=== PATIENT | female | born 1960 | race Caucasian/White ===

== ENCOUNTER 2017-09-29 00:46 | Inpatient (IN) | payer BC ==
[2017-09-29] VITALS (8 sets, daily range): BP systolic 111–145; BP diastolic 49–66
[~2017-09-29] VITALS: Ht 157.5 cm; Wt 95.3 kg
[2017-09-29] MEDS ORDERED: Morphine Sulfate 10mg/ml Inj IVP ONE (01:00)
[2017-09-29] MEDS ORDERED: MINIPRESS1 MG PO (01:01)
[2017-09-29] MEDS ORDERED: ROXICODONE5 MG ORAL (01:01)
[2017-09-29] MEDS ORDERED: CARVEDILOL25 MG ORAL (01:01)
[2017-09-29] MEDS ORDERED: AMLODIPINE BESY10 MG ORAL (01:01)
[2017-09-29] MEDS ORDERED: STARLIX60 MG ORAL (01:01)
[2017-09-29] MEDS ORDERED: ASPIRIN81 MG ORAL (01:01)
[2017-09-29] MEDS ORDERED: FERROUS SULFAT325 MG ORAL (01:01)
[2017-09-29] MEDS ORDERED: ATORVASTATIN CA80 MG ORAL (01:01)
[2017-09-29] MEDS ORDERED: LANTUS SOL100 UNIT/1 SUBQ (01:01)
[2017-09-29] MEDS ORDERED: FUROSEMIDE80 M1 ORAL (01:01)
[2017-09-29] MEDS ORDERED: ISOSORBIDE MONO60 M1 PO (01:01)
[2017-09-29] MEDS ORDERED: POLYETHYLENE GL17 GM ORAL (01:01)
[2017-09-29] MEDS ORDERED: DUONEB 0.5-3(2.53 ML HHN (01:01)
[2017-09-29] MEDS ORDERED: FAMOTIDINE20 MG ORAL (01:01)
[2017-09-29] MEDS ORDERED: TIZANIDINE HCL4 MG ORAL (01:01)
[2017-09-29] MEDS ORDERED: JANUVIA25 MG ORAL (01:01)
[2017-09-29] MEDS ORDERED: LOSARTAN POTASS50 MG ORAL (01:01)
[2017-09-29 01:27] LABS: BASOPHILS % (AUTO) 0.6 % (0.0-2.0); EOSINOPHILS % (AUTO) 10.5 % (0.0-3.0); HEMATOCRIT 31.1 % (37.0-47.0); HEMOGLOBIN 10.4 G/DL (12.0-16.0); LYMPHOCYTES % (AUTO) 10.6 % (20.0-45.0); MEAN CORPUSCULAR VOLUME 84 FL (80-99); MONOCYTES % (AUTO) 8.4 % (1.0-10.0); NEUTROPHILS % (AUTO) 69.9 % (45.0-75.0); PLATELET COUNT 376 K/UL (150-450); RED BLOOD COUNT 3.71 M/UL (4.20-5.40); RED CELL DISTRIBUTION WIDTH 15.9 % (11.6-14.8); WHITE BLOOD COUNT 16.8 K/UL (4.8-10.8)
[2017-09-29 01:36] LABS: ANION GAP 13 mmol/L (5-15); BLOOD UREA NITROGEN 32 mg/dL (7-18); CALCIUM 9.2 MG/DL (8.5-10.1); CARBON DIOXIDE 25 MMOL/L (21-32); CHLORIDE 89 MMOL/L (98-107); CREATININE 4.5 MG/DL (0.55-1.30); POTASSIUM 4.1 MMOL/L (3.5-5.1); SODIUM 126 MMOL/L (136-145)
[2017-09-29 01:49] LABS: ALANINE AMINOTRANSFERASE 67 U/L (12-78); ALBUMIN 1.8 G/DL (3.4-5.0); ALBUMIN/GLOBULIN RATIO 0.3 (1.0-2.7); ALKALINE PHOSPHATASE 401 U/L (46-116); ASPARTATE AMINO TRANSFERASE 73 U/L (15-37); BILIRUBIN,TOTAL 0.5 MG/DL (0.2-1.0); CKMB 1.2 NG/ML (0.0-3.6); CREATINE KINASE 14 U/L (26-308)
[2017-09-29] MEDS ORDERED: Morphine Sulfate 4mg/ml Inj (IV USE ONLY) IVP ONE (02:00)
[2017-09-29] MEDS ORDERED: Enoxaparin 100mg Inj SUBQ ONE (02:00)
--- NOTE | 2017-09-29 02:55 | Emergency Room Report ---
History of Present Illness General Chief Complaint: Chest Pain Source: Patient, Medical Record, EMS Present Illness HPI Is a 57-year-old Bangl[place] female with a history of [address] [facility] in May. She had complicated course with infection of sternal wire. This has to be removed and antibiotics given. Since then she been having chest pain. She said pain got worse in the last 24 hours. No radiation. No fever chills but no nausea no vomiting. Pain is 10 out of 10. Came by EMS from [facility]. She received aspirin. Nothing made it better. Nothing made it worse. Allergies: Coded Allergies: ADHESIVE (Verified Allergy, Unknown, 09/29/17) AMLODIPINE (Verified Allergy, Unknown, 09/29/17) INSULIN ASPART (Verified Allergy, Unknown, 09/29/17) INSULIN LISPRO (Verified Allergy, Unknown, 09/29/17) IODINE (Verified Allergy, Unknown, 09/29/17) PENICILLINS (Verified Allergy, Unknown, 09/29/17) Patient History Past Medical History: see triage record, old chart reviewed, DM, HTN, UT, CAD Past Surgical History: other Pertinent Family History: none Social History: Denies: smoking Last Menstrual Period: none Now: No Immunizations: other Reviewed Nursing Documentation: PMH: Agreed; PSxH: Agreed Nursing Documentation-PMH Hx Hypertension: Yes Hx Diabetes: Yes Review of Systems Eye: Denies: eye pain, blurred vision ENT: Denies: ear pain, nose congestion, throat swelling Respiratory: Denies: cough, shortness of breath Cardiovascular: Reports: chest pain; Denies: palpitations Gastrointestinal: Denies: abdominal pain, diarrhea, nausea, vomiting Musculoskeletal: Denies: back pain, joint pain Skin: Denies: rash Neurological: Denies: headache, numbness Endocrine: Denies: increased thirst, increased urine Hematologic/Lymphatic: Denies: easy bruising All Other Systems: negative except mentioned in HPI Physical Exam Vital Signs Date Time Temp Pulse Resp B/P (MAP) Pulse Ox O2 Delivery O2 Flow Rate FiO2 09/29/17 00:27 98.1 71 18 160/74 98 Nasal Cannula 4.0 98.1 vitals with high blood pressure Sp02 EP Interpretation: reviewed, normal General Appearance: well appearing, no apparent distress, alert, obese Head: normocephalic, atraumatic Eyes: bilateral eye PERRL, bilateral eye EOMI ENT: hearing grossly normal, normal pharynx Neck: full range of motion, supple, no meningismus Respiratory: chest non-tender, lungs clear, normal breath sounds Cardiovascular #1: regular rate, rhythm, no murmur Gastrointestinal: normal bowel sounds, non tender, no mass, no organomegaly, no bruit, non-distended Musculoskeletal: back normal, normal range of motion Neurologic: alert, oriented x3 Psychiatric: mood/affect normal Skin: warm/dry Medical Decision Making Diagnostic Impression: Primary Impression: ACS (acute coronary syndrome) Additional Impressions: Morbid obesity with BMI of 40.0-44.9, adult Anemia Qualified Codes: D64.9 - Anemia, unspecified ESRD on hemodialysis ER Course Patient presents with chest pain. Troponin intermediate. Pain is better controlled now. We will admit for further workup. I discussed case with Dr. Biswas who will admit for Dr. Torres. Lab Results Impression labs unremarkable except for intermediate troponin and elevated WBC EKG Diagnostic Results Rate: normal Rhythm: NSR ST Segments: other - intermediate ventricular conduction delay Rhythm Strip Diag. Results Rhythm Strip Time: 02:55 EP Interpretation: yes Rate: 62 Rhythm: NSR, no PVC's, no ectopy Chest X-Ray Diagnostic Results Chest X-Ray Diagnostic Results : Chest X-Ray Ordered: Yes # of Views/Limited/Complete: 1 View Indication: Chest Pain EP Interpretation: Yes Interpretation: no consolidation, no effusion, no pneumothorax, no acute cardiopulmonary disease Impression: No acute disease Electronically Signed by: Jorge Luis Crane MD Last Vital Signs Date Time Temp Pulse Resp B/P (MAP) Pulse Ox O2 Delivery O2 Flow Rate FiO2 09/29/17 02:09 98.1 09/29/17 01:40 67 14 136/53 99 Room Air 09/29/17 00:46 4.0 Status: improved Disposition: ADMITTED INPATIENT Condition: Serious JORGE LUIS CRANE M.D. Sep 29, 2017 02:55
[2017-09-29] MEDS ORDERED: Miralax 17gm pkt ORAL PRN (07:45)
[2017-09-29] MEDS ORDERED: D5 1/2NS 1,000 ML IV SCH (08:45)
[2017-09-29] MEDS: Heparin 5000 units/ml inj SUBQ SCH (09:00)
[2017-09-29] MEDS: Aspirin Baby 81mg ORAL SCH (10:07)
[2017-09-29] MEDS: Docusate 100mg cap ORAL SCH (10:07)
[2017-09-29 10:11] LABS: BASOPHILS % (AUTO) 0.7 % (0.0-2.0); EOSINOPHILS % (AUTO) 11.3 % (0.0-3.0); HEMATOCRIT 30.5 % (37.0-47.0); HEMOGLOBIN 10.1 G/DL (12.0-16.0); LYMPHOCYTES % (AUTO) 13.5 % (20.0-45.0); MEAN CORPUSCULAR VOLUME 85 FL (80-99); MONOCYTES % (AUTO) 8.8 % (1.0-10.0); NEUTROPHILS % (AUTO) 65.7 % (45.0-75.0); PLATELET COUNT 360 K/UL (150-450); RED BLOOD COUNT 3.59 M/UL (4.20-5.40); RED CELL DISTRIBUTION WIDTH 16.2 % (11.6-14.8); WHITE BLOOD COUNT 17.3 K/UL (4.8-10.8)
[2017-09-29 10:42] LABS: ANION GAP 11 mmol/L (5-15); BLOOD UREA NITROGEN 33 mg/dL (7-18); CALCIUM 9.2 MG/DL (8.5-10.1); CARBON DIOXIDE 24 MMOL/L (21-32); CHLORIDE 90 MMOL/L (98-107); CHOLESTEROL 117 MG/DL (< 200); CREATININE 4.6 MG/DL (0.55-1.30); HDL CHOLESTEROL 48 MG/DL (40-60); POTASSIUM 3.9 MMOL/L (3.5-5.1); SODIUM 125 MMOL/L (136-145); TRIGLYCERIDES 77 MG/DL (30-150)
[2017-09-29 11:32] LABS: % IRON SATURATION 23 % (15-50); IRON 43 ug/dL (50-175); TOTAL IRON BINDING CAPACITY 191 ug/dL (250-450)
[2017-09-29 11:37] LABS: FERRITIN 1688 NG/ML (8-388); LACTATE DEHYDROGENASE 8 U/L (135-225)
--- NOTE | 2017-09-29 14:26 | Consultation ---
History of Present Illness General Date patient seen: Sep 29, 2017 Chief Complaint: Chest Pain Reason for Consultation: abdominal pain, wound infection Present Illness HPI 57 year old female with very complex surgical history presented to ED from alf for worsening SOB. had prior cardiac cabg x2 at [facility] complicated by wound infection and further abdominal infection which required exploration. since she has been in rehab/alf care. states that they are caring for her wounds and unsure of status. upon admission she was noted to have a large abdominal wound that was complex. surgery called to evaluate. patient seen, chart reviewed, patient examined. Allergies: Coded Allergies: ADHESIVE (Verified Allergy, Unknown, 09/29/17) AMLODIPINE (Verified Allergy, Unknown, 09/29/17) INSULIN ASPART (Verified Allergy, Unknown, 09/29/17) INSULIN LISPRO (Verified Allergy, Unknown, 09/29/17) IODINE (Verified Allergy, Unknown, 09/29/17) PENICILLINS (Verified Allergy, Unknown, 09/29/17) Medication History Scheduled Amlodipine Besylate* (Amlodipine Besylate*), 10 MG ORAL DAILY, (Reported) Aspirin* (Aspirin*), 81 MG ORAL DAILY, (Reported) Atorvastatin Calcium* (Lipitor*), 80 MG ORAL BEDTIME, (Reported) Carvedilol* (Carvedilol*), 25 MG ORAL EVERY 12 HOURS, (Reported) Famotidine (Famotidine), 20 MG ORAL DAILY, (Reported) Ferrous Sulfate* (Ferrous Sulfate*), 325 MG ORAL DAILY, (Reported) Furosemide* (Lasix*), 80 MG ORAL BIDAC, (Reported) Insulin Glargine (Lantus), 0 SUBQ BEDTIME, (Reported) Losartan Potassium* (Losartan Potassium*), 50 MG ORAL BID, (Reported) Nateglinide* (Starlix*), 120 MG ORAL THREE TIMES A DAY, (Reported) Sitagliptin* (Januvia*), 25 MG ORAL DAILY, (Reported) Tizanidine Hcl* (Zanaflex*), 2 MG ORAL EVERY 8 HOURS, (Reported) Scheduled PRN Oxycodone HCl (Oxycodone HCl), 5 MG ORAL Q6HR PRN for For Pain, (Reported) Polyethylene Glycol 3350* (Polyethylene Glycol 3350*), 17 GM ORAL BEDTIME PRN for Constipation, (Reported) Miscellaneous Medications Ipratropium/Albuterol Sulfate (DuoNeb 0.5-3(2.5)mg/3ml), 3 ML HHN, (Reported) Isosorbide Mononitrate (Isosorbide Mononitrate Er), 60 MG PO, (Reported) Prazosin Hcl* (Minipress*), 2 MG PO, (Reported) Patient History History Provided By: Patient, Medical Record, PMD Healthcare decision maker Resuscitation status Full Code Advanced Directive on File Past Medical/Surgical History Past Medical/Surgical History: (1) Abdominal wall abscess at site of surgical wound (2) Open abdominal wall wound (3) Wound, open, abdominal wall, anterior with complication (4) Anemia (5) ESRD on hemodialysis (6) Morbid obesity with BMI of 40.0-44.9, adult (7) ACS (acute coronary syndrome) (8) Chest pain Review of Systems All Other Systems: negative except mentioned in HPI Physical Exam General Appearance: no apparent distress Lines, tubes and drains: peripheral HEENT: mucous membranes moist Neck: supple, normal inspection Respiratory/Chest: chest wall non-tender, lungs clear, other - prior sternal wound healing, left HD cath Cardiovascular/Chest: normal rate Abdomen: soft, guarding, tender, other - large epigastric wound with significant tissue and epidermal loss, tracking down past my finger length , and up as well as lateral. murky drainage Extremities: normal inspection Skin Exam: warm/dry Neurologic: alert, oriented x 3 Last 24 Hour Vital Signs Date Time Temp Pulse Resp B/P (MAP) Pulse Ox O2 Delivery O2 Flow Rate FiO2 09/29/17 12:00 64 09/29/17 08:00 65 09/29/17 08:00 97.8 20 126/60 (82) 96 97.8 09/29/17 05:56 Room Air 09/29/17 05:00 98.5 65 13 111/49 100 Room Air 98.5 09/29/17 04:38 98.5 65 13 111/49 100 Room Air 98.5 09/29/17 03:21 62 12 138/58 100 Nasal Cannula 2.0 09/29/17 03:08 98.1 09/29/17 02:09 98.1 09/29/17 01:40 98.1 09/29/17 01:40 97.9 67 14 136/53 99 Room Air 97.9 09/29/17 01:03 98.1 09/29/17 00:46 71 18 Nasal Cannula 4.0 09/29/17 00:27 98.1 71 18 160/74 98 Nasal Cannula 4.0 98.1 Laboratory Tests Test 09/29/17 01:00 09/29/17 09:40 White Blood Count 16.8 K/UL (4.8-10.8) H 17.3 K/UL (4.8-10.8) H Red Blood Count 3.71 M/UL (4.20-5.40) L 3.59 M/UL (4.20-5.40) L Hemoglobin 10.4 G/DL (12.0-16.0) L 10.1 G/DL (12.0-16.0) L Hematocrit 31.1 % (37.0-47.0) L 30.5 % (37.0-47.0) L Mean Corpuscular Volume 84 FL (80-99) 85 FL (80-99) Mean Corpuscular Hemoglobin 28.1 PG (27.0-31.0) 28.0 PG (27.0-31.0) Mean Corpuscular Hemoglobin Concent 33.5 G/DL (32.0-36.0) 33.0 G/DL (32.0-36.0) Red Cell Distribution Width 15.9 % (11.6-14.8) H 16.2 % (11.6-14.8) H Platelet Count 376 K/UL (150-450) 360 K/UL (150-450) Mean Platelet Volume 4.1 FL (6.5-10.1) L 4.1 FL (6.5-10.1) L Neutrophils (%) (Auto) 69.9 % (45.0-75.0) 65.7 % (45.0-75.0) Lymphocytes (%) (Auto) 10.6 % (20.0-45.0) L 13.5 % (20.0-45.0) L Monocytes (%) (Auto) 8.4 % (1.0-10.0) 8.8 % (1.0-10.0) Eosinophils (%) (Auto) 10.5 % (0.0-3.0) H 11.3 % (0.0-3.0) H Basophils (%) (Auto) 0.6 % (0.0-2.0) 0.7 % (0.0-2.0) Sodium Level 126 MMOL/L (136-145) L 125 MMOL/L (136-145) L Potassium Level 4.1 MMOL/L (3.5-5.1) 3.9 MMOL/L (3.5-5.1) Chloride Level 89 MMOL/L (98-107) L 90 MMOL/L (98-107) L Carbon Dioxide Level 25 MMOL/L (21-32) 24 MMOL/L (21-32) Anion Gap 13 mmol/L (5-15) 11 mmol/L (5-15) Blood Urea Nitrogen 32 mg/dL (7-18) H 33 mg/dL (7-18) H Creatinine 4.5 MG/DL (0.55-1.30) H 4.6 MG/DL (0.55-1.30) H Estimat Glomerular Filtration Rate 10.0 mL/min (>60) 9.8 mL/min (>60) Glucose Level 102 MG/DL (74-106) 81 MG/DL (74-106) Calcium Level 9.2 MG/DL (8.5-10.1) 9.2 MG/DL (8.5-10.1) Total Bilirubin 0.5 MG/DL (0.2-1.0) Aspartate Amino Transf (AST/SGOT) 73 U/L (15-37) H Alanine Aminotransferase (ALT/SGPT) 67 U/L (12-78) Alkaline Phosphatase 401 U/L (46-116) H Total Creatine Kinase 14 U/L (26-308) L Creatine Kinase MB 1.2 NG/ML (0.0-3.6) Creatine Kinase MB Relative Index 8.5 Troponin I 0.105 ng/mL (0.000-0.056) 0.082 ng/mL (0.000-0.056) Total Protein 7.7 G/DL (6.4-8.2) Albumin 1.8 G/DL (3.4-5.0) L Globulin 5.9 g/dL Albumin/Globulin Ratio 0.3 (1.0-2.7) L Differential Total Cells Counted 100 Neutrophils % (Manual) 73 % (45-75) Lymphocytes % (Manual) 9 % (20-45) L Monocytes % (Manual) 6 % (1-10) Eosinophils % (Manual) 12 % (0-3) H Basophils % (Manual) 0 % (0-2) Band Neutrophils 0 % (0-8) Other Cell Type Pathologist comment Platelet Estimate Adequate Platelet Morphology Normal Anisocytosis 1+ Blister Cells 1+ Christelle Cells 1+ Fibrinogen 706 mg/dL (200-400) H Hemoglobin A1c 5.9 % (4.3-6.0) Magnesium Level 1.8 MG/DL (1.8-2.4) Iron Level 43 ug/dL (50-175) L Total Iron Binding Capacity 191 ug/dL (250-450) L Percent Iron Saturation 23 % (15-50) Unsaturated Iron Binding 148 ug/dL (112-346) Soluble Transferrin Receptor Pending Ferritin 1688 NG/ML (8-388) H Lactate Dehydrogenase 8 U/L (135-225) L Pro-B-Type Natriuretic Peptide 23298 pg/mL (0-125) H Triglycerides Level 77 MG/DL (30-150) Cholesterol Level 117 MG/DL (< 200) LDL Cholesterol 54 mg/dL (<100) HDL Cholesterol 48 MG/DL (40-60) Cholesterol/HDL Ratio 2.4 (3.3-4.4) L Vitamin B12 Level 1966 PG/ML (193-986) H Folate 36.6 NG/ML (8.6-58.9) Thyroid Stimulating Hormone (TSH) 1.837 uiU/mL (0.358-3.740) Height (Feet): 5 Height (Inches): 2.00 Weight (Pounds): 219 Medications Current Medications Medications (Trade) Dose Ordered Sig/Fidelia Route PRN Reason Start Time Stop Time Status Last Admin Dose Admin Acetaminophen (Tylenol) 650 mg Q4H PRN ORAL Mild Pain (Pain Scale 1-3) 09/29/17 07:45 10/29/17 07:44 Acetaminophen (Tylenol) 650 mg Q4H PRN ORAL fever 09/29/17 07:45 10/29/17 07:44 Aspirin (ASA) 81 mg DAILY ORAL 09/29/17 09:00 10/29/17 08:59 09/29/17 10:07 Atorvastatin Calcium (Lipitor) 80 mg BEDTIME ORAL 09/29/17 21:00 10/29/17 20:59 Bisacodyl (Dulcolax) 10 mg HSPRN PRN RECTAL Constipation 09/29/17 07:45 10/29/17 07:44 Dextrose (Dextrose 50%) 25 ml STAT PRN IV Hypoglycemia 09/29/17 07:45 10/29/17 07:44 Dextrose (Dextrose 50%) 50 ml STAT PRN IV Hypoglycemia 09/29/17 07:45 10/29/17 07:44 Docusate Sodium (Colace) 100 mg EVERY 12 HOURS ORAL 09/29/17 09:00 10/29/17 08:59 09/29/17 10:07 Heparin Sodium (Porcine) (Heparin 5000 units/ml) 5,000 units EVERY 12 HOURS SUBQ 09/29/17 09:00 10/29/17 08:59 Ondansetron HCl (Zofran) 4 mg Q6H PRN IVP Nausea & Vomiting 09/29/17 07:45 10/29/17 07:44 Polyethylene Glycol (Miralax) 17 gm HSPRN PRN ORAL Constipation 09/29/17 07:45 10/29/17 07:44 Assessment/Plan Problem List: (1) Open abdominal wall wound ICD Codes: S31.109A - Unspecified open wound of abdominal wall, unspecified quadrant without penetration into peritoneal cavity, initial encounter SNOMED: 866985791 Qualifiers: Qualified Codes: S31.109A - Unspecified open wound of abdominal wall, unspecified quadrant without penetration into peritoneal cavity, initial encounter (2) Abdominal wall abscess at site of surgical wound ICD Codes: T81.4XXA - Infection following a procedure, initial encounter SNOMED: 382220540 (3) Wound, open, abdominal wall, anterior with complication Assessment & Plan: large prior abdominal surgical wound that in portions skin has come together but underlying large area of open fluid collection with possible pockets of abscess. larger epigastric wound seems to connect with lower aspect small wound. lots of murky fluid evacuated, wound deep and tracking in all directions. per patient they have only been placing a small cover on wounds and no packing has been performed. had wound VAC prior but only for 3 days as per patient. I fear that there is something much larger and more serious going underneath the skin and with drainage and looks of wound they are only worsening. CT scan A/P NON contrast pack wounds with gauze and cover with dressings TID will follow with recs as labs and tests completed thank you for this consultation ICD Codes: S31.109A - Unspecified open wound of abdominal wall, unspecified quadrant without penetration into peritoneal cavity, initial encounter SNOMED: 022904522 Qualifiers: Qualified Codes: S31.109A - Unspecified open wound of abdominal wall, unspecified quadrant without penetration into peritoneal cavity, initial encounter Status: unchanged Darrius Figueredo Sep 29, 2017 14:26
[2017-09-29] MEDS ORDERED: Gastrograffin 30ml ORAL PRN (14:31)
--- NOTE | 2017-09-29 14:48 | Infectious Diseases Prog Note ---
Assessment/Plan Assessment/Plan Full consult dictated: A) 1) abdominal wall wound infection/abscess, ? deeper infection, sepsis, leukocytosis 2) s/p cabg, was in rehab 3) esrd, hd, dm, cad, htn 4) allergies - pnc P) 1) vancomycin, aztreonam, flagyl 2) check CT abdomen and pelvis, check wound cultures, labs and blood cultures 3) surgery f/u 4) thank you Subjective Allergies: Coded Allergies: ADHESIVE (Verified Allergy, Unknown, 09/29/17) AMLODIPINE (Verified Allergy, Unknown, 09/29/17) INSULIN ASPART (Verified Allergy, Unknown, 09/29/17) INSULIN LISPRO (Verified Allergy, Unknown, 09/29/17) IODINE (Verified Allergy, Unknown, 09/29/17) PENICILLINS (Verified Allergy, Unknown, 09/29/17) Objective Vital Signs Last 24 Hour Vital Signs Date Time Temp Pulse Resp B/P (MAP) Pulse Ox O2 Delivery O2 Flow Rate FiO2 09/29/17 12:00 64 09/29/17 08:00 65 09/29/17 08:00 97.8 20 126/60 (82) 96 97.8 09/29/17 05:56 Room Air 09/29/17 05:00 98.5 65 13 111/49 100 Room Air 98.5 09/29/17 04:38 98.5 65 13 111/49 100 Room Air 98.5 09/29/17 03:21 62 12 138/58 100 Nasal Cannula 2.0 09/29/17 03:08 98.1 09/29/17 02:09 98.1 09/29/17 01:40 98.1 09/29/17 01:40 97.9 67 14 136/53 99 Room Air 97.9 09/29/17 01:03 98.1 09/29/17 00:46 71 18 Nasal Cannula 4.0 09/29/17 00:27 98.1 71 18 160/74 98 Nasal Cannula 4.0 98.1 Height (Feet): 5 Height (Inches): 2.00 Weight (Pounds): 219 Laboratory Tests Test 09/29/17 01:00 09/29/17 09:40 White Blood Count 16.8 K/UL (4.8-10.8) H 17.3 K/UL (4.8-10.8) H Red Blood Count 3.71 M/UL (4.20-5.40) L 3.59 M/UL (4.20-5.40) L Hemoglobin 10.4 G/DL (12.0-16.0) L 10.1 G/DL (12.0-16.0) L Hematocrit 31.1 % (37.0-47.0) L 30.5 % (37.0-47.0) L Mean Corpuscular Volume 84 FL (80-99) 85 FL (80-99) Mean Corpuscular Hemoglobin 28.1 PG (27.0-31.0) 28.0 PG (27.0-31.0) Mean Corpuscular Hemoglobin Concent 33.5 G/DL (32.0-36.0) 33.0 G/DL (32.0-36.0) Red Cell Distribution Width 15.9 % (11.6-14.8) H 16.2 % (11.6-14.8) H Platelet Count 376 K/UL (150-450) 360 K/UL (150-450) Mean Platelet Volume 4.1 FL (6.5-10.1) L 4.1 FL (6.5-10.1) L Neutrophils (%) (Auto) 69.9 % (45.0-75.0) 65.7 % (45.0-75.0) Lymphocytes (%) (Auto) 10.6 % (20.0-45.0) L 13.5 % (20.0-45.0) L Monocytes (%) (Auto) 8.4 % (1.0-10.0) 8.8 % (1.0-10.0) Eosinophils (%) (Auto) 10.5 % (0.0-3.0) H 11.3 % (0.0-3.0) H Basophils (%) (Auto) 0.6 % (0.0-2.0) 0.7 % (0.0-2.0) Sodium Level 126 MMOL/L (136-145) L 125 MMOL/L (136-145) L Potassium Level 4.1 MMOL/L (3.5-5.1) 3.9 MMOL/L (3.5-5.1) Chloride Level 89 MMOL/L (98-107) L 90 MMOL/L (98-107) L Carbon Dioxide Level 25 MMOL/L (21-32) 24 MMOL/L (21-32) Anion Gap 13 mmol/L (5-15) 11 mmol/L (5-15) Blood Urea Nitrogen 32 mg/dL (7-18) H 33 mg/dL (7-18) H Creatinine 4.5 MG/DL (0.55-1.30) H 4.6 MG/DL (0.55-1.30) H Estimat Glomerular Filtration Rate 10.0 mL/min (>60) 9.8 mL/min (>60) Glucose Level 102 MG/DL (74-106) 81 MG/DL (74-106) Calcium Level 9.2 MG/DL (8.5-10.1) 9.2 MG/DL (8.5-10.1) Total Bilirubin 0.5 MG/DL (0.2-1.0) Aspartate Amino Transf (AST/SGOT) 73 U/L (15-37) H Alanine Aminotransferase (ALT/SGPT) 67 U/L (12-78) Alkaline Phosphatase 401 U/L (46-116) H Total Creatine Kinase 14 U/L (26-308) L Creatine Kinase MB 1.2 NG/ML (0.0-3.6) Creatine Kinase MB Relative Index 8.5 Troponin I 0.105 ng/mL (0.000-0.056) 0.082 ng/mL (0.000-0.056) Total Protein 7.7 G/DL (6.4-8.2) Albumin 1.8 G/DL (3.4-5.0) L Globulin 5.9 g/dL Albumin/Globulin Ratio 0.3 (1.0-2.7) L Differential Total Cells Counted 100 Neutrophils % (Manual) 73 % (45-75) Lymphocytes % (Manual) 9 % (20-45) L Monocytes % (Manual) 6 % (1-10) Eosinophils % (Manual) 12 % (0-3) H Basophils % (Manual) 0 % (0-2) Band Neutrophils 0 % (0-8) Other Cell Type Pathologist comment Platelet Estimate Adequate Platelet Morphology Normal Anisocytosis 1+ Blister Cells 1+ Belle Cells 1+ Fibrinogen 706 mg/dL (200-400) H Hemoglobin A1c 5.9 % (4.3-6.0) Magnesium Level 1.8 MG/DL (1.8-2.4) Iron Level 43 ug/dL (50-175) L Total Iron Binding Capacity 191 ug/dL (250-450) L Percent Iron Saturation 23 % (15-50) Unsaturated Iron Binding 148 ug/dL (112-346) Soluble Transferrin Receptor Pending Ferritin 1688 NG/ML (8-388) H Lactate Dehydrogenase 8 U/L (135-225) L Pro-B-Type Natriuretic Peptide 35238 pg/mL (0-125) H Triglycerides Level 77 MG/DL (30-150) Cholesterol Level 117 MG/DL (< 200) LDL Cholesterol 54 mg/dL (<100) HDL Cholesterol 48 MG/DL (40-60) Cholesterol/HDL Ratio 2.4 (3.3-4.4) L Vitamin B12 Level 1966 PG/ML (193-986) H Folate 36.6 NG/ML (8.6-58.9) Thyroid Stimulating Hormone (TSH) 1.837 uiU/mL (0.358-3.740) Current Medications Medications (Trade) Dose Ordered Sig/Fidelia Route PRN Reason Start Time Stop Time Status Last Admin Dose Admin Acetaminophen (Tylenol) 650 mg Q4H PRN ORAL Mild Pain (Pain Scale 1-3) 09/29/17 07:45 10/29/17 07:44 Acetaminophen (Tylenol) 650 mg Q4H PRN ORAL fever 09/29/17 07:45 10/29/17 07:44 Aspirin (ASA) 81 mg DAILY ORAL 09/29/17 09:00 10/29/17 08:59 09/29/17 10:07 Atorvastatin Calcium (Lipitor) 80 mg BEDTIME ORAL 09/29/17 21:00 10/29/17 20:59 Bisacodyl (Dulcolax) 10 mg HSPRN PRN RECTAL Constipation 09/29/17 07:45 10/29/17 07:44 Dextrose (Dextrose 50%) 25 ml STAT PRN IV Hypoglycemia 09/29/17 07:45 10/29/17 07:44 Dextrose (Dextrose 50%) 50 ml STAT PRN IV Hypoglycemia 09/29/17 07:45 10/29/17 07:44 Diatrizoate Meglum/ Diatrizoate Sod (Gastrografin) 30 ml NOW PRN ORAL Radiology Procedure 09/29/17 14:31 09/29/17 23:59 Docusate Sodium (Colace) 100 mg EVERY 12 HOURS ORAL 09/29/17 09:00 10/29/17 08:59 09/29/17 10:07 Heparin Sodium (Porcine) (Heparin 5000 units/ml) 5,000 units EVERY 12 HOURS SUBQ 09/29/17 09:00 10/29/17 08:59 Ondansetron HCl (Zofran) 4 mg Q6H PRN IVP Nausea & Vomiting 09/29/17 07:45 10/29/17 07:44 Polyethylene Glycol (Miralax) 17 gm HSPRN PRN ORAL Constipation 09/29/17 07:45 10/29/17 07:44 Jenniffer Strickland MD Sep 29, 2017 14:48
--- NOTE | 2017-09-29 15:04 | History and Physical ---
History of Present Illness General Date patient seen: Sep 29, 2017 Time patient seen: 15:01 Reason for Hospitalization: Chest Pain Present Illness HPI This is a 57 y/o female with a PMH of ESRD on HD, morbid obesity, DM, and recent 2V CABG in May 2017 at [facility] c/b stent infection and removal s/p IV abx who presented from [facility] for chest pain. Per , patient has been having sustained feeling of chest pressure for the last several days that has been progressively worsening. also states that patient has been in the hospital or rehab for the last several months and recently started dialysis 3 months ago. Patient has been receiving abdominal wound care at [facility] but the wound has been progressively worsening per family. In the ED, patient's EKG did not show any acute ST changes and initial troponin was negative. Patient's vitals were stable and patient was further admitted to [facility]. At this time, patient continues to report feeling of chest pressure. Also reports abdominal pain from wound infection. Denies n/v, f/c, headaches, sob. Allergies: Coded Allergies: ADHESIVE (Verified Allergy, Unknown, 09/29/17) AMLODIPINE (Verified Allergy, Unknown, 09/29/17) INSULIN ASPART (Verified Allergy, Unknown, 09/29/17) INSULIN LISPRO (Verified Allergy, Unknown, 09/29/17) IODINE (Verified Allergy, Unknown, 09/29/17) PENICILLINS (Verified Allergy, Unknown, 09/29/17) Medication History Scheduled Amlodipine Besylate* (Amlodipine Besylate*), 10 MG ORAL DAILY, (Reported) Aspirin* (Aspirin*), 81 MG ORAL DAILY, (Reported) Atorvastatin Calcium* (Lipitor*), 80 MG ORAL BEDTIME, (Reported) Carvedilol* (Carvedilol*), 25 MG ORAL EVERY 12 HOURS, (Reported) Famotidine (Famotidine), 20 MG ORAL DAILY, (Reported) Ferrous Sulfate* (Ferrous Sulfate*), 325 MG ORAL DAILY, (Reported) Furosemide* (Lasix*), 80 MG ORAL BIDAC, (Reported) Insulin Glargine (Lantus), 0 SUBQ BEDTIME, (Reported) Losartan Potassium* (Losartan Potassium*), 50 MG ORAL BID, (Reported) Nateglinide* (Starlix*), 120 MG ORAL THREE TIMES A DAY, (Reported) Sitagliptin* (Januvia*), 25 MG ORAL DAILY, (Reported) Tizanidine Hcl* (Zanaflex*), 2 MG ORAL EVERY 8 HOURS, (Reported) Scheduled PRN Oxycodone HCl (Oxycodone HCl), 5 MG ORAL Q6HR PRN for For Pain, (Reported) Polyethylene Glycol 3350* (Polyethylene Glycol 3350*), 17 GM ORAL BEDTIME PRN for Constipation, (Reported) Miscellaneous Medications Ipratropium/Albuterol Sulfate (DuoNeb 0.5-3(2.5)mg/3ml), 3 ML HHN, (Reported) Isosorbide Mononitrate (Isosorbide Mononitrate Er), 60 MG PO, (Reported) Prazosin Hcl* (Minipress*), 2 MG PO, (Reported) Patient History Healthcare decision maker Resuscitation status Full Code Advanced Directive on File Review of Systems All Other Systems: negative except mentioned in HPI Physical Exam General Appearance: alert, morbidly obese HEENT: normocephalic, atraumatic Neck: non-tender, normal alignment, supple Respiratory/Chest: chest wall non-tender, lungs clear, normal breath sounds Cardiovascular/Chest: normal peripheral pulses, normal rate, regular rhythm Abdomen: other - large open wound to abdomen 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 grossly normal, alert, other - generalized weakness Last 24 Hour Vital Signs Date Time Temp Pulse Resp B/P (MAP) Pulse Ox O2 Delivery O2 Flow Rate FiO2 09/29/17 12:00 64 09/29/17 08:00 65 09/29/17 08:00 97.8 20 126/60 (82) 96 97.8 09/29/17 05:56 Room Air 09/29/17 05:00 98.5 65 13 111/49 100 Room Air 98.5 09/29/17 04:38 98.5 65 13 111/49 100 Room Air 98.5 09/29/17 03:21 62 12 138/58 100 Nasal Cannula 2.0 09/29/17 03:08 98.1 09/29/17 02:09 98.1 09/29/17 01:40 98.1 09/29/17 01:40 97.9 67 14 136/53 99 Room Air 97.9 09/29/17 01:03 98.1 09/29/17 00:46 71 18 Nasal Cannula 4.0 09/29/17 00:27 98.1 71 18 160/74 98 Nasal Cannula 4.0 98.1 Laboratory Tests Test 09/29/17 01:00 09/29/17 09:40 White Blood Count 16.8 K/UL (4.8-10.8) H 17.3 K/UL (4.8-10.8) H Red Blood Count 3.71 M/UL (4.20-5.40) L 3.59 M/UL (4.20-5.40) L Hemoglobin 10.4 G/DL (12.0-16.0) L 10.1 G/DL (12.0-16.0) L Hematocrit 31.1 % (37.0-47.0) L 30.5 % (37.0-47.0) L Mean Corpuscular Volume 84 FL (80-99) 85 FL (80-99) Mean Corpuscular Hemoglobin 28.1 PG (27.0-31.0) 28.0 PG (27.0-31.0) Mean Corpuscular Hemoglobin Concent 33.5 G/DL (32.0-36.0) 33.0 G/DL (32.0-36.0) Red Cell Distribution Width 15.9 % (11.6-14.8) H 16.2 % (11.6-14.8) H Platelet Count 376 K/UL (150-450) 360 K/UL (150-450) Mean Platelet Volume 4.1 FL (6.5-10.1) L 4.1 FL (6.5-10.1) L Neutrophils (%) (Auto) 69.9 % (45.0-75.0) 65.7 % (45.0-75.0) Lymphocytes (%) (Auto) 10.6 % (20.0-45.0) L 13.5 % (20.0-45.0) L Monocytes (%) (Auto) 8.4 % (1.0-10.0) 8.8 % (1.0-10.0) Eosinophils (%) (Auto) 10.5 % (0.0-3.0) H 11.3 % (0.0-3.0) H Basophils (%) (Auto) 0.6 % (0.0-2.0) 0.7 % (0.0-2.0) Sodium Level 126 MMOL/L (136-145) L 125 MMOL/L (136-145) L Potassium Level 4.1 MMOL/L (3.5-5.1) 3.9 MMOL/L (3.5-5.1) Chloride Level 89 MMOL/L (98-107) L 90 MMOL/L (98-107) L Carbon Dioxide Level 25 MMOL/L (21-32) 24 MMOL/L (21-32) Anion Gap 13 mmol/L (5-15) 11 mmol/L (5-15) Blood Urea Nitrogen 32 mg/dL (7-18) H 33 mg/dL (7-18) H Creatinine 4.5 MG/DL (0.55-1.30) H 4.6 MG/DL (0.55-1.30) H Estimat Glomerular Filtration Rate 10.0 mL/min (>60) 9.8 mL/min (>60) Glucose Level 102 MG/DL (74-106) 81 MG/DL (74-106) Calcium Level 9.2 MG/DL (8.5-10.1) 9.2 MG/DL (8.5-10.1) Total Bilirubin 0.5 MG/DL (0.2-1.0) Aspartate Amino Transf (AST/SGOT) 73 U/L (15-37) H Alanine Aminotransferase (ALT/SGPT) 67 U/L (12-78) Alkaline Phosphatase 401 U/L (46-116) H Total Creatine Kinase 14 U/L (26-308) L Creatine Kinase MB 1.2 NG/ML (0.0-3.6) Creatine Kinase MB Relative Index 8.5 Troponin I 0.105 ng/mL (0.000-0.056) 0.082 ng/mL (0.000-0.056) Total Protein 7.7 G/DL (6.4-8.2) Albumin 1.8 G/DL (3.4-5.0) L Globulin 5.9 g/dL Albumin/Globulin Ratio 0.3 (1.0-2.7) L Differential Total Cells Counted 100 Neutrophils % (Manual) 73 % (45-75) Lymphocytes % (Manual) 9 % (20-45) L Monocytes % (Manual) 6 % (1-10) Eosinophils % (Manual) 12 % (0-3) H Basophils % (Manual) 0 % (0-2) Band Neutrophils 0 % (0-8) Other Cell Type Pathologist comment Platelet Estimate Adequate Platelet Morphology Normal Anisocytosis 1+ Blister Cells 1+ Frederick Cells 1+ Fibrinogen 706 mg/dL (200-400) H Hemoglobin A1c 5.9 % (4.3-6.0) Magnesium Level 1.8 MG/DL (1.8-2.4) Iron Level 43 ug/dL (50-175) L Total Iron Binding Capacity 191 ug/dL (250-450) L Percent Iron Saturation 23 % (15-50) Unsaturated Iron Binding 148 ug/dL (112-346) Soluble Transferrin Receptor Pending Ferritin 1688 NG/ML (8-388) H Lactate Dehydrogenase 8 U/L (135-225) L Pro-B-Type Natriuretic Peptide 13845 pg/mL (0-125) H Triglycerides Level 77 MG/DL (30-150) Cholesterol Level 117 MG/DL (< 200) LDL Cholesterol 54 mg/dL (<100) HDL Cholesterol 48 MG/DL (40-60) Cholesterol/HDL Ratio 2.4 (3.3-4.4) L Vitamin B12 Level 1966 PG/ML (193-986) H Folate 36.6 NG/ML (8.6-58.9) Thyroid Stimulating Hormone (TSH) 1.837 uiU/mL (0.358-3.740) Height (Feet): 5 Height (Inches): 2.00 Weight (Pounds): 219 Medications Current Medications Medications (Trade) Dose Ordered Sig/Fidelia Route PRN Reason Start Time Stop Time Status Last Admin Dose Admin Acetaminophen (Tylenol) 650 mg Q4H PRN ORAL Mild Pain (Pain Scale 1-3) 09/29/17 07:45 10/29/17 07:44 Acetaminophen (Tylenol) 650 mg Q4H PRN ORAL fever 09/29/17 07:45 10/29/17 07:44 Aspirin (ASA) 81 mg DAILY ORAL 09/29/17 09:00 10/29/17 08:59 09/29/17 10:07 Atorvastatin Calcium (Lipitor) 80 mg BEDTIME ORAL 09/29/17 21:00 10/29/17 20:59 Aztreonam 1 gm/ Dextrose 55 ml @ 110 mls/hr Q12HR IVPB 09/29/17 21:00 10/06/17 20:59 UNV Bisacodyl (Dulcolax) 10 mg HSPRN PRN RECTAL Constipation 09/29/17 07:45 10/29/17 07:44 Dextrose (Dextrose 50%) 25 ml STAT PRN IV Hypoglycemia 09/29/17 07:45 10/29/17 07:44 Dextrose (Dextrose 50%) 50 ml STAT PRN IV Hypoglycemia 09/29/17 07:45 10/29/17 07:44 Diatrizoate Meglum/ Diatrizoate Sod (Gastrografin) 30 ml NOW PRN ORAL Radiology Procedure 09/29/17 14:31 09/29/17 23:59 Docusate Sodium (Colace) 100 mg EVERY 12 HOURS ORAL 09/29/17 09:00 10/29/17 08:59 09/29/17 10:07 Heparin Sodium (Porcine) (Heparin 5000 units/ml) 5,000 units EVERY 12 HOURS SUBQ 09/29/17 09:00 10/29/17 08:59 Metronidazole 100 ml @ 100 mls/hr Q8HR IVPB 09/29/17 22:00 10/06/17 21:59 UNV Ondansetron HCl (Zofran) 4 mg Q6H PRN IVP Nausea & Vomiting 09/29/17 07:45 10/29/17 07:44 Polyethylene Glycol (Miralax) 17 gm HSPRN PRN ORAL Constipation 09/29/17 07:45 10/29/17 07:44 Vancomycin HCl (Vanco rx to dose) 1 ea DAILY PRN MISC Per rx protocol 09/29/17 14:45 10/29/17 14:44 Vancomycin HCl/ Dextrose 250 ml @ 166.667 mls/hr ONCE IVPB 09/29/17 16:00 09/29/17 18:00 Assessment/Plan Problem List: (1) Sepsis ICD Codes: A41.9 - Sepsis, unspecified organism SNOMED: 13532183 (2) Anemia ICD Codes: D64.9 - Anemia, unspecified SNOMED: 198798103, 850821859 Qualifiers: Qualified Codes: D64.9 - Anemia, unspecified (3) ESRD on hemodialysis ICD Codes: N18.6 - End stage renal disease; Z99.2 - Dependence on renal dialysis SNOMED: 039910274, 97871601 (4) Morbid obesity with BMI of 40.0-44.9, adult ICD Codes: E66.01 - Morbid (severe) obesity due to excess calories; Z68.41 - Body mass index (BMI) 40.0-44.9, adult SNOMED: 157742395, 993358402 (5) Chest pain ICD Codes: R07.9 - Chest pain, unspecified SNOMED: 87745165 (6) Wound, open, abdominal wall, anterior with complication ICD Codes: S31.109A - Unspecified open wound of abdominal wall, unspecified quadrant without penetration into peritoneal cavity, initial encounter SNOMED: 681155784 Qualifiers: Qualified Codes: S31.109A - Unspecified open wound of abdominal wall, unspecified quadrant without penetration into peritoneal cavity, initial encounter (7) Abdominal wall abscess at site of surgical wound ICD Codes: T81.4XXA - Infection following a procedure, initial encounter SNOMED: 807464259 (8) Open abdominal wall wound ICD Codes: S31.109A - Unspecified open wound of abdominal wall, unspecified quadrant without penetration into peritoneal cavity, initial encounter SNOMED: 983977257 Qualifiers: Qualified Codes: S31.109A - Unspecified open wound of abdominal wall, unspecified quadrant without penetration into peritoneal cavity, initial encounter (9) Hypokalemia ICD Codes: E87.6 - Hypokalemia SNOMED: 16808017 (10) Hyponatremia ICD Codes: E87.1 - Hypo-osmolality and hyponatremia SNOMED: 01506461 Status: stable, progressing Assessment/Plan Assessment: 1. Chest pain 2. h/o recent 2V CABG c/b stent infection s/p stent removal and abx 3. Open wound to chest/abdomen s/p stent removal 4. Sepsis 5. ESRD on HD (M/F) 6. DM 7. HTN Plan: - Cardiology, general surgery, nephrology, and ID consulted - F/u CT a/p to visualize extent of abscess - Trend EKG/trops -- r/o ACS. - Check ECHO and venous duplex - IV vancomycin and flagyl per ID (D1) - HD per nephro (M/F). HD today. - Continue home meds. - Continue humulin R for SSi - Check A1c - Monitor electrolytes and replete - Monitor CBC - Wound care - PT/OT DVT Prophylaxis: SCD, HSQ Code Status: Full Hospital Classification Declaration: Based on this initial evaluation, and depending on the patient's clinical course, I anticipate that this patient will require hospitalization for 3-5 days for sepsis, chest pain and close respiratory/hemodynamic monitoring. Disposition: Once the patient is stable to leave the hospital, I anticipate the patient will likely be discharged to the following environment: [facility] I spent 72 minutes on this patient's case, and 42 minutes were dedicated to counseling and/or care coordination. Discussed with patient/family, nursing staff, SW/CM, and all consultants as above regarding clinical status, treatment course, and disposition planning. Time of note may not reflect time of encounter. Jennifer Robles NP Sep 29, 2017 15:04
--- NOTE | 2017-09-29 15:23 | Consultation ---
History of Present Illness General Date patient seen: Sep 29, 2017 Chief Complaint: Chest Pain Reason for Consultation: abdominal pain, wound infection Present Illness HPI Patient presents with abdominal and flank pain. She had prior cardiac cabg x2 at [facility] complicated by wound infection and further abdominal infection. Troponin elevated in setting of ESRD. Currently no CP/SOB. Allergies: Coded Allergies: ADHESIVE (Verified Allergy, Unknown, 09/29/17) AMLODIPINE (Verified Allergy, Unknown, 09/29/17) INSULIN ASPART (Verified Allergy, Unknown, 09/29/17) INSULIN LISPRO (Verified Allergy, Unknown, 09/29/17) IODINE (Verified Allergy, Unknown, 09/29/17) PENICILLINS (Verified Allergy, Unknown, 09/29/17) Medication History Scheduled Amlodipine Besylate* (Amlodipine Besylate*), 10 MG ORAL DAILY, (Reported) Aspirin* (Aspirin*), 81 MG ORAL DAILY, (Reported) Atorvastatin Calcium* (Lipitor*), 80 MG ORAL BEDTIME, (Reported) Carvedilol* (Carvedilol*), 25 MG ORAL EVERY 12 HOURS, (Reported) Famotidine (Famotidine), 20 MG ORAL DAILY, (Reported) Ferrous Sulfate* (Ferrous Sulfate*), 325 MG ORAL DAILY, (Reported) Furosemide* (Lasix*), 80 MG ORAL BIDAC, (Reported) Insulin Glargine (Lantus), 0 SUBQ BEDTIME, (Reported) Losartan Potassium* (Losartan Potassium*), 50 MG ORAL BID, (Reported) Nateglinide* (Starlix*), 120 MG ORAL THREE TIMES A DAY, (Reported) Sitagliptin* (Januvia*), 25 MG ORAL DAILY, (Reported) Tizanidine Hcl* (Zanaflex*), 2 MG ORAL EVERY 8 HOURS, (Reported) Scheduled PRN Oxycodone HCl (Oxycodone HCl), 5 MG ORAL Q6HR PRN for For Pain, (Reported) Polyethylene Glycol 3350* (Polyethylene Glycol 3350*), 17 GM ORAL BEDTIME PRN for Constipation, (Reported) Miscellaneous Medications Ipratropium/Albuterol Sulfate (DuoNeb 0.5-3(2.5)mg/3ml), 3 ML HHN, (Reported) Isosorbide Mononitrate (Isosorbide Mononitrate Er), 60 MG PO, (Reported) Prazosin Hcl* (Minipress*), 2 MG PO, (Reported) Patient History Healthcare decision maker Resuscitation status Full Code Advanced Directive on File Review of Systems Constitutional: Reports: no symptoms Eye: Reports: no symptoms ENT: Reports: no symptoms Respiratory: Reports: no symptoms Cardiovascular: Reports: no symptoms Gastrointestinal: Reports: nausea Genitourinary: Reports: no symptoms Musculoskeletal: Reports: no symptoms Skin: Reports: no symptoms Psychiatric: Reports: no symptoms Neurological: Reports: no symptoms Endocrine: Reports: no symptoms Hematologic/Lymphatic: Reports: no symptoms Physical Exam General Appearance: no apparent distress Lines, tubes and drains: central line HEENT: normocephalic Neck: non-tender Respiratory/Chest: chest wall non-tender Cardiovascular/Chest: normal rate Abdomen: hypoactive bowel sounds, guarding, tender Extremities: normal range of motion 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 normal Last 24 Hour Vital Signs Date Time Temp Pulse Resp B/P (MAP) Pulse Ox O2 Delivery O2 Flow Rate FiO2 09/29/17 12:00 64 09/29/17 08:00 65 09/29/17 08:00 97.8 20 126/60 (82) 96 97.8 09/29/17 05:56 Room Air 09/29/17 05:00 98.5 65 13 111/49 100 Room Air 98.5 09/29/17 04:38 98.5 65 13 111/49 100 Room Air 98.5 09/29/17 03:21 62 12 138/58 100 Nasal Cannula 2.0 09/29/17 03:08 98.1 09/29/17 02:09 98.1 09/29/17 01:40 98.1 09/29/17 01:40 97.9 67 14 136/53 99 Room Air 97.9 09/29/17 01:03 98.1 09/29/17 00:46 71 18 Nasal Cannula 4.0 09/29/17 00:27 98.1 71 18 160/74 98 Nasal Cannula 4.0 98.1 Laboratory Tests Test 09/29/17 01:00 09/29/17 09:40 White Blood Count 16.8 K/UL (4.8-10.8) H 17.3 K/UL (4.8-10.8) H Red Blood Count 3.71 M/UL (4.20-5.40) L 3.59 M/UL (4.20-5.40) L Hemoglobin 10.4 G/DL (12.0-16.0) L 10.1 G/DL (12.0-16.0) L Hematocrit 31.1 % (37.0-47.0) L 30.5 % (37.0-47.0) L Mean Corpuscular Volume 84 FL (80-99) 85 FL (80-99) Mean Corpuscular Hemoglobin 28.1 PG (27.0-31.0) 28.0 PG (27.0-31.0) Mean Corpuscular Hemoglobin Concent 33.5 G/DL (32.0-36.0) 33.0 G/DL (32.0-36.0) Red Cell Distribution Width 15.9 % (11.6-14.8) H 16.2 % (11.6-14.8) H Platelet Count 376 K/UL (150-450) 360 K/UL (150-450) Mean Platelet Volume 4.1 FL (6.5-10.1) L 4.1 FL (6.5-10.1) L Neutrophils (%) (Auto) 69.9 % (45.0-75.0) 65.7 % (45.0-75.0) Lymphocytes (%) (Auto) 10.6 % (20.0-45.0) L 13.5 % (20.0-45.0) L Monocytes (%) (Auto) 8.4 % (1.0-10.0) 8.8 % (1.0-10.0) Eosinophils (%) (Auto) 10.5 % (0.0-3.0) H 11.3 % (0.0-3.0) H Basophils (%) (Auto) 0.6 % (0.0-2.0) 0.7 % (0.0-2.0) Sodium Level 126 MMOL/L (136-145) L 125 MMOL/L (136-145) L Potassium Level 4.1 MMOL/L (3.5-5.1) 3.9 MMOL/L (3.5-5.1) Chloride Level 89 MMOL/L (98-107) L 90 MMOL/L (98-107) L Carbon Dioxide Level 25 MMOL/L (21-32) 24 MMOL/L (21-32) Anion Gap 13 mmol/L (5-15) 11 mmol/L (5-15) Blood Urea Nitrogen 32 mg/dL (7-18) H 33 mg/dL (7-18) H Creatinine 4.5 MG/DL (0.55-1.30) H 4.6 MG/DL (0.55-1.30) H Estimat Glomerular Filtration Rate 10.0 mL/min (>60) 9.8 mL/min (>60) Glucose Level 102 MG/DL (74-106) 81 MG/DL (74-106) Calcium Level 9.2 MG/DL (8.5-10.1) 9.2 MG/DL (8.5-10.1) Total Bilirubin 0.5 MG/DL (0.2-1.0) Aspartate Amino Transf (AST/SGOT) 73 U/L (15-37) H Alanine Aminotransferase (ALT/SGPT) 67 U/L (12-78) Alkaline Phosphatase 401 U/L (46-116) H Total Creatine Kinase 14 U/L (26-308) L Creatine Kinase MB 1.2 NG/ML (0.0-3.6) Creatine Kinase MB Relative Index 8.5 Troponin I 0.105 ng/mL (0.000-0.056) 0.082 ng/mL (0.000-0.056) Total Protein 7.7 G/DL (6.4-8.2) Albumin 1.8 G/DL (3.4-5.0) L Globulin 5.9 g/dL Albumin/Globulin Ratio 0.3 (1.0-2.7) L Differential Total Cells Counted 100 Neutrophils % (Manual) 73 % (45-75) Lymphocytes % (Manual) 9 % (20-45) L Monocytes % (Manual) 6 % (1-10) Eosinophils % (Manual) 12 % (0-3) H Basophils % (Manual) 0 % (0-2) Band Neutrophils 0 % (0-8) Other Cell Type Pathologist comment Platelet Estimate Adequate Platelet Morphology Normal Anisocytosis 1+ Blister Cells 1+ Christelle Cells 1+ Fibrinogen 706 mg/dL (200-400) H Hemoglobin A1c 5.9 % (4.3-6.0) Magnesium Level 1.8 MG/DL (1.8-2.4) Iron Level 43 ug/dL (50-175) L Total Iron Binding Capacity 191 ug/dL (250-450) L Percent Iron Saturation 23 % (15-50) Unsaturated Iron Binding 148 ug/dL (112-346) Soluble Transferrin Receptor Pending Ferritin 1688 NG/ML (8-388) H Lactate Dehydrogenase 8 U/L (135-225) L Pro-B-Type Natriuretic Peptide 73568 pg/mL (0-125) H Triglycerides Level 77 MG/DL (30-150) Cholesterol Level 117 MG/DL (< 200) LDL Cholesterol 54 mg/dL (<100) HDL Cholesterol 48 MG/DL (40-60) Cholesterol/HDL Ratio 2.4 (3.3-4.4) L Vitamin B12 Level 1966 PG/ML (193-986) H Folate 36.6 NG/ML (8.6-58.9) Thyroid Stimulating Hormone (TSH) 1.837 uiU/mL (0.358-3.740) Height (Feet): 5 Height (Inches): 2.00 Weight (Pounds): 219 Medications Current Medications Medications (Trade) Dose Ordered Sig/Fidelia Route PRN Reason Start Time Stop Time Status Last Admin Dose Admin Acetaminophen (Tylenol) 650 mg Q4H PRN ORAL Mild Pain (Pain Scale 1-3) 09/29/17 07:45 10/29/17 07:44 Acetaminophen (Tylenol) 650 mg Q4H PRN ORAL fever 09/29/17 07:45 10/29/17 07:44 Aspirin (ASA) 81 mg DAILY ORAL 09/29/17 09:00 10/29/17 08:59 09/29/17 10:07 Atorvastatin Calcium (Lipitor) 80 mg BEDTIME ORAL 09/29/17 21:00 10/29/17 20:59 Aztreonam 0.25 gm/ Dextrose 55 ml @ 110 mls/hr Q12H IVPB 09/30/17 09:00 10/07/17 08:59 Aztreonam 1 gm/ Dextrose 55 ml @ 110 mls/hr ONCE IVPB 09/29/17 21:00 09/29/17 22:00 Bisacodyl (Dulcolax) 10 mg HSPRN PRN RECTAL Constipation 09/29/17 07:45 10/29/17 07:44 Dextrose (Dextrose 50%) 25 ml STAT PRN IV Hypoglycemia 09/29/17 07:45 10/29/17 07:44 Dextrose (Dextrose 50%) 50 ml STAT PRN IV Hypoglycemia 09/29/17 07:45 10/29/17 07:44 Diatrizoate Meglum/ Diatrizoate Sod (Gastrografin) 30 ml NOW PRN ORAL Radiology Procedure 09/29/17 14:31 09/29/17 23:59 Docusate Sodium (Colace) 100 mg EVERY 12 HOURS ORAL 09/29/17 09:00 10/29/17 08:59 09/29/17 10:07 Heparin Sodium (Porcine) (Heparin 5000 units/ml) 5,000 units EVERY 12 HOURS SUBQ 09/29/17 09:00 10/29/17 08:59 Insulin Human Regular (NovoLIN R) BS 70-110, then 0 units... AC+HS SUBQ 09/29/17 16:30 10/29/17 16:29 UNV Metronidazole 100 ml @ 100 mls/hr Q8HR IVPB 09/29/17 22:00 10/06/17 21:59 Ondansetron HCl (Zofran) 4 mg Q6H PRN IVP Nausea & Vomiting 09/29/17 07:45 10/29/17 07:44 Polyethylene Glycol (Miralax) 17 gm HSPRN PRN ORAL Constipation 09/29/17 07:45 10/29/17 07:44 Vancomycin HCl (Vanco rx to dose) 1 ea DAILY PRN MISC Per rx protocol 09/29/17 14:45 10/29/17 14:44 Vancomycin HCl/ Dextrose 250 ml @ 166.667 mls/hr ONCE IVPB 09/29/17 16:00 09/29/17 18:00 Assessment/Plan Status: stable Assessment/Plan Assessment: 1. Chest pain 2. h/o recent 2V CABG c/b stent infection s/p stent removal and abx 3. Open wound to chest with stent removal 4. Sepsis 5. ESRD on HD (M/F) 6. DM 7. HTN Serial troponin, no indication for cath at this time, elevation likely from infection and ESRD CT A/P, surgical consult appreciated Maintain HD IV abx Cultures Continue aspirin Continue atorvastatin Filsoof,Quirino M.D. Sep 29, 2017 15:23
--- NOTE | 2017-09-29 15:43 | Diagnostic Imaging Report ---
Indication: Chest pain Technique: XRAY Chest 1v Comparison: None Findings: Heart is enlarged. There is evidence of coronary arterial stenting There is evidence of prior sternotomy with a single sternal wire. A left-sided tunneled dialysis catheter has its tip in the region of the cavoatrial junction. There is pulmonary vascular congestion. No focal airspace consolidation, pleural effusion or pneumothorax. Osseous structures demonstrate no acute abnormality. Impression: Cardiomegaly with pulmonary vascular congestion/mild fluid overload. Dialysis catheter in place.
[2017-09-29] MEDS ORDERED: Vancomycin 1250mg/D5W 250ml IVPB SCH (16:00)
[2017-09-29] MEDS: Insulin Human Regular 100units/ml 3ml SUBQ SCH ×2 (16:30→21:00)
--- NOTE | 2017-09-29 18:42 | Diagnostic Imaging Report ---
EXAM: CT Abdomen and Pelvis With Intravenous Contrast CLINICAL HISTORY: ABD PAIN TECHNIQUE: Axial computed tomography images of the abdomen and pelvis with intravenous contrast. CTDI is 0.15 + 19.07 mGy and DLP is 968 mGy-cm. One or more of the following dose reduction techniques were used: automated exposure control, adjustment of the mA and/or kV according to patient size, use of iterative reconstruction technique. COMPARISON: No relevant prior studies available. FINDINGS: Lung bases: Accentuation of the interstitial markings and mild nodular infiltrates in the lung bases. Heart: Cardiomegaly. ABDOMEN: Liver: Unremarkable. Gallbladder and bile ducts: See below. Pancreas: Unremarkable. Spleen: Unremarkable. Adrenals: Unremarkable. Kidneys and ureters: Unremarkable. No hydronephrosis. Stomach and bowel: No zechariah mural thickening. Nonobstructive bowel gas pattern. PELVIS: Appendix: Appendicitis. Appendix measures 1 cm with mild surrounding stranding. Bladder: Unremarkable. Reproductive: Enlarged and heterogeneous right ovary. Ultrasound cannot further characterize as warranted. ABDOMEN and PELVIS: Intraperitoneal space: Unremarkable. Bones/joints: No acute fracture. Soft tissues: Patchy subcutaneous edema and abdominal wound. Small foci of fluid and air in the abdominal wall. Vasculature: Vascular calcification or a stone in the biliary system. No abdominal aortic aneurysm. Lymph nodes: No enlarged lymph nodes. IMPRESSION: Appendicitis. Appendix measures 1 cm with mild surrounding stranding. [employer] 09/29/17 18:54 Verify Receipt Verified receipt with LELAND Hoyos on 09/29 18:54 (-07:00)
--- NOTE | 2017-09-29 20:46 | Consultation ---
DATE OF CONSULTATION: 09/29/2017 HEMATOLOGY/ONCOLOGY CONSULTATION CONSULTING PHYSICIAN: Lalito Cole M.D. REQUESTING PHYSICIANS: 1. Maico Hubbard M.D. 2. Whitney Torres M.D. IDENTIFYING DATA: Dear Dr. Hubbard and Dr. Torres, The patient is a pleasant 57-year-old female with past medical history, which is significant for CAD, status post 12 stents placement; history of 2 vessel CABG in May, has had infection of the sternal wires, sternal wires have been removed, given antibiotics. chest pain, is getting worse over the past 24 hours, pain is 10/10, came in to EMS from care home, , nothing has made it better, nothing has made it worse. The patient was noted to be anemic. Hematology Service was consulted for further evaluation and underlying treatment. PAST MEDICAL HISTORY: As noted above. PAST SURGICAL HISTORY: CABG. FAMILY HISTORY: Noncontributory. SOCIAL HISTORY: Denies any alcohol, tobacco, or illicit drug use. REVIEW OF SYSTEMS: CONSTITUTIONAL: No fevers, chills, or night sweats. SKIN: No rashes, bumps, or itching. HEENT: No headache, hearing or visual changes. BREASTS: No lumps, pain, or discharge. PULMONARY: No cough, sputum, or shortness of breath. GASTROINTESTINAL: No nausea, vomiting, or diarrhea. GENITOURINARY: No dysuria, frequency, or urgency. MUSCULOSKELETAL: No joint swelling, muscle pain, or trauma. PHYSICAL EXAMINATION: VITAL SIGNS: Reviewed. GENERAL: No acute distress. LUNGS: Decreased breath sounds. CARDIOVASCULAR: Sternotomy scar is noted. ABDOMEN: Soft, nontender, and nondistended. EXTREMITIES: No cyanosis, swelling, or edema. LABORATORY AND DIAGNOSTIC DATA: WBC 16.8, hemoglobin 10.4, hematocrit 31, and platelet count 376,000. ASSESSMENT AND RECOMMENDATIONS: 1. Anemia due to underlying kidney disease. Continue to closely monitor for improvement. Anemia panel has been ordered. 2. Anemia due to underlying chronic disease. Closely monitor for improvement. 3. Leukocytosis, potentially secondary to sternotomy wire infection. Consider evaluation with ID Service. 4. Diabetes mellitus. A1c goal less than 6. 5. Hypertension. Systolic blood pressure goal less than 140. 6. End-stage renal disease, on hemodialysis. Closely monitor. 7. Myocardial infarction, status post 12 stent placements, status post coronary artery bypass grafting. I appreciate the consultation. Lalito Cole M.D. DR: DILCIA JOB#: [id number] CC:
[2017-09-29] MEDS ORDERED: Aztreonam Inj 1 GM in D5W 55 ML IVPB SCH (21:00)
--- NOTE | 2017-09-29 22:01 | Consultation ---
DATE OF CONSULTATION: 09/29/2017 CONSULTING PHYSICIAN: Aman Link M.D. REFERRING PHYSICIAN: Whitney Torres M.D. and nurse practitioner, Jennifer Robles. REASON FOR CONSULTATION: 1. End-stage renal disease, on dialysis. 2. Hyponatremia. HISTORY OF PRESENT ILLNESS: The patient is a pleasant 57-year-old female with a history of two-vessel coronary artery bypass graft done recently at [facility] in May of this year. She had a complicated course with infection of the sternal wire. She is currently residing at a correction. She has been undergoing hemodialysis twice a week under Dr. Benites with no more than 1.5 liters ultrafiltration. Family at bedside was concerned that she was not feeling well and that the patient had too much fluid removal recently. ALLERGIES: 1. Adhesive. 2. Amlodipine. 3. Insulin. 4. Iodine. 5. Penicillin. PAST MEDICAL HISTORY: 1. Diabetes. 2. Hypertension. 3. Coronary artery disease. 4. Myocardial infarction. 5. End-stage renal disease, on dialysis. PAST SURGICAL HISTORY: 1. Two-vessel coronary artery bypass graft. 2. Dialysis access placement. SOCIAL HISTORY: No tobacco, alcohol, or illicit drug use. FAMILY HISTORY: Positive for diabetes and hypertension. REVIEW OF SYSTEMS: NEUROLOGIC: The patient denies headache, change in vision, syncope, or presyncopal episodes. CARDIOVASCULAR: She is having some chest pressure pain. No palpitations. PULMONARY: No difficulty breathing, productive cough, or sputum. GASTROINTESTINAL/GENITOURINARY: No change in urinary or bowel habits. No nausea, vomiting, or diarrhea. ENDOCRINOLOGY: No night sweats, fevers, or chills. PHYSICAL EXAMINATION: VITAL SIGNS: Blood pressure 111/49, respiratory rate 13, pulse 65, temperature 98.5, and 100% saturation on room air. GENERAL: The patient is awake and alert. She is currently now on BiPAP. HEENT: Extraocular muscles intact. No lymphadenopathy noted. CARDIOVASCULAR: S1, S2. No rubs or gallops. PULMONARY: Upper airway rhonchi. Fair air movement in all lung shane ABDOMEN: Nondistended and nontender. EXTREMITIES: Trace edema bilaterally. LABORATORY DATA: Laboratories dated 09/29/2017, sodium 125, potassium 3.9, chloride 90, bicarbonate 24, BUN 33, creatinine 4.6, and glucose 81. However, white cell count 17.3, hemoglobin 10.1, and platelet count 360,000. ASSESSMENT AND PLAN: 1. End-stage renal disease, on hemodialysis. At this time, family requesting that she undergo hemodialysis on a strict Monday, Monday and Monday schedule with no more than 1.5 liters ultrafiltration. We will respect her wishes. 2. Hyponatremia. We will discontinue hypotonic solution. 1.5 liters ultrafiltration. 3. Acute coronary syndrome/chest pain, status post two-vessel coronary artery bypass graft recently at [facility]. Defer management to Cardiology. 4. Anemia of chronic kidney disease. We will initiate Epogen once hemoglobin less than 10. 5. Respiratory insufficiency. The patient currently stable on BiPAP. Hemodialysis today. Let me take this opportunity to thank Dr. Torres and nurse practitioner, Alaina Robles Aman Link MD DR: THEODORE JOB#: [id number] CC: LETTY
[2017-09-30] VITALS (7 sets, daily range): BP systolic 116–148; BP diastolic 50–69
[2017-09-30] MEDS: Docusate 100mg cap ORAL SCH ×3 (03:13→21:49)
[2017-09-30] MEDS: Atorvastatin 80mg tab ORAL SCH ×2 (03:13→21:49)
[2017-09-30] MEDS: Heparin 5000 units/ml inj SUBQ SCH ×3 (03:31→22:02)
[2017-09-30] MEDS: Insulin Human Regular 100units/ml 3ml SUBQ SCH ×5 (06:30→22:03)
[2017-09-30 08:12] LABS: HEMATOCRIT 29.9 % (37.0-47.0); MEAN CORPUSCULAR VOLUME 85 FL (80-99); PLATELET COUNT 295 K/UL (150-450); RED CELL DISTRIBUTION WIDTH 16.7 % (11.6-14.8); WHITE BLOOD COUNT 18.6 K/UL (4.8-10.8)
[2017-09-30 08:22] LABS: ANION GAP 9 mmol/L (5-15); BLOOD UREA NITROGEN 16 mg/dL (7-18); CALCIUM 8.2 MG/DL (8.5-10.1); CARBON DIOXIDE 29 MMOL/L (21-32); CHLORIDE 89 MMOL/L (98-107); CREATININE 3.1 MG/DL (0.55-1.30); POTASSIUM 3.2 MMOL/L (3.5-5.1); SODIUM 127 MMOL/L (136-145)
--- NOTE | 2017-09-30 08:37 | Nephrology Progress Note ---
Assessment/Plan Assessment/Plan 1. ESRD- for now MF HD for 3 hrs and 1.5 L UF 2. Hypokalemia- replace IV today 3. Anemia of CKD- EPO if Hgb <10 4. Abd Pain/Leukocytosis- per Gen Surg, ? appendicitis 5. Sepsis- per ID 6. Hyponatremia- Hypotonic fluid stopped Subjective Date patient seen: Sep 30, 2017 Time patient seen: 08:34 ROS Limited/Unobtainable: No Gastrointestinal/Abdominal: Reports: abdominal pain Allergies: Coded Allergies: ADHESIVE (Verified Allergy, Unknown, 09/29/17) AMLODIPINE (Verified Allergy, Unknown, 09/29/17) INSULIN ASPART (Verified Allergy, Unknown, 09/29/17) INSULIN LISPRO (Verified Allergy, Unknown, 09/29/17) IODINE (Verified Allergy, Unknown, 09/29/17) PENICILLINS (Verified Allergy, Unknown, 09/29/17) All Systems: reviewed and negative except above Subjective Patient resting well in no overt distress Objective Last 24 Hour Vital Signs Date Time Temp Pulse Resp B/P (MAP) Pulse Ox O2 Delivery O2 Flow Rate FiO2 09/30/17 04:00 64 09/30/17 04:00 98.1 64 19 116/50 (72) 96 98.1 09/30/17 01:00 Room Air 09/30/17 01:00 98.1 69 20 148/66 (93) 98.1 09/30/17 00:00 98.1 67 19 136/66 (89) 95 98.1 09/29/17 21:15 Room Air 09/29/17 21:15 97.2 66 18 145/66 (92) 97.2 09/29/17 21:00 Room Air 09/29/17 20:00 97.2 65 19 137/49 (78) 97 97.2 09/29/17 16:00 64 09/29/17 16:00 97.9 65 18 137/63 (87) 95 97.9 09/29/17 12:00 64 09/29/17 12:00 98.1 63 20 137/61 (86) 95 98.1 09/29/17 09:00 Room Air Intake and Output 09/29/17 09/30/17 19:00 07:00 Intake Total 275 ml Output Total 0 ml 1800 ml Balance 0 ml -1525 ml Intake Oral 120 ml Other 155 ml Output Urine Total 0 ml 300 ml Hemodialysis UF 1500 ml # Voids 1 Laboratory Tests 09/29/17 09:40: White Blood Count 17.3H, Red Blood Count 3.59L, Hemoglobin 10.1L, Hematocrit 30.5L, Mean Corpuscular Volume 85, Mean Corpuscular Hemoglobin 28.0, Mean Corpuscular Hemoglobin Concent 33.0, Red Cell Distribution Width 16.2H, Platelet Count 360, Mean Platelet Volume 4.1L, Neutrophils (%) (Auto) 65.7, Lymphocytes (%) (Auto) 13.5L, Monocytes (%) (Auto) 8.8, Eosinophils (%) (Auto) 11.3H, Basophils (%) (Auto) 0.7, Differential Total Cells Counted 100, Neutrophils % (Manual) 73, Lymphocytes % (Manual) 9L, Monocytes % (Manual) 6, Eosinophils % (Manual) 12H, Basophils % (Manual) 0, Band Neutrophils 0, Other Cell Type Pathologist comment, Platelet Estimate Adequate, Platelet Morphology Normal, Anisocytosis 1+, Blister Cells 1+, [place] Cells 1+, Erythrocyte Sedimentation Rate 8, Fibrinogen 706H, Sodium Level 125L, Potassium Level 3.9, Chloride Level 90L, Carbon Dioxide Level 24, Anion Gap 11, Blood Urea Nitrogen 33H, Creatinine 4.6H, Estimat Glomerular Filtration Rate 9.8, Glucose Level 81, Hemoglobin A1c 5.9, Calcium Level 9.2, Magnesium Level 1.8, Iron Level 43L, Total Iron Binding Capacity 191L, Percent Iron Saturation 23, Unsaturated Iron Binding 148, Soluble Transferrin Receptor [Pending], Ferritin 1688H, Lactate Dehydrogenase 8L, Troponin I 0.082H, C-Reactive Protein, Quantitative 9.9H, Pro- B-Type Natriuretic Peptide 34355P, Triglycerides Level 77, Cholesterol Level 117 , LDL Cholesterol 54, HDL Cholesterol 48, Cholesterol/HDL Ratio 2.4L, Vitamin B12 Level 1966H, Folate 36.6, Thyroid Stimulating Hormone (TSH) 1.837 09/30/17 07:40: White Blood Count 18.6H, Red Blood Count 3.50L, Hemoglobin 10.0L, Hematocrit 29.9L, Mean Corpuscular Volume 85, Mean Corpuscular Hemoglobin 28.5, Mean Corpuscular Hemoglobin Concent 33.4, Red Cell Distribution Width 16.7H, Platelet Count 295, Mean Platelet Volume 4.3L, Neutrophils (%) (Auto) , Lymphocytes (%) (Auto) , Monocytes (%) (Auto) , Eosinophils (%) (Auto) , Basophils (%) (Auto) , Neutrophils % (Manual) [Pending], Lymphocytes % (Manual) [Pending], Platelet Estimate [Pending], Platelet Morphology [Pending], Sodium Level 127L, Potassium Level 3.2L, Chloride Level 89L, Carbon Dioxide Level 29, Anion Gap 9, Blood Urea Nitrogen 16, Creatinine 3.1H, Estimat Glomerular Filtration Rate 15.4, Glucose Level 95, Calcium Level 8.2L, Troponin I [Pending] Height (Feet): 5 Height (Inches): 2.00 Weight (Pounds): 219 General Appearance: no apparent distress, alert EENT: normal ENT inspection Neck: non-tender, normal alignment, supple Cardiovascular: normal rate, regular rhythm Respiratory/Chest: lungs clear, normal breath sounds Abdomen: guarding Edema: no edema noted Arm (L), no edema noted Arm (R), no edema noted Leg (L), no edema noted Leg (R), no edema noted Pedal (L), no edema noted Pedal (R), no edema noted Generalized Aman Link M.D. Sep 30, 2017 08:37
[2017-09-30] MEDS ORDERED: Aztreonam Inj 0.25 GM in D5W 55 ML IVPB SCH (09:00)
[2017-09-30] MEDS: Aspirin Baby 81mg ORAL SCH (09:26)
--- NOTE | 2017-09-30 10:02 | General Progress Note ---
Assessment/Plan Status: stable Assessment/Plan 1. Anemia due to underlying kidney disease. --> Continue to closely monitor for improvement. --> Anemia panel has been reviewed, will tend daily. --> Hgb goal >7 2. Anemia due to underlying chronic disease. --> Closely monitor for improvement. 3. Leukocytosis, potentially secondary to sternotomy wire infection. --> Consider evaluation with ID Service. --> 09/30 no improvement in WBC 4. Diabetes mellitus. A1c goal less than 6. 5. Hypertension. Systolic blood pressure goal less than 140. 6. End-stage renal disease, on hemodialysis. Closely monitor. 7. Myocardial infarction, status post 12 stent placements, status post coronary artery bypass grafting. The time the note was entered does not necessarily correspond to the time the patient was seen. Subjective Date patient seen: Sep 30, 2017 ROS Limited/Unobtainable: Yes Hematologic/Lymphatic: Reports: anemia Allergies: Coded Allergies: ADHESIVE (Verified Allergy, Unknown, 09/29/17) AMLODIPINE (Verified Allergy, Unknown, 09/29/17) INSULIN ASPART (Verified Allergy, Unknown, 09/29/17) INSULIN LISPRO (Verified Allergy, Unknown, 09/29/17) IODINE (Verified Allergy, Unknown, 09/29/17) PENICILLINS (Verified Allergy, Unknown, 09/29/17) All Systems: reviewed and negative except above Subjective No acute events. Vitals are stable. at bedside. Objective Last 24 Hour Vital Signs Date Time Temp Pulse Resp B/P (MAP) Pulse Ox O2 Delivery O2 Flow Rate FiO2 09/30/17 04:00 64 09/30/17 04:00 98.1 64 19 116/50 (72) 96 98.1 09/30/17 01:00 Room Air 09/30/17 01:00 98.1 69 20 148/66 (93) 98.1 09/30/17 00:00 98.1 67 19 136/66 (89) 95 98.1 09/29/17 21:15 Room Air 09/29/17 21:15 97.2 66 18 145/66 (92) 97.2 09/29/17 21:00 Room Air 09/29/17 20:00 97.2 65 19 137/49 (78) 97 97.2 09/29/17 16:00 64 09/29/17 16:00 97.9 65 18 137/63 (87) 95 97.9 09/29/17 12:00 64 09/29/17 12:00 98.1 63 20 137/61 (86) 95 98.1 Intake and Output 09/29/17 09/30/17 19:00 07:00 Intake Total 275 ml Output Total 0 ml 1800 ml Balance 0 ml -1525 ml Intake Oral 120 ml Other 155 ml Output Urine Total 0 ml 300 ml Hemodialysis UF 1500 ml # Voids 1 Laboratory Tests 09/30/17 07:40: White Blood Count 18.6H, Red Blood Count 3.50L, Hemoglobin 10.0L, Hematocrit 29.9L, Mean Corpuscular Volume 85, Mean Corpuscular Hemoglobin 28.5, Mean Corpuscular Hemoglobin Concent 33.4, Red Cell Distribution Width 16.7H, Platelet Count 295, Mean Platelet Volume 4.3L, Neutrophils (%) (Auto) , Lymphocytes (%) (Auto) , Monocytes (%) (Auto) , Eosinophils (%) (Auto) , Basophils (%) (Auto) , Neutrophils % (Manual) [Pending], Lymphocytes % (Manual) [Pending], Platelet Estimate [Pending], Platelet Morphology [Pending], Sodium Level 127L, Potassium Level 3.2L, Chloride Level 89L, Carbon Dioxide Level 29, Anion Gap 9, Blood Urea Nitrogen 16, Creatinine 3.1H, Estimat Glomerular Filtration Rate 15.4, Glucose Level 95, Calcium Level 8.2L, Troponin I 0.089H Height (Feet): 5 Height (Inches): 2.00 Weight (Pounds): 219 General Appearance: no apparent distress, alert EENT: PERRL/EOMI Neck: normal alignment Cardiovascular: normal peripheral pulses Respiratory/Chest: no respiratory distress Abdomen: normal bowel sounds Lalito Cole MD Sep 30, 2017 10:02
--- NOTE | 2017-09-30 13:21 | General Surgery Progress Note ---
General Surgery-Progress Note Subjective Additional Comments no acute events. CT performed and noted. 1cm appendix with some stranding. clinically no symptoms of acute appy. leukocytosis 18k today Objective Last 24 Hour Vital Signs Date Time Temp Pulse Resp B/P (MAP) Pulse Ox O2 Delivery O2 Flow Rate FiO2 09/30/17 10:30 99.3 67 16 116/50 (72) 96 99.3 09/30/17 09:00 Room Air 09/30/17 08:00 65 09/30/17 04:00 64 09/30/17 04:00 98.1 64 19 116/50 (72) 96 98.1 09/30/17 01:00 Room Air 09/30/17 01:00 98.1 69 20 148/66 (93) 98.1 09/30/17 00:00 98.1 67 19 136/66 (89) 95 98.1 09/29/17 21:15 Room Air 09/29/17 21:15 97.2 66 18 145/66 (92) 97.2 09/29/17 21:00 Room Air 09/29/17 20:00 97.2 65 19 137/49 (78) 97 97.2 09/29/17 16:00 64 09/29/17 16:00 97.9 65 18 137/63 (87) 95 97.9 I&O Intake and Output 09/29/17 09/30/17 19:00 07:00 Intake Total 275 ml Output Total 0 ml 1800 ml Balance 0 ml -1525 ml Intake Oral 120 ml Other 155 ml Output Urine Total 0 ml 300 ml Hemodialysis UF 1500 ml # Voids 1 Dressing: saturated Wound: other Drains: none Cardiovascular: RSR Respiratory: clear Abdomen: soft, tenderness, present bowel sounds Extremities: no cyanosis Laboratory Tests Test 09/30/17 07:40 White Blood Count 18.6 K/UL (4.8-10.8) H Red Blood Count 3.50 M/UL (4.20-5.40) L Hemoglobin 10.0 G/DL (12.0-16.0) L Hematocrit 29.9 % (37.0-47.0) L Mean Corpuscular Volume 85 FL (80-99) Mean Corpuscular Hemoglobin 28.5 PG (27.0-31.0) Mean Corpuscular Hemoglobin Concent 33.4 G/DL (32.0-36.0) Red Cell Distribution Width 16.7 % (11.6-14.8) H Platelet Count 295 K/UL (150-450) Mean Platelet Volume 4.3 FL (6.5-10.1) L Neutrophils (%) (Auto) % (45.0-75.0) Lymphocytes (%) (Auto) % (20.0-45.0) Monocytes (%) (Auto) % (1.0-10.0) Eosinophils (%) (Auto) % (0.0-3.0) Basophils (%) (Auto) % (0.0-2.0) Differential Total Cells Counted 100 Neutrophils % (Manual) 74 % (45-75) Lymphocytes % (Manual) 9 % (20-45) L Monocytes % (Manual) 6 % (1-10) Eosinophils % (Manual) 11 % (0-3) H Basophils % (Manual) 0 % (0-2) Band Neutrophils 0 % (0-8) Platelet Estimate Adequate Platelet Morphology Normal Anisocytosis 1+ Sodium Level 127 MMOL/L (136-145) L Potassium Level 3.2 MMOL/L (3.5-5.1) L Chloride Level 89 MMOL/L (98-107) L Carbon Dioxide Level 29 MMOL/L (21-32) Anion Gap 9 mmol/L (5-15) Blood Urea Nitrogen 16 mg/dL (7-18) Creatinine 3.1 MG/DL (0.55-1.30) H Estimat Glomerular Filtration Rate 15.4 mL/min (>60) Glucose Level 95 MG/DL (74-106) Calcium Level 8.2 MG/DL (8.5-10.1) L Troponin I 0.089 ng/mL (0.000-0.056) Plan Problems: (1) Open abdominal wall wound (2) Abdominal wall abscess at site of surgical wound (3) Wound, open, abdominal wall, anterior with complication Assessment & Plan: large prior abdominal surgical wound that in portions skin has come together but underlying large area of open fluid collection with possible pockets of abscess. larger epigastric wound seems to connect with lower aspect small wound. lots of murky fluid evacuated, wound deep and tracking in all directions. per patient they have only been placing a small cover on wounds and no packing has been performed. had wound VAC prior but only for 3 days as per patient. I fear that there is something much larger and more serious going underneath the skin and with drainage and looks of wound they are only worsening. CT reviewed and noted. fortunately no large abscess but can note tracking of wound pack wounds with gauze and cover with dressings TID IV Abx discussed indication and recommendation for wound debridement. consideration to proceed possibly monday. As for possible appendicitis, noted 1cm appendix with stranding on CT. clinically patient has generalized abdominal pain and not focal to RLQ. she has had generalized abdominal pain for some time now and likely related to large wound. no n/v/f/c. leukocytosis 18k but can be related to multiple etiologies. Will continue with current treatment. If does develop localized RLQ pain or clinically looks like appendicitis will need surgery. discussed with patient, family, and patients outside physician. thank you for this consultation Darrius Figueredo Sep 30, 2017 13:21
--- NOTE | 2017-09-30 15:18 | Internal Med Progress Note ---
Subjective Physician Name Sania Kraus Attending Physician Whitney Torres MD Current Medications Medications (Trade) Dose Ordered Sig/Fidelia Route PRN Reason Start Time Stop Time Status Last Admin Dose Admin Acetaminophen (Tylenol) 650 mg Q4H PRN ORAL Mild Pain (Pain Scale 1-3) 09/29/17 07:45 10/29/17 07:44 Acetaminophen (Tylenol) 650 mg Q4H PRN ORAL fever 09/29/17 07:45 10/29/17 07:44 Aspirin (ASA) 81 mg DAILY ORAL 09/29/17 09:00 10/29/17 08:59 09/30/17 09:26 Atorvastatin Calcium (Lipitor) 80 mg BEDTIME ORAL 09/29/17 21:00 10/29/17 20:59 09/30/17 03:13 Aztreonam 0.25 gm/ Dextrose 55 ml @ 110 mls/hr Q12H IVPB 09/30/17 09:00 10/07/17 08:59 09/30/17 09:26 Bisacodyl (Dulcolax) 10 mg HSPRN PRN RECTAL Constipation 09/29/17 07:45 10/29/17 07:44 Dextrose (Dextrose 50%) 25 ml STAT PRN IV Hypoglycemia 09/29/17 07:45 10/29/17 07:44 Dextrose (Dextrose 50%) 50 ml STAT PRN IV Hypoglycemia 09/29/17 07:45 10/29/17 07:44 Docusate Sodium (Colace) 100 mg EVERY 12 HOURS ORAL 09/29/17 09:00 10/29/17 08:59 09/30/17 09:26 Heparin Sodium (Porcine) (Heparin 5000 units/ml) 5,000 units EVERY 12 HOURS SUBQ 09/29/17 09:00 10/29/17 08:59 09/30/17 03:31 Insulin Human Regular (NovoLIN R) BS 70-110, then 0 units... AC+HS SUBQ 09/29/17 16:30 10/29/17 16:29 Metronidazole 100 ml @ 100 mls/hr Q8HR@0500,1300,2100 IVPB 09/30/17 13:00 10/07/17 12:59 09/30/17 14:43 Ondansetron HCl (Zofran) 4 mg Q6H PRN IVP Nausea & Vomiting 09/29/17 07:45 10/29/17 07:44 Polyethylene Glycol (Miralax) 17 gm HSPRN PRN ORAL Constipation 09/29/17 07:45 10/29/17 07:44 Vancomycin HCl (Vanco rx to dose) 1 ea DAILY PRN MISC Per rx protocol 09/29/17 14:45 10/29/17 14:44 Allergies: Coded Allergies: ADHESIVE (Verified Allergy, Unknown, 09/29/17) AMLODIPINE (Verified Allergy, Unknown, 09/29/17) INSULIN ASPART (Verified Allergy, Unknown, 09/29/17) INSULIN LISPRO (Verified Allergy, Unknown, 09/29/17) IODINE (Verified Allergy, Unknown, 09/29/17) PENICILLINS (Verified Allergy, Unknown, 09/29/17) Objective Last Vital Signs Date Time Temp Pulse Resp B/P (MAP) Pulse Ox O2 Delivery O2 Flow Rate FiO2 09/30/17 10:30 99.3 67 16 116/50 (72) 96 99.3 09/30/17 09:00 Room Air 09/29/17 03:21 2.0 Laboratory Tests Test 09/30/17 07:40 White Blood Count 18.6 K/UL (4.8-10.8) H Red Blood Count 3.50 M/UL (4.20-5.40) L Hemoglobin 10.0 G/DL (12.0-16.0) L Hematocrit 29.9 % (37.0-47.0) L Mean Corpuscular Volume 85 FL (80-99) Mean Corpuscular Hemoglobin 28.5 PG (27.0-31.0) Mean Corpuscular Hemoglobin Concent 33.4 G/DL (32.0-36.0) Red Cell Distribution Width 16.7 % (11.6-14.8) H Platelet Count 295 K/UL (150-450) Mean Platelet Volume 4.3 FL (6.5-10.1) L Neutrophils (%) (Auto) % (45.0-75.0) Lymphocytes (%) (Auto) % (20.0-45.0) Monocytes (%) (Auto) % (1.0-10.0) Eosinophils (%) (Auto) % (0.0-3.0) Basophils (%) (Auto) % (0.0-2.0) Differential Total Cells Counted 100 Neutrophils % (Manual) 74 % (45-75) Lymphocytes % (Manual) 9 % (20-45) L Monocytes % (Manual) 6 % (1-10) Eosinophils % (Manual) 11 % (0-3) H Basophils % (Manual) 0 % (0-2) Band Neutrophils 0 % (0-8) Platelet Estimate Adequate Platelet Morphology Normal Anisocytosis 1+ Sodium Level 127 MMOL/L (136-145) L Potassium Level 3.2 MMOL/L (3.5-5.1) L Chloride Level 89 MMOL/L (98-107) L Carbon Dioxide Level 29 MMOL/L (21-32) Anion Gap 9 mmol/L (5-15) Blood Urea Nitrogen 16 mg/dL (7-18) Creatinine 3.1 MG/DL (0.55-1.30) H Estimat Glomerular Filtration Rate 15.4 mL/min (>60) Glucose Level 95 MG/DL (74-106) Calcium Level 8.2 MG/DL (8.5-10.1) L Troponin I 0.089 ng/mL (0.000-0.056) Intake and Output 09/29/17 09/30/17 19:00 07:00 Intake Total 275 ml Output Total 0 ml 1800 ml Balance 0 ml -1525 ml Intake Oral 120 ml Other 155 ml Output Urine Total 0 ml 300 ml Hemodialysis UF 1500 ml # Voids 1 Assessment/Plan Assessment/Plan (1) Sepsis ICD Codes: A41.9 - Sepsis, unspecified organism SNOMED: 99915567 (2) Anemia ICD Codes: D64.9 - Anemia, unspecified SNOMED: 331848299, 093721944 Qualifiers: Qualified Codes: D64.9 - Anemia, unspecified (3) ESRD on hemodialysis ICD Codes: N18.6 - End stage renal disease; Z99.2 - Dependence on renal dialysis SNOMED: 710882136, 82740844 (4) Morbid obesity with BMI of 40.0-44.9, adult ICD Codes: E66.01 - Morbid (severe) obesity due to excess calories; Z68.41 - Body mass index (BMI) 40.0-44.9, adult SNOMED: 551646561, 259408053 (5) Chest pain ICD Codes: R07.9 - Chest pain, unspecified SNOMED: 58577715 (6) Wound, open, abdominal wall, anterior with complication ICD Codes: S31.109A - Unspecified open wound of abdominal wall, unspecified quadrant without penetration into peritoneal cavity, initial encounter SNOMED: 858904660 Qualifiers: Qualified Codes: S31.109A - Unspecified open wound of abdominal wall, unspecified quadrant without penetration into peritoneal cavity, initial encounter (7) Abdominal wall abscess at site of surgical wound ICD Codes: T81.4XXA - Infection following a procedure, initial encounter SNOMED: 656542577 (8) Open abdominal wall wound ICD Codes: S31.109A - Unspecified open wound of abdominal wall, unspecified quadrant without penetration into peritoneal cavity, initial encounter SNOMED: 996908416 Qualifiers: Qualified Codes: S31.109A - Unspecified open wound of abdominal wall, unspecified quadrant without penetration into peritoneal cavity, initial encounter (9) Hypokalemia ICD Codes: E87.6 - Hypokalemia SNOMED: 72098401 (10) Hyponatremia ICD Codes: E87.1 - Hypo-osmolality and hyponatremia SNOMED: 58359312 Status: stable, progressing Assessment/Plan Assessment: 1. Chest pain 2. h/o recent 2V CABG c/b stent infection s/p stent removal and abx 3. Open wound to chest/abdomen s/p stent removal 4. Sepsis 5. ESRD on HD (M/F) 6. DM 7. HTN Plan: - Cardiology, general surgery, nephrology, and ID consulted - F/u CT a/p to visualize extent of abscess - concerns for early appendicitis - Trend EKG/trops -- r/o ACS. - IV vancomycin and flagyl per ID (D2) - HD per nephro (M/F). HD yesterday - Continue home meds. - Continue humulin R for SSi - Monitor electrolytes and replete - Monitor CBC - Wound care - PT/OT DVT Prophylaxis: SCD, HSQ Code Status: Full Hospital Classification Declaration: Based on this initial evaluation, and depending on the patient's clinical course, I anticipate that this patient will require hospitalization for 3-5 days for sepsis, chest pain and close respiratory/hemodynamic monitoring. Disposition: Once the patient is stable to leave the hospital, I anticipate the patient will likely be discharged to the following environment: [facility] I spent 72 minutes on this patient's case, and 42 minutes were dedicated to counseling and/or care coordination. Discussed with patient/family, nursing staff, SW/CM, and all consultants as above regarding clinical status, treatment course, and disposition planning. Sania Kraus M.D. Sep 30, 2017 15:18
--- NOTE | 2017-09-30 15:53 | Cardiology Progress Note ---
Assessment/Plan Status: stable Assessment/Plan Assessment: 1. Chest pain 2. h/o recent 2V CABG c/b stent infection s/p stent removal and abx 3. Open wound to chest with stent removal 4. Sepsis 5. ESRD on HD (M/F) 6. DM 7. HTN Serial troponin, no indication for cath at this time, elevation likely from infection and ESRD CT A/P, surgical consult appreciated serial abdominal exams, no acute abdomen Maintain HD IV abx Cultures Continue aspirin Continue atorvastatin Subjective Cardiovascular: Reports: no symptoms Respiratory: Reports: no symptoms Gastrointestinal/Abdominal: Reports: no symptoms Genitourinary: Reports: no symptoms Subjective No acute events, CT with no appendicitis, vitals stable. Patient resting well in no overt distress Objective Last 24 Hour Vital Signs Date Time Temp Pulse Resp B/P (MAP) Pulse Ox O2 Delivery O2 Flow Rate FiO2 09/30/17 10:30 99.3 67 16 116/50 (72) 96 99.3 09/30/17 09:00 Room Air 09/30/17 08:00 65 09/30/17 04:00 64 09/30/17 04:00 98.1 64 19 116/50 (72) 96 98.1 09/30/17 01:00 Room Air 09/30/17 01:00 98.1 69 20 148/66 (93) 98.1 09/30/17 00:00 98.1 67 19 136/66 (89) 95 98.1 09/29/17 21:15 Room Air 09/29/17 21:15 97.2 66 18 145/66 (92) 97.2 09/29/17 21:00 Room Air 09/29/17 20:00 97.2 65 19 137/49 (78) 97 97.2 09/29/17 16:00 64 09/29/17 16:00 97.9 65 18 137/63 (87) 95 97.9 General Appearance: no apparent distress EENT: PERRL/EOMI Neck: non-tender Rhythm: NSR Cardiovascular: normal peripheral pulses Respiratory/Chest: chest wall non-tender Abdomen: normal bowel sounds, non tender Extremities: normal range of motion 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 II-XII grossly normal Intake and Output 09/29/17 09/30/17 19:00 07:00 Intake Total 275 ml Output Total 0 ml 1800 ml Balance 0 ml -1525 ml Intake Oral 120 ml Other 155 ml Output Urine Total 0 ml 300 ml Hemodialysis UF 1500 ml # Voids 1 Laboratory Tests Test 09/30/17 07:40 White Blood Count 18.6 K/UL (4.8-10.8) H Red Blood Count 3.50 M/UL (4.20-5.40) L Hemoglobin 10.0 G/DL (12.0-16.0) L Hematocrit 29.9 % (37.0-47.0) L Mean Corpuscular Volume 85 FL (80-99) Mean Corpuscular Hemoglobin 28.5 PG (27.0-31.0) Mean Corpuscular Hemoglobin Concent 33.4 G/DL (32.0-36.0) Red Cell Distribution Width 16.7 % (11.6-14.8) H Platelet Count 295 K/UL (150-450) Mean Platelet Volume 4.3 FL (6.5-10.1) L Neutrophils (%) (Auto) % (45.0-75.0) Lymphocytes (%) (Auto) % (20.0-45.0) Monocytes (%) (Auto) % (1.0-10.0) Eosinophils (%) (Auto) % (0.0-3.0) Basophils (%) (Auto) % (0.0-2.0) Differential Total Cells Counted 100 Neutrophils % (Manual) 74 % (45-75) Lymphocytes % (Manual) 9 % (20-45) L Monocytes % (Manual) 6 % (1-10) Eosinophils % (Manual) 11 % (0-3) H Basophils % (Manual) 0 % (0-2) Band Neutrophils 0 % (0-8) Platelet Estimate Adequate Platelet Morphology Normal Anisocytosis 1+ Sodium Level 127 MMOL/L (136-145) L Potassium Level 3.2 MMOL/L (3.5-5.1) L Chloride Level 89 MMOL/L (98-107) L Carbon Dioxide Level 29 MMOL/L (21-32) Anion Gap 9 mmol/L (5-15) Blood Urea Nitrogen 16 mg/dL (7-18) Creatinine 3.1 MG/DL (0.55-1.30) H Estimat Glomerular Filtration Rate 15.4 mL/min (>60) Glucose Level 95 MG/DL (74-106) Calcium Level 8.2 MG/DL (8.5-10.1) L Troponin I 0.089 ng/mL (0.000-0.056) Quirino Capps M.D. Sep 30, 2017 15:53
--- NOTE | 2017-09-30 16:49 | Infectious Diseases Prog Note ---
Assessment/Plan Assessment/Plan Full consult dictated: A) 1) abdominal wall wound infection/abscess, ct with ? appendicitis but no symptoms, sepsis, leukocytosis 2) s/p cabg, was in rehab 3) esrd, hd, dm, cad, htn 4) allergies - pnc P) 1) vancomycin, aztreonam, flagyl, cipro 2) possible debridement 3) surgery f/u 4) d/w patient and family Subjective Constitutional: Denies: fever HEENT: Denies: congestion Respiratory: Denies: shortness of breath Cardiovascular: Denies: chest pain Gastrointestinal/Abdominal: Denies: nausea, vomiting, diarrhea Allergies: Coded Allergies: ADHESIVE (Verified Allergy, Unknown, 09/29/17) AMLODIPINE (Verified Allergy, Unknown, 09/29/17) INSULIN ASPART (Verified Allergy, Unknown, 09/29/17) INSULIN LISPRO (Verified Allergy, Unknown, 09/29/17) IODINE (Verified Allergy, Unknown, 09/29/17) PENICILLINS (Verified Allergy, Unknown, 09/29/17) Objective Vital Signs Last 24 Hour Vital Signs Date Time Temp Pulse Resp B/P (MAP) Pulse Ox O2 Delivery O2 Flow Rate FiO2 09/30/17 12:00 99.0 69 18 118/53 (74) 97 99.0 09/30/17 12:00 68 09/30/17 10:30 99.3 67 16 116/50 (72) 96 99.3 09/30/17 09:00 Room Air 09/30/17 08:00 65 09/30/17 04:00 64 09/30/17 04:00 98.1 64 19 116/50 (72) 96 98.1 09/30/17 01:00 Room Air 09/30/17 01:00 98.1 69 20 148/66 (93) 98.1 09/30/17 00:00 98.1 67 19 136/66 (89) 95 98.1 09/29/17 21:15 Room Air 09/29/17 21:15 97.2 66 18 145/66 (92) 97.2 09/29/17 21:00 Room Air 09/29/17 20:00 97.2 65 19 137/49 (78) 97 97.2 Height (Feet): 5 Height (Inches): 2.00 Weight (Pounds): 219 General Appearance: no acute distress HEENT: normocephalic, atraumatic, anicteric Respiratory/Chest: lungs clear, normal breath sounds, no respiratory distress Cardiovascular: normal rate, regular rhythm, regularly irregular Abdomen: no organomegaly, other - wounds note - upper wound looks infected Laboratory Tests Test 09/30/17 07:40 White Blood Count 18.6 K/UL (4.8-10.8) H Red Blood Count 3.50 M/UL (4.20-5.40) L Hemoglobin 10.0 G/DL (12.0-16.0) L Hematocrit 29.9 % (37.0-47.0) L Mean Corpuscular Volume 85 FL (80-99) Mean Corpuscular Hemoglobin 28.5 PG (27.0-31.0) Mean Corpuscular Hemoglobin Concent 33.4 G/DL (32.0-36.0) Red Cell Distribution Width 16.7 % (11.6-14.8) H Platelet Count 295 K/UL (150-450) Mean Platelet Volume 4.3 FL (6.5-10.1) L Neutrophils (%) (Auto) % (45.0-75.0) Lymphocytes (%) (Auto) % (20.0-45.0) Monocytes (%) (Auto) % (1.0-10.0) Eosinophils (%) (Auto) % (0.0-3.0) Basophils (%) (Auto) % (0.0-2.0) Differential Total Cells Counted 100 Neutrophils % (Manual) 74 % (45-75) Lymphocytes % (Manual) 9 % (20-45) L Monocytes % (Manual) 6 % (1-10) Eosinophils % (Manual) 11 % (0-3) H Basophils % (Manual) 0 % (0-2) Band Neutrophils 0 % (0-8) Platelet Estimate Adequate Platelet Morphology Normal Anisocytosis 1+ Sodium Level 127 MMOL/L (136-145) L Potassium Level 3.2 MMOL/L (3.5-5.1) L Chloride Level 89 MMOL/L (98-107) L Carbon Dioxide Level 29 MMOL/L (21-32) Anion Gap 9 mmol/L (5-15) Blood Urea Nitrogen 16 mg/dL (7-18) Creatinine 3.1 MG/DL (0.55-1.30) H Estimat Glomerular Filtration Rate 15.4 mL/min (>60) Glucose Level 95 MG/DL (74-106) Calcium Level 8.2 MG/DL (8.5-10.1) L Troponin I 0.089 ng/mL (0.000-0.056) Current Medications Medications (Trade) Dose Ordered Sig/Fidelia Route PRN Reason Start Time Stop Time Status Last Admin Dose Admin Acetaminophen (Tylenol) 650 mg Q4H PRN ORAL Mild Pain (Pain Scale 1-3) 09/29/17 07:45 10/29/17 07:44 Acetaminophen (Tylenol) 650 mg Q4H PRN ORAL fever 09/29/17 07:45 10/29/17 07:44 Aspirin (ASA) 81 mg DAILY ORAL 09/29/17 09:00 10/29/17 08:59 09/30/17 09:26 Atorvastatin Calcium (Lipitor) 80 mg BEDTIME ORAL 09/29/17 21:00 10/29/17 20:59 09/30/17 03:13 Aztreonam 0.25 gm/ Dextrose 55 ml @ 110 mls/hr Q12H IVPB 09/30/17 09:00 10/07/17 08:59 09/30/17 09:26 Bisacodyl (Dulcolax) 10 mg HSPRN PRN RECTAL Constipation 09/29/17 07:45 10/29/17 07:44 Dextrose (Dextrose 50%) 25 ml STAT PRN IV Hypoglycemia 09/29/17 07:45 10/29/17 07:44 Dextrose (Dextrose 50%) 50 ml STAT PRN IV Hypoglycemia 09/29/17 07:45 10/29/17 07:44 Docusate Sodium (Colace) 100 mg EVERY 12 HOURS ORAL 09/29/17 09:00 10/29/17 08:59 09/30/17 09:26 Heparin Sodium (Porcine) (Heparin 5000 units/ml) 5,000 units EVERY 12 HOURS SUBQ 09/29/17 09:00 10/29/17 08:59 09/30/17 03:31 Insulin Human Regular (NovoLIN R) BS 70-110, then 0 units... AC+HS SUBQ 09/29/17 16:30 10/29/17 16:29 Metronidazole 100 ml @ 100 mls/hr Q8HR@0500,1300,2100 IVPB 09/30/17 13:00 10/07/17 12:59 09/30/17 14:43 Ondansetron HCl (Zofran) 4 mg Q6H PRN IVP Nausea & Vomiting 09/29/17 07:45 10/29/17 07:44 Polyethylene Glycol (Miralax) 17 gm HSPRN PRN ORAL Constipation 09/29/17 07:45 10/29/17 07:44 Vancomycin HCl (Vanco rx to dose) 1 ea DAILY PRN MISC Per rx protocol 09/29/17 14:45 10/29/17 14:44 Jenniffer Strickland MD Sep 30, 2017 16:49
[2017-09-30] MEDS: Aztreonam 0.5gm/D5W 55ml IVPB SCH ×2 (21:50)
[2017-09-30] MEDS: metroNIDAZOLE 500mg tab ORAL SCH (22:07)
[2017-10-01] VITALS: BP 158/62
--- NOTE | 2017-10-01 01:30 | Consultation ---
DATE OF CONSULTATION: 09/30/2017 INFECTIOUS DISEASE CONSULTATION CONSULTING PHYSICIAN: Jenniffer Strickland M.D. ATTENDING PHYSICIAN: Whitney Torres M.D. REFERRING PHYSICIAN: Whitney Torres M.D. REASON FOR CONSULTATION: Abdominal wound infection and abscesses with possible sepsis and elevated white count. CHIEF COMPLAINT: The patient's chief complaint coming in to the hospital is acute coronary syndrome. HISTORY OF PRESENT ILLNESS: This is a very pleasant 57-year-old female with history of recent coronary artery bypass graft. The patient comes in to [facility] with chest pain. The patient has what looks like abdominal wound that is possibly infected with underlying abscesses. CT scan of the abdomen and pelvis showed the patient to have appendicitis, however, clinically she does not seem to have appendicitis. The patient is being followed by surgery and there is plan for debridement of the abdominal wound with possible abscess and infected wound. Again, the patient is status post coronary artery bypass graft and stent infection removal. I believe she had a stent infection and was given intravenous antibiotics at outside facility, I believe [facility]. Infectious Disease consultation is requested for antibiotic management in this patient. The patient was started on vancomycin, aztreonam, Flagyl, and I have added Cipro also today for her worsening leukocytosis. MAR was noted. Orders were noted. Notes and records were reviewed. Case was discussed with the patient and the patient's family at the bedside. Blood cultures obtained. PAST MEDICAL HISTORY: The patient's past medical history includes the history of the following. The patient has a past medical history of end-stage renal disease, on hemodialysis, has hemodialysis line. She has history of morbid obesity. She has history of coronary artery bypass graft and coronary artery disease. She has history of stent infection, antibiotics, and history of stent removal. I believe, she has possible history of hypertension also. She is on hypertensive medications and also possible hyperlipidemia, diabetes, morbid obesity, CAD, and CABG. She presented with chest pain. She again has history of diabetes and hypertension. MEDICATIONS: Upon reviewing the MAR, she is on following medications. On metronidazole, aztreonam, Cipro, vancomycin, atorvastatin, Lipitor, and insulin. She is on docusate heparin, aspirin, acetaminophen, bisacodyl, and Zofran. Outside medications were noted and reconciliated. ALLERGIES: Adhesive tape, amlodipine, insulin, iodine, and penicillins. SOCIAL HISTORY: Negative for smoking, alcohol, or drug abuse. FAMILY HISTORY: Noncontributory. No mention of exposure to tuberculosis or cancer. REVIEW OF SYSTEMS: CONSTITUTIONAL: The patient has generalized fatigue, but no focal weakness. She does have hemodialysis line. She has no Vazquez. She has abdominal wounds that will be described. She has currently no fevers or pressors. HEAD AND NECK: No head pain, neck pain, or neck stiffness. CARDIAC: No chest pain at this time. She did come in with chest pain. GASTROINTESTINAL: No nausea or vomiting. She has some abdominal discomfort and wounds. No diarrhea. PULMONARY: No congestion, shortness of breath, hemoptysis, or secretions. SKIN: No rash or itching. EXTREMITIES: No extremity pain. NEUROLOGIC: No seizures. No night sweats or weight loss mentioned. PHYSICAL EXAMINATION: VITAL SIGNS: Temperature is 97.7, pulse rate is 60, respiratory rate 18, blood pressure 141/69, and saturation 96%. GENERAL: Alert and responsive, in no distress. HEAD AND NECK: Oral exam, no thrush. Eye exam, no icterus. Normocephalic. Neck is supple. No JVD. LUNGS: Clear bilaterally. No rhonchi or rales. HEART: Regular. No obvious gallop or murmur. ABDOMEN: Soft. Positive bowel sounds. No significant tenderness. No rebound. Abdominal wounds were noted in the upper part of the abdomen. Her wound has significant amount of slough. No drainage of pus. MUSCULOSKELETAL: No effusion. Legs are without cellulitis. PERIPHERAL VASCULAR: No cyanosis or gangrene. No other rash. GENITOURINARY: No Vazquez. She has hemodialysis line. No obvious cellulitis at the site of entrance. No gangrene. No CVA tenderness. NEUROLOGIC: Intact and nonfocal. Alert and oriented x3. LABORATORY DATA: Laboratory data is as follows. White count 18.6, hemoglobin 10.0, and platelet count 295,000. Creatinine is 3.1. The patient's LFTs were noted. The patient's blood cultures are pending. IMAGING STUDIES: CT scan of the abdomen and pelvis was consistent with appendicitis 1 cm with mild surrounding stranding. No mention of abscess. Chest x-ray showed and pulmonary vascular congestion. No focal consolidation noted or mentioned. Blood cultures are pending. ASSESSMENT AND PLAN: 1. The patient likely septic with systemic inflammatory response syndrome criteria and elevated white count noted. Social sepsis most likely abdominal wall, looks like abdominal infected wound and possible underlying abscesses and abdominal wall. CT scan showed no abscesses. Continue aztreonam, Flagyl, vancomycin, and Cipro. Really cannot culture the wounds since mostly slough and there is no drainage. The patient to be seen and followed by surgery for possible debridement. Watch white cell count. Watch laboratories, creatinine, CBC, and chemistry. Also check followup blood cultures to make sure the patient does not have line sepsis. The patient may get debridement of the wound because of the sepsis and elevated white count. 2. End-stage renal disease, on hemodialysis, has hemodialysis line. 3. Anemia. 4. Diabetes. 5. Hypertension. 6. Possible hyperlipidemia. 7. Blood sugar and blood pressure treatment per primary. 8. Chest pain treatment per Cardiology. 9. History of coronary artery disease, coronary artery bypass graft, and stent placement, status post stent removal and intravenous antibiotics for infected stent looks like. 10. Obesity. 11. Allergies to adhesive tape, amlodipine, insulin, iodine, and penicillins. 12. Social history is negative. 13. Family history is noncontributory. 14. MAR was noted. 15. Case was discussed with RN. 16. Case was discussed with the patient and the patient's family. 17. Continue treatment per primary consultants. 18. Notes and records were noted. 19. Orders were entered. 20. Also discussed with . Case discussed with pharmacy also. Jenniffer Strickland M.D. DR: GELA JOB#: [id number] CC:
[2017-10-01 04:00] VITALS: BP 138/61
[2017-10-01] MEDS: metroNIDAZOLE 500mg tab ORAL SCH ×3 (05:59→21:27)
[2017-10-01] MEDS: Insulin Human Regular 100units/ml 3ml SUBQ SCH ×4 (06:03→21:00)
[2017-10-01 08:00] VITALS: BP 141/62
[2017-10-01 08:17] LABS: HEMATOCRIT 30.5 % (37.0-47.0); HEMOGLOBIN 10.1 G/DL (12.0-16.0); MEAN CORPUSCULAR VOLUME 86 FL (80-99); PLATELET COUNT 349 K/UL (150-450); RED BLOOD COUNT 3.56 M/UL (4.20-5.40); RED CELL DISTRIBUTION WIDTH 17.7 % (11.6-14.8); WHITE BLOOD COUNT 18.9 K/UL (4.8-10.8)
--- NOTE | 2017-10-01 09:05 | Nephrology Progress Note ---
Assessment/Plan Assessment/Plan 1. ESRD- MF HD for 3 hrs and 1.5 L UF. Will schedule for tomorrow pending surgery 2. Hypokalemia- am labs pending 3. Anemia of CKD- EPO if Hgb <10 4. Abd Pain/Leukocytosis- per Gen Surg, Abd wound exploration in am 5. Sepsis- per ID 6. Hyponatremia- Hypotonic fluid stopped. AM labs pending Subjective Date patient seen: Oct 01, 2017 Time patient seen: 09:04 ROS Limited/Unobtainable: No Allergies: Coded Allergies: ADHESIVE (Verified Allergy, Unknown, 09/29/17) AMLODIPINE (Verified Allergy, Unknown, 09/29/17) INSULIN ASPART (Verified Allergy, Unknown, 09/29/17) INSULIN LISPRO (Verified Allergy, Unknown, 09/29/17) IODINE (Verified Allergy, Unknown, 09/29/17) PENICILLINS (Verified Allergy, Unknown, 09/29/17) All Systems: reviewed and negative except above Subjective Patient resting well in no overt distress. Eating bkfst Objective Last 24 Hour Vital Signs Date Time Temp Pulse Resp B/P (MAP) Pulse Ox O2 Delivery O2 Flow Rate FiO2 10/01/17 04:00 59 10/01/17 04:00 98.2 62 18 138/61 (86) 96 98.2 10/01/17 00:00 74 10/01/17 00:00 99.0 69 18 158/62 (94) 100 99.0 09/30/17 21:00 Room Air 09/30/17 20:00 67 09/30/17 20:00 97.7 68 18 141/69 (93) 96 97.7 09/30/17 16:00 68 09/30/17 16:00 97.7 68 18 141/69 (93) 96 97.7 09/30/17 12:00 99.0 69 18 118/53 (74) 97 99.0 09/30/17 12:00 68 09/30/17 10:30 99.3 67 16 116/50 (72) 96 99.3 Intake and Output 09/30/17 10/01/17 19:00 07:00 Intake Total 750 ml 795 ml Output Total 20 ml Balance 730 ml 795 ml Intake Oral 500 ml 740 ml Other 250 ml 55 ml Output Urine Total 20 ml # Voids 1 1 Laboratory Tests 10/01/17 07:45: White Blood Count 18.9H, Red Blood Count 3.56L, Hemoglobin 10.1L, Hematocrit 30.5L, Mean Corpuscular Volume 86, Mean Corpuscular Hemoglobin 28.4, Mean Corpuscular Hemoglobin Concent 33.1, Red Cell Distribution Width 17.7H, Platelet Count 349, Mean Platelet Volume 4.0L, Neutrophils (%) (Auto) , Lymphocytes (%) (Auto) , Monocytes (%) (Auto) , Eosinophils (%) (Auto) , Basophils (%) (Auto) , Neutrophils % (Manual) [Pending], Lymphocytes % (Manual) [Pending], Platelet Estimate [Pending], Platelet Morphology [Pending], Sodium Level [Pending], Potassium Level [Pending], Chloride Level [Pending], Carbon Dioxide Level [Pending], Blood Urea Nitrogen [Pending], Creatinine [Pending], Estimat Glomerular Filtration Rate [Pending], Glucose Level [Pending], Calcium Level [Pending], Troponin I [Pending] Height (Feet): 5 Height (Inches): 2.00 Weight (Pounds): 219 General Appearance: WD/WN, no apparent distress EENT: PERRL/EOMI Neck: non-tender, normal alignment, supple Cardiovascular: normal peripheral pulses, normal rate Respiratory/Chest: chest wall non-tender, lungs clear Abdomen: normal bowel sounds, non tender, soft Edema: no edema noted Arm (L), no edema noted Arm (R), no edema noted Leg (L), no edema noted Leg (R), no edema noted Pedal (L), no edema noted Pedal (R), no edema noted Generalized Aman Link M.D. Oct 01, 2017 09:05
[2017-10-01 09:20] LABS: BLOOD UREA NITROGEN 23 mg/dL (7-18); CALCIUM 8.8 MG/DL (8.5-10.1); CHLORIDE 90 MMOL/L (98-107); CREATININE 3.7 MG/DL (0.55-1.30); POTASSIUM 4.3 MMOL/L (3.5-5.1); SODIUM 124 MMOL/L (136-145)
[2017-10-01 09:47] LABS: ANION GAP 6 mmol/L (5-15); CARBON DIOXIDE 29 MMOL/L (21-32)
[2017-10-01] MEDS: Aspirin Baby 81mg ORAL SCH (10:14)
[2017-10-01] MEDS: Aztreonam 0.5gm/D5W 55ml IVPB SCH ×4 (10:15→21:28)
[2017-10-01] MEDS: Docusate 100mg cap ORAL SCH ×2 (10:15→21:27)
[2017-10-01] MEDS: Heparin 5000 units/ml inj SUBQ SCH ×2 (11:16→21:00)
[2017-10-01 12:00] VITALS: BP 148/66
--- NOTE | 2017-10-01 12:35 | General Surgery Progress Note ---
General Surgery-Progress Note Subjective Additional Comments leukocytosis still 18k. states pain improved. no n/v/f/c. tolerating diet. drainage from wound Objective Last 24 Hour Vital Signs Date Time Temp Pulse Resp B/P (MAP) Pulse Ox O2 Delivery O2 Flow Rate FiO2 10/01/17 12:00 97.7 64 18 148/66 (93) 97 97.7 10/01/17 09:00 Room Air 10/01/17 08:00 71 10/01/17 08:00 97.6 67 18 141/62 (88) 97 97.6 10/01/17 04:00 59 10/01/17 04:00 98.2 62 18 138/61 (86) 96 98.2 10/01/17 00:00 74 10/01/17 00:00 99.0 69 18 158/62 (94) 100 99.0 09/30/17 21:00 Room Air 09/30/17 20:00 67 09/30/17 20:00 97.7 68 18 141/69 (93) 96 97.7 09/30/17 16:00 68 09/30/17 16:00 97.7 68 18 141/69 (93) 96 97.7 I&O Intake and Output 09/30/17 10/01/17 19:00 07:00 Intake Total 750 ml 795 ml Output Total 20 ml Balance 730 ml 795 ml Intake Oral 500 ml 740 ml Other 250 ml 55 ml Output Urine Total 20 ml # Voids 1 1 Dressing: saturated Wound: other Drains: none Cardiovascular: RSR Respiratory: clear Abdomen: soft, distended, tenderness, present bowel sounds, other Extremities: no edema, no cyanosis Laboratory Tests Test 10/01/17 07:45 White Blood Count 18.9 K/UL (4.8-10.8) H Red Blood Count 3.56 M/UL (4.20-5.40) L Hemoglobin 10.1 G/DL (12.0-16.0) L Hematocrit 30.5 % (37.0-47.0) L Mean Corpuscular Volume 86 FL (80-99) Mean Corpuscular Hemoglobin 28.4 PG (27.0-31.0) Mean Corpuscular Hemoglobin Concent 33.1 G/DL (32.0-36.0) Red Cell Distribution Width 17.7 % (11.6-14.8) H Platelet Count 349 K/UL (150-450) Mean Platelet Volume 4.0 FL (6.5-10.1) L Neutrophils (%) (Auto) % (45.0-75.0) Lymphocytes (%) (Auto) % (20.0-45.0) Monocytes (%) (Auto) % (1.0-10.0) Eosinophils (%) (Auto) % (0.0-3.0) Basophils (%) (Auto) % (0.0-2.0) Differential Total Cells Counted 100 Neutrophils % (Manual) 80 % (45-75) H Lymphocytes % (Manual) 7 % (20-45) L Monocytes % (Manual) 3 % (1-10) Eosinophils % (Manual) 10 % (0-3) H Basophils % (Manual) 0 % (0-2) Band Neutrophils 0 % (0-8) Platelet Estimate Adequate Platelet Morphology Normal Hypochromasia 1+ Anisocytosis 1+ Sodium Level 124 MMOL/L (136-145) L Potassium Level 4.3 MMOL/L (3.5-5.1) Chloride Level 90 MMOL/L (98-107) L Carbon Dioxide Level 29 MMOL/L (21-32) Anion Gap 6 mmol/L (5-15) Blood Urea Nitrogen 23 mg/dL (7-18) H Creatinine 3.7 MG/DL (0.55-1.30) H Estimat Glomerular Filtration Rate 12.6 mL/min (>60) Glucose Level 99 MG/DL (74-106) Calcium Level 8.8 MG/DL (8.5-10.1) Troponin I 0.092 ng/mL (0.000-0.056) Plan Problems: (1) Open abdominal wall wound (2) Abdominal wall abscess at site of surgical wound (3) Wound, open, abdominal wall, anterior with complication Assessment & Plan: large prior abdominal surgical wound that in portions skin has come together but underlying large area of open fluid collection with possible pockets of abscess. larger epigastric wound seems to connect with lower aspect small wound. lots of murky fluid evacuated, wound deep and tracking in all directions. per patient they have only been placing a small cover on wounds and no packing has been performed. had wound VAC prior but only for 3 days as per patient. I fear that there is something much larger and more serious going underneath the skin and with drainage and looks of wound they are only worsening. CT reviewed and noted. fortunately no large abscess but can note tracking of wound pack wounds with gauze and cover with dressings TID IV Abx discussed indication and recommendation for wound debridement. consideration to proceed possibly monday. As for possible appendicitis, noted 1cm appendix with stranding on CT. clinically patient has generalized abdominal pain and not focal to RLQ. she has had generalized abdominal pain for some time now and likely related to large wound. no n/v/f/c. leukocytosis 18k but can be related to multiple etiologies. Will continue with current treatment. If does develop localized RLQ pain or clinically looks like appendicitis will need surgery. discussed with patient, family, and patients outside physician. will plan for wound debridement and possible diagnostic laparoscopy tomorrow or monday. npo p mn IV fluids Abx thank you for this consultation Darrius Figueredo Oct 01, 2017 12:35
--- NOTE | 2017-10-01 12:38 | Pre-Procedure Note/Attestation ---
Pre-Procedure Note/Attestation Complete Prior to Procedure Planned Procedure: not applicable Procedure Narrative: Abdominal wound exploration with reopening of prior abdominal wound, washout, excisional debridement, possible diagnostic laparoscopy, possible appendectomy, possible wound VAC placement Indications for Procedure Pre-Operative Diagnosis: abdominal wall wound infection, possible appendicitis Attestation I attest that I discussed the nature of the procedure; its benefits; risks and complications; and alternatives (and the risks and benefits of such alternatives ), prior to the procedure, with the patient (or the patient's legal car sales representative). I attest that, if there was a reasonable possibility of needing a blood transfusion, the patient (or the patient's legal car sales representative) was given the [place] Department [employer] Services standardized written summary, pursuant to the [employer] [place] Blood Safety Act ([place] Health and Safety Code # 1645, as amended). I attest that I re-evaluated the patient just prior to the surgery and that there has been no change in the patient's H&P, except as documented below: Darrius Figueredo Oct 01, 2017 12:38
--- NOTE | 2017-10-01 13:33 | Cardiology Report ---
APPROVED REPORT EKG Measurement Heart [id number] Normal sinus rhythm Septal infarct, age undetermined T wave abnormality, consider inferior ischemia Abnormal ECG
--- NOTE | 2017-10-01 15:41 | Cardiology Progress Note ---
Assessment/Plan Status: stable Assessment/Plan Assessment: 1. Chest pain 2. h/o recent 2V CABG c/b stent infection s/p stent removal and abx 3. Open wound to chest with stent removal 4. Sepsis 5. ESRD on HD (M/F) 6. DM 7. HTN Serial troponin, no indication for cath at this time, elevation likely from infection and ESRD CT A/P, surgical consult appreciated - plan for ex lap monday NPO monday, hold heparin gtt Maintain HD serial abdominal exams, no acute abdomen IV abx Follow Cultures Continue aspirin Continue atorvastatin Patient is cleared to proceed with surgery monday/monday, low risk of cardiac event Subjective Cardiovascular: Reports: no symptoms Respiratory: Reports: no symptoms Genitourinary: Reports: no symptoms Subjective No acute events, CT with no appendicitis, vitals stable. Patient resting well in no overt distress. WBC continues to be elevated. Vitals stable Objective Last 24 Hour Vital Signs Date Time Temp Pulse Resp B/P (MAP) Pulse Ox O2 Delivery O2 Flow Rate FiO2 10/01/17 12:00 62 10/01/17 12:00 97.7 64 18 148/66 (93) 97 97.7 10/01/17 09:00 Room Air 10/01/17 08:00 71 10/01/17 08:00 97.6 67 18 141/62 (88) 97 97.6 10/01/17 04:00 59 10/01/17 04:00 98.2 62 18 138/61 (86) 96 98.2 10/01/17 00:00 74 10/01/17 00:00 99.0 69 18 158/62 (94) 100 99.0 09/30/17 21:00 Room Air 09/30/17 20:00 67 09/30/17 20:00 97.7 68 18 141/69 (93) 96 97.7 09/30/17 16:00 68 09/30/17 16:00 97.7 68 18 141/69 (93) 96 97.7 General Appearance: no apparent distress EENT: PERRL/EOMI Neck: non-tender Rhythm: NSR Cardiovascular: normal peripheral pulses Respiratory/Chest: chest wall non-tender Abdomen: normal bowel sounds Extremities: normal range of motion 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 II-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 grossly normal Intake and Output 09/30/17 10/01/17 19:00 07:00 Intake Total 750 ml 795 ml Output Total 20 ml Balance 730 ml 795 ml Intake Oral 500 ml 740 ml Other 250 ml 55 ml Output Urine Total 20 ml # Voids 1 1 Laboratory Tests Test 10/01/17 07:45 10/01/17 15:09 White Blood Count 18.9 K/UL (4.8-10.8) H Red Blood Count 3.56 M/UL (4.20-5.40) L Hemoglobin 10.1 G/DL (12.0-16.0) L Hematocrit 30.5 % (37.0-47.0) L Mean Corpuscular Volume 86 FL (80-99) Mean Corpuscular Hemoglobin 28.4 PG (27.0-31.0) Mean Corpuscular Hemoglobin Concent 33.1 G/DL (32.0-36.0) Red Cell Distribution Width 17.7 % (11.6-14.8) H Platelet Count 349 K/UL (150-450) Mean Platelet Volume 4.0 FL (6.5-10.1) L Neutrophils (%) (Auto) % (45.0-75.0) Lymphocytes (%) (Auto) % (20.0-45.0) Monocytes (%) (Auto) % (1.0-10.0) Eosinophils (%) (Auto) % (0.0-3.0) Basophils (%) (Auto) % (0.0-2.0) Differential Total Cells Counted 100 Neutrophils % (Manual) 80 % (45-75) H Lymphocytes % (Manual) 7 % (20-45) L Monocytes % (Manual) 3 % (1-10) Eosinophils % (Manual) 10 % (0-3) H Basophils % (Manual) 0 % (0-2) Band Neutrophils 0 % (0-8) Platelet Estimate Adequate Platelet Morphology Normal Hypochromasia 1+ Anisocytosis 1+ Sodium Level 124 MMOL/L (136-145) L Potassium Level 4.3 MMOL/L (3.5-5.1) Chloride Level 90 MMOL/L (98-107) L Carbon Dioxide Level 29 MMOL/L (21-32) Anion Gap 6 mmol/L (5-15) Blood Urea Nitrogen 23 mg/dL (7-18) H Creatinine 3.7 MG/DL (0.55-1.30) H Estimat Glomerular Filtration Rate 12.6 mL/min (>60) Glucose Level 99 MG/DL (74-106) Calcium Level 8.8 MG/DL (8.5-10.1) Troponin I 0.092 ng/mL (0.000-0.056) Random Vancomycin Level Pending Microbiology Date/Time Source Procedure Growth Status 09/29/17 20:30 Blood Blood Culture - Preliminary NO GROWTH AFTER 24 HOURS Resulted 09/29/17 20:15 Blood Blood Culture - Preliminary NO GROWTH AFTER 24 HOURS Resulted 09/29/17 04:30 Nasal Nares MRSA Culture - Final NO METHICILLIN RESISTANT STAPH AUREUS... Complete 09/29/17 04:30 Rectum - Final NO CARBAPENEM-RESISTANT ENTEROBACTERI... Complete 09/29/17 04:30 Rectum VRE Culture - Final NO VANCOMYCIN RESISTANT ENTEROCOCCUS ... Complete Quirino Capps M.D. Oct 01, 2017 15:41
[2017-10-01 16:00] VITALS: BP 155/70
--- NOTE | 2017-10-01 17:14 | Internal Med Progress Note ---
Subjective Physician Name Sania Kraus Attending Physician Whitney Torres MD Current Medications Medications (Trade) Dose Ordered Sig/Fidelia Route PRN Reason Start Time Stop Time Status Last Admin Dose Admin Acetaminophen (Tylenol) 650 mg Q4H PRN ORAL Mild Pain (Pain Scale 1-3) 09/29/17 07:45 10/29/17 07:44 Acetaminophen (Tylenol) 650 mg Q4H PRN ORAL fever 09/29/17 07:45 10/29/17 07:44 Atorvastatin Calcium (Lipitor) 80 mg BEDTIME ORAL 09/29/17 21:00 10/29/17 20:59 09/30/17 21:49 Aztreonam 0.5 gm/ Dextrose 55 ml @ 110 mls/hr Q12HR IVPB 09/30/17 21:00 10/07/17 20:59 10/01/17 10:15 Bisacodyl (Dulcolax) 10 mg HSPRN PRN RECTAL Constipation 09/29/17 07:45 10/29/17 07:44 Ciprofloxacin 200 ml @ 200 mls/hr Q24HRS IV 09/30/17 18:00 10/07/17 17:59 09/30/17 18:00 Dextrose (Dextrose 50%) 25 ml STAT PRN IV Hypoglycemia 09/29/17 07:45 10/29/17 07:44 Dextrose (Dextrose 50%) 50 ml STAT PRN IV Hypoglycemia 09/29/17 07:45 10/29/17 07:44 Docusate Sodium (Colace) 100 mg EVERY 12 HOURS ORAL 09/29/17 09:00 10/29/17 08:59 10/01/17 10:15 Heparin Sodium (Porcine) (Heparin 5000 units/ml) 5,000 units EVERY 12 HOURS SUBQ 09/29/17 09:00 10/29/17 08:59 10/01/17 11:16 Insulin Human Regular (NovoLIN R) BS 70-110, then 0 units... AC+HS SUBQ 09/29/17 16:30 10/29/17 16:29 Metronidazole (Flagyl) 500 mg EVERY 8 HOURS ORAL 09/30/17 22:00 10/07/17 21:59 10/01/17 15:15 Ondansetron HCl (Zofran) 4 mg Q6H PRN IVP Nausea & Vomiting 09/29/17 07:45 10/29/17 07:44 Polyethylene Glycol (Miralax) 17 gm HSPRN PRN ORAL Constipation 09/29/17 07:45 10/29/17 07:44 Sodium Chloride 1,000 ml @ 100 mls/hr Q10H IV 10/01/17 12:45 10/31/17 12:44 10/01/17 12:57 Vancomycin HCl (Vanco rx to dose) 1 ea DAILY PRN MISC Per rx protocol 09/29/17 14:45 10/29/17 14:44 Vancomycin HCl 1 gm/Dextrose 275 ml @ 183.708 mls/hr ONCE ONCE IVPB 10/01/17 18:00 10/01/17 19:29 Allergies: Coded Allergies: ADHESIVE (Verified Allergy, Unknown, 09/29/17) AMLODIPINE (Verified Allergy, Unknown, 09/29/17) INSULIN ASPART (Verified Allergy, Unknown, 09/29/17) INSULIN LISPRO (Verified Allergy, Unknown, 09/29/17) IODINE (Verified Allergy, Unknown, 09/29/17) PENICILLINS (Verified Allergy, Unknown, 09/29/17) Objective Last Vital Signs Date Time Temp Pulse Resp B/P (MAP) Pulse Ox O2 Delivery O2 Flow Rate FiO2 10/01/17 16:00 98.2 63 20 155/70 (98) 94 98.2 10/01/17 09:00 Room Air 09/29/17 03:21 2.0 Laboratory Tests Test 10/01/17 07:45 10/01/17 15:09 White Blood Count 18.9 K/UL (4.8-10.8) H Red Blood Count 3.56 M/UL (4.20-5.40) L Hemoglobin 10.1 G/DL (12.0-16.0) L Hematocrit 30.5 % (37.0-47.0) L Mean Corpuscular Volume 86 FL (80-99) Mean Corpuscular Hemoglobin 28.4 PG (27.0-31.0) Mean Corpuscular Hemoglobin Concent 33.1 G/DL (32.0-36.0) Red Cell Distribution Width 17.7 % (11.6-14.8) H Platelet Count 349 K/UL (150-450) Mean Platelet Volume 4.0 FL (6.5-10.1) L Neutrophils (%) (Auto) % (45.0-75.0) Lymphocytes (%) (Auto) % (20.0-45.0) Monocytes (%) (Auto) % (1.0-10.0) Eosinophils (%) (Auto) % (0.0-3.0) Basophils (%) (Auto) % (0.0-2.0) Differential Total Cells Counted 100 Neutrophils % (Manual) 80 % (45-75) H Lymphocytes % (Manual) 7 % (20-45) L Monocytes % (Manual) 3 % (1-10) Eosinophils % (Manual) 10 % (0-3) H Basophils % (Manual) 0 % (0-2) Band Neutrophils 0 % (0-8) Platelet Estimate Adequate Platelet Morphology Normal Hypochromasia 1+ Anisocytosis 1+ Sodium Level 124 MMOL/L (136-145) L Potassium Level 4.3 MMOL/L (3.5-5.1) Chloride Level 90 MMOL/L (98-107) L Carbon Dioxide Level 29 MMOL/L (21-32) Anion Gap 6 mmol/L (5-15) Blood Urea Nitrogen 23 mg/dL (7-18) H Creatinine 3.7 MG/DL (0.55-1.30) H Estimat Glomerular Filtration Rate 12.6 mL/min (>60) Glucose Level 99 MG/DL (74-106) Calcium Level 8.8 MG/DL (8.5-10.1) Troponin I 0.092 ng/mL (0.000-0.056) Random Vancomycin Level 12.2 ug/mL Microbiology Date/Time Source Procedure Growth Status 09/29/17 20:30 Blood Blood Culture - Preliminary NO GROWTH AFTER 24 HOURS Resulted 09/29/17 20:15 Blood Blood Culture - Preliminary NO GROWTH AFTER 24 HOURS Resulted 09/29/17 04:30 Nasal Nares MRSA Culture - Final NO METHICILLIN RESISTANT STAPH AUREUS... Complete 09/29/17 04:30 Rectum - Final NO CARBAPENEM-RESISTANT ENTEROBACTERI... Complete 09/29/17 04:30 Rectum VRE Culture - Final NO VANCOMYCIN RESISTANT ENTEROCOCCUS ... Complete Intake and Output 09/30/17 10/01/17 19:00 07:00 Intake Total 750 ml 795 ml Output Total 20 ml Balance 730 ml 795 ml Intake Oral 500 ml 740 ml Other 250 ml 55 ml Output Urine Total 20 ml # Voids 1 1 Assessment/Plan Assessment/Plan (1) Sepsis ICD Codes: A41.9 - Sepsis, unspecified organism SNOMED: 13903047 (2) Anemia ICD Codes: D64.9 - Anemia, unspecified SNOMED: 932978448, 873387161 Qualifiers: Qualified Codes: D64.9 - Anemia, unspecified (3) ESRD on hemodialysis ICD Codes: N18.6 - End stage renal disease; Z99.2 - Dependence on renal dialysis SNOMED: 344185063, 01948076 (4) Morbid obesity with BMI of 40.0-44.9, adult ICD Codes: E66.01 - Morbid (severe) obesity due to excess calories; Z68.41 - Body mass index (BMI) 40.0-44.9, adult SNOMED: 688965103, 316382922 (5) Chest pain ICD Codes: R07.9 - Chest pain, unspecified SNOMED: 10493142 (6) Wound, open, abdominal wall, anterior with complication ICD Codes: S31.109A - Unspecified open wound of abdominal wall, unspecified quadrant without penetration into peritoneal cavity, initial encounter SNOMED: 201421662 Qualifiers: Qualified Codes: S31.109A - Unspecified open wound of abdominal wall, unspecified quadrant without penetration into peritoneal cavity, initial encounter (7) Abdominal wall abscess at site of surgical wound ICD Codes: T81.4XXA - Infection following a procedure, initial encounter SNOMED: 251461938 (8) Open abdominal wall wound ICD Codes: S31.109A - Unspecified open wound of abdominal wall, unspecified quadrant without penetration into peritoneal cavity, initial encounter SNOMED: 789446968 Qualifiers: Qualified Codes: S31.109A - Unspecified open wound of abdominal wall, unspecified quadrant without penetration into peritoneal cavity, initial encounter (9) Hypokalemia ICD Codes: E87.6 - Hypokalemia SNOMED: 83177172 (10) Hyponatremia ICD Codes: E87.1 - Hypo-osmolality and hyponatremia SNOMED: 32220968 Status: stable, progressing Assessment/Plan Assessment: 1. Chest pain 2. h/o recent 2V CABG c/b stent infection s/p stent removal and abx 3. Open wound to chest/abdomen s/p stent removal 4. Sepsis 5. ESRD on HD (M/F) 6. DM 7. HTN Plan: - Cardiology, general surgery, nephrology, and ID consulted - F/u CT a/p to visualize extent of abscess - concerns for early appendicitis will plan for wound debridement and possible diagnostic laparoscopy tomorrow or monday. npo p mn - Trend EKG/trops -- r/o ACS. - IV vancomycin and flagyl per ID (D2) - HD per nephro (M/F). HD tomorrow - Continue home meds. - Continue humulin R for SSi - Monitor electrolytes and replete - Monitor CBC - Wound care - PT/OT DVT Prophylaxis: SCD, HSQ Code Status: Full Hospital Classification Declaration: Based on this initial evaluation, and depending on the patient's clinical course, I anticipate that this patient will require hospitalization for 3-5 days for sepsis, chest pain and close respiratory/hemodynamic monitoring. Disposition: Once the patient is stable to leave the hospital, I anticipate the patient will likely be discharged to the following environment: [facility] I spent 72 minutes on this patient's case, and 42 minutes were dedicated to counseling and/or care coordination. Discussed with patient/family, nursing staff, SW/CRYSTAL, and all consultants as above regarding clinical status, treatment course, and disposition planning. Sania Kraus M.D. Oct 01, 2017 17:14
[2017-10-01] MEDS ORDERED: Vancomycin 1250mg/D5W 250ml IVPB ONE (18:00)
[2017-10-01] MEDS ORDERED: Vancomycin 1gm/D5W 275ml IVPB ONE ×2 (18:00)
[2017-10-01 20:00] VITALS: BP 159/75
[2017-10-01] MEDS: Atorvastatin 80mg tab ORAL SCH (21:27)
[2017-10-02] VITALS (14 sets, daily range): BP systolic 139–160; BP diastolic 62–75
[2017-10-02 05:45] LABS: BASOPHILS % (AUTO) 0.8 % (0.0-2.0); EOSINOPHILS % (AUTO) 7.4 % (0.0-3.0); HEMATOCRIT 29.9 % (37.0-47.0); HEMOGLOBIN 10.1 G/DL (12.0-16.0); LYMPHOCYTES % (AUTO) 9.5 % (20.0-45.0); MEAN CORPUSCULAR VOLUME 86 FL (80-99); NEUTROPHILS % (AUTO) 73.2 % (45.0-75.0); PLATELET COUNT 370 K/UL (150-450); RED BLOOD COUNT 3.49 M/UL (4.20-5.40); RED CELL DISTRIBUTION WIDTH 18.1 % (11.6-14.8); WHITE BLOOD COUNT 16.8 K/UL (4.8-10.8)
[2017-10-02 05:58] LABS: INR 1.3 (0.9-1.1)
[2017-10-02] MEDS: metroNIDAZOLE 500mg tab ORAL SCH ×2 (06:00→14:00)
[2017-10-02] MEDS: Insulin Human Regular 100units/ml 3ml SUBQ SCH ×4 (06:30→21:00)
[2017-10-02 06:45] LABS: ALANINE AMINOTRANSFERASE 39 U/L (12-78); ALBUMIN 1.6 G/DL (3.4-5.0); ALBUMIN/GLOBULIN RATIO 0.3 (1.0-2.7); ALKALINE PHOSPHATASE 360 U/L (46-116); ANION GAP 7 mmol/L (5-15); ASPARTATE AMINO TRANSFERASE 46 U/L (15-37); BILIRUBIN,TOTAL 0.6 MG/DL (0.2-1.0); BLOOD UREA NITROGEN 25 mg/dL (7-18); CALCIUM 8.8 MG/DL (8.5-10.1); CARBON DIOXIDE 28 MMOL/L (21-32); CHLORIDE 91 MMOL/L (98-107); CREATININE 3.8 MG/DL (0.55-1.30); POTASSIUM 3.9 MMOL/L (3.5-5.1); SODIUM 126 MMOL/L (136-145)
[2017-10-02] MEDS: Heparin 5000 units/ml inj SUBQ SCH ×2 (08:07→21:00)
--- NOTE | 2017-10-02 08:15 | Nephrology Progress Note ---
Assessment/Plan Assessment/Plan 1. ESRD- MF HD for 3 hrs and 1.5 L UF. HD 2. Hypokalemia- corrected 3. Anemia of CKD- EPO if Hgb <10 4. Abd Pain/Leukocytosis- per Gen Surg, Abd wound exploration today 5. Sepsis- per ID 6. Hyponatremia- po fluid restrict. DC NS Subjective Date patient seen: Oct 02, 2017 Time patient seen: 08:12 ROS Limited/Unobtainable: No Allergies: Coded Allergies: ADHESIVE (Verified Allergy, Unknown, 09/29/17) AMLODIPINE (Verified Allergy, Unknown, 09/29/17) INSULIN ASPART (Verified Allergy, Unknown, 09/29/17) INSULIN LISPRO (Verified Allergy, Unknown, 09/29/17) IODINE (Verified Allergy, Unknown, 09/29/17) PENICILLINS (Verified Allergy, Unknown, 09/29/17) All Systems: reviewed and negative except above Subjective Patient resting well in no overt distress. Pending surgery Objective Last 24 Hour Vital Signs Date Time Temp Pulse Resp B/P (MAP) Pulse Ox O2 Delivery O2 Flow Rate FiO2 10/02/17 04:00 98.3 65 20 150/63 (92) 98 98.3 10/02/17 04:00 58 10/02/17 00:00 63 10/02/17 00:00 98.1 65 20 145/63 (90) 98 98.1 10/01/17 21:00 Room Air 10/01/17 20:00 98.4 77 20 159/75 (103) 97 98.4 10/01/17 20:00 68 10/01/17 16:00 98.2 63 20 155/70 (98) 94 98.2 10/01/17 16:00 66 10/01/17 12:00 62 10/01/17 12:00 97.7 64 18 148/66 (93) 97 97.7 10/01/17 09:00 Room Air Intake and Output 10/01/17 10/02/17 19:00 07:00 Intake Total 350 ml 781.6 ml Output Total 1250 ml Balance -900 ml 781.6 ml Intake Oral 250 ml 200 ml IV Total 100 ml 581.6 ml Output Urine Total 1250 ml Laboratory Tests 10/01/17 15:09: Random Vancomycin Level 12.2 10/02/17 05:25: White Blood Count 16.8H, Red Blood Count 3.49L, Hemoglobin 10.1L, Hematocrit 29.9L, Mean Corpuscular Volume 86, Mean Corpuscular Hemoglobin 28.9, Mean Corpuscular Hemoglobin Concent 33.7, Red Cell Distribution Width 18.1H, Platelet Count 370, Mean Platelet Volume 4.2L, Neutrophils (%) (Auto) 73.2, Lymphocytes (%) (Auto) 9.5L, Monocytes (%) (Auto) 9.0, Eosinophils (%) (Auto) 7.4H, Basophils (%) (Auto) 0.8, Prothrombin Time 13.7H, Prothromb Time International Ratio 1.3H, Activated Partial Thromboplast Time 43H, Sodium Level 126L, Potassium Level 3.9, Chloride Level 91L, Carbon Dioxide Level 28, Anion Gap 7, Blood Urea Nitrogen 25H, Creatinine 3.8H, Estimat Glomerular Filtration Rate 12.2, Glucose Level 96, Calcium Level 8.8, Total Bilirubin 0.6, Aspartate Amino Transf (AST/SGOT) 46H, Alanine Aminotransferase (ALT/SGPT) 39, Alkaline Phosphatase 360H, Total Protein 7.1, Albumin 1.6L, Globulin 5.5, Albumin/ Globulin Ratio 0.3L Height (Feet): 5 Height (Inches): 2.00 Weight (Pounds): 218 General Appearance: WD/WN, no apparent distress EENT: normal ENT inspection Neck: non-tender, normal alignment Cardiovascular: normal peripheral pulses, normal rate Respiratory/Chest: chest wall non-tender, lungs clear Edema: 1+ Arm (L), 1+ Arm (R), 1+ Leg (L), 1+ Leg (R), 1+ Pedal (L), 1+ Pedal ( R), 1+ Generalized Aman Link M.D. Oct 02, 2017 08:15
[2017-10-02] MEDS: Aztreonam 0.5gm/D5W 55ml IVPB SCH ×4 (09:40→22:10)
[2017-10-02] MEDS: Docusate 100mg cap ORAL SCH ×2 (09:41→21:55)
--- NOTE | 2017-10-02 10:56 | General Progress Note ---
Assessment/Plan Status: stable Assessment/Plan 1. Anemia due to underlying kidney disease. --> Continue to closely monitor for improvement. --> Anemia panel has been reviewed, will tend daily. --> Hgb goal >7 2. Anemia due to underlying chronic disease. --> Closely monitor for improvement. 3. Leukocytosis, potentially secondary to sternotomy wire infection. --> Consider evaluation with ID Service. --> 09/30 no improvement in WBC 4. Diabetes mellitus. A1c goal less than 6. 5. Hypertension. Systolic blood pressure goal less than 140. 6. End-stage renal disease, on hemodialysis. Closely monitor. 7. Myocardial infarction, status post 12 stent placements, status post coronary artery bypass grafting. The time the note was entered does not necessarily correspond to the time the patient was seen. Subjective Date patient seen: Oct 01, 2017 ROS Limited/Unobtainable: Yes Hematologic/Lymphatic: Reports: anemia Allergies: Coded Allergies: ADHESIVE (Verified Allergy, Unknown, 09/29/17) AMLODIPINE (Verified Allergy, Unknown, 09/29/17) INSULIN ASPART (Verified Allergy, Unknown, 09/29/17) INSULIN LISPRO (Verified Allergy, Unknown, 09/29/17) IODINE (Verified Allergy, Unknown, 09/29/17) PENICILLINS (Verified Allergy, Unknown, 09/29/17) All Systems: reviewed and negative except above Subjective No acute events. Family at bedside. Surgery scheduled for tomorrow. Objective Last 24 Hour Vital Signs Date Time Temp Pulse Resp B/P (MAP) Pulse Ox O2 Delivery O2 Flow Rate FiO2 10/02/17 09:00 Room Air 10/02/17 08:00 65 10/02/17 08:00 97.9 65 20 139/69 (92) 96 97.9 10/02/17 04:00 98.3 65 20 150/63 (92) 98 98.3 10/02/17 04:00 58 10/02/17 00:00 63 10/02/17 00:00 98.1 65 20 145/63 (90) 98 98.1 10/01/17 21:00 Room Air 10/01/17 20:00 98.4 77 20 159/75 (103) 97 98.4 10/01/17 20:00 68 10/01/17 16:00 98.2 63 20 155/70 (98) 94 98.2 10/01/17 16:00 66 10/01/17 12:00 62 10/01/17 12:00 97.7 64 18 148/66 (93) 97 97.7 Intake and Output 10/01/17 10/02/17 19:00 07:00 Intake Total 350 ml 1381.6 ml Output Total 1250 ml Balance -900 ml 1381.6 ml Intake Oral 250 ml 200 ml IV Total 100 ml 1181.6 ml Output Urine Total 1250 ml # Voids 1 Laboratory Tests 10/01/17 15:09: Random Vancomycin Level 12.2 10/02/17 05:25: White Blood Count 16.8H, Red Blood Count 3.49L, Hemoglobin 10.1L, Hematocrit 29.9L, Mean Corpuscular Volume 86, Mean Corpuscular Hemoglobin 28.9, Mean Corpuscular Hemoglobin Concent 33.7, Red Cell Distribution Width 18.1H, Platelet Count 370, Mean Platelet Volume 4.2L, Neutrophils (%) (Auto) 73.2, Lymphocytes (%) (Auto) 9.5L, Monocytes (%) (Auto) 9.0, Eosinophils (%) (Auto) 7.4H, Basophils (%) (Auto) 0.8, Prothrombin Time 13.7H, Prothromb Time International Ratio 1.3H, Activated Partial Thromboplast Time 43H, Sodium Level 126L, Potassium Level 3.9, Chloride Level 91L, Carbon Dioxide Level 28, Anion Gap 7, Blood Urea Nitrogen 25H, Creatinine 3.8H, Estimat Glomerular Filtration Rate 12.2, Glucose Level 96, Calcium Level 8.8, Total Bilirubin 0.6, Aspartate Amino Transf (AST/SGOT) 46H, Alanine Aminotransferase (ALT/SGPT) 39, Alkaline Phosphatase 360H, Total Protein 7.1, Albumin 1.6L, Globulin 5.5, Albumin/ Globulin Ratio 0.3L Height (Feet): 5 Height (Inches): 2.00 Weight (Pounds): 218 General Appearance: no apparent distress, alert EENT: PERRL/EOMI Neck: normal alignment Cardiovascular: normal peripheral pulses Respiratory/Chest: no respiratory distress Abdomen: soft Lalito Cole MD Oct 02, 2017 10:55
--- NOTE | 2017-10-02 10:58 | General Progress Note ---
Assessment/Plan Status: stable Assessment/Plan 1. Anemia due to underlying kidney disease. --> Continue to closely monitor for improvement. --> Anemia panel has been reviewed, will tend daily. --> Hgb goal >7 2. Anemia due to underlying chronic disease. --> Closely monitor for improvement. 3. Leukocytosis, potentially secondary to sternotomy wire infection. --> Consider evaluation with ID Service. --> WBC improving 4. Diabetes mellitus. A1c goal less than 6. 5. Hypertension. Systolic blood pressure goal less than 140. 6. End-stage renal disease, on hemodialysis. Closely monitor. 7. Myocardial infarction, status post 12 stent placements, status post coronary artery bypass grafting. The time the note was entered does not necessarily correspond to the time the patient was seen. Subjective Date patient seen: Oct 02, 2017 ROS Limited/Unobtainable: Yes Hematologic/Lymphatic: Reports: anemia Allergies: Coded Allergies: ADHESIVE (Verified Allergy, Unknown, 09/29/17) AMLODIPINE (Verified Allergy, Unknown, 09/29/17) INSULIN ASPART (Verified Allergy, Unknown, 09/29/17) INSULIN LISPRO (Verified Allergy, Unknown, 09/29/17) IODINE (Verified Allergy, Unknown, 09/29/17) PENICILLINS (Verified Allergy, Unknown, 09/29/17) All Systems: reviewed and negative except above Subjective No acute events. Surgery scheduled for today, Objective Last 24 Hour Vital Signs Date Time Temp Pulse Resp B/P (MAP) Pulse Ox O2 Delivery O2 Flow Rate FiO2 10/02/17 09:00 Room Air 10/02/17 08:00 65 10/02/17 08:00 97.9 65 20 139/69 (92) 96 97.9 10/02/17 04:00 98.3 65 20 150/63 (92) 98 98.3 10/02/17 04:00 58 10/02/17 00:00 63 10/02/17 00:00 98.1 65 20 145/63 (90) 98 98.1 10/01/17 21:00 Room Air 10/01/17 20:00 98.4 77 20 159/75 (103) 97 98.4 10/01/17 20:00 68 10/01/17 16:00 98.2 63 20 155/70 (98) 94 98.2 10/01/17 16:00 66 10/01/17 12:00 62 10/01/17 12:00 97.7 64 18 148/66 (93) 97 97.7 Intake and Output 10/01/17 10/02/17 19:00 07:00 Intake Total 350 ml 1381.6 ml Output Total 1250 ml Balance -900 ml 1381.6 ml Intake Oral 250 ml 200 ml IV Total 100 ml 1181.6 ml Output Urine Total 1250 ml # Voids 1 Laboratory Tests 10/01/17 15:09: Random Vancomycin Level 12.2 10/02/17 05:25: White Blood Count 16.8H, Red Blood Count 3.49L, Hemoglobin 10.1L, Hematocrit 29.9L, Mean Corpuscular Volume 86, Mean Corpuscular Hemoglobin 28.9, Mean Corpuscular Hemoglobin Concent 33.7, Red Cell Distribution Width 18.1H, Platelet Count 370, Mean Platelet Volume 4.2L, Neutrophils (%) (Auto) 73.2, Lymphocytes (%) (Auto) 9.5L, Monocytes (%) (Auto) 9.0, Eosinophils (%) (Auto) 7.4H, Basophils (%) (Auto) 0.8, Prothrombin Time 13.7H, Prothromb Time International Ratio 1.3H, Activated Partial Thromboplast Time 43H, Sodium Level 126L, Potassium Level 3.9, Chloride Level 91L, Carbon Dioxide Level 28, Anion Gap 7, Blood Urea Nitrogen 25H, Creatinine 3.8H, Estimat Glomerular Filtration Rate 12.2, Glucose Level 96, Calcium Level 8.8, Total Bilirubin 0.6, Aspartate Amino Transf (AST/SGOT) 46H, Alanine Aminotransferase (ALT/SGPT) 39, Alkaline Phosphatase 360H, Total Protein 7.1, Albumin 1.6L, Globulin 5.5, Albumin/ Globulin Ratio 0.3L Height (Feet): 5 Height (Inches): 2.00 Weight (Pounds): 218 General Appearance: no apparent distress, alert EENT: PERRL/EOMI Neck: normal alignment Cardiovascular: normal peripheral pulses Respiratory/Chest: normal breath sounds, no respiratory distress Abdomen: no mass Lalito Cole MD Oct 02, 2017 10:58
[2017-10-02] MEDS ORDERED: ePHEDrine 50mg/ml Inj ONE (12:15)
[2017-10-02] MEDS ORDERED: Propofol 200mg/20ml IV ONE (12:15)
[2017-10-02] MEDS ORDERED: Bacitracin 50000 Units Vial ONE (12:27)
[2017-10-02] MEDS ORDERED: NeoSporin Gu Irrig 1ml Amp IRRIG ONE (12:27)
[2017-10-02] MEDS ORDERED: Midazolam 2mg/2ml Inj ONE (12:30)
[2017-10-02] MEDS ORDERED: fentaNYL 100 mcg/2 mL IV ONE (12:30)
[2017-10-02] MEDS ORDERED: Sterile Water Irrig 1000ml IRRIG ONE (12:30)
[2017-10-02] MEDS ORDERED: NS 500ML ONE (12:30)
[2017-10-02] MEDS ORDERED: NS Irrig 1000ml ONE (12:30)
[2017-10-02] MEDS ORDERED: Zemuron 50mg/5ml Inj IV ONE (12:30)
[2017-10-02] MEDS ORDERED: Lidocaine 1% 10mg/ml/Epi 0.005mg/ml 30ml vial INJ ONE (12:51)
[2017-10-02] MEDS ORDERED: LORazepam Inj 2mg/ml 1ml IV PRN (13:30)
[2017-10-02] MEDS ORDERED: Meperidine 50mg/ml Inj(FOR RIGORS ONLY) IVP PRN (13:30)
[2017-10-02] MEDS ORDERED: DiphenhydrAMINE 50mg/ml Inj IVP PRN ×2 (13:30→17:02)
[2017-10-02] MEDS ORDERED: fentaNYL 100 mcg/2 mL IV PRN (13:30)
--- NOTE | 2017-10-02 13:43 | Anethesia Preoperative Eval ---
Anesthesia Pre-op PMH/ROS General Date of Evaluation: Oct 02, 2017 Time of Evaluation: 12:30 Anesthesiologist: Jenn ASA Score: ASA 3 Mallampati Score Class I : Soft palate, uvula, fauces, pillars visible Class II: Soft palate, uvula, fauces visible Class III: Soft palate, base of uvula visible Class IV: Only hard plate visible Mallampati Classification: Class III Surgeon: Terell Diagnosis: Abdominal wall flap infection, appendicitis Surgical Procedure: I&D abdominal wall infection, lap appy Family History: no anesthesia problems Allergies: Coded Allergies: ADHESIVE (Verified Allergy, Unknown, 09/29/17) AMLODIPINE (Verified Allergy, Unknown, 09/29/17) INSULIN ASPART (Verified Allergy, Unknown, 09/29/17) INSULIN LISPRO (Verified Allergy, Unknown, 09/29/17) IODINE (Verified Allergy, Unknown, 09/29/17) PENICILLINS (Verified Allergy, Unknown, 09/29/17) Past Medical History Cardiovascular: Reports: HTN, CAD, [place]; Denies: valve dz, arrhythmia, other Pulmonary: Denies: asthma, COPD, VIK, other Gastrointestinal/Genitourinary: Reports: ESRD; Denies: GERD, CRI, other Neurologic/Psychiatric: Denies: dementia, CVA, depression/anxiety, TIA, other Endocrine: Reports: DM; Denies: hypothyroidism, steroids, other HEENT: Denies: cataract (L), cataract (R), glaucoma, CADDO (L), CADDO (R), other Hematology/Immune: Denies: anemia, DVT, bleeding disorder, other Other: obesity PMH Narrative: HTN, CAD, [place], ESRD ([place]), DM, obesity PSxH Narrative: CABG, abdominal flap Anesthesia Pre-op Phys. Exam Physician Exam Last Vital Signs Date Time Temp Pulse Resp B/P (MAP) Pulse Ox O2 Delivery O2 Flow Rate FiO2 10/02/17 12:00 98.8 60 20 160/72 (101) 96 98.8 10/02/17 09:00 Room Air 09/29/17 03:21 2.0 Constitutional: NAD Neurologic: CN 2-12 intact Cardiovascular: RRR, no M/R/G Respiratory: CTA Gastrointestinal: other - Open abdominal wall flap incision Airway Exam Mallampati Score: Class III MO: full ROM: full Teeth: intact Anesthesia Pre-op A/P Labs Hematology Test 10/02/17 05:25 White Blood Count 16.8 K/UL (4.8-10.8) H Red Blood Count 3.49 M/UL (4.20-5.40) L Hemoglobin 10.1 G/DL (12.0-16.0) L Hematocrit 29.9 % (37.0-47.0) L Mean Corpuscular Volume 86 FL (80-99) Mean Corpuscular Hemoglobin 28.9 PG (27.0-31.0) Mean Corpuscular Hemoglobin Concent 33.7 G/DL (32.0-36.0) Red Cell Distribution Width 18.1 % (11.6-14.8) H Platelet Count 370 K/UL (150-450) Mean Platelet Volume 4.2 FL (6.5-10.1) L Neutrophils (%) (Auto) 73.2 % (45.0-75.0) Lymphocytes (%) (Auto) 9.5 % (20.0-45.0) L Monocytes (%) (Auto) 9.0 % (1.0-10.0) Eosinophils (%) (Auto) 7.4 % (0.0-3.0) H Basophils (%) (Auto) 0.8 % (0.0-2.0) Coagulation Test 10/02/17 05:25 Prothrombin Time 13.7 SEC (9.30-11.50) H Prothromb Time International Ratio 1.3 (0.9-1.1) H Activated Partial Thromboplast Time 43 SEC (23-33) H Chemistry Test 10/02/17 05:25 Sodium Level 126 MMOL/L (136-145) L Potassium Level 3.9 MMOL/L (3.5-5.1) Chloride Level 91 MMOL/L (98-107) L Carbon Dioxide Level 28 MMOL/L (21-32) Anion Gap 7 mmol/L (5-15) Blood Urea Nitrogen 25 mg/dL (7-18) H Creatinine 3.8 MG/DL (0.55-1.30) H Estimat Glomerular Filtration Rate 12.2 mL/min (>60) Glucose Level 96 MG/DL (74-106) Calcium Level 8.8 MG/DL (8.5-10.1) Total Bilirubin 0.6 MG/DL (0.2-1.0) Aspartate Amino Transf (AST/SGOT) 46 U/L (15-37) H Alanine Aminotransferase (ALT/SGPT) 39 U/L (12-78) Alkaline Phosphatase 360 U/L (46-116) H Total Protein 7.1 G/DL (6.4-8.2) Albumin 1.6 G/DL (3.4-5.0) L Globulin 5.5 g/dL Albumin/Globulin Ratio 0.3 (1.0-2.7) L Studies Pre-op Studies: EKG - SR, Septal, possible IW and possible lateral wall [place] Risk Assessment & Plan Assessment: 57 yo female with h/o DM, HTN, CAD ([place]), ESRD ([place]) here for I&D of abdominal wall infection and lap appy Plan: GETA, Magazine scope intubation Status Change Before Surgery: No Pre-Antibiotics Drug: None (patient on antibiotics) Sukhwinder Barajas MD Oct 02, 2017 13:43
--- NOTE | 2017-10-02 13:48 | Immediate Post-Op Evaluation ---
Immediate Post-Op Evalulation Immediate Post-Op Evalulation Procedure: I&D of abdominal wall infection, open appy, wound vac Date of Evaluation: Oct 02, 2017 Time of Evaluation: 15:15 IV Fluids: 1000 Estimated Blood Loss: 150 Blood Pressure Systolic: 154 Blood Pressure Diastolic: 62 Pulse Rate: 58 Respiratory Rate: 20 O2 Sat by Pulse Oximetry: 100 Pain Score (1-10): 0 Nausea: No Vomiting: No Complications No complication Patient Status: awake, patent, extubated, none Hydration Status: adequate Drug: None (patient on antibiotics) Sukhwinder Barajas MD Oct 02, 2017 13:48
[2017-10-02] MEDS ORDERED: Neostigmine 1mg/ml 10ml Inj ONE (14:52)
[2017-10-02] MEDS ORDERED: Surgicel 4in x 8in TOPIC ONE (14:55)
--- NOTE | 2017-10-02 15:47 | Brief Operative Note ---
Immediate Post Operative Note Operative Note Pre-op Diagnosis: abdominal wall wound infection, possible appendicitis Procedure: 1. Excisional debridement of abdominal wall soft tissue and fascia 2. drainage of abdominal wall abscess 3. opening of prior abdominal wall closure 4. diagnostic laparoscopy 5. open appendectomy 6. wound vac placement to large complex abdominal wall wound Post-op Diagnosis: 1. abdominal wall abscess 2. dehiscence of abdominal wall wound 3. appendicitis Surgeon: andrew Anesthesiologist: elier Anesthesia: general Specimen: yes - 1. abdominal wall tissue 2. cultures 3 appendix Complications: none Condition: stable Fluids: see records Estimated Blood Loss: volume - 25 Drains: wound vac Implant(s) used?: No Darrius Figueredo Oct 02, 2017 15:47
[2017-10-02] MEDS ORDERED: Hydromorphone 0.5mg/0.5ml inj IVP PRN (16:00)
[2017-10-02] MEDS ORDERED: Metoclopramide 10mg/2ml Inj IVP PRN (17:01)
[2017-10-02] MEDS ORDERED: Milk of Magnesia 30ml Ud ORAL PRN (17:01)
[2017-10-02] MEDS ORDERED: Norco 5mg/325mg tab ORAL PRN (17:04)
[2017-10-02] MEDS ORDERED: HYDROcodone/Acetamin 10/325 tab ORAL PRN (17:05)
--- NOTE | 2017-10-02 18:00 | Infectious Diseases Prog Note ---
Assessment/Plan Assessment/Plan ASSESSMENT AND PLAN: 1. abdominal wall wound infection/abscess, sepsis, appendicitis, ? cap pna on CT , leukocytosis - s/p debridement - s/p appendectomy - continue vancomycin, aztreonam, flagyl and cipro - f/u on cultures - blood cultures negative - monitor labs, f/u chest x-ray - surgery f/u 2. End-stage renal disease, on hemodialysis, has hemodialysis line. 3. Anemia. 4. Diabetes. 5. Hypertension. 6. Possible hyperlipidemia. 7. Blood sugar and blood pressure treatment per primary. 8. Chest pain treatment per Cardiology. 9. History of coronary artery disease, coronary artery bypass graft, and stent placement, status post stent removal and intravenous antibiotics for infected stent looks like. 10. Obesity. 11. Allergies to adhesive tape, amlodipine, insulin, iodine, and penicillins. 12. Social history is negative. 13. Family history is noncontributory. 14. MAR was noted. 15. Case was discussed with RN. 16. Case was discussed with the patient and the patient's family. 17. Continue treatment per primary consultants. 18. Notes and records were noted. 19. Orders were entered. 20. d/w family Subjective Constitutional: Reports: fatigue; Denies: fever HEENT: Denies: congestion Respiratory: Denies: shortness of breath Cardiovascular: Denies: chest pain Gastrointestinal/Abdominal: Denies: nausea, vomiting, diarrhea Genitourinary: Reports: other - + benito, + uo Neurologic: Denies: headache Psychiatric: Denies: depression Skin: Denies: rash Hematologic: Denies: bleeding Musculoskeletal: Denies: pain Allergies: Coded Allergies: ADHESIVE (Verified Allergy, Unknown, 09/29/17) AMLODIPINE (Verified Allergy, Unknown, 09/29/17) INSULIN ASPART (Verified Allergy, Unknown, 09/29/17) INSULIN LISPRO (Verified Allergy, Unknown, 09/29/17) IODINE (Verified Allergy, Unknown, 09/29/17) PENICILLINS (Verified Allergy, Unknown, 09/29/17) Objective Vital Signs Last 24 Hour Vital Signs Date Time Temp Pulse Resp B/P (MAP) Pulse Ox O2 Delivery O2 Flow Rate FiO2 10/02/17 16:25 98.6 10/02/17 16:21 98.6 60 13 156/68 100 Nasal Cannula 3 98.6 10/02/17 16:10 60 15 159/67 100 Nasal Cannula 3 10/02/17 15:55 97.9 10/02/17 15:55 61 14 157/70 100 Simple Mask 6 10/02/17 15:51 97.9 10/02/17 15:45 59 16 155/68 100 Simple Mask 6 10/02/17 15:35 59 16 154/66 100 Simple Mask 6 10/02/17 15:21 98.0 62 16 157/67 100 Simple Mask 6 98.0 10/02/17 15:21 97.9 10/02/17 15:15 62 23 157/67 100 Simple Mask 6 10/02/17 15:08 58 20 100 10/02/17 15:05 51 14 147/65 100 Simple Mask 6 10/02/17 15:00 97.9 58 20 154/62 100 Simple Mask 6 97.9 10/02/17 12:00 98.8 60 20 160/72 (101) 96 98.8 10/02/17 09:00 Room Air 10/02/17 08:00 65 10/02/17 08:00 97.9 65 20 139/69 (92) 96 97.9 10/02/17 04:00 98.3 65 20 150/63 (92) 98 98.3 10/02/17 04:00 58 10/02/17 00:00 63 10/02/17 00:00 98.1 65 20 145/63 (90) 98 98.1 10/01/17 21:00 Room Air 10/01/17 20:00 98.4 77 20 159/75 (103) 97 98.4 10/01/17 20:00 68 Height (Feet): 5 Height (Inches): 2.00 Weight (Pounds): 218 General Appearance: no acute distress HEENT: normocephalic, atraumatic, anicteric, mucous membranes moist Respiratory/Chest: lungs clear, normal breath sounds, no respiratory distress, no accessory muscle use Cardiovascular: normal rate, regular rhythm, no gallop/murmur, no JVD Abdomen: normal bowel sounds, soft, non tender, no organomegaly, non distended Genitourinary: other - + benito - urine failry clear Extremities: no cyanosis Skin: no rash 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 Heart: Cardiomegaly. ABDOMEN: Liver: Unremarkable. Gallbladder and bile ducts: See below. Pancreas: Unremarkable. Spleen: Unremarkable. Adrenals: Unremarkable. Kidneys and ureters: Unremarkable. No hydronephrosis. Stomach and bowel: No zechariah mural thickening. Nonobstructive bowel gas pattern. PELVIS: Appendix: Appendicitis. Appendix measures 1 cm with mild surrounding stranding. Bladder: Unremarkable. Reproductive: Enlarged and heterogeneous right ovary. Ultrasound cannot further characterize as warranted. ABDOMEN and PELVIS: Intraperitoneal space: Unremarkable. Bones/joints: No acute fracture. Soft tissues: Patchy subcutaneous edema and abdominal wound. Small foci of fluid and air in the abdominal wall. Vasculature: Vascular calcification or a stone in the biliary system. No abdominal aortic aneurysm. Lymph nodes: No enlarged lymph nodes. IMPRESSION: Appendicitis. Appendix measures 1 cm with mild surrounding stranding. Chest - x-ray - pvc (report noted) Microbiology Date/Time Source Procedure Growth Status 09/29/17 20:30 Blood Blood Culture - Preliminary NO GROWTH AFTER 48 HOURS Resulted 09/29/17 04:30 Nasal Nares MRSA Culture - Final NO METHICILLIN RESISTANT STAPH AUREUS... Complete 10/01/17 12:01 Abdomen Gram Stain - Final Resulted 10/01/17 12:01 Abdomen Wound Culture - Preliminary NO GROWTH Resulted Microbiology Date/Time Source Procedure Growth Status 09/29/17 20:30 Blood Blood Culture - Preliminary NO GROWTH AFTER 48 HOURS Resulted 09/29/17 20:15 Blood Blood Culture - Preliminary NO GROWTH AFTER 48 HOURS Resulted 10/01/17 12:01 Abdomen Gram Stain - Final Resulted 10/01/17 12:01 Abdomen Wound Culture - Preliminary NO GROWTH Resulted Laboratory Tests Test 10/02/17 05:25 White Blood Count 16.8 K/UL (4.8-10.8) H Red Blood Count 3.49 M/UL (4.20-5.40) L Hemoglobin 10.1 G/DL (12.0-16.0) L Hematocrit 29.9 % (37.0-47.0) L Mean Corpuscular Volume 86 FL (80-99) Mean Corpuscular Hemoglobin 28.9 PG (27.0-31.0) Mean Corpuscular Hemoglobin Concent 33.7 G/DL (32.0-36.0) Red Cell Distribution Width 18.1 % (11.6-14.8) H Platelet Count 370 K/UL (150-450) Mean Platelet Volume 4.2 FL (6.5-10.1) L Neutrophils (%) (Auto) 73.2 % (45.0-75.0) Lymphocytes (%) (Auto) 9.5 % (20.0-45.0) L Monocytes (%) (Auto) 9.0 % (1.0-10.0) Eosinophils (%) (Auto) 7.4 % (0.0-3.0) H Basophils (%) (Auto) 0.8 % (0.0-2.0) Prothrombin Time 13.7 SEC (9.30-11.50) H Prothromb Time International Ratio 1.3 (0.9-1.1) H Activated Partial Thromboplast Time 43 SEC (23-33) H Sodium Level 126 MMOL/L (136-145) L Potassium Level 3.9 MMOL/L (3.5-5.1) Chloride Level 91 MMOL/L (98-107) L Carbon Dioxide Level 28 MMOL/L (21-32) Anion Gap 7 mmol/L (5-15) Blood Urea Nitrogen 25 mg/dL (7-18) H Creatinine 3.8 MG/DL (0.55-1.30) H Estimat Glomerular Filtration Rate 12.2 mL/min (>60) Glucose Level 96 MG/DL (74-106) Calcium Level 8.8 MG/DL (8.5-10.1) Total Bilirubin 0.6 MG/DL (0.2-1.0) Aspartate Amino Transf (AST/SGOT) 46 U/L (15-37) H Alanine Aminotransferase (ALT/SGPT) 39 U/L (12-78) Alkaline Phosphatase 360 U/L (46-116) H Total Protein 7.1 G/DL (6.4-8.2) Albumin 1.6 G/DL (3.4-5.0) L Globulin 5.5 g/dL Albumin/Globulin Ratio 0.3 (1.0-2.7) L Current Medications Medications (Trade) Dose Ordered Sig/Fidelia Route PRN Reason Start Time Stop Time Status Last Admin Dose Admin Acetaminophen (Tylenol) 650 mg Q4H PRN ORAL fever 09/29/17 07:45 10/29/17 07:44 Acetaminophen/ Hydrocodone Bitart ([place] 10/325) 1 tab Q4H PRN ORAL Severe Pain (Pain Scale 7-10) 10/02/17 17:05 10/09/17 17:04 Acetaminophen/ Hydrocodone Bitart ([place] 5/325) 1 tab Q4H PRN ORAL Moderate Pain (Pain Scale 4-6) 10/02/17 17:04 10/09/17 17:03 Al Hydroxide/Mg Hydroxide (Mylanta) 15 ml Q6H PRN ORAL DYSPEPSIA 10/02/17 17:02 11/01/17 17:01 Atorvastatin Calcium (Lipitor) 80 mg BEDTIME ORAL 09/29/17 21:00 10/29/17 20:59 10/01/17 21:27 Aztreonam 0.5 gm/ Dextrose 55 ml @ 110 mls/hr Q12HR IVPB 09/30/17 21:00 10/07/17 20:59 10/02/17 09:40 Bisacodyl (Dulcolax) 10 mg HSPRN PRN RECTAL Constipation 09/29/17 07:45 10/29/17 07:44 Ciprofloxacin 200 ml @ 200 mls/hr Q24HRS IV 09/30/17 18:00 10/07/17 17:59 10/01/17 17:43 Dextrose (Dextrose 50%) 25 ml STAT PRN IV Hypoglycemia 09/29/17 07:45 10/29/17 07:44 Dextrose (Dextrose 50%) 50 ml STAT PRN IV Hypoglycemia 09/29/17 07:45 10/29/17 07:44 Diphenhydramine HCl (Benadryl) 12.5 mg Q6H PRN IVP Itching/Pruritis 10/02/17 17:02 11/01/17 17:01 Docusate Sodium (Colace) 100 mg EVERY 12 HOURS ORAL 09/29/17 09:00 10/29/17 08:59 10/02/17 09:41 Heparin Sodium (Porcine) (Heparin 5000 units/ml) 5,000 units EVERY 12 HOURS SUBQ 09/29/17 09:00 10/29/17 08:59 10/01/17 11:16 Hydromorphone HCl (Dilaudid) 0.5 mg Q3H PRN IVP Pain Score 1-3 10/02/17 16:00 10/09/17 15:59 Hydromorphone HCl (Dilaudid) 1 mg Q3H PRN IVP For Severe Pain(scale 7-10) 10/02/17 17:12 10/09/17 17:11 Insulin Human Regular (NovoLIN R) BS 70-110, then 0 units... AC+HS SUBQ 09/29/17 16:30 10/29/17 16:29 Magnesium Hydroxide (Mom) 30 ml BIDPRN PRN ORAL Constipation 10/02/17 17:01 11/01/17 17:00 Metoclopramide HCl (Reglan) 10 mg Q6H PRN IVP Nausea & Vomiting 10/02/17 17:01 11/01/17 17:00 Morphine Sulfate (Morphine Sulfate) 4 mg Q4H PRN IVP For Moderate Pain(scale 4-6) 10/02/17 17:12 10/09/17 17:11 Ondansetron HCl (Zofran) 4 mg Q6H PRN IVP Nausea & Vomiting 09/29/17 07:45 10/29/17 07:44 10/01/17 19:46 Polyethylene Glycol (Miralax) 17 gm HSPRN PRN ORAL Constipation 09/29/17 07:45 10/29/17 07:44 Vancomycin HCl (Vanco rx to dose) 1 ea DAILY PRN MISC Per rx protocol 09/29/17 14:45 10/29/17 14:44 Jenniffer Strickland MD Oct 02, 2017 18:00
--- NOTE | 2017-10-02 18:38 | Cardiology Progress Note ---
Assessment/Plan Status: stable Assessment/Plan Assessment: 1. Chest pain 2. h/o recent 2V CABG and PCI 3. Open wound to chest with stent removal 4. Sepsis 5. ESRD on HD (M/F) 6. DM with neuropathy 7. HTN 8. HLD 9. Anemia 10. VIK 11. Diastolic heart failure Serial troponin, no indication for cath at this time, elevation likely from infection and ESRD CT A/P, surgical consult appreciated -s/p wound vac placement and debridement Maintain HD IV abx Follow Cultures Continue aspirin Continue atorvastatin Continue home medications, coreg, isordil, losartan Outpatient stress test to evaluate status of stent and bypass grafts Subjective Cardiovascular: Reports: no symptoms Respiratory: Reports: no symptoms Gastrointestinal/Abdominal: Reports: no symptoms Genitourinary: Reports: no symptoms Subjective No acute events, CT with no appendicitis, vitals stable. Patient resting well in no overt distress. WBC continues to be elevated. Vitals stable Patient had debridement today with placement of wound vac Objective Last 24 Hour Vital Signs Date Time Temp Pulse Resp B/P (MAP) Pulse Ox O2 Delivery O2 Flow Rate FiO2 10/02/17 16:25 98.6 10/02/17 16:21 98.6 60 13 156/68 100 Nasal Cannula 3 98.6 10/02/17 16:10 60 15 159/67 100 Nasal Cannula 3 10/02/17 15:55 97.9 10/02/17 15:55 61 14 157/70 100 Simple Mask 6 10/02/17 15:51 97.9 10/02/17 15:45 59 16 155/68 100 Simple Mask 6 10/02/17 15:35 59 16 154/66 100 Simple Mask 6 10/02/17 15:21 98.0 62 16 157/67 100 Simple Mask 6 98.0 10/02/17 15:21 97.9 10/02/17 15:15 62 23 157/67 100 Simple Mask 6 10/02/17 15:08 58 20 100 10/02/17 15:05 51 14 147/65 100 Simple Mask 6 10/02/17 15:00 97.9 58 20 154/62 100 Simple Mask 6 97.9 10/02/17 12:00 98.8 60 20 160/72 (101) 96 98.8 10/02/17 09:00 Room Air 10/02/17 08:00 65 10/02/17 08:00 97.9 65 20 139/69 (92) 96 97.9 10/02/17 04:00 98.3 65 20 150/63 (92) 98 98.3 10/02/17 04:00 58 10/02/17 00:00 63 10/02/17 00:00 98.1 65 20 145/63 (90) 98 98.1 10/01/17 21:00 Room Air 10/01/17 20:00 98.4 77 20 159/75 (103) 97 98.4 10/01/17 20:00 68 General Appearance: no apparent distress EENT: PERRL/EOMI Neck: non-tender Rhythm: NSR Cardiovascular: normal peripheral pulses Respiratory/Chest: chest wall non-tender Abdomen: normal bowel sounds Extremities: normal range of motion Neurologic: bushler II-XII grossly normal Intake and Output 10/01/17 10/02/17 19:00 07:00 Intake Total 350 ml 1381.6 ml Output Total 1250 ml Balance -900 ml 1381.6 ml Intake Oral 250 ml 200 ml IV Total 100 ml 1181.6 ml Output Urine Total 1250 ml # Voids 1 Laboratory Tests Test 10/02/17 05:25 White Blood Count 16.8 K/UL (4.8-10.8) H Red Blood Count 3.49 M/UL (4.20-5.40) L Hemoglobin 10.1 G/DL (12.0-16.0) L Hematocrit 29.9 % (37.0-47.0) L Mean Corpuscular Volume 86 FL (80-99) Mean Corpuscular Hemoglobin 28.9 PG (27.0-31.0) Mean Corpuscular Hemoglobin Concent 33.7 G/DL (32.0-36.0) Red Cell Distribution Width 18.1 % (11.6-14.8) H Platelet Count 370 K/UL (150-450) Mean Platelet Volume 4.2 FL (6.5-10.1) L Neutrophils (%) (Auto) 73.2 % (45.0-75.0) Lymphocytes (%) (Auto) 9.5 % (20.0-45.0) L Monocytes (%) (Auto) 9.0 % (1.0-10.0) Eosinophils (%) (Auto) 7.4 % (0.0-3.0) H Basophils (%) (Auto) 0.8 % (0.0-2.0) Prothrombin Time 13.7 SEC (9.30-11.50) H Prothromb Time International Ratio 1.3 (0.9-1.1) H Activated Partial Thromboplast Time 43 SEC (23-33) H Sodium Level 126 MMOL/L (136-145) L Potassium Level 3.9 MMOL/L (3.5-5.1) Chloride Level 91 MMOL/L (98-107) L Carbon Dioxide Level 28 MMOL/L (21-32) Anion Gap 7 mmol/L (5-15) Blood Urea Nitrogen 25 mg/dL (7-18) H Creatinine 3.8 MG/DL (0.55-1.30) H Estimat Glomerular Filtration Rate 12.2 mL/min (>60) Glucose Level 96 MG/DL (74-106) Calcium Level 8.8 MG/DL (8.5-10.1) Total Bilirubin 0.6 MG/DL (0.2-1.0) Aspartate Amino Transf (AST/SGOT) 46 U/L (15-37) H Alanine Aminotransferase (ALT/SGPT) 39 U/L (12-78) Alkaline Phosphatase 360 U/L (46-116) H Total Protein 7.1 G/DL (6.4-8.2) Albumin 1.6 G/DL (3.4-5.0) L Globulin 5.5 g/dL Albumin/Globulin Ratio 0.3 (1.0-2.7) L Microbiology Date/Time Source Procedure Growth Status 09/29/17 20:30 Blood Blood Culture - Preliminary NO GROWTH AFTER 48 HOURS Resulted 09/29/17 20:15 Blood Blood Culture - Preliminary NO GROWTH AFTER 48 HOURS Resulted 10/01/17 12:01 Abdomen Gram Stain - Final Resulted 10/01/17 12:01 Abdomen Wound Culture - Preliminary NO GROWTH Resulted Quirino Capps M.D. Oct 02, 2017 18:38
[2017-10-02] MEDS: HYDROmorphone 1mg/ml Carpuject IVP PRN (18:47)
--- NOTE | 2017-10-02 21:12 | General Progress Note ---
Assessment/Plan Problem List: (1) Sepsis ICD Codes: A41.9 - Sepsis, unspecified organism SNOMED: 61040062 (2) Anemia ICD Codes: D64.9 - Anemia, unspecified SNOMED: 051983816, 030751247 Qualifiers: Qualified Codes: D64.9 - Anemia, unspecified (3) ESRD on hemodialysis ICD Codes: N18.6 - End stage renal disease; Z99.2 - Dependence on renal dialysis SNOMED: 674168670, 87032628 (4) Morbid obesity with BMI of 40.0-44.9, adult ICD Codes: E66.01 - Morbid (severe) obesity due to excess calories; Z68.41 - Body mass index (BMI) 40.0-44.9, adult SNOMED: 675476725, 549081463 (5) Chest pain ICD Codes: R07.9 - Chest pain, unspecified SNOMED: 90801268 (6) Wound, open, abdominal wall, anterior with complication ICD Codes: S31.109A - Unspecified open wound of abdominal wall, unspecified quadrant without penetration into peritoneal cavity, initial encounter SNOMED: 655515071 Qualifiers: Qualified Codes: S31.109A - Unspecified open wound of abdominal wall, unspecified quadrant without penetration into peritoneal cavity, initial encounter (7) Abdominal wall abscess at site of surgical wound ICD Codes: T81.4XXA - Infection following a procedure, initial encounter SNOMED: 015748840 (8) Open abdominal wall wound ICD Codes: S31.109A - Unspecified open wound of abdominal wall, unspecified quadrant without penetration into peritoneal cavity, initial encounter SNOMED: 457370306 Qualifiers: Qualified Codes: S31.109A - Unspecified open wound of abdominal wall, unspecified quadrant without penetration into peritoneal cavity, initial encounter (9) Hypokalemia ICD Codes: E87.6 - Hypokalemia SNOMED: 27976155 (10) Hyponatremia ICD Codes: E87.1 - Hypo-osmolality and hyponatremia SNOMED: 39776918 Status: stable, progressing Assessment/Plan Assessment: 1. Chest pain 2. h/o recent 2V CABG c/b stent infection s/p stent removal and abx 3. Open wound to chest/abdomen s/p stent removal 4. Sepsis 5. ESRD on HD (M/F) 6. DM 7. HTN 8. Hyponatremia/Hypokalemia Plan: - NPO. Going down to surgery today for debridement and possible diagnostic exploratory laparoscopy - Cardiology, general surgery, nephrology, and ID consulted - F/u CT a/p to visualize extent of abscess - concerns for early appendicitis but asymptomatic - Trend EKG/trops -- ACS ruled out - IV vancomycin, flagyl, aztreonam, and ciprofloxacin per ID (D5) - HD per nephro (M/F) with 1.5L per session - Continue home meds. - Continue humulin R for SSi - Monitor electrolytes and replete - Monitor CBC - Wound care - PT/OT DVT Prophylaxis: SCD, HSQ Code Status: Full Hospital Classification Declaration: Based on this initial evaluation, and depending on the patient's clinical course, I anticipate that this patient will require hospitalization for 3-5 days for sepsis, chest pain and close respiratory/hemodynamic monitoring. Disposition: Once the patient is stable to leave the hospital, I anticipate the patient will likely be discharged to the following environment: [facility] I spent 32 minutes on this patient's case, and 22 minutes were dedicated to counseling and/or care coordination. Discussed with patient/family, nursing staff, SW/CM, and all consultants as above regarding clinical status, treatment course, and disposition planning. Subjective Date patient seen: Oct 02, 2017 Allergies: Coded Allergies: ADHESIVE (Verified Allergy, Unknown, 09/29/17) AMLODIPINE (Verified Allergy, Unknown, 09/29/17) INSULIN ASPART (Verified Allergy, Unknown, 09/29/17) INSULIN LISPRO (Verified Allergy, Unknown, 09/29/17) IODINE (Verified Allergy, Unknown, 09/29/17) PENICILLINS (Verified Allergy, Unknown, 09/29/17) Subjective - going into surgery today for debridement and possible diagnostic exploratory laparoscopy - AF, HDS Objective Last 24 Hour Vital Signs Date Time Temp Pulse Resp B/P (MAP) Pulse Ox O2 Delivery O2 Flow Rate FiO2 10/02/17 20:00 97.3 71 20 142/75 (97) 100 97.3 10/02/17 16:25 98.6 10/02/17 16:21 98.6 60 13 156/68 100 Nasal Cannula 3 98.6 10/02/17 16:10 60 15 159/67 100 Nasal Cannula 3 10/02/17 15:55 97.9 10/02/17 15:55 61 14 157/70 100 Simple Mask 6 10/02/17 15:51 97.9 10/02/17 15:45 59 16 155/68 100 Simple Mask 6 10/02/17 15:35 59 16 154/66 100 Simple Mask 6 10/02/17 15:21 98.0 62 16 157/67 100 Simple Mask 6 98.0 10/02/17 15:21 97.9 10/02/17 15:15 62 23 157/67 100 Simple Mask 6 10/02/17 15:08 58 20 100 10/02/17 15:05 51 14 147/65 100 Simple Mask 6 10/02/17 15:00 97.9 58 20 154/62 100 Simple Mask 6 97.9 10/02/17 12:00 98.8 60 20 160/72 (101) 96 98.8 10/02/17 09:00 Room Air 10/02/17 08:00 65 10/02/17 08:00 97.9 65 20 139/69 (92) 96 97.9 10/02/17 04:00 98.3 65 20 150/63 (92) 98 98.3 10/02/17 04:00 58 10/02/17 00:00 63 10/02/17 00:00 98.1 65 20 145/63 (90) 98 98.1 Intake and Output 10/01/17 10/02/17 19:00 07:00 Intake Total 350 ml 1381.6 ml Output Total 1250 ml Balance -900 ml 1381.6 ml Intake Oral 250 ml 200 ml IV Total 100 ml 1181.6 ml Output Urine Total 1250 ml # Voids 1 Laboratory Tests 10/02/17 05:25: White Blood Count 16.8H, Red Blood Count 3.49L, Hemoglobin 10.1L, Hematocrit 29.9L, Mean Corpuscular Volume 86, Mean Corpuscular Hemoglobin 28.9, Mean Corpuscular Hemoglobin Concent 33.7, Red Cell Distribution Width 18.1H, Platelet Count 370, Mean Platelet Volume 4.2L, Neutrophils (%) (Auto) 73.2, Lymphocytes (%) (Auto) 9.5L, Monocytes (%) (Auto) 9.0, Eosinophils (%) (Auto) 7.4H, Basophils (%) (Auto) 0.8, Prothrombin Time 13.7H, Prothromb Time International Ratio 1.3H, Activated Partial Thromboplast Time 43H, Sodium Level 126L, Potassium Level 3.9, Chloride Level 91L, Carbon Dioxide Level 28, Anion Gap 7, Blood Urea Nitrogen 25H, Creatinine 3.8H, Estimat Glomerular Filtration Rate 12.2, Glucose Level 96, Calcium Level 8.8, Total Bilirubin 0.6, Aspartate Amino Transf (AST/SGOT) 46H, Alanine Aminotransferase (ALT/SGPT) 39, Alkaline Phosphatase 360H, Total Protein 7.1, Albumin 1.6L, Globulin 5.5, Albumin/ Globulin Ratio 0.3L Height (Feet): 5 Height (Inches): 2.00 Weight (Pounds): 218 General Appearance: no apparent distress, alert EENT: PERRL/EOMI, normal ENT inspection Neck: non-tender, normal alignment, supple Cardiovascular: normal peripheral pulses, normal rate, regular rhythm Respiratory/Chest: chest wall non-tender, lungs clear, normal breath sounds Abdomen: soft, tender, other - large open wound from chest to abdomen Neurologic: computerized mill recorder II-XII grossly normal, no motor/sensory deficits, alert, oriented x 3 Jennifer Robles NP Oct 02, 2017 21:12
[2017-10-02] MEDS: Carvedilol 25mg Tab ORAL SCH (21:55)
[2017-10-02] MEDS: Atorvastatin 80mg tab ORAL SCH (21:55)
[2017-10-03] VITALS: BP 122/72
[2017-10-03] MEDS: HYDROmorphone 1mg/ml Carpuject IVP PRN ×2 (03:27→08:06)
[2017-10-03 03:59] VITALS: BP 132/71
[2017-10-03 04:40] LABS: HEMATOCRIT 26.3 % (37.0-47.0); HEMOGLOBIN 8.7 G/DL (12.0-16.0); MEAN CORPUSCULAR VOLUME 87 FL (80-99); PLATELET COUNT 392 K/UL (150-450); RED BLOOD COUNT 3.01 M/UL (4.20-5.40); RED CELL DISTRIBUTION WIDTH 18.1 % (11.6-14.8); WHITE BLOOD COUNT 16.2 K/UL (4.8-10.8)
[2017-10-03 05:13] LABS: ANION GAP 8 mmol/L (5-15); BLOOD UREA NITROGEN 27 mg/dL (7-18); CALCIUM 8.2 MG/DL (8.5-10.1); CARBON DIOXIDE 25 MMOL/L (21-32); CHLORIDE 94 MMOL/L (98-107); CREATININE 3.9 MG/DL (0.55-1.30); POTASSIUM 4.1 MMOL/L (3.5-5.1); SODIUM 126 MMOL/L (136-145)
[2017-10-03 05:17] LABS: PHOSPHORUS 5.4 MG/DL (2.5-4.9)
[2017-10-03] MEDS: Insulin Human Regular 100units/ml 3ml SUBQ SCH ×5 (05:49→21:00)
[2017-10-03 08:00] VITALS: BP 110/56
--- NOTE | 2017-10-03 08:54 | Nephrology Progress Note ---
Assessment/Plan Assessment/Plan 1. ESRD- HD today if BP stable 2. Hypokalemia- corrected. AM labs pending 3. Anemia of CKD- EPO if Hgb <10 4. Abd Pain/Leukocytosis- per Gen Surg, Abd wound exploration and appy yesterday 5. Sepsis- per ID 6. Hyponatremia- po fluid restrict. AM labs pending Subjective Date patient seen: Oct 03, 2017 Time patient seen: 08:53 ROS Limited/Unobtainable: No Allergies: Coded Allergies: ADHESIVE (Verified Allergy, Unknown, 09/29/17) AMLODIPINE (Verified Allergy, Unknown, 09/29/17) INSULIN ASPART (Verified Allergy, Unknown, 09/29/17) INSULIN LISPRO (Verified Allergy, Unknown, 09/29/17) IODINE (Verified Allergy, Unknown, 09/29/17) PENICILLINS (Verified Allergy, Unknown, 09/29/17) Subjective Patient resting well in no overt distress , s/p abd surgery Objective Last 24 Hour Vital Signs Date Time Temp Pulse Resp B/P (MAP) Pulse Ox O2 Delivery O2 Flow Rate FiO2 10/03/17 08:06 96.5 10/03/17 04:00 73 10/03/17 03:59 96.5 66 19 132/71 (91) 97 96.5 10/03/17 03:57 97.7 10/03/17 00:00 70 10/03/17 00:00 97.7 68 19 122/72 (89) 100 97.7 10/02/17 21:55 71 142/75 10/02/17 21:00 Room Air 10/02/17 20:00 70 10/02/17 20:00 97.3 71 20 142/75 (97) 100 97.3 10/02/17 16:25 98.6 10/02/17 16:21 98.6 60 13 156/68 100 Nasal Cannula 3 98.6 10/02/17 16:10 60 15 159/67 100 Nasal Cannula 3 10/02/17 15:55 97.9 10/02/17 15:55 61 14 157/70 100 Simple Mask 6 10/02/17 15:51 97.9 10/02/17 15:45 59 16 155/68 100 Simple Mask 6 10/02/17 15:35 59 16 154/66 100 Simple Mask 6 10/02/17 15:21 98.0 62 16 157/67 100 Simple Mask 6 98.0 10/02/17 15:21 97.9 10/02/17 15:15 62 23 157/67 100 Simple Mask 6 10/02/17 15:08 58 20 100 10/02/17 15:05 51 14 147/65 100 Simple Mask 6 10/02/17 15:00 97.9 58 20 154/62 100 Simple Mask 6 97.9 10/02/17 12:00 98.8 60 20 160/72 (101) 96 98.8 10/02/17 09:00 Room Air Intake and Output 10/02/17 10/03/17 19:00 07:00 Intake Total 1100 ml 510 ml Output Total 1040 ml 450 ml Balance 60 ml 60 ml IV Total 1100 ml 510 ml Output Urine Total 840 ml 120 ml Drainage Total 50 ml 330 ml Estimated Blood Loss 150 ml # Bowel Movements 1 Laboratory Tests 10/03/17 04:17: White Blood Count 16.2H, Red Blood Count 3.01L, Hemoglobin 8.7L, Hematocrit 26.3L, Mean Corpuscular Volume 87, Mean Corpuscular Hemoglobin 28.9, Mean Corpuscular Hemoglobin Concent 33.1, Red Cell Distribution Width 18.1H, Platelet Count 392, Mean Platelet Volume 4.3L, Neutrophils (%) (Auto) , Lymphocytes (%) (Auto) , Monocytes (%) (Auto) , Eosinophils (%) (Auto) , Basophils (%) (Auto) , Sodium Level 126L, Potassium Level 4.1, Chloride Level 94L, Carbon Dioxide Level 25, Anion Gap 8, Blood Urea Nitrogen 27H, Creatinine 3.9H, Estimat Glomerular Filtration Rate 11.9, Glucose Level 118H, Calcium Level 8.2L, Phosphorus Level 5.4H, Magnesium Level 1.6L, Random Vancomycin Level 19.8 Height (Feet): 5 Height (Inches): 2.00 Weight (Pounds): 218 General Appearance: WD/WN, no apparent distress EENT: PERRL/EOMI Neck: non-tender, normal alignment, supple Cardiovascular: normal peripheral pulses, normal rate, regular rhythm Abdomen: normal bowel sounds, non tender Edema: no edema noted Arm (L), no edema noted Arm (R), no edema noted Leg (L), no edema noted Leg (R), no edema noted Pedal (L), no edema noted Pedal (R), no edema noted Generalized Aman Link M.D. Oct 03, 2017 08:54
[2017-10-03] MEDS: Losartan 50mg tab ORAL SCH (09:00)
[2017-10-03] MEDS: Docusate 100mg cap ORAL SCH ×2 (09:00→22:11)
[2017-10-03] MEDS: Heparin 5000 units/ml inj SUBQ SCH ×2 (09:00→21:00)
[2017-10-03] MEDS: Carvedilol 25mg Tab ORAL SCH ×2 (09:00→22:11)
[2017-10-03] MEDS: Aztreonam 0.5gm/D5W 55ml IVPB SCH ×4 (09:35→22:39)
--- NOTE | 2017-10-03 09:46 | 48 Hour Post Anesthesia Eval ---
Post Anesthesia Evaluation Procedure: I&D of abdominal wall infection, open appy, wound vac Date of Evaluation: Oct 03, 2017 Time of Evaluation: 11:35 Blood Pressure Systolic: 132 0: 71 Pulse Rate: 66 Respiratory Rate: 19 Temperature (Fahrenheit): 96.5 O2 Sat by Pulse Oximetry: 97 Airway: patent Nausea: No Vomiting: No Pain Intensity: 4 Hydration Status: adequate Cardiopulmonary Status: Stable Mental Status/LOC: patient returned to baseline Follow-up Care/Observations: As per surgery Post-Anesthesia Complications: No anesthesia complication Follow-up care needed: N/A Sukhwinder Barajas MD Oct 03, 2017 09:46
--- NOTE | 2017-10-03 10:20 | General Surgery Progress Note ---
General Surgery-Progress Note Subjective Procedure Performed 1. Excisional debridement of abdominal wall soft tissue and fascia 2. drainage of abdominal wall abscess 3. opening of prior abdominal wall closure 4. diagnostic laparoscopy 5. open appendectomy 6. wound vac placement to large complex abdominal wall wound Additional Comments incisional pain. wound VAC with leak and fluid build up overnight. Objective Last 24 Hour Vital Signs Date Time Temp Pulse Resp B/P (MAP) Pulse Ox O2 Delivery O2 Flow Rate FiO2 10/03/17 09:46 205.7 66 19 97 10/03/17 09:00 Room Air 10/03/17 08:00 76 10/03/17 08:00 97.3 73 20 110/56 (74) 100 97.3 10/03/17 04:00 73 10/03/17 03:59 96.5 66 19 132/71 (91) 97 96.5 10/03/17 03:57 97.7 10/03/17 00:00 70 10/03/17 00:00 97.7 68 19 122/72 (89) 100 97.7 10/02/17 21:55 71 142/75 10/02/17 21:00 Room Air 10/02/17 20:00 70 10/02/17 20:00 97.3 71 20 142/75 (97) 100 97.3 10/02/17 16:25 98.6 10/02/17 16:21 98.6 60 13 156/68 100 Nasal Cannula 3 98.6 10/02/17 16:10 60 15 159/67 100 Nasal Cannula 3 10/02/17 15:55 97.9 10/02/17 15:55 61 14 157/70 100 Simple Mask 6 10/02/17 15:51 97.9 10/02/17 15:45 59 16 155/68 100 Simple Mask 6 10/02/17 15:35 59 16 154/66 100 Simple Mask 6 10/02/17 15:21 98.0 62 16 157/67 100 Simple Mask 6 98.0 10/02/17 15:21 97.9 10/02/17 15:15 62 23 157/67 100 Simple Mask 6 10/02/17 15:08 58 20 100 10/02/17 15:05 51 14 147/65 100 Simple Mask 6 10/02/17 15:00 97.9 58 20 154/62 100 Simple Mask 6 97.9 10/02/17 12:00 98.8 60 20 160/72 (101) 96 98.8 I&O Intake and Output 10/02/17 10/03/17 19:00 07:00 Intake Total 1100 ml 510 ml Output Total 1040 ml 450 ml Balance 60 ml 60 ml IV Total 1100 ml 510 ml Output Urine Total 840 ml 120 ml Drainage Total 50 ml 330 ml Estimated Blood Loss 150 ml # Bowel Movements 1 Dressing: saturated Wound: clean Drains: wound vac Cardiovascular: RSR Respiratory: clear Abdomen: soft, tenderness Extremities: no cyanosis Laboratory Tests Test 10/03/17 04:17 White Blood Count 16.2 K/UL (4.8-10.8) H Red Blood Count 3.01 M/UL (4.20-5.40) L Hemoglobin 8.7 G/DL (12.0-16.0) L Hematocrit 26.3 % (37.0-47.0) L Mean Corpuscular Volume 87 FL (80-99) Mean Corpuscular Hemoglobin 28.9 PG (27.0-31.0) Mean Corpuscular Hemoglobin Concent 33.1 G/DL (32.0-36.0) Red Cell Distribution Width 18.1 % (11.6-14.8) H Platelet Count 392 K/UL (150-450) Mean Platelet Volume 4.3 FL (6.5-10.1) L Neutrophils (%) (Auto) % (45.0-75.0) Lymphocytes (%) (Auto) % (20.0-45.0) Monocytes (%) (Auto) % (1.0-10.0) Eosinophils (%) (Auto) % (0.0-3.0) Basophils (%) (Auto) % (0.0-2.0) Sodium Level 126 MMOL/L (136-145) L Potassium Level 4.1 MMOL/L (3.5-5.1) Chloride Level 94 MMOL/L (98-107) L Carbon Dioxide Level 25 MMOL/L (21-32) Anion Gap 8 mmol/L (5-15) Blood Urea Nitrogen 27 mg/dL (7-18) H Creatinine 3.9 MG/DL (0.55-1.30) H Estimat Glomerular Filtration Rate 11.9 mL/min (>60) Glucose Level 118 MG/DL (74-106) H Calcium Level 8.2 MG/DL (8.5-10.1) L Phosphorus Level 5.4 MG/DL (2.5-4.9) H Magnesium Level 1.6 MG/DL (1.8-2.4) L Random Vancomycin Level 19.8 ug/mL Assessment Post-op Diagnosis 1. abdominal wall abscess 2. dehiscence of abdominal wall wound 3. appendicitis Plan Problems: (1) Open abdominal wall wound (2) Abdominal wall abscess at site of surgical wound (3) Wound, open, abdominal wall, anterior with complication Assessment & Plan: large prior abdominal surgical wound that in portions skin has come together but underlying large area of open fluid collection with possible pockets of abscess. larger epigastric wound seems to connect with lower aspect small wound. lots of murky fluid evacuated, wound deep and tracking in all directions. per patient they have only been placing a small cover on wounds and no packing has been performed. had wound VAC prior but only for 3 days as per patient. I fear that there is something much larger and more serious going underneath the skin and with drainage and looks of wound they are only worsening. CT reviewed and noted. fortunately no large abscess but can note tracking of wound As for possible appendicitis, noted 1cm appendix with stranding on CT. clinically patient has generalized abdominal pain and not focal to RLQ. she has had generalized abdominal pain for some time now and likely related to large wound. no n/v/f/c. leukocytosis 18k but can be related to multiple etiologies. POD #1 s/p wound exploration, debridement, open appendectomy, wound vac placement. -incisional pain -wound vac leak - new dressings applied this AM now with good seal -ambulate and out of bed -diet as tolerated -abx thank you for this consultation Darrius Figueredo Oct 03, 2017 10:20
--- NOTE | 2017-10-03 10:55 | Diagnostic Imaging Report ---
Indication: Dyspnea Comparison: 09/29/2017 A single view chest radiograph was obtained. Findings: Left jugular permacath is in good position. Lung volumes are low. There is no overt CHF noted. Heart is enlarged. Coronary stents noted. Bones are osteopenic. Sternotomy noted in the upper part of the sternum. IMPRESSION: No acute disease
[2017-10-03 12:00] VITALS: BP 100/52
--- NOTE | 2017-10-03 15:38 | General Progress Note ---
Assessment/Plan Status: stable Assessment/Plan 1. Anemia due to underlying kidney disease. --> Continue to closely monitor for improvement. --> Anemia panel has been reviewed, will tend daily. --> Hgb goal >7 2. Anemia due to underlying chronic disease. --> Closely monitor for improvement. 3. Leukocytosis, potentially secondary to sternotomy wire infection. --> Consider evaluation with ID Service. --> WBC improving 4. Diabetes mellitus. A1c goal less than 6. 5. Hypertension. Systolic blood pressure goal less than 140. 6. End-stage renal disease, on hemodialysis. Closely monitor. 7. Myocardial infarction, status post 12 stent placements, status post coronary artery bypass grafting. The time the note was entered does not necessarily correspond to the time the patient was seen. Subjective Date patient seen: Oct 03, 2017 ROS Limited/Unobtainable: Yes Hematologic/Lymphatic: Reports: anemia Allergies: Coded Allergies: ADHESIVE (Verified Allergy, Unknown, 09/29/17) AMLODIPINE (Verified Allergy, Unknown, 09/29/17) INSULIN ASPART (Verified Allergy, Unknown, 09/29/17) INSULIN LISPRO (Verified Allergy, Unknown, 09/29/17) IODINE (Verified Allergy, Unknown, 09/29/17) PENICILLINS (Verified Allergy, Unknown, 09/29/17) All Systems: reviewed and negative except above Subjective No acute events. PT s/p surgery. Seen by PT and OT today. CXR unremarkable. Objective Last 24 Hour Vital Signs Date Time Temp Pulse Resp B/P (MAP) Pulse Ox O2 Delivery O2 Flow Rate FiO2 10/03/17 12:00 97.9 75 20 100/52 (68) 100 97.9 10/03/17 12:00 74 10/03/17 09:46 205.7 66 19 97 10/03/17 09:00 Room Air 10/03/17 08:00 76 10/03/17 08:00 97.3 73 20 110/56 (74) 100 97.3 10/03/17 04:00 73 10/03/17 03:59 96.5 66 19 132/71 (91) 97 96.5 10/03/17 03:57 97.7 10/03/17 00:00 70 10/03/17 00:00 97.7 68 19 122/72 (89) 100 97.7 10/02/17 21:55 71 142/75 10/02/17 21:00 Room Air 10/02/17 20:00 70 10/02/17 20:00 97.3 71 20 142/75 (97) 100 97.3 10/02/17 16:25 98.6 10/02/17 16:21 98.6 60 13 156/68 100 Nasal Cannula 3 98.6 10/02/17 16:10 60 15 159/67 100 Nasal Cannula 3 10/02/17 15:55 97.9 10/02/17 15:55 61 14 157/70 100 Simple Mask 6 10/02/17 15:51 97.9 10/02/17 15:45 59 16 155/68 100 Simple Mask 6 10/02/17 15:35 59 16 154/66 100 Simple Mask 6 Intake and Output 10/02/17 10/03/17 19:00 07:00 Intake Total 1100 ml 510 ml Output Total 1040 ml 450 ml Balance 60 ml 60 ml IV Total 1100 ml 510 ml Output Urine Total 840 ml 120 ml Drainage Total 50 ml 330 ml Estimated Blood Loss 150 ml # Bowel Movements 1 Laboratory Tests 10/03/17 04:17: White Blood Count 16.2H, Red Blood Count 3.01L, Hemoglobin 8.7L, Hematocrit 26.3L, Mean Corpuscular Volume 87, Mean Corpuscular Hemoglobin 28.9, Mean Corpuscular Hemoglobin Concent 33.1, Red Cell Distribution Width 18.1H, Platelet Count 392, Mean Platelet Volume 4.3L, Neutrophils (%) (Auto) , Lymphocytes (%) (Auto) , Monocytes (%) (Auto) , Eosinophils (%) (Auto) , Basophils (%) (Auto) , Sodium Level 126L, Potassium Level 4.1, Chloride Level 94L, Carbon Dioxide Level 25, Anion Gap 8, Blood Urea Nitrogen 27H, Creatinine 3.9H, Estimat Glomerular Filtration Rate 11.9, Glucose Level 118H, Calcium Level 8.2L, Phosphorus Level 5.4H, Magnesium Level 1.6L, Random Vancomycin Level 19.8 Height (Feet): 5 Height (Inches): 2.00 Weight (Pounds): 218 General Appearance: no apparent distress EENT: PERRL/EOMI Neck: normal alignment Cardiovascular: normal peripheral pulses Respiratory/Chest: no respiratory distress Abdomen: tender KleynbergLalito MD Oct 03, 2017 15:38
--- NOTE | 2017-10-03 15:53 | Cardiology Progress Note ---
Assessment/Plan Status: stable, progressing Assessment/Plan Assessment: 1. Chest pain 2. h/o recent 2V CABG and PCI 3. Open wound to chest with stent removal 4. Sepsis 5. ESRD on HD (M/F) 6. DM with neuropathy 7. HTN 8. HLD 9. Anemia 10. VIK 11. Diastolic heart failure Serial troponin, no indication for cath at this time, elevation likely from infection and ESRD CT A/P, surgical consult appreciated -s/p wound vac placement and debridement Maintain HD IV abx Follow Cultures Continue aspirin Continue atorvastatin Continue home medications, coreg, isordil, losartan Outpatient stress test to evaluate status of stent and bypass grafts Subjective Cardiovascular: Reports: no symptoms Respiratory: Reports: no symptoms Gastrointestinal/Abdominal: Reports: no symptoms Genitourinary: Reports: no symptoms Subjective No acute events, patient sat in chair today, was a little lightheaded and hypotensive. Wound vac sealed by surgery. no chest pain, vitals stable. Objective Last 24 Hour Vital Signs Date Time Temp Pulse Resp B/P (MAP) Pulse Ox O2 Delivery O2 Flow Rate FiO2 10/03/17 12:00 97.9 75 20 100/52 (68) 100 97.9 10/03/17 12:00 74 10/03/17 09:46 205.7 66 19 97 10/03/17 09:00 Room Air 10/03/17 08:00 76 10/03/17 08:00 97.3 73 20 110/56 (74) 100 97.3 10/03/17 04:00 73 10/03/17 03:59 96.5 66 19 132/71 (91) 97 96.5 10/03/17 03:57 97.7 10/03/17 00:00 70 10/03/17 00:00 97.7 68 19 122/72 (89) 100 97.7 10/02/17 21:55 71 142/75 10/02/17 21:00 Room Air 10/02/17 20:00 70 10/02/17 20:00 97.3 71 20 142/75 (97) 100 97.3 10/02/17 16:25 98.6 10/02/17 16:21 98.6 60 13 156/68 100 Nasal Cannula 3 98.6 10/02/17 16:10 60 15 159/67 100 Nasal Cannula 3 10/02/17 15:55 97.9 10/02/17 15:55 61 14 157/70 100 Simple Mask 6 General Appearance: no apparent distress EENT: PERRL/EOMI Neck: non-tender Rhythm: NSR Cardiovascular: normal peripheral pulses Respiratory/Chest: chest wall non-tender Abdomen: hypoactive bowel sounds, tender Extremities: normal range of motion Neurologic: insurance follow up representative II-XII grossly normal Intake and Output 10/02/17 10/03/17 19:00 07:00 Intake Total 1100 ml 510 ml Output Total 1040 ml 450 ml Balance 60 ml 60 ml IV Total 1100 ml 510 ml Output Urine Total 840 ml 120 ml Drainage Total 50 ml 330 ml Estimated Blood Loss 150 ml # Bowel Movements 1 Laboratory Tests Test 10/03/17 04:17 White Blood Count 16.2 K/UL (4.8-10.8) H Red Blood Count 3.01 M/UL (4.20-5.40) L Hemoglobin 8.7 G/DL (12.0-16.0) L Hematocrit 26.3 % (37.0-47.0) L Mean Corpuscular Volume 87 FL (80-99) Mean Corpuscular Hemoglobin 28.9 PG (27.0-31.0) Mean Corpuscular Hemoglobin Concent 33.1 G/DL (32.0-36.0) Red Cell Distribution Width 18.1 % (11.6-14.8) H Platelet Count 392 K/UL (150-450) Mean Platelet Volume 4.3 FL (6.5-10.1) L Neutrophils (%) (Auto) % (45.0-75.0) Lymphocytes (%) (Auto) % (20.0-45.0) Monocytes (%) (Auto) % (1.0-10.0) Eosinophils (%) (Auto) % (0.0-3.0) Basophils (%) (Auto) % (0.0-2.0) Sodium Level 126 MMOL/L (136-145) L Potassium Level 4.1 MMOL/L (3.5-5.1) Chloride Level 94 MMOL/L (98-107) L Carbon Dioxide Level 25 MMOL/L (21-32) Anion Gap 8 mmol/L (5-15) Blood Urea Nitrogen 27 mg/dL (7-18) H Creatinine 3.9 MG/DL (0.55-1.30) H Estimat Glomerular Filtration Rate 11.9 mL/min (>60) Glucose Level 118 MG/DL (74-106) H Calcium Level 8.2 MG/DL (8.5-10.1) L Phosphorus Level 5.4 MG/DL (2.5-4.9) H Magnesium Level 1.6 MG/DL (1.8-2.4) L Random Vancomycin Level 19.8 ug/mL Microbiology Date/Time Source Procedure Growth Status 10/02/17 18:30 Abdominal Abscess Anaerobic Culture - Preliminary Resulted 10/02/17 18:30 Abdominal Abscess Gram Stain - Final Resulted 10/02/17 18:30 Abdominal Abscess Aerobic Culture - Preliminary Resulted 10/01/17 12:01 Abdomen Gram Stain - Final Resulted 10/01/17 12:01 Abdomen Wound Culture - Preliminary NO GROWTH AFTER 24 HOURS Resulted Quirino Capps M.D. Oct 03, 2017 15:53
[2017-10-03 16:00] VITALS: BP 107/53
--- NOTE | 2017-10-03 16:01 | General Progress Note ---
Assessment/Plan Problem List: (1) Sepsis ICD Codes: A41.9 - Sepsis, unspecified organism SNOMED: 75093990 (2) Anemia ICD Codes: D64.9 - Anemia, unspecified SNOMED: 144775404, 008020539 Qualifiers: Qualified Codes: D64.9 - Anemia, unspecified (3) ESRD on hemodialysis ICD Codes: N18.6 - End stage renal disease; Z99.2 - Dependence on renal dialysis SNOMED: 568155848, 48428406 (4) Morbid obesity with BMI of 40.0-44.9, adult ICD Codes: E66.01 - Morbid (severe) obesity due to excess calories; Z68.41 - Body mass index (BMI) 40.0-44.9, adult SNOMED: 255297966, 215167762 (5) Chest pain ICD Codes: R07.9 - Chest pain, unspecified SNOMED: 90796850 (6) Wound, open, abdominal wall, anterior with complication ICD Codes: S31.109A - Unspecified open wound of abdominal wall, unspecified quadrant without penetration into peritoneal cavity, initial encounter SNOMED: 275126790 Qualifiers: Qualified Codes: S31.109A - Unspecified open wound of abdominal wall, unspecified quadrant without penetration into peritoneal cavity, initial encounter (7) Abdominal wall abscess at site of surgical wound ICD Codes: T81.4XXA - Infection following a procedure, initial encounter SNOMED: 339664896 (8) Open abdominal wall wound ICD Codes: S31.109A - Unspecified open wound of abdominal wall, unspecified quadrant without penetration into peritoneal cavity, initial encounter SNOMED: 938602829 Qualifiers: Qualified Codes: S31.109A - Unspecified open wound of abdominal wall, unspecified quadrant without penetration into peritoneal cavity, initial encounter (9) Hypokalemia ICD Codes: E87.6 - Hypokalemia SNOMED: 75857521 (10) Hyponatremia ICD Codes: E87.1 - Hypo-osmolality and hyponatremia SNOMED: 34201720 (11) appendicitis s/p open appendectomy (12) s/p wound exploration and debridement (13) Acute blood loss anemia ICD Codes: D62 - Acute posthemorrhagic anemia SNOMED: 249066047 Status: stable, progressing Assessment/Plan Assessment: 1. Chest pain 2. h/o recent 2V CABG c/b stent infection s/p stent removal and abx 3. Open wound to chest/abdomen s/p stent removal 4. Sepsis 5. ESRD on HD (M/F) 6. DM 7. HTN 8. Hyponatremia/Hypokalemia 9. Acute blood loss anemia 10. Appendicitis s/p open appendectomy 11. Abdominal wound s/p wound exploration and debridement Plan: - Cardiology, general surgery, nephrology, and ID consulted - s/p wound exploration and debridement, and open appendectomy with wound vac, POD#1 - wound dressings reapplied today given leakage - 1 unit pRBC STAT transfusion today given symptomatic and hypotensive. Hold HD for today - F/u CT a/p to visualize extent of abscess - concerns for early appendicitis but asymptomatic - Trend EKG/trops -- ACS ruled out - IV vancomycin, flagyl, aztreonam, and ciprofloxacin per ID (D5) - HD per nephro (M/F) with 1.5L per session - Continue home meds. - Continue humulin R for SSi - Monitor electrolytes and replete - Monitor CBC - Wound care - PT/OT - Pain control and supportive care DVT Prophylaxis: SCD, HSQ Code Status: Full Hospital Classification Declaration: Based on this initial evaluation, and depending on the patient's clinical course, I anticipate that this patient will require hospitalization for 3-5 days for sepsis, chest pain and close respiratory/hemodynamic monitoring. Disposition: Once the patient is stable to leave the hospital, I anticipate the patient will likely be discharged to the following environment: [facility] I spent 32 minutes on this patient's case, and 22 minutes were dedicated to counseling and/or care coordination. Discussed with patient/family, nursing staff, SW/CM, and all consultants as above regarding clinical status, treatment course, and disposition planning. Subjective Date patient seen: Oct 03, 2017 Allergies: Coded Allergies: ADHESIVE (Verified Allergy, Unknown, 09/29/17) AMLODIPINE (Verified Allergy, Unknown, 09/29/17) INSULIN ASPART (Verified Allergy, Unknown, 09/29/17) INSULIN LISPRO (Verified Allergy, Unknown, 09/29/17) IODINE (Verified Allergy, Unknown, 09/29/17) PENICILLINS (Verified Allergy, Unknown, 09/29/17) Subjective - s/p exploratory debridement with open appendectomy and wound vac placement, POD#1 - had wound vac leakage overnight - reports nausea and abdominal pain. also noted to be hypotensive and Hgb trending down to 8 today s/p surgery. reports dizziness. denies cp, sob Objective Last 24 Hour Vital Signs Date Time Temp Pulse Resp B/P (MAP) Pulse Ox O2 Delivery O2 Flow Rate FiO2 10/03/17 12:00 97.9 75 20 100/52 (68) 100 97.9 10/03/17 12:00 74 10/03/17 09:46 205.7 66 19 97 10/03/17 09:00 Room Air 10/03/17 08:00 76 10/03/17 08:00 97.3 73 20 110/56 (74) 100 97.3 10/03/17 04:00 73 10/03/17 03:59 96.5 66 19 132/71 (91) 97 96.5 10/03/17 03:57 97.7 10/03/17 00:00 70 10/03/17 00:00 97.7 68 19 122/72 (89) 100 97.7 10/02/17 21:55 71 142/75 10/02/17 21:00 Room Air 10/02/17 20:00 70 10/02/17 20:00 97.3 71 20 142/75 (97) 100 97.3 10/02/17 16:25 98.6 10/02/17 16:21 98.6 60 13 156/68 100 Nasal Cannula 3 98.6 10/02/17 16:10 60 15 159/67 100 Nasal Cannula 3 10/02/17 15:55 97.9 10/02/17 15:55 61 14 157/70 100 Simple Mask 6 Intake and Output 10/02/17 10/03/17 19:00 07:00 Intake Total 1100 ml 510 ml Output Total 1040 ml 450 ml Balance 60 ml 60 ml IV Total 1100 ml 510 ml Output Urine Total 840 ml 120 ml Drainage Total 50 ml 330 ml Estimated Blood Loss 150 ml # Bowel Movements 1 Laboratory Tests 10/03/17 04:17: White Blood Count 16.2H, Red Blood Count 3.01L, Hemoglobin 8.7L, Hematocrit 26.3L, Mean Corpuscular Volume 87, Mean Corpuscular Hemoglobin 28.9, Mean Corpuscular Hemoglobin Concent 33.1, Red Cell Distribution Width 18.1H, Platelet Count 392, Mean Platelet Volume 4.3L, Neutrophils (%) (Auto) , Lymphocytes (%) (Auto) , Monocytes (%) (Auto) , Eosinophils (%) (Auto) , Basophils (%) (Auto) , Sodium Level 126L, Potassium Level 4.1, Chloride Level 94L, Carbon Dioxide Level 25, Anion Gap 8, Blood Urea Nitrogen 27H, Creatinine 3.9H, Estimat Glomerular Filtration Rate 11.9, Glucose Level 118H, Calcium Level 8.2L, Phosphorus Level 5.4H, Magnesium Level 1.6L, Random Vancomycin Level 19.8 Height (Feet): 5 Height (Inches): 2.00 Weight (Pounds): 218 General Appearance: alert EENT: PERRL/EOMI, normal ENT inspection Neck: non-tender, normal alignment, supple Cardiovascular: normal peripheral pulses, normal rate, regular rhythm Respiratory/Chest: lungs clear, normal breath sounds Abdomen: normal bowel sounds, soft, tender, other - surgical incision c/d/i with wound vac Extremities: normal range of motion, non-tender Neurologic: security control assessor II-XII grossly normal, no motor/sensory deficits, alert, oriented x 3 Jennifer Robles NP Oct 03, 2017 16:01
--- NOTE | 2017-10-03 18:00 | Operative Note - Dictated ---
DATE OF OPERATION: 10/02/2017 PREOPERATIVE DIAGNOSES: 1. Abdominal wall complex deep wound infection. 2. Possible appendicitis. POSTOPERATIVE DIAGNOSES: 1. Abdominal wall abscess. 2. Dehiscence of prior abdominal wound and surgical site. 3. Appendicitis. PROCEDURE PERFORMED: 1. Excision debridement of abdominal wall soft tissue and fascia. 2. Drainage of abdominal abscess. 3. Opening of prior abdominal wall closure. 4. Diagnostic laparoscopy. 5. Open appendectomy. 6. Wound VAC placement to large complex abdominal wall wound. SURGEON: Darrius Figueredo M.D. SENIOR TECHNOLOGIST: None. ANESTHESIOLOGIST: Dr. Sukhiwnder Barajas. ANESTHESIA: General STOCK WETTER. SPECIMENS: 1. Abdominal wall tissue. 2. Cultures. 3. Appendix. COMPLICATIONS: None. CONDITION: Stable. FLUIDS: Please see anesthesia records. ESTIMATED BLOOD LOSS: 25 mL. DRAINS: Wound VAC. IMPLANTS: None. WOUND CONSULTATION: Class III. ANTIBIOTICS: The patient on scheduled IV antibiotics for acute active inflammatory process. COUNTS: Sponge and needle count correct x2. INDICATIONS FOR PROCEDURE: This is a 57-year-old female, who has a complex surgical history beginning with a cardiac CABG complicated by a sternal wound infection requiring debridement and at a later time a rectus muscle flap for closure. The patient is a very obese diabetic female and since prior complicated surgeries, has been in rehabilitation for the past approximately two months until recently when noted to have worsening abdominal pain and leukocytosis, brought to [facility] for evaluation. Upon seeing the patient, she is noted to have some abdominal tenderness, leukocytosis and has been feeling unwell. On initial examination, a large complex abdominal wound was identified. The patient's prior sternal wound with muscle flap was noted to be well healed despite the abdominal wound where the right rectus muscle flap was taken from had dehisced with large area of skin and tissue loss, nonviable subcutaneous fat and a large deep tracking wound. The wound in the upper abdomen, there was a large opening that could be tracked further my finger could reach into the inferior aspect of the wound with drainage of murky foul-smelling fluid. A CT scan was performed, which identified the area as above and had also identified an acute appendicitis with a 10 mm appendix and periappendiceal stranding. On examination, the patient was tender throughout the abdomen in almost all 4 quadrants likely related to large abdominal wound as well as potentially masking appendicitis. A leukocytosis was initially identified and initial management was conservative, but as the patient's leukocytosis worsened and abdominal pain remained, decision was made to go to the operating room. In discussing the operation with the patient and family, we discussed the large abdominal wound, which is nonhealing, infected and required revision. We also discussed possibility of appendicitis and given the large abdominal wound surgery that was required down to the fascia, which was already identified and exposed at the bed side, decision will be made to place a scope into the abdomen for diagnostic laparoscopy and identify if the patient does have appendicitis or not. After all risks, benefits, and alternatives were discussed with the patient's family, a consent was obtained and the patient was taken to the operating room on 10/02/2017. OPERATIVE NOTE: The patient was taken to the operating room and placed on the operating table in supine position. Bilateral arms out. All bony prominences were well padded. SCDs were placed. Preoperative time-out was taken identifying the patient, procedure, operative staff, and surgical staff. The patient was already on scheduled IV antibiotics prior to entering the operating room. General anesthesia was induced and the patient was intubated. The abdomen was prepped and draped in standard surgical fashion. We began by reopening the patient's prior laparotomy that had partially healed from the proximal area of dehisced wound down to the distal aspect. In doing so, once the dermis was cut, the subcutaneous tissue flayed open and the wound opened up identifying the underlying fascia prior surgical sutures from the patient's rectus flap and a significant amount of nonviable subcutaneous fat and fibrinous nonviable fascia. Excisional debridement was performed on the nonviable subcutaneous fat and fascia until good healthy viable tissue with back bleeding was identified. In all, the wound was anywhere between 20-30 cm in longitudinal axis and approximately 10 cm in the horizontal axis and the entire length of the subcutaneous tissue from the dermis to the fascia, which was approximately 8 to 10 cm. Following this, the wound was irrigated with copious amounts of antibiotic saline until clean. In the superior lateral aspect of the wound site, there was an abscess, which was identified in the subcutaneous tissue in the most superior lateral aspect, which was approximately 50 mL in size and was evacuated and cultures were taken. This abscess cavity was connected to wound and required correction to the remaining wound for better closure. Once this was completed, it was cleansed and all necrotic tissue were debrided. Packing was placed and held for 2 minutes for hemostasis and electrocautery was used for hemostasis as well. Once the wound was cared for cleansed and a decision was made to enter the fascia and place a Ellyn trocar for diagnostic laparoscopy. Few of the prior Prolene stitches from the rectus fascia closure were taken out and the anterior posterior rectus sheaths were identified and the posterior rectus sheath was entered with Metzenbaum scissors and the abdomen was entered without complication. A 12 mm Ellyn trocar was inserted and the abdomen was insufflated to 12 to 15 mmHg. The patient tolerated the insufflation well. Upon placing the laparoscope in, there was some omental adhesions to the anterior abdominal wall, which were taken down bluntly. Following this, the abdomen was inspected and no significant violation of the fascia was noted from prior surgery. In the right lower quadrant, there was a thickened edematous omentum adhesed to the peritoneal lining as well as the right lower quadrant. A 5 mm trocar was placed in the left lower quadrant and laparoscopic instruments were used to slowly carefully dissected off the omentum with sharp dissection and electrocautery until the cecum and the right lower quadrant could be identified. When the omentum was released and it was swept to the upper abdomen and the cecum was identified. The terminal ileum and cecum was identified and the appendix was noted to be retrocecal with significant inflammatory tissue and around the right ovary and with significant amount of inflammatory tissue from the appendix, periappendiceal fat, peritoneal lining and retrocecal appendix and perineum around it as well as right ovary. At this time given the above, decision was made to make a mini-laparotomy in the fascia and proceed with open appendectomy. The white line of Toldt was slowly divided laparoscopically into the cecum to be mobilized. Following this, the laparoscopic instruments and trocars were removed and the midline fascia was extended approximately 5-8 cm caudad and the appendix was then slowly dissected off its peritoneal attachments inflammatory tissue with gentle blunt dissection and electrocautery as necessary. Once the appendix was freed, it was noted to be adhesed to the cecum, but the base was identified and healthy. The base of the appendix was circumferentially dissected out and made a linear 55 mm stapler was used to divide the base of the appendix. Following this, the staple line was inverted using 3-0 silk Lembert interrupted sutures. At this time, the remaining appendix and inflammatory tissue were dissected out safely including mesoappendix with ligation of the appendiceal artery with a 3-0 silk. No injury of the cecum fortunately was noted. The appendix was then sent off as a specimen when it was dissected out freely. Appendix was noted to be very hard and mid appendix with significant inflammatory tissue. At this time, hemostasis was obtained with electrocautery and 3-0 silk ties as necessary. Following this, the cecum was then placed into its anatomic position and the abdomen was irrigated and the right lower quadrant with warm normal saline. No other abnormalities were noted. There was some oozing from the right lower quadrant peritoneal lining where the appendix was freed. A Surgicel was placed in this position. The fascial incision was then closed using a #0 looped PDS suture. Following this, the wound was then re-cleaned with sterile saline and an abdominal wound VAC was placed. The left lower quadrant 5 mm trocar incision site skin was closed using the 4-0 Monocryl subcuticular interrupted suture. Steri-Strips were placed on that wound. Once the wound VAC was placed to suction, which was noted appropriately without any significant leak, procedure was concluded. The patient was taken to the postanesthetic care unit in stable condition. Darrius Figueredo M.D. DR: NATACHA JOB#: [id number] CC: LETTY
[2017-10-03 20:00] VITALS: BP 132/62
[2017-10-03] MEDS: Atorvastatin 80mg tab ORAL SCH ×2 (21:00→22:11)
[2017-10-03] MEDS: Morphine Sulfate 4mg/ml Inj (IV USE ONLY) IVP PRN (22:16)
[2017-10-04] VITALS (8 sets, daily range): BP systolic 127–155; BP diastolic 48–73
[2017-10-04 05:14] LABS: BASOPHILS % (AUTO) 0.8 % (0.0-2.0); EOSINOPHILS % (AUTO) 4.2 % (0.0-3.0); HEMATOCRIT 24.4 % (37.0-47.0); HEMOGLOBIN 8.5 G/DL (12.0-16.0); LYMPHOCYTES % (AUTO) 9.1 % (20.0-45.0); MEAN CORPUSCULAR VOLUME 86 FL (80-99); MONOCYTES % (AUTO) 7.2 % (1.0-10.0); NEUTROPHILS % (AUTO) 78.7 % (45.0-75.0); PLATELET COUNT 345 K/UL (150-450); RED BLOOD COUNT 2.84 M/UL (4.20-5.40); RED CELL DISTRIBUTION WIDTH 16.7 % (11.6-14.8); WHITE BLOOD COUNT 16.5 K/UL (4.8-10.8)
[2017-10-04 05:41] LABS: ANION GAP 11 mmol/L (5-15); BLOOD UREA NITROGEN 35 mg/dL (7-18); CALCIUM 8.3 MG/DL (8.5-10.1); CARBON DIOXIDE 24 MMOL/L (21-32); CHLORIDE 93 MMOL/L (98-107); CREATININE 4.6 MG/DL (0.55-1.30); POTASSIUM 3.9 MMOL/L (3.5-5.1); SODIUM 128 MMOL/L (136-145)
[2017-10-04] MEDS: Insulin Human Regular 100units/ml 3ml SUBQ SCH ×4 (06:30→21:00)
--- NOTE | 2017-10-04 08:31 | Nephrology Progress Note ---
Assessment/Plan Assessment/Plan 1. ESRD- HD today as BP stable 2. Hypokalemia- corrected. 3. Anemia of CKD- EPO as Hgb <10 and s/p bld Tx 4. Abd Pain/Leukocytosis- per Gen Surg, Abd wound exploration and appy 5. Sepsis- per ID 6. Hyponatremia- po fluid restrict. Na 128 Subjective Date patient seen: Oct 04, 2017 Time patient seen: 08:29 ROS Limited/Unobtainable: No Constitutional: Reports: weakness Allergies: Coded Allergies: ADHESIVE (Verified Allergy, Unknown, 09/29/17) AMLODIPINE (Verified Allergy, Unknown, 09/29/17) INSULIN ASPART (Verified Allergy, Unknown, 09/29/17) INSULIN LISPRO (Verified Allergy, Unknown, 09/29/17) IODINE (Verified Allergy, Unknown, 09/29/17) PENICILLINS (Verified Allergy, Unknown, 09/29/17) All Systems: reviewed and negative except above Subjective Patient resting and feeling better. BP improved Objective Last 24 Hour Vital Signs Date Time Temp Pulse Resp B/P (MAP) Pulse Ox O2 Delivery O2 Flow Rate FiO2 10/04/17 04:00 98.0 71 18 142/57 (85) 100 98.0 10/04/17 04:00 69 10/04/17 00:00 98.2 68 18 137/48 (77) 100 98.2 10/04/17 00:00 79 10/03/17 22:11 73 132/62 10/03/17 21:00 Room Air 10/03/17 20:00 73 10/03/17 20:00 98.2 79 18 132/62 (85) 100 98.2 10/03/17 16:00 97.3 81 18 107/53 (71) 100 97.3 10/03/17 16:00 80 10/03/17 12:00 97.9 75 20 100/52 (68) 100 97.9 10/03/17 12:00 74 10/03/17 09:46 205.7 66 19 97 10/03/17 09:00 Room Air Intake and Output 10/03/17 10/04/17 19:00 07:00 Intake Total 255 ml Output Total 200 ml 0 ml Balance -200 ml 255 ml Intake Oral 0 ml IV Total 255 ml Output Urine Total 200 ml 0 ml Drainage Total 0 ml Laboratory Tests 10/04/17 04:03: White Blood Count 16.5H, Red Blood Count 2.84L, Hemoglobin 8.5L, Hematocrit 24.4L, Mean Corpuscular Volume 86, Mean Corpuscular Hemoglobin 29.8, Mean Corpuscular Hemoglobin Concent 34.7, Red Cell Distribution Width 16.7H, Platelet Count 345, Mean Platelet Volume 4.2L, Neutrophils (%) (Auto) 78.7H, Lymphocytes (%) (Auto) 9.1L, Monocytes (%) (Auto) 7.2, Eosinophils (%) (Auto) 4.2H, Basophils (%) (Auto) 0.8, Sodium Level 128L, Potassium Level 3.9, Chloride Level 93L, Carbon Dioxide Level 24, Anion Gap 11, Blood Urea Nitrogen 35H, Creatinine 4.6H, Estimat Glomerular Filtration Rate 9.8, Glucose Level 127H , Calcium Level 8.3L, Random Vancomycin Level 18.3 Height (Feet): 5 Height (Inches): 2.00 Weight (Pounds): 210 General Appearance: WD/WN, no apparent distress EENT: PERRL/EOMI Neck: non-tender, normal alignment Cardiovascular: normal peripheral pulses, normal rate Respiratory/Chest: chest wall non-tender, lungs clear Abdomen: normal bowel sounds, non tender Edema: no edema noted Arm (L), no edema noted Arm (R), no edema noted Leg (L), no edema noted Leg (R), no edema noted Pedal (L), no edema noted Pedal (R), no edema noted Generalized Aman Link M.D. Oct 04, 2017 08:31
--- NOTE | 2017-10-04 08:45 | General Progress Note ---
Assessment/Plan Status: stable Assessment/Plan 1. Anemia due to underlying kidney disease. --> Continue to closely monitor for improvement. --> Anemia panel has been reviewed, will trend daily. --> Hgb goal >7 2. Anemia due to underlying chronic disease. --> Closely monitor for improvement. 3. Leukocytosis, potentially secondary to sternotomy wire infection. --> Consider evaluation with ID Service. --> WBC improving 4. Diabetes mellitus. A1c goal less than 6. 5. Hypertension. Systolic blood pressure goal less than 140. 6. End-stage renal disease, on hemodialysis. Closely monitor. 7. Myocardial infarction, status post 12 stent placements, status post coronary artery bypass grafting. The time the note was entered does not necessarily correspond to the time the patient was seen. Subjective Date patient seen: Oct 04, 2017 ROS Limited/Unobtainable: Yes Hematologic/Lymphatic: Reports: anemia Allergies: Coded Allergies: ADHESIVE (Verified Allergy, Unknown, 09/29/17) AMLODIPINE (Verified Allergy, Unknown, 09/29/17) INSULIN ASPART (Verified Allergy, Unknown, 09/29/17) INSULIN LISPRO (Verified Allergy, Unknown, 09/29/17) IODINE (Verified Allergy, Unknown, 09/29/17) PENICILLINS (Verified Allergy, Unknown, 09/29/17) All Systems: reviewed and negative except above Subjective No acute events. Pt refusing insulin. Objective Last 24 Hour Vital Signs Date Time Temp Pulse Resp B/P (MAP) Pulse Ox O2 Delivery O2 Flow Rate FiO2 10/04/17 04:00 98.0 71 18 142/57 (85) 100 98.0 10/04/17 04:00 69 10/04/17 00:00 98.2 68 18 137/48 (77) 100 98.2 10/04/17 00:00 79 10/03/17 22:11 73 132/62 10/03/17 21:00 Room Air 10/03/17 20:00 73 10/03/17 20:00 98.2 79 18 132/62 (85) 100 98.2 10/03/17 16:00 97.3 81 18 107/53 (71) 100 97.3 10/03/17 16:00 80 10/03/17 12:00 97.9 75 20 100/52 (68) 100 97.9 10/03/17 12:00 74 10/03/17 09:46 205.7 66 19 97 10/03/17 09:00 Room Air Intake and Output 10/03/17 10/04/17 19:00 07:00 Intake Total 255 ml Output Total 200 ml 0 ml Balance -200 ml 255 ml Intake Oral 0 ml IV Total 255 ml Output Urine Total 200 ml 0 ml Drainage Total 0 ml Laboratory Tests 10/04/17 04:03: White Blood Count 16.5H, Red Blood Count 2.84L, Hemoglobin 8.5L, Hematocrit 24.4L, Mean Corpuscular Volume 86, Mean Corpuscular Hemoglobin 29.8, Mean Corpuscular Hemoglobin Concent 34.7, Red Cell Distribution Width 16.7H, Platelet Count 345, Mean Platelet Volume 4.2L, Neutrophils (%) (Auto) 78.7H, Lymphocytes (%) (Auto) 9.1L, Monocytes (%) (Auto) 7.2, Eosinophils (%) (Auto) 4.2H, Basophils (%) (Auto) 0.8, Sodium Level 128L, Potassium Level 3.9, Chloride Level 93L, Carbon Dioxide Level 24, Anion Gap 11, Blood Urea Nitrogen 35H, Creatinine 4.6H, Estimat Glomerular Filtration Rate 9.8, Glucose Level 127H , Calcium Level 8.3L, Random Vancomycin Level 18.3 Height (Feet): 5 Height (Inches): 2.00 Weight (Pounds): 210 General Appearance: no apparent distress, alert EENT: PERRL/EOMI Neck: normal alignment Cardiovascular: normal peripheral pulses Respiratory/Chest: no respiratory distress Abdomen: normal bowel sounds Lalito Cole MD Oct 04, 2017 08:45
[2017-10-04] MEDS: Carvedilol 25mg Tab ORAL SCH ×2 (09:00→21:28)
[2017-10-04] MEDS: Losartan 50mg tab ORAL SCH (09:00)
[2017-10-04] MEDS: Docusate 100mg cap ORAL SCH ×2 (09:18→21:27)
[2017-10-04] MEDS: Heparin 5000 units/ml inj SUBQ SCH ×2 (09:23→21:30)
--- NOTE | 2017-10-04 10:28 | General Surgery Progress Note ---
General Surgery-Progress Note Subjective Procedure Performed 1. Excisional debridement of abdominal wall soft tissue and fascia 2. drainage of abdominal wall abscess 3. opening of prior abdominal wall closure 4. diagnostic laparoscopy 5. open appendectomy 6. wound vac placement to large complex abdominal wall wound Symptoms: improved, tolerating diet, passing flatus Additional Comments pain improved today. mainly around RLQ surgical site Objective Last 24 Hour Vital Signs Date Time Temp Pulse Resp B/P (MAP) Pulse Ox O2 Delivery O2 Flow Rate FiO2 10/04/17 09:17 98.0 10/04/17 08:00 98.1 76 19 143/65 (91) 99 98.1 10/04/17 04:00 98.0 71 18 142/57 (85) 100 98.0 10/04/17 04:00 69 10/04/17 00:00 98.2 68 18 137/48 (77) 100 98.2 10/04/17 00:00 79 10/03/17 22:11 73 132/62 10/03/17 21:00 Room Air 10/03/17 20:00 73 10/03/17 20:00 98.2 79 18 132/62 (85) 100 98.2 10/03/17 16:00 97.3 81 18 107/53 (71) 100 97.3 10/03/17 16:00 80 10/03/17 12:00 97.9 75 20 100/52 (68) 100 97.9 10/03/17 12:00 74 I&O Intake and Output 10/03/17 10/04/17 19:00 07:00 Intake Total 255 ml Output Total 200 ml 0 ml Balance -200 ml 255 ml Intake Oral 0 ml IV Total 255 ml Output Urine Total 200 ml 0 ml Drainage Total 0 ml Dressing: dry Wound: clean, intact Drains: wound vac Cardiovascular: RSR Respiratory: clear Abdomen: soft, distended, present bowel sounds Extremities: no cyanosis Laboratory Tests Test 10/04/17 04:03 White Blood Count 16.5 K/UL (4.8-10.8) H Red Blood Count 2.84 M/UL (4.20-5.40) L Hemoglobin 8.5 G/DL (12.0-16.0) L Hematocrit 24.4 % (37.0-47.0) L Mean Corpuscular Volume 86 FL (80-99) Mean Corpuscular Hemoglobin 29.8 PG (27.0-31.0) Mean Corpuscular Hemoglobin Concent 34.7 G/DL (32.0-36.0) Red Cell Distribution Width 16.7 % (11.6-14.8) H Platelet Count 345 K/UL (150-450) Mean Platelet Volume 4.2 FL (6.5-10.1) L Neutrophils (%) (Auto) 78.7 % (45.0-75.0) H Lymphocytes (%) (Auto) 9.1 % (20.0-45.0) L Monocytes (%) (Auto) 7.2 % (1.0-10.0) Eosinophils (%) (Auto) 4.2 % (0.0-3.0) H Basophils (%) (Auto) 0.8 % (0.0-2.0) Sodium Level 128 MMOL/L (136-145) L Potassium Level 3.9 MMOL/L (3.5-5.1) Chloride Level 93 MMOL/L (98-107) L Carbon Dioxide Level 24 MMOL/L (21-32) Anion Gap 11 mmol/L (5-15) Blood Urea Nitrogen 35 mg/dL (7-18) H Creatinine 4.6 MG/DL (0.55-1.30) H Estimat Glomerular Filtration Rate 9.8 mL/min (>60) Glucose Level 127 MG/DL (74-106) H Calcium Level 8.3 MG/DL (8.5-10.1) L Random Vancomycin Level 18.3 ug/mL Assessment Post-op Diagnosis 1. abdominal wall abscess 2. dehiscence of abdominal wall wound 3. appendicitis Plan Problems: (1) Open abdominal wall wound (2) Abdominal wall abscess at site of surgical wound (3) Wound, open, abdominal wall, anterior with complication Assessment & Plan: large prior abdominal surgical wound that in portions skin has come together but underlying large area of open fluid collection with possible pockets of abscess. larger epigastric wound seems to connect with lower aspect small wound. lots of murky fluid evacuated, wound deep and tracking in all directions. per patient they have only been placing a small cover on wounds and no packing has been performed. had wound VAC prior but only for 3 days as per patient. I fear that there is something much larger and more serious going underneath the skin and with drainage and looks of wound they are only worsening. CT reviewed and noted. fortunately no large abscess but can note tracking of wound As for possible appendicitis, noted 1cm appendix with stranding on CT. clinically patient has generalized abdominal pain and not focal to RLQ. she has had generalized abdominal pain for some time now and likely related to large wound. no n/v/f/c. leukocytosis 18k but can be related to multiple etiologies. s/p wound exploration, debridement, open appendectomy, wound vac placement. -incisional pain -wound vac care - plan to change Monday -ambulate and out of bed -diet as tolerated -abx thank you for this consultation Darrius Figueredo Oct 04, 2017 10:28
[2017-10-04] MEDS: Aztreonam 0.5gm/D5W 55ml IVPB SCH ×4 (10:39→21:27)
--- NOTE | 2017-10-04 11:19 | Cardiology Progress Note ---
Assessment/Plan Status: stable Assessment/Plan Assessment: 1. Chest pain 2. h/o recent 2V CABG and PCI 3. Open wound to chest with stent removal 4. Sepsis 5. ESRD on HD (M/F) 6. DM with neuropathy 7. HTN 8. HLD 9. Anemia 10. VIK 11. Diastolic heart failure Serial troponin, no indication for cath at this time, elevation likely from infection and ESRD CT A/P, surgical consult appreciated -s/p wound vac placement and debridement - plan for change out on monday Maintain HD per nephrology Fluids restriction for hyponatremia Continue IV abx Follow Cultures Continue aspirin Continue atorvastatin Continue home medications, coreg, isordil, losartan Outpatient stress test to evaluate status of stent and bypass grafts, currently no chest pain Subjective Cardiovascular: Reports: no symptoms Respiratory: Reports: no symptoms Gastrointestinal/Abdominal: Reports: no symptoms Genitourinary: Reports: no symptoms Subjective Pt is resting in the bed. No s/s distress. Wound vacuum is connected on the abdominal area as ordered. IV antibiotic med is running, plan for vac change on monday, plan for HD, NA 128 today, shes on fluid restriction Objective Last 24 Hour Vital Signs Date Time Temp Pulse Resp B/P (MAP) Pulse Ox O2 Delivery O2 Flow Rate FiO2 10/04/17 10:16 98.0 10/04/17 09:17 98.0 10/04/17 09:00 Room Air 10/04/17 08:00 98.1 76 19 143/65 (91) 99 98.1 10/04/17 08:00 75 10/04/17 04:00 98.0 71 18 142/57 (85) 100 98.0 10/04/17 04:00 69 10/04/17 00:00 98.2 68 18 137/48 (77) 100 98.2 10/04/17 00:00 79 10/03/17 22:11 73 132/62 10/03/17 21:00 Room Air 10/03/17 20:00 73 10/03/17 20:00 98.2 79 18 132/62 (85) 100 98.2 10/03/17 16:00 97.3 81 18 107/53 (71) 100 97.3 10/03/17 16:00 80 10/03/17 12:00 97.9 75 20 100/52 (68) 100 97.9 10/03/17 12:00 74 General Appearance: no apparent distress EENT: PERRL/EOMI Neck: non-tender Rhythm: NSR Cardiovascular: normal peripheral pulses Respiratory/Chest: chest wall non-tender Abdomen: soft, no mass, hypoactive bowel sounds, guarding Extremities: normal range of motion 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 Intake and Output 10/03/17 10/04/17 19:00 07:00 Intake Total 255 ml Output Total 200 ml 0 ml Balance -200 ml 255 ml Intake Oral 0 ml IV Total 255 ml Output Urine Total 200 ml 0 ml Drainage Total 0 ml Laboratory Tests Test 10/04/17 04:03 White Blood Count 16.5 K/UL (4.8-10.8) H Red Blood Count 2.84 M/UL (4.20-5.40) L Hemoglobin 8.5 G/DL (12.0-16.0) L Hematocrit 24.4 % (37.0-47.0) L Mean Corpuscular Volume 86 FL (80-99) Mean Corpuscular Hemoglobin 29.8 PG (27.0-31.0) Mean Corpuscular Hemoglobin Concent 34.7 G/DL (32.0-36.0) Red Cell Distribution Width 16.7 % (11.6-14.8) H Platelet Count 345 K/UL (150-450) Mean Platelet Volume 4.2 FL (6.5-10.1) L Neutrophils (%) (Auto) 78.7 % (45.0-75.0) H Lymphocytes (%) (Auto) 9.1 % (20.0-45.0) L Monocytes (%) (Auto) 7.2 % (1.0-10.0) Eosinophils (%) (Auto) 4.2 % (0.0-3.0) H Basophils (%) (Auto) 0.8 % (0.0-2.0) Sodium Level 128 MMOL/L (136-145) L Potassium Level 3.9 MMOL/L (3.5-5.1) Chloride Level 93 MMOL/L (98-107) L Carbon Dioxide Level 24 MMOL/L (21-32) Anion Gap 11 mmol/L (5-15) Blood Urea Nitrogen 35 mg/dL (7-18) H Creatinine 4.6 MG/DL (0.55-1.30) H Estimat Glomerular Filtration Rate 9.8 mL/min (>60) Glucose Level 127 MG/DL (74-106) H Calcium Level 8.3 MG/DL (8.5-10.1) L Random Vancomycin Level 18.3 ug/mL Microbiology Date/Time Source Procedure Growth Status 10/02/17 18:30 Abdominal Abscess Anaerobic Culture - Preliminary Resulted 10/02/17 18:30 Abdominal Abscess Gram Stain - Final Resulted 10/02/17 18:30 Aerobic Culture - Preliminary Gram Positive Cocci Resulted 10/01/17 12:01 Abdomen Gram Stain - Final Resulted 10/01/17 12:01 Abdomen Wound Culture - Preliminary NO GROWTH AFTER 24 HOURS Resulted Quirino Capps M.D. Oct 04, 2017 11:19
--- NOTE | 2017-10-04 16:37 | General Progress Note ---
Assessment/Plan Problem List: (1) Sepsis ICD Codes: A41.9 - Sepsis, unspecified organism SNOMED: 97026721 (2) Anemia ICD Codes: D64.9 - Anemia, unspecified SNOMED: 212613617, 419194084 Qualifiers: Qualified Codes: D64.9 - Anemia, unspecified (3) ESRD on hemodialysis ICD Codes: N18.6 - End stage renal disease; Z99.2 - Dependence on renal dialysis SNOMED: 718058819, 64939793 (4) Morbid obesity with BMI of 40.0-44.9, adult ICD Codes: E66.01 - Morbid (severe) obesity due to excess calories; Z68.41 - Body mass index (BMI) 40.0-44.9, adult SNOMED: 464390838, 569904803 (5) Chest pain ICD Codes: R07.9 - Chest pain, unspecified SNOMED: 25724581 (6) Wound, open, abdominal wall, anterior with complication ICD Codes: S31.109A - Unspecified open wound of abdominal wall, unspecified quadrant without penetration into peritoneal cavity, initial encounter SNOMED: 311197952 Qualifiers: Qualified Codes: S31.109A - Unspecified open wound of abdominal wall, unspecified quadrant without penetration into peritoneal cavity, initial encounter (7) Abdominal wall abscess at site of surgical wound ICD Codes: T81.4XXA - Infection following a procedure, initial encounter SNOMED: 754374078 (8) Open abdominal wall wound ICD Codes: S31.109A - Unspecified open wound of abdominal wall, unspecified quadrant without penetration into peritoneal cavity, initial encounter SNOMED: 913238030 Qualifiers: Qualified Codes: S31.109A - Unspecified open wound of abdominal wall, unspecified quadrant without penetration into peritoneal cavity, initial encounter (9) Hypokalemia ICD Codes: E87.6 - Hypokalemia SNOMED: 61291918 (10) Hyponatremia ICD Codes: E87.1 - Hypo-osmolality and hyponatremia SNOMED: 54483628 (11) appendicitis s/p open appendectomy (12) s/p wound exploration and debridement (13) Acute blood loss anemia ICD Codes: D62 - Acute posthemorrhagic anemia SNOMED: 741085650 (14) Diastolic CHF ICD Codes: I50.30 - Unspecified diastolic (congestive) heart failure SNOMED: 14845964, 663883517 (15) VIK (obstructive sleep apnea) ICD Codes: G47.33 - Obstructive sleep apnea (adult) (pediatric) SNOMED: 58210875 Status: stable, progressing Assessment/Plan Assessment: 1. Chest pain 2. h/o recent 2V CABG c/b stent infection s/p stent removal and abx 3. Open wound to chest/abdomen s/p stent removal 4. Sepsis 5. ESRD on HD (M/F) 6. DM 7. HTN 8. Hyponatremia/Hypokalemia 9. Acute blood loss anemia 10. Appendicitis s/p open appendectomy 11. Abdominal wound s/p wound exploration and debridement on 10/02 12. VIK 13. Diastolic CHF Plan: - Cardiology, general surgery, nephrology, and ID consulted - s/p wound exploration and debridement, and open appendectomy with wound vac, POD#2 - f/u wound culture -- GPC - s/p 1 unit pRBC transfusion on 10/03 - F/u CT a/p to visualize extent of abscess - concerns for early appendicitis but asymptomatic - Trend EKG/trops -- ACS ruled out - IV vancomycin, flagyl, aztreonam, and ciprofloxacin per ID (D6) - HD per nephro (M/F) with 1.5L per session - Continue home meds. - Continue humulin R for SSi - Monitor electrolytes and replete - Monitor CBC - Wound care - PT/OT - Pain control and supportive care Wound vac exchange to be done on Monday DVT Prophylaxis: SCD, HSQ Code Status: Full Hospital Classification Declaration: Based on this initial evaluation, and depending on the patient's clinical course, I anticipate that this patient will require hospitalization for 3-5 days for sepsis, chest pain and close respiratory/hemodynamic monitoring. Disposition: Once the patient is stable to leave the hospital, I anticipate the patient will likely be discharged to the following environment: [facility] I spent 32 minutes on this patient's case, and 22 minutes were dedicated to counseling and/or care coordination. Discussed with patient/family, nursing staff, SW/CM, and all consultants as above regarding clinical status, treatment course, and disposition planning. Subjective Date patient seen: Oct 04, 2017 Allergies: Coded Allergies: ADHESIVE (Verified Allergy, Unknown, 09/29/17) AMLODIPINE (Verified Allergy, Unknown, 09/29/17) INSULIN ASPART (Verified Allergy, Unknown, 09/29/17) INSULIN LISPRO (Verified Allergy, Unknown, 09/29/17) IODINE (Verified Allergy, Unknown, 09/29/17) PENICILLINS (Verified Allergy, Unknown, 09/29/17) Subjective - s/p exploratory debridement with open appendectomy and wound vac placement, POD#2 - doing better today. afebrile, BP better today - Hgb 8.5 - tolerating PO - gram statin growing GPC - HD today - denies cp, sob. abdominal pain improved Objective Last 24 Hour Vital Signs Date Time Temp Pulse Resp B/P (MAP) Pulse Ox O2 Delivery O2 Flow Rate FiO2 10/04/17 13:30 Room Air 10/04/17 13:30 97.8 71 12 133/68 (89) 97.8 10/04/17 12:00 98.9 68 18 127/55 (79) 100 98.9 10/04/17 12:00 68 10/04/17 10:16 98.0 10/04/17 09:17 98.0 10/04/17 09:00 Room Air 10/04/17 08:00 98.1 76 19 143/65 (91) 99 98.1 10/04/17 08:00 75 10/04/17 04:00 98.0 71 18 142/57 (85) 100 98.0 10/04/17 04:00 69 10/04/17 00:00 98.2 68 18 137/48 (77) 100 98.2 10/04/17 00:00 79 10/03/17 22:11 73 132/62 10/03/17 21:00 Room Air 10/03/17 20:00 73 10/03/17 20:00 98.2 79 18 132/62 (85) 100 98.2 Intake and Output 10/03/17 10/04/17 19:00 07:00 Intake Total 255 ml Output Total 200 ml 0 ml Balance -200 ml 255 ml Intake Oral 0 ml IV Total 255 ml Output Urine Total 200 ml 0 ml Drainage Total 0 ml Laboratory Tests 10/04/17 04:03: White Blood Count 16.5H, Red Blood Count 2.84L, Hemoglobin 8.5L, Hematocrit 24.4L, Mean Corpuscular Volume 86, Mean Corpuscular Hemoglobin 29.8, Mean Corpuscular Hemoglobin Concent 34.7, Red Cell Distribution Width 16.7H, Platelet Count 345, Mean Platelet Volume 4.2L, Neutrophils (%) (Auto) 78.7H, Lymphocytes (%) (Auto) 9.1L, Monocytes (%) (Auto) 7.2, Eosinophils (%) (Auto) 4.2H, Basophils (%) (Auto) 0.8, Sodium Level 128L, Potassium Level 3.9, Chloride Level 93L, Carbon Dioxide Level 24, Anion Gap 11, Blood Urea Nitrogen 35H, Creatinine 4.6H, Estimat Glomerular Filtration Rate 9.8, Glucose Level 127H , Calcium Level 8.3L, Random Vancomycin Level 18.3 Height (Feet): 5 Height (Inches): 2.00 Weight (Pounds): 210 General Appearance: no apparent distress, alert EENT: PERRL/EOMI, normal ENT inspection Neck: non-tender, normal alignment, supple Cardiovascular: normal peripheral pulses, normal rate, regular rhythm Respiratory/Chest: lungs clear, normal breath sounds Abdomen: other - +large abdominal incision c/d/i with wound vac Extremities: normal range of motion, non-tender 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
--- NOTE | 2017-10-04 18:08 | Infectious Diseases Prog Note ---
Assessment/Plan Assessment/Plan ASSESSMENT AND PLAN: 1. abdominal wall wound infection/abscess, sepsis, appendicitis, leukocytosis - s/p debridement - s/p appendectomy - continue vancomycin, aztreonam, flagyl - f/u on cultures - wound culture with gram + so far - blood cultures negative - monitor labs - surgery f/u and wound care, note reviewed 2. End-stage renal disease, on hemodialysis, has hemodialysis line. 3. Anemia. 4. Diabetes. 5. Hypertension. 6. Possible hyperlipidemia. 7. Blood sugar and blood pressure treatment per primary. 8. Chest pain treatment per Cardiology. 9. History of coronary artery disease, coronary artery bypass graft, and stent placement, status post stent removal and intravenous antibiotics for infected stent looks like. 10. Obesity. 11. Allergies to adhesive tape, amlodipine, insulin, iodine, and penicillins. 12. Social history is negative. 13. Family history is noncontributory. 14. MAR was noted. 15. Case was discussed with RN. 16. Case was discussed with the patient and the patient's family. 17. Continue treatment per primary consultants. 18. Notes and records were noted. 19. Orders were entered. 20. d/w family Subjective Constitutional: Reports: fatigue; Denies: fever HEENT: Denies: congestion Respiratory: Denies: shortness of breath Cardiovascular: Denies: chest pain Gastrointestinal/Abdominal: Denies: nausea, vomiting, diarrhea Genitourinary: Reports: other - no benito, getting hd Neurologic: Denies: headache Psychiatric: Denies: depression Skin: Denies: rash Hematologic: Denies: bleeding Musculoskeletal: Denies: pain Allergies: Coded Allergies: ADHESIVE (Verified Allergy, Unknown, 09/29/17) AMLODIPINE (Verified Allergy, Unknown, 09/29/17) INSULIN ASPART (Verified Allergy, Unknown, 09/29/17) INSULIN LISPRO (Verified Allergy, Unknown, 09/29/17) IODINE (Verified Allergy, Unknown, 09/29/17) PENICILLINS (Verified Allergy, Unknown, 09/29/17) Objective Vital Signs Last 24 Hour Vital Signs Date Time Temp Pulse Resp B/P (MAP) Pulse Ox O2 Delivery O2 Flow Rate FiO2 10/04/17 17:38 Room Air 10/04/17 17:37 97.9 78 12 155/73 (100) 97.9 10/04/17 16:00 98.6 77 18 127/58 (81) 95 98.6 10/04/17 16:00 74 10/04/17 13:30 Room Air 10/04/17 13:30 97.8 71 12 133/68 (89) 97.8 10/04/17 12:00 98.9 68 18 127/55 (79) 100 98.9 10/04/17 12:00 68 10/04/17 10:16 98.0 10/04/17 09:17 98.0 10/04/17 09:00 Room Air 10/04/17 08:00 98.1 76 19 143/65 (91) 99 98.1 10/04/17 08:00 75 10/04/17 04:00 98.0 71 18 142/57 (85) 100 98.0 10/04/17 04:00 69 10/04/17 00:00 98.2 68 18 137/48 (77) 100 98.2 10/04/17 00:00 79 10/03/17 22:11 73 132/62 10/03/17 21:00 Room Air 10/03/17 20:00 73 10/03/17 20:00 98.2 79 18 132/62 (85) 100 98.2 Height (Feet): 5 Height (Inches): 2.00 Weight (Pounds): 210 General Appearance: no acute distress HEENT: normocephalic, atraumatic, anicteric, mucous membranes moist, EOMI, pharynx normal, supple, no JVD Respiratory/Chest: lungs clear, normal breath sounds, no respiratory distress, no accessory muscle use Cardiovascular: normal rate, regular rhythm, no gallop/murmur, no JVD Abdomen: normal bowel sounds, soft, non tender - some pain, tender, other - wound covered, soft, some pain, no rebound Genitourinary: other Extremities: no cyanosis Skin: no rash Neurologic/Psychiatric: gusset maker II-XII grossly normal, alert, responsive Lymphatic: no neck adenopathy Musculoskeletal: no effusion Objective FINDINGS: Lung bases: Accentuation of the interstitial markings and mild nodular infiltrates in the lung bases. Heart: Cardiomegaly. ABDOMEN: Liver: Unremarkable. Gallbladder and bile ducts: See below. Pancreas: Unremarkable. Spleen: Unremarkable. Adrenals: Unremarkable. Kidneys and ureters: Unremarkable. No hydronephrosis. Stomach and bowel: No zechariah mural thickening. Nonobstructive bowel gas pattern. PELVIS: Appendix: Appendicitis. Appendix measures 1 cm with mild surrounding stranding. Bladder: Unremarkable. Reproductive: Enlarged and heterogeneous right ovary. Ultrasound cannot further characterize as warranted. ABDOMEN and PELVIS: Intraperitoneal space: Unremarkable. Bones/joints: No acute fracture. Soft tissues: Patchy subcutaneous edema and abdominal wound. Small foci of fluid and air in the abdominal wall. Vasculature: Vascular calcification or a stone in the biliary system. No abdominal aortic aneurysm. Lymph nodes: No enlarged lymph nodes. IMPRESSION: Appendicitis. Appendix measures 1 cm with mild surrounding stranding. Chest - x-ray - pvc (report noted) 10/03 - Chest x-ray - nad (report noted) Microbiology Date/Time Source Procedure Growth Status 09/29/17 20:30 Blood Blood Culture - Preliminary NO GROWTH AFTER 4 DAYS Resulted 09/29/17 04:30 Nasal Nares MRSA Culture - Final NO METHICILLIN RESISTANT STAPH AUREUS... Complete 10/02/17 18:30 Abdominal Abscess Anaerobic Culture - Preliminary Resulted Microbiology Date/Time Source Procedure Growth Status 10/02/17 18:30 Abdominal Abscess Anaerobic Culture - Preliminary Resulted 10/02/17 18:30 Abdominal Abscess Gram Stain - Final Resulted 10/02/17 18:30 Aerobic Culture - Preliminary Gram Positive Cocci Resulted Laboratory Tests Test 10/04/17 04:03 White Blood Count 16.5 K/UL (4.8-10.8) H Red Blood Count 2.84 M/UL (4.20-5.40) L Hemoglobin 8.5 G/DL (12.0-16.0) L Hematocrit 24.4 % (37.0-47.0) L Mean Corpuscular Volume 86 FL (80-99) Mean Corpuscular Hemoglobin 29.8 PG (27.0-31.0) Mean Corpuscular Hemoglobin Concent 34.7 G/DL (32.0-36.0) Red Cell Distribution Width 16.7 % (11.6-14.8) H Platelet Count 345 K/UL (150-450) Mean Platelet Volume 4.2 FL (6.5-10.1) L Neutrophils (%) (Auto) 78.7 % (45.0-75.0) H Lymphocytes (%) (Auto) 9.1 % (20.0-45.0) L Monocytes (%) (Auto) 7.2 % (1.0-10.0) Eosinophils (%) (Auto) 4.2 % (0.0-3.0) H Basophils (%) (Auto) 0.8 % (0.0-2.0) Sodium Level 128 MMOL/L (136-145) L Potassium Level 3.9 MMOL/L (3.5-5.1) Chloride Level 93 MMOL/L (98-107) L Carbon Dioxide Level 24 MMOL/L (21-32) Anion Gap 11 mmol/L (5-15) Blood Urea Nitrogen 35 mg/dL (7-18) H Creatinine 4.6 MG/DL (0.55-1.30) H Estimat Glomerular Filtration Rate 9.8 mL/min (>60) Glucose Level 127 MG/DL (74-106) H Calcium Level 8.3 MG/DL (8.5-10.1) L Random Vancomycin Level 18.3 ug/mL Current Medications Medications (Trade) Dose Ordered Sig/Fidelia Route PRN Reason Start Time Stop Time Status Last Admin Dose Admin Acetaminophen (Tylenol) 650 mg Q4H PRN ORAL fever 09/29/17 07:45 10/29/17 07:44 10/04/17 09:17 Acetaminophen/ Hydrocodone Bitart ([place] 10/325) 1 tab Q4H PRN ORAL Severe Pain (Pain Scale 7-10) 10/02/17 17:05 10/09/17 17:04 Acetaminophen/ Hydrocodone Bitart ([place] 5/325) 1 tab Q4H PRN ORAL Moderate Pain (Pain Scale 4-6) 10/02/17 17:04 10/09/17 17:03 Al Hydroxide/Mg Hydroxide (Mylanta) 15 ml Q6H PRN ORAL DYSPEPSIA 10/02/17 17:02 11/01/17 17:01 Atorvastatin Calcium (Lipitor) 40 mg BEDTIME ORAL 10/04/17 21:00 10/29/17 20:59 Aztreonam 0.5 gm/ Dextrose 55 ml @ 110 mls/hr Q12HR IVPB 09/30/17 21:00 10/07/17 20:59 10/04/17 10:39 Bisacodyl (Dulcolax) 10 mg HSPRN PRN RECTAL Constipation 7/13/18 07:45 10/29/17 07:44 Carvedilol (Coreg) 25 mg EVERY 12 HOURS ORAL 10/02/17 21:00 11/01/17 20:59 10/03/17 22:11 Dextrose (Dextrose 50%) 25 ml STAT PRN IV Hypoglycemia 09/29/17 07:45 10/29/17 07:44 Dextrose (Dextrose 50%) 50 ml STAT PRN IV Hypoglycemia 09/29/17 07:45 10/29/17 07:44 Diphenhydramine HCl (Benadryl) 12.5 mg Q6H PRN IVP Itching/Pruritis 10/02/17 17:02 11/01/17 17:01 Docusate Sodium (Colace) 100 mg EVERY 12 HOURS ORAL 09/29/17 09:00 10/29/17 08:59 10/04/17 09:18 Epoetin Perez (Procrit (for ESRD on dialysis)) 10,000 units MON-MON-MON SUBQ 10/04/17 21:00 11/03/17 20:59 Heparin Sodium (Porcine) (Heparin 5000 units/ml) 5,000 units EVERY 12 HOURS SUBQ 09/29/17 09:00 10/29/17 08:59 10/04/17 09:23 Hydromorphone HCl (Dilaudid) 0.5 mg Q3H PRN IVP Pain Score 1-3 10/02/17 16:00 10/09/17 15:59 Hydromorphone HCl (Dilaudid) 1 mg Q3H PRN IVP For Severe Pain(scale 7-10) 10/02/17 17:12 10/09/17 17:11 10/03/17 03:27 Insulin Human Regular (NovoLIN R) BS 70-110, then 0 units... AC+HS SUBQ 09/29/17 16:30 10/29/17 16:29 10/04/17 12:36 Losartan Potassium (Cozaar) 50 mg DAILY ORAL 10/03/17 09:00 11/02/17 08:59 Magnesium Hydroxide (Mom) 30 ml BIDPRN PRN ORAL Constipation 10/02/17 17:01 11/01/17 17:00 Metoclopramide HCl (Reglan) 10 mg Q6H PRN IVP Nausea & Vomiting 7/16/18 17:01 11/01/17 17:00 10/02/17 18:22 Metronidazole 100 ml @ 100 mls/hr Q8HR IVPB 10/02/17 22:00 10/09/17 21:59 10/04/17 17:25 Morphine Sulfate (Morphine Sulfate) 4 mg Q4H PRN IVP For Moderate Pain(scale 4-6) 10/02/17 17:12 10/09/17 17:11 10/03/17 22:16 Ondansetron HCl (Zofran) 4 mg Q6H PRN IVP Nausea & Vomiting 09/29/17 07:45 10/29/17 07:44 10/03/17 23:23 Pantoprazole (Protonix) 40 mg DAILY ORAL 10/05/17 09:00 11/04/17 08:59 Pantoprazole (Protonix) 40 mg ONCE ORAL 10/04/17 17:15 10/04/17 18:00 10/04/17 17:25 Polyethylene Glycol (Miralax) 17 gm HSPRN PRN ORAL Constipation 09/29/17 07:45 10/29/17 07:44 Vancomycin HCl (Vanco rx to dose) 1 ea DAILY PRN MISC Per rx protocol 09/29/17 14:45 10/29/17 14:44 Jenniffer Strickland MD Oct 04, 2017 18:08
[2017-10-04] MEDS: Atorvastatin 20mg tab ORAL SCH (21:29)
[2017-10-04] MEDS: Epogen (for ESRD on dialysis) SUBQ SCH (21:32)
[2017-10-05] VITALS: BP 127/54
[2017-10-05 04:00] VITALS: BP 121/48
[2017-10-05] MEDS: HYDROmorphone 1mg/ml Carpuject IVP PRN ×2 (04:23→22:57)
[2017-10-05] MEDS: Insulin Human Regular 100units/ml 3ml SUBQ SCH ×4 (06:30→21:00)
[2017-10-05 08:00] VITALS: BP 133/55
[2017-10-05] MEDS: Docusate 100mg cap ORAL SCH ×2 (08:38→21:00)
[2017-10-05] MEDS: Carvedilol 25mg Tab ORAL SCH ×2 (08:38→22:54)
[2017-10-05] MEDS: Losartan 50mg tab ORAL SCH (08:39)
[2017-10-05] MEDS: Heparin 5000 units/ml inj SUBQ SCH ×2 (08:40→21:00)
[2017-10-05 08:42] LABS: HEMATOCRIT 23.4 % (37.0-47.0); HEMOGLOBIN 7.7 G/DL (12.0-16.0); MEAN CORPUSCULAR VOLUME 87 FL (80-99); PLATELET COUNT 367 K/UL (150-450); RED BLOOD COUNT 2.69 M/UL (4.20-5.40); RED CELL DISTRIBUTION WIDTH 16.6 % (11.6-14.8); WHITE BLOOD COUNT 15.6 K/UL (4.8-10.8)
[2017-10-05 08:48] LABS: ANION GAP 8 mmol/L (5-15); BLOOD UREA NITROGEN 20 mg/dL (7-18); CALCIUM 7.9 MG/DL (8.5-10.1); CARBON DIOXIDE 31 MMOL/L (21-32); CHLORIDE 91 MMOL/L (98-107); CREATININE 3.2 MG/DL (0.55-1.30); POTASSIUM 3.1 MMOL/L (3.5-5.1); SODIUM 130 MMOL/L (136-145)
--- NOTE | 2017-10-05 08:49 | Nephrology Progress Note ---
Assessment/Plan Assessment/Plan 1. ESRD- HD next on Monday 2. Hypokalemia- corrected. Replace prn 3. Anemia of CKD- EPO 3 x week 4. Abd Pain/Leukocytosis- per Gen Surg, s/p Abd wound exploration and appy 5. Sepsis- per ID 6. Hyponatremia- po fluid restrict - lasix 80mg qd Subjective Date patient seen: Oct 05, 2017 Time patient seen: 08:48 ROS Limited/Unobtainable: No Allergies: Coded Allergies: ADHESIVE (Verified Allergy, Unknown, 09/29/17) AMLODIPINE (Verified Allergy, Unknown, 09/29/17) INSULIN ASPART (Verified Allergy, Unknown, 09/29/17) INSULIN LISPRO (Verified Allergy, Unknown, 09/29/17) IODINE (Verified Allergy, Unknown, 09/29/17) PENICILLINS (Verified Allergy, Unknown, 09/29/17) All Systems: reviewed and negative except above Subjective Patient eating breakfast and feeling better Objective Last 24 Hour Vital Signs Date Time Temp Pulse Resp B/P (MAP) Pulse Ox O2 Delivery O2 Flow Rate FiO2 10/05/17 08:39 133/55 10/05/17 08:38 61 133/55 10/05/17 08:00 97.5 61 20 133/55 (81) 97 97.5 10/05/17 04:00 98.3 74 20 121/48 (72) 97 98.3 10/05/17 04:00 72 10/05/17 00:00 70 10/05/17 00:00 97.8 73 18 127/54 (78) 95 97.8 10/04/17 21:28 85 137/60 10/04/17 21:00 Room Air 10/04/17 20:00 99.7 85 18 137/60 (85) 97 99.7 10/04/17 20:00 83 10/04/17 17:38 Room Air 10/04/17 17:37 97.9 78 12 155/73 (100) 97.9 10/04/17 16:00 98.6 77 18 127/58 (81) 95 98.6 10/04/17 16:00 74 10/04/17 13:30 Room Air 10/04/17 13:30 97.8 71 12 133/68 (89) 97.8 10/04/17 12:00 98.9 68 18 127/55 (79) 100 98.9 10/04/17 12:00 68 10/04/17 10:16 98.0 10/04/17 09:17 98.0 10/04/17 09:00 Room Air Intake and Output 10/04/17 10/05/17 19:00 07:00 Intake Total 200 ml Output Total 1500 ml 0 ml Balance -1500 ml 200 ml Intake Oral 200 ml Output Urine Total 0 ml Hemodialysis UF 1500 ml Laboratory Tests 10/05/17 07:45: White Blood Count [Pending], Red Blood Count [Pending], Hemoglobin [Pending], Hematocrit [Pending], Mean Corpuscular Volume [Pending], Mean Corpuscular Hemoglobin [Pending], Mean Corpuscular Hemoglobin Concent [Pending], Red Cell Distribution Width [Pending], Platelet Count [Pending], Mean Platelet Volume [ Pending], Neutrophils (%) (Auto) [Pending], Lymphocytes (%) (Auto) [Pending], Monocytes (%) (Auto) [Pending], Eosinophils (%) (Auto) [Pending], Basophils (%) (Auto) [Pending], Sodium Level [Pending], Potassium Level [Pending], Chloride Level [Pending], Carbon Dioxide Level [Pending], Blood Urea Nitrogen [Pending], Creatinine [Pending], Estimat Glomerular Filtration Rate [Pending], Glucose Level [Pending], Calcium Level [Pending] Height (Feet): 5 Height (Inches): 2.00 Weight (Pounds): 210 General Appearance: WD/WN, no apparent distress EENT: PERRL/EOMI Neck: non-tender, normal alignment Cardiovascular: normal peripheral pulses, normal rate Respiratory/Chest: chest wall non-tender, lungs clear, normal breath sounds Edema: no edema noted Arm (L), no edema noted Arm (R), no edema noted Leg (L), no edema noted Leg (R), no edema noted Pedal (L), no edema noted Pedal (R), no edema noted Generalized Aman Link M.D. Oct 05, 2017 08:49
[2017-10-05] MEDS: Aztreonam 0.5gm/D5W 55ml IVPB SCH ×2 (09:11)
[2017-10-05] MEDS: Lactulose 20gm/30ml UDC ORAL SCH ×4 (09:12→17:03)
[2017-10-05] MEDS: traMADol 50mg tab ORAL PRN (09:12)
[2017-10-05] MEDS: Furosemide 80mg tab ORAL SCH (09:12)
--- NOTE | 2017-10-05 11:31 | General Surgery Progress Note ---
General Surgery-Progress Note Subjective Procedure Performed 1. Excisional debridement of abdominal wall soft tissue and fascia 2. drainage of abdominal wall abscess 3. opening of prior abdominal wall closure 4. diagnostic laparoscopy 5. open appendectomy 6. wound vac placement to large complex abdominal wall wound Additional Comments no acute events. pain improving. no n/v/f/c. Objective Last 24 Hour Vital Signs Date Time Temp Pulse Resp B/P (MAP) Pulse Ox O2 Delivery O2 Flow Rate FiO2 10/05/17 09:12 97.5 10/05/17 09:00 Room Air 10/05/17 08:39 133/55 10/05/17 08:38 61 133/55 10/05/17 08:00 67 10/05/17 08:00 97.5 61 20 133/55 (81) 97 97.5 10/05/17 04:00 98.3 74 20 121/48 (72) 97 98.3 10/05/17 04:00 72 10/05/17 00:00 70 10/05/17 00:00 97.8 73 18 127/54 (78) 95 97.8 10/04/17 21:28 85 137/60 10/04/17 21:00 Room Air 10/04/17 20:00 99.7 85 18 137/60 (85) 97 99.7 10/04/17 20:00 83 10/04/17 17:38 Room Air 10/04/17 17:37 97.9 78 12 155/73 (100) 97.9 10/04/17 16:00 98.6 77 18 127/58 (81) 95 98.6 10/04/17 16:00 74 10/04/17 13:30 Room Air 10/04/17 13:30 97.8 71 12 133/68 (89) 97.8 10/04/17 12:00 98.9 68 18 127/55 (79) 100 98.9 10/04/17 12:00 68 I&O Intake and Output 10/04/17 10/05/17 19:00 07:00 Intake Total 200 ml Output Total 1500 ml 0 ml Balance -1500 ml 200 ml Intake Oral 200 ml Output Urine Total 0 ml Hemodialysis UF 1500 ml Wound: clean Drains: wound vac Cardiovascular: RSR Respiratory: clear Abdomen: soft, tenderness, present bowel sounds Extremities: no cyanosis Laboratory Tests Test 10/05/17 07:45 White Blood Count 15.6 K/UL (4.8-10.8) H Red Blood Count 2.69 M/UL (4.20-5.40) L Hemoglobin 7.7 G/DL (12.0-16.0) L Hematocrit 23.4 % (37.0-47.0) L Mean Corpuscular Volume 87 FL (80-99) Mean Corpuscular Hemoglobin 28.7 PG (27.0-31.0) Mean Corpuscular Hemoglobin Concent 33.1 G/DL (32.0-36.0) Red Cell Distribution Width 16.6 % (11.6-14.8) H Platelet Count 367 K/UL (150-450) Mean Platelet Volume 4.4 FL (6.5-10.1) L Neutrophils (%) (Auto) % (45.0-75.0) Lymphocytes (%) (Auto) % (20.0-45.0) Monocytes (%) (Auto) % (1.0-10.0) Eosinophils (%) (Auto) % (0.0-3.0) Basophils (%) (Auto) % (0.0-2.0) Differential Total Cells Counted 100 Neutrophils % (Manual) 71 % (45-75) Lymphocytes % (Manual) 15 % (20-45) L Monocytes % (Manual) 7 % (1-10) Eosinophils % (Manual) 7 % (0-3) H Basophils % (Manual) 0 % (0-2) Band Neutrophils 0 % (0-8) Platelet Estimate Adequate Platelet Morphology Normal Sodium Level 130 MMOL/L (136-145) L Potassium Level 3.1 MMOL/L (3.5-5.1) L Chloride Level 91 MMOL/L (98-107) L Carbon Dioxide Level 31 MMOL/L (21-32) Anion Gap 8 mmol/L (5-15) Blood Urea Nitrogen 20 mg/dL (7-18) H Creatinine 3.2 MG/DL (0.55-1.30) H Estimat Glomerular Filtration Rate 14.9 mL/min (>60) Glucose Level 111 MG/DL (74-106) H Calcium Level 7.9 MG/DL (8.5-10.1) L Assessment Post-op Diagnosis 1. abdominal wall abscess 2. dehiscence of abdominal wall wound 3. appendicitis Plan Problems: (1) Open abdominal wall wound (2) Abdominal wall abscess at site of surgical wound (3) Wound, open, abdominal wall, anterior with complication Assessment & Plan: large prior abdominal surgical wound that in portions skin has come together but underlying large area of open fluid collection with possible pockets of abscess. larger epigastric wound seems to connect with lower aspect small wound. lots of murky fluid evacuated, wound deep and tracking in all directions. per patient they have only been placing a small cover on wounds and no packing has been performed. had wound VAC prior but only for 3 days as per patient. I fear that there is something much larger and more serious going underneath the skin and with drainage and looks of wound they are only worsening. CT reviewed and noted. fortunately no large abscess but can note tracking of wound As for possible appendicitis, noted 1cm appendix with stranding on CT. clinically patient has generalized abdominal pain and not focal to RLQ. she has had generalized abdominal pain for some time now and likely related to large wound. no n/v/f/c. leukocytosis 18k but can be related to multiple etiologies. leukocytosis improving. overall improving. H/H low s/p wound exploration, debridement, open appendectomy, wound vac placement. -incisional pain -wound vac care - plan to change Monday -ambulate and out of bed -diet as tolerated -abx -will need to start paperwork for outpatient wound VAC thank you for this consultation Darrius Figueredo Oct 05, 2017 11:31
[2017-10-05 12:00] VITALS: BP 144/62
--- NOTE | 2017-10-05 13:10 | Cardiology Progress Note ---
Assessment/Plan Status: stable, progressing Assessment/Plan Assessment: 1. Chest pain 2. h/o recent 2V CABG and PCI 3. Open wound to chest with stent removal 4. Sepsis 5. ESRD on HD (M/F) 6. DM with neuropathy 7. HTN 8. HLD 9. Anemia 10. VIK 11. Diastolic heart failure Serial troponin, no indication for cath at this time, elevation likely from infection and ESRD CT A/P, surgical consult appreciated -s/p wound vac placement and debridement - plan for change out on monday Will need to arrange outpatient wound vac and home health for antibiotics Maintain HD per nephrology Fluids restriction for hyponatremia Continue IV abx Follow Cultures Continue aspirin Continue atorvastatin Continue home medications, coreg, isordil, losartan Outpatient stress test to evaluate status of stent and bypass grafts, currently no chest pain Subjective Cardiovascular: Reports: no symptoms Respiratory: Reports: no symptoms Gastrointestinal/Abdominal: Reports: no symptoms Genitourinary: Reports: no symptoms Subjective Pt is resting in the bed. No s/s distress. Wound vacuum is connected on the abdominal area, no leakage. IV antibiotic med is running, plan for vac change on monday, shes on fluid restriction Objective Last 24 Hour Vital Signs Date Time Temp Pulse Resp B/P (MAP) Pulse Ox O2 Delivery O2 Flow Rate FiO2 10/05/17 12:00 98.0 67 19 144/62 (89) 98 98.0 10/05/17 10:10 97.5 10/05/17 09:12 97.5 10/05/17 09:00 Room Air 10/05/17 08:39 133/55 10/05/17 08:38 61 133/55 10/05/17 08:00 67 10/05/17 08:00 97.5 61 20 133/55 (81) 97 97.5 10/05/17 04:00 98.3 74 20 121/48 (72) 97 98.3 10/05/17 04:00 72 10/05/17 00:00 70 10/05/17 00:00 97.8 73 18 127/54 (78) 95 97.8 10/04/17 21:28 85 137/60 10/04/17 21:00 Room Air 10/04/17 20:00 99.7 85 18 137/60 (85) 97 99.7 10/04/17 20:00 83 10/04/17 17:38 Room Air 10/04/17 17:37 97.9 78 12 155/73 (100) 97.9 10/04/17 16:00 98.6 77 18 127/58 (81) 95 98.6 10/04/17 16:00 74 10/04/17 13:30 Room Air 10/04/17 13:30 97.8 71 12 133/68 (89) 97.8 General Appearance: no apparent distress EENT: PERRL/EOMI Neck: non-tender Rhythm: NSR Cardiovascular: normal peripheral pulses Respiratory/Chest: chest wall non-tender Abdomen: normal bowel sounds Extremities: normal range of motion Neurologic: imaging technician II-XII grossly normal Intake and Output 10/04/17 10/05/17 19:00 07:00 Intake Total 200 ml Output Total 1500 ml 0 ml Balance -1500 ml 200 ml Intake Oral 200 ml Output Urine Total 0 ml Hemodialysis UF 1500 ml Laboratory Tests Test 10/05/17 07:45 White Blood Count 15.6 K/UL (4.8-10.8) H Red Blood Count 2.69 M/UL (4.20-5.40) L Hemoglobin 7.7 G/DL (12.0-16.0) L Hematocrit 23.4 % (37.0-47.0) L Mean Corpuscular Volume 87 FL (80-99) Mean Corpuscular Hemoglobin 28.7 PG (27.0-31.0) Mean Corpuscular Hemoglobin Concent 33.1 G/DL (32.0-36.0) Red Cell Distribution Width 16.6 % (11.6-14.8) H Platelet Count 367 K/UL (150-450) Mean Platelet Volume 4.4 FL (6.5-10.1) L Neutrophils (%) (Auto) % (45.0-75.0) Lymphocytes (%) (Auto) % (20.0-45.0) Monocytes (%) (Auto) % (1.0-10.0) Eosinophils (%) (Auto) % (0.0-3.0) Basophils (%) (Auto) % (0.0-2.0) Differential Total Cells Counted 100 Neutrophils % (Manual) 71 % (45-75) Lymphocytes % (Manual) 15 % (20-45) L Monocytes % (Manual) 7 % (1-10) Eosinophils % (Manual) 7 % (0-3) H Basophils % (Manual) 0 % (0-2) Band Neutrophils 0 % (0-8) Platelet Estimate Adequate Platelet Morphology Normal Sodium Level 130 MMOL/L (136-145) L Potassium Level 3.1 MMOL/L (3.5-5.1) L Chloride Level 91 MMOL/L (98-107) L Carbon Dioxide Level 31 MMOL/L (21-32) Anion Gap 8 mmol/L (5-15) Blood Urea Nitrogen 20 mg/dL (7-18) H Creatinine 3.2 MG/DL (0.55-1.30) H Estimat Glomerular Filtration Rate 14.9 mL/min (>60) Glucose Level 111 MG/DL (74-106) H Calcium Level 7.9 MG/DL (8.5-10.1) L Microbiology Date/Time Source Procedure Growth Status 10/02/17 18:30 Abdominal Abscess Anaerobic Culture - Preliminary Resulted 10/02/17 18:30 Abdominal Abscess Gram Stain - Final Complete 10/02/17 18:30 Aerobic Culture - Final Enterococcus Faecium - Vre Complete Quirino Capps M.D. Oct 05, 2017 13:10
[2017-10-05 16:00] VITALS: BP 127/68
--- NOTE | 2017-10-05 16:03 | General Progress Note ---
Assessment/Plan Status: unchanged Assessment/Plan 1. Anemia due to underlying kidney disease. --> Continue to closely monitor for improvement. --> Anemia panel has been reviewed, will trend daily. --> Hgb goal >7 2. Anemia due to underlying chronic disease. --> Closely monitor for improvement. --> 10/05: 1 unit [facility]. 3. Leukocytosis, potentially secondary to sternotomy wire infection. --> Consider evaluation with ID Service. --> WBC improving 4. Diabetes mellitus. A1c goal less than 6. 5. Hypertension. Systolic blood pressure goal less than 140. 6. End-stage renal disease, on hemodialysis. Closely monitor. 7. Myocardial infarction, status post 12 stent placements, status post coronary artery bypass grafting. The time the note was entered does not necessarily correspond to the time the patient was seen. Subjective Date patient seen: Oct 05, 2017 ROS Limited/Unobtainable: Yes Hematologic/Lymphatic: Reports: anemia Allergies: Coded Allergies: ADHESIVE (Verified Allergy, Unknown, 09/29/17) AMLODIPINE (Verified Allergy, Unknown, 09/29/17) INSULIN ASPART (Verified Allergy, Unknown, 09/29/17) INSULIN LISPRO (Verified Allergy, Unknown, 09/29/17) IODINE (Verified Allergy, Unknown, 09/29/17) PENICILLINS (Verified Allergy, Unknown, 09/29/17) All Systems: reviewed and negative except above Subjective Pt awake and alert. S/P 1 unit blood, tolerated well. Vitals are stable. Objective Last 24 Hour Vital Signs Date Time Temp Pulse Resp B/P (MAP) Pulse Ox O2 Delivery O2 Flow Rate FiO2 10/05/17 12:00 66 10/05/17 12:00 98.0 67 19 144/62 (89) 98 98.0 10/05/17 10:10 97.5 10/05/17 09:12 97.5 10/05/17 09:00 Room Air 10/05/17 08:39 133/55 10/05/17 08:38 61 133/55 10/05/17 08:00 67 10/05/17 08:00 97.5 61 20 133/55 (81) 97 97.5 10/05/17 04:00 98.3 74 20 121/48 (72) 97 98.3 10/05/17 04:00 72 10/05/17 00:00 70 10/05/17 00:00 97.8 73 18 127/54 (78) 95 97.8 10/04/17 21:28 85 137/60 10/04/17 21:00 Room Air 10/04/17 20:00 99.7 85 18 137/60 (85) 97 99.7 10/04/17 20:00 83 10/04/17 17:38 Room Air 10/04/17 17:37 97.9 78 12 155/73 (100) 97.9 Intake and Output 10/04/17 10/05/17 19:00 07:00 Intake Total 200 ml Output Total 1500 ml 0 ml Balance -1500 ml 200 ml Intake Oral 200 ml Output Urine Total 0 ml Hemodialysis UF 1500 ml Laboratory Tests 10/05/17 07:45: White Blood Count 15.6H, Red Blood Count 2.69L, Hemoglobin 7.7L, Hematocrit 23.4L, Mean Corpuscular Volume 87, Mean Corpuscular Hemoglobin 28.7, Mean Corpuscular Hemoglobin Concent 33.1, Red Cell Distribution Width 16.6H, Platelet Count 367, Mean Platelet Volume 4.4L, Neutrophils (%) (Auto) , Lymphocytes (%) (Auto) , Monocytes (%) (Auto) , Eosinophils (%) (Auto) , Basophils (%) (Auto) , Differential Total Cells Counted 100, Neutrophils % ( Manual) 71, Lymphocytes % (Manual) 15L, Monocytes % (Manual) 7, Eosinophils % ( Manual) 7H, Basophils % (Manual) 0, Band Neutrophils 0, Platelet Estimate Adequate, Platelet Morphology Normal, Sodium Level 130L, Potassium Level 3.1L, Chloride Level 91L, Carbon Dioxide Level 31, Anion Gap 8, Blood Urea Nitrogen 20H, Creatinine 3.2H, Estimat Glomerular Filtration Rate 14.9, Glucose Level 111H, Calcium Level 7.9L Height (Feet): 5 Height (Inches): 2.00 Weight (Pounds): 210 General Appearance: no apparent distress EENT: PERRL/EOMI Neck: normal alignment Cardiovascular: normal peripheral pulses Respiratory/Chest: no respiratory distress Abdomen: normal bowel sounds Lalito Cole MD Oct 05, 2017 16:03
--- NOTE | 2017-10-05 17:02 | General Progress Note ---
Assessment/Plan Problem List: (1) Sepsis ICD Codes: A41.9 - Sepsis, unspecified organism SNOMED: 98325168 (2) Anemia ICD Codes: D64.9 - Anemia, unspecified SNOMED: 881592286, 230803973 Qualifiers: Qualified Codes: D64.9 - Anemia, unspecified (3) ESRD on hemodialysis ICD Codes: N18.6 - End stage renal disease; Z99.2 - Dependence on renal dialysis SNOMED: 512688093, 93995196 (4) Morbid obesity with BMI of 40.0-44.9, adult ICD Codes: E66.01 - Morbid (severe) obesity due to excess calories; Z68.41 - Body mass index (BMI) 40.0-44.9, adult SNOMED: 726889241, 074206190 (5) Chest pain ICD Codes: R07.9 - Chest pain, unspecified SNOMED: 99627380 (6) Wound, open, abdominal wall, anterior with complication ICD Codes: S31.109A - Unspecified open wound of abdominal wall, unspecified quadrant without penetration into peritoneal cavity, initial encounter SNOMED: 531792067 Qualifiers: Qualified Codes: S31.109A - Unspecified open wound of abdominal wall, unspecified quadrant without penetration into peritoneal cavity, initial encounter (7) Abdominal wall abscess at site of surgical wound ICD Codes: T81.4XXA - Infection following a procedure, initial encounter SNOMED: 032091326 (8) Open abdominal wall wound ICD Codes: S31.109A - Unspecified open wound of abdominal wall, unspecified quadrant without penetration into peritoneal cavity, initial encounter SNOMED: 748081151 Qualifiers: Qualified Codes: S31.109A - Unspecified open wound of abdominal wall, unspecified quadrant without penetration into peritoneal cavity, initial encounter (9) Hypokalemia ICD Codes: E87.6 - Hypokalemia SNOMED: 20161471 (10) Hyponatremia ICD Codes: E87.1 - Hypo-osmolality and hyponatremia SNOMED: 96228678 (11) appendicitis s/p open appendectomy (12) s/p wound exploration and debridement (13) Acute blood loss anemia ICD Codes: D62 - Acute posthemorrhagic anemia SNOMED: 578162462 (14) Diastolic CHF ICD Codes: I50.30 - Unspecified diastolic (congestive) heart failure SNOMED: 18466489, 014116413 (15) VIK (obstructive sleep apnea) ICD Codes: G47.33 - Obstructive sleep apnea (adult) (pediatric) SNOMED: 84518664 Status: stable, progressing Assessment/Plan Assessment: 1. Chest pain 2. h/o recent 2V CABG c/b stent infection s/p stent removal and abx 3. Open wound to chest/abdomen s/p stent removal 4. Sepsis 5. ESRD on HD (M/F) 6. DM 7. HTN 8. Hyponatremia/Hypokalemia 9. Acute blood loss anemia 10. Appendicitis s/p open appendectomy 11. Abdominal wound s/p wound exploration and debridement on 10/02 12. VIK 13. 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 - Continue humulin R for SSi - Monitor electrolytes and replete - Monitor CBC - Wound care - PT/OT - Pain control and supportive care Wound vac exchange to be done on Monday DVT Prophylaxis: SCD, HSQ Code Status: Full Hospital Classification Declaration: Based on this initial evaluation, and depending on the patient's clinical course, I anticipate that this patient will require hospitalization for 3-5 days for sepsis, chest pain and close respiratory/hemodynamic monitoring. Disposition: Once the patient is stable to leave the hospital, I anticipate the patient will likely be discharged to the following environment: CRI I spent 32 minutes on this patient's case, and 22 minutes were dedicated to counseling and/or care coordination. Discussed with patient/family, nursing staff, SW/CRYSTAL, and all consultants as above regarding clinical status, treatment course, and disposition planning. Subjective Date patient seen: Oct 05, 2017 Allergies: Coded Allergies: ADHESIVE (Verified Allergy, Unknown, 09/29/17) AMLODIPINE (Verified Allergy, Unknown, 09/29/17) INSULIN ASPART (Verified Allergy, Unknown, 09/29/17) INSULIN LISPRO (Verified Allergy, Unknown, 09/29/17) IODINE (Verified Allergy, Unknown, 09/29/17) PENICILLINS (Verified Allergy, Unknown, 09/29/17) Subjective - s/p exploratory debridement with open appendectomy and wound vac placement, POD#3 - AF, HDS - s/p 1.5L out with HD yesterday - wound cx showing VRE, sensitive to linezolid Objective Last 24 Hour Vital Signs Date Time Temp Pulse Resp B/P (MAP) Pulse Ox O2 Delivery O2 Flow Rate FiO2 10/05/17 16:00 98.0 69 20 127/68 (87) 97 98.0 10/05/17 12:00 66 10/05/17 12:00 98.0 67 19 144/62 (89) 98 98.0 10/05/17 10:10 97.5 10/05/17 09:12 97.5 10/05/17 09:00 Room Air 10/05/17 08:39 133/55 10/05/17 08:38 61 133/55 10/05/17 08:00 67 10/05/17 08:00 97.5 61 20 133/55 (81) 97 97.5 10/05/17 04:00 98.3 74 20 121/48 (72) 97 98.3 10/05/17 04:00 72 10/05/17 00:00 70 10/05/17 00:00 97.8 73 18 127/54 (78) 95 97.8 10/04/17 21:28 85 137/60 10/04/17 21:00 Room Air 10/04/17 20:00 99.7 85 18 137/60 (85) 97 99.7 10/04/17 20:00 83 10/04/17 17:38 Room Air 10/04/17 17:37 97.9 78 12 155/73 (100) 97.9 Intake and Output 10/04/17 10/05/17 19:00 07:00 Intake Total 200 ml Output Total 1500 ml 0 ml Balance -1500 ml 200 ml Intake Oral 200 ml Output Urine Total 0 ml Hemodialysis UF 1500 ml Laboratory Tests 10/05/17 07:45: White Blood Count 15.6H, Red Blood Count 2.69L, Hemoglobin 7.7L, Hematocrit 23.4L, Mean Corpuscular Volume 87, Mean Corpuscular Hemoglobin 28.7, Mean Corpuscular Hemoglobin Concent 33.1, Red Cell Distribution Width 16.6H, Platelet Count 367, Mean Platelet Volume 4.4L, Neutrophils (%) (Auto) , Lymphocytes (%) (Auto) , Monocytes (%) (Auto) , Eosinophils (%) (Auto) , Basophils (%) (Auto) , Differential Total Cells Counted 100, Neutrophils % ( Manual) 71, Lymphocytes % (Manual) 15L, Monocytes % (Manual) 7, Eosinophils % ( Manual) 7H, Basophils % (Manual) 0, Band Neutrophils 0, Platelet Estimate Adequate, Platelet Morphology Normal, Sodium Level 130L, Potassium Level 3.1L, Chloride Level 91L, Carbon Dioxide Level 31, Anion Gap 8, Blood Urea Nitrogen 20H, Creatinine 3.2H, Estimat Glomerular Filtration Rate 14.9, Glucose Level 111H, Calcium Level 7.9L Height (Feet): 5 Height (Inches): 2.00 Weight (Pounds): 210 General Appearance: no apparent distress, alert, obese EENT: PERRL/EOMI, normal ENT inspection Neck: non-tender, normal alignment, supple Cardiovascular: normal peripheral pulses, normal rate, regular rhythm Respiratory/Chest: chest wall non-tender, lungs clear, normal breath sounds Abdomen: normal bowel sounds, soft, tender, other - surgical insicision c/d with wound vac Extremities: normal range of motion, non-tender 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
[2017-10-05 20:00] VITALS: BP 164/75
[2017-10-05] MEDS: Aztreonam Inj 0.5 GM in D5W 55 ML IVPB SCH (21:45)
[2017-10-05] MEDS: Atorvastatin 20mg tab ORAL SCH (22:54)
[2017-10-06] VITALS: BP 138/62
[2017-10-06] MEDS: Morphine Sulfate 4mg/ml Inj (IV USE ONLY) IVP PRN (02:13)
[2017-10-06 04:00] VITALS: BP 127/57
[2017-10-06] MEDS ORDERED: Zolpidem 5mg tab ORAL PRN (05:30)
[2017-10-06] MEDS ORDERED: Metoclopramide 10mg/2ml Inj IVP PRN (05:30)
[2017-10-06] MEDS: Insulin Human Regular 100units/ml 3ml SUBQ SCH ×4 (06:30→21:00)
[2017-10-06 07:28] LABS: EOSINOPHILS % (AUTO) 13.1 % (0.0-3.0); HEMATOCRIT 27.6 % (37.0-47.0); HEMOGLOBIN 9.2 G/DL (12.0-16.0); LYMPHOCYTES % (AUTO) 13.1 % (20.0-45.0); MEAN CORPUSCULAR VOLUME 85 FL (80-99); MONOCYTES % (AUTO) 9.3 % (1.0-10.0); NEUTROPHILS % (AUTO) 63.6 % (45.0-75.0); PLATELET COUNT 392 K/UL (150-450); RED BLOOD COUNT 3.23 M/UL (4.20-5.40); RED CELL DISTRIBUTION WIDTH 15.5 % (11.6-14.8); WHITE BLOOD COUNT 12.1 K/UL (4.8-10.8)
[2017-10-06 08:00] VITALS: BP 136/67
[2017-10-06 08:04] LABS: ANION GAP 7 mmol/L (5-15); BLOOD UREA NITROGEN 23 mg/dL (7-18); CALCIUM 8.1 MG/DL (8.5-10.1); CARBON DIOXIDE 29 MMOL/L (21-32); CHLORIDE 92 MMOL/L (98-107); CREATININE 3.7 MG/DL (0.55-1.30); POTASSIUM 3.2 MMOL/L (3.5-5.1); SODIUM 128 MMOL/L (136-145)
[2017-10-06 08:58] LABS: ALANINE AMINOTRANSFERASE 22 U/L (12-78); ALBUMIN 1.4 G/DL (3.4-5.0); ALKALINE PHOSPHATASE 218 U/L (46-116); ASPARTATE AMINO TRANSFERASE 31 U/L (15-37); BILIRUBIN,DIRECT 0.4 MG/DL (0.0-0.3); BILIRUBIN,TOTAL 0.6 MG/DL (0.2-1.0); PHOSPHORUS 4.4 MG/DL (2.5-4.9)
[2017-10-06] MEDS: Heparin 5000 units/ml inj SUBQ SCH ×2 (09:00→21:00)
[2017-10-06] MEDS: Docusate 100mg cap ORAL SCH ×2 (09:00→21:00)
[2017-10-06] MEDS: Lactulose 20gm/30ml UDC ORAL SCH ×3 (09:00→17:30)
--- NOTE | 2017-10-06 09:13 | Diagnostic Imaging Report ---
Indication: Nausea and vomiting Technique: Supine view of the abdomen Comparison: Abdomen pelvis CT dated 09/29/2017 Findings: Body habitus limits evaluation. There are some mildly distended small bowel loops in the left upper quadrant. Contrast from prior CT scan is seen in the rectum. Impression: Very limited exam, as described Mildly dilated left upper quadrant small bowel loops. Could indicate ileus or early/partial small bowel obstruction. Favor the former, as there is evidence of transit of previously ingested contrast into the distal colon
[2017-10-06] MEDS: Carvedilol 25mg Tab ORAL SCH ×2 (10:00→20:50)
[2017-10-06] MEDS: Furosemide 80mg tab ORAL SCH (10:01)
[2017-10-06] MEDS: Losartan 50mg tab ORAL SCH (10:05)
[2017-10-06] MEDS: Aztreonam Inj 0.5 GM in D5W 55 ML IVPB SCH ×2 (10:09→22:01)
[2017-10-06 12:00] VITALS: BP 144/72
[2017-10-06] MEDS ORDERED: Promethazine HCl 25 MG in NS 55 ML IVPB PRN (13:00)
--- NOTE | 2017-10-06 14:31 | GI Initial Consult Note ---
History of Present Illness General Date patient seen: Oct 06, 2017 Time patient seen: 15:31 Reason for Hospitalization: Chest Pain Referring physician: CATHERINE NEFF Reason for Consultation: abdominal pain, wound infection Present Illness HPI Is a 57-year-old Citizen Of [place] female with a history of 2 vessel CABG at [facility] in May. She had complicated course with infection of sternal wire. This has to be removed and antibiotics given. Since then she been having chest pain. She said pain got worse in the last 24 hours. No radiation. No fever chills but no nausea no vomiting. Pain is 10 out of 10. C[facility] from [facility]. She received aspirin. Nothing made it better. Nothing made it worse. Pt now s/p surgery as noted below. Procedure Performed 1. Excisional debridement of abdominal wall soft tissue and fascia 2. drainage of abdominal wall abscess 3. opening of prior abdominal wall closure 4. diagnostic laparoscopy 5. open appendectomy 6. wound vac placement to large complex abdominal wall wound GI consulted for post operative ileus. Pt seen, awake NAD c/o of poor appetite and PO intake. Noted with abdominal surgery/incision connected to a hemovac which is draining well. Patient is post op day 5, already on a regular diet and has stated that her pain has been improved over the course of terry 5 days. A pit hand image was obtained yesterday noted to see mildly dilated left upper quadrant small bowel loops which could indicate ileus or early/partial small bowel obstruction. The patient did note she is passing gas and had a BM yesterday. Home Meds Reported Medications Tizanidine Hcl* (ZANAFLEX*) 4 Mg Tablet, 2 MG ORAL EVERY 8 HOURS, #90 TAB 0 Refills 09/29/17 Sitagliptin* (JANUVIA*) 25 Mg Tablet, 25 MG ORAL DAILY, TAB 09/29/17 Prazosin Hcl* (MINIPRESS*) 1 Mg Capsule, 2 MG PO, CAP 09/29/17 Polyethylene Glycol 3350* (POLYETHYLENE GLYCOL 3350*) 17 Gm Powd.pack, 17 GM ORAL BEDTIME PRN for Constipation, PACKET 09/29/17 Oxycodone HCl (Oxycodone HCl) 5 Mg Tablet, 5 MG ORAL Q6HR PRN for For Pain, TAB 0 Refills 09/29/17 Nateglinide* (STARLIX*) 60 Mg Tablet, 120 MG ORAL THREE TIMES A DAY, TAB 09/29/17 Losartan Potassium* (LOSARTAN POTASSIUM*) 50 Mg Tablet, 50 MG ORAL BID, TAB 09/29/17 Isosorbide Mononitrate (ISOSORBIDE MONONITRATE ER) 60 Mg Tab.er.24h, 60 MG PO, TAB 09/29/17 Ipratropium/Albuterol Sulfate (DuoNeb 0.5-3(2.5)mg/3ml) 3 Ml Ampul.neb, 3 ML HHN , EA 09/29/17 Insulin Glargine (LANTUS) 100 Unit/1 Ml Insuln.pen, 0 SUBQ BEDTIME, #1 EA 0 Refills 09/29/17 Furosemide* (LASIX*) 80 Mg Tablet, 80 MG ORAL BIDAC, TAB 09/29/17 Ferrous Sulfate* (FERROUS SULFATE*) 325 Mg Tablet, 325 MG ORAL DAILY, #30 TAB 0 Refills 09/29/17 Famotidine (FAMOTIDINE) 20 Mg Tablet, 20 MG ORAL DAILY, #30 TAB 0 Refills 09/29/17 Carvedilol* (CARVEDILOL*) 25 Mg Tablet, 25 MG ORAL EVERY 12 HOURS, TAB 09/29/17 Atorvastatin Calcium* (LIPITOR*) 80 Mg Tablet, 80 MG ORAL BEDTIME, TAB 09/29/17 Aspirin* (ASPIRIN*) 81 Mg Tab.chew, 81 MG ORAL DAILY, TAB 09/29/17 Amlodipine Besylate* (AMLODIPINE BESYLATE*) 10 Mg Tablet, 10 MG ORAL DAILY, TAB 09/29/17 Med list reviewed/reconciled: Yes Allergies: Coded Allergies: ADHESIVE (Verified Allergy, Unknown, 09/29/17) AMLODIPINE (Verified Allergy, Unknown, 09/29/17) INSULIN ASPART (Verified Allergy, Unknown, 09/29/17) INSULIN LISPRO (Verified Allergy, Unknown, 09/29/17) IODINE (Verified Allergy, Unknown, 09/29/17) PENICILLINS (Verified Allergy, Unknown, 09/29/17) Patient History History Provided By: Patient, Medical Record PMH Narrative Past Medical History: see triage record, old chart reviewed, DM, HTN, [place], CAD Past Surgical History: other Pertinent Family History: none Social History: Denies: smoking Last Menstrual Period: none Now: No Immunizations: other Reviewed Nursing Documentation: PMH: Agreed; PSxH: Agreed Nursing Documentation-PMH Hx Hypertension: Yes Hx Diabetes: Yes Past Surgical History: appendectomy Social History: Denies: smoking, alcohol use, drug use, other Review of Systems All Other Systems: negative except mentioned in HPI Physical Exam Vital Signs Date Time Temp Pulse Resp B/P (MAP) Pulse Ox O2 Delivery O2 Flow Rate FiO2 10/01/17 16:00 66 10/01/17 16:00 98.2 20 155/70 (98) 94 98.2 10/01/17 21:00 Room Air 10/02/17 15:00 6 Sp02 EP Interpretation: reviewed, normal Labs Laboratory Tests Test 10/06/17 06:30 10/06/17 06:36 Uric Acid 6.1 MG/DL (2.6-7.2) Phosphorus Level 4.4 MG/DL (2.5-4.9) Magnesium Level 1.7 MG/DL (1.8-2.4) L Total Bilirubin 0.6 MG/DL (0.2-1.0) Direct Bilirubin 0.4 MG/DL (0.0-0.3) H Aspartate Amino Transf (AST/SGOT) 31 U/L (15-37) Alanine Aminotransferase (ALT/SGPT) 22 U/L (12-78) Alkaline Phosphatase 218 U/L (46-116) H Total Protein 6.2 G/DL (6.4-8.2) L Albumin 1.4 G/DL (3.4-5.0) L White Blood Count 12.1 K/UL (4.8-10.8) H Red Blood Count 3.23 M/UL (4.20-5.40) L Hemoglobin 9.2 G/DL (12.0-16.0) L Hematocrit 27.6 % (37.0-47.0) L Mean Corpuscular Volume 85 FL (80-99) Mean Corpuscular Hemoglobin 28.6 PG (27.0-31.0) Mean Corpuscular Hemoglobin Concent 33.5 G/DL (32.0-36.0) Red Cell Distribution Width 15.5 % (11.6-14.8) H Platelet Count 392 K/UL (150-450) Mean Platelet Volume 4.1 FL (6.5-10.1) L Neutrophils (%) (Auto) 63.6 % (45.0-75.0) Lymphocytes (%) (Auto) 13.1 % (20.0-45.0) L Monocytes (%) (Auto) 9.3 % (1.0-10.0) Eosinophils (%) (Auto) 13.1 % (0.0-3.0) H Basophils (%) (Auto) 1.0 % (0.0-2.0) Sodium Level 128 MMOL/L (136-145) L Potassium Level 3.2 MMOL/L (3.5-5.1) L Chloride Level 92 MMOL/L (98-107) L Carbon Dioxide Level 29 MMOL/L (21-32) Anion Gap 7 mmol/L (5-15) Blood Urea Nitrogen 23 mg/dL (7-18) H Creatinine 3.7 MG/DL (0.55-1.30) H Estimat Glomerular Filtration Rate 12.6 mL/min (>60) Glucose Level 93 MG/DL (74-106) Calcium Level 8.1 MG/DL (8.5-10.1) L General Appearance: well appearing, no apparent distress, alert, obese Head: normocephalic EENT: PERRL/EOMI, normal ENT inspection Neck: supple Respiratory: normal breath sounds, no respiratory distress Cardiovascular: normal rate Gastrointestinal: normal inspection, non tender, soft, normal bowel sounds, non -distended, other - surgical incision connected to hemovac Rectal: deferred Genitourinary: no CVA tenderness Musculoskeletal: normal inspection, back normal Neurologic: normal inspection, alert, oriented x3, responsive Psychiatric: normal inspection, judgement/insight normal, memory normal Skin: normal inspection, normal color, no rash, warm/dry, palpation normal, well hydrated Lymphatic: normal inspection, no adenopathy Current Medications Current Medications Medications (Trade) Dose Ordered Sig/Fidelia Route PRN Reason Start Time Stop Time Status Last Admin Dose Admin Acetaminophen (Tylenol) 650 mg Q4H PRN ORAL fever 09/29/17 07:45 10/29/17 07:44 10/05/17 04:10 Acetaminophen/ Hydrocodone Bitart ([place] 5/325) 1 tab Q4H PRN ORAL Moderate Pain (Pain Scale 4-6) 10/02/17 17:04 10/09/17 17:03 Al Hydroxide/Mg Hydroxide (Mylanta) 15 ml Q6H PRN ORAL DYSPEPSIA 10/02/17 17:02 11/01/17 17:01 Atorvastatin Calcium (Lipitor) 40 mg BEDTIME ORAL 10/04/17 21:00 10/29/17 20:59 10/05/17 22:54 Aztreonam 0.5 gm/ Dextrose 55 ml @ 110 mls/hr Q12HR IVPB 10/05/17 21:00 10/12/17 20:59 10/06/17 10:09 Bisacodyl (Dulcolax) 10 mg HSPRN PRN RECTAL Constipation 09/29/17 07:45 10/29/17 07:44 Carvedilol (Coreg) 25 mg EVERY 12 HOURS ORAL 10/02/17 21:00 11/01/17 20:59 10/06/17 10:00 Dextrose (Dextrose 50%) 25 ml STAT PRN IV Hypoglycemia 09/29/17 07:45 10/29/17 07:44 Dextrose (Dextrose 50%) 50 ml STAT PRN IV Hypoglycemia 09/29/17 07:45 10/29/17 07:44 Dextrose/Sodium Chloride 1,000 ml @ 50 mls/hr Q20H IV 10/06/17 14:00 11/05/17 13:59 Diphenhydramine HCl (Benadryl) 12.5 mg Q6H PRN IVP Itching/Pruritis 10/02/17 17:02 11/01/17 17:01 Docusate Sodium (Colace) 100 mg EVERY 12 HOURS ORAL 09/29/17 09:00 10/29/17 08:59 10/05/17 08:38 Epoetin Perez (Procrit (for ESRD on dialysis)) 10,000 units MON-MON-MON SUBQ 10/04/17 21:00 11/03/17 20:59 10/04/17 21:32 Furosemide (Lasix) 80 mg DAILY ORAL 10/05/17 09:00 11/04/17 08:59 10/06/17 10:01 Heparin Sodium (Porcine) (Heparin 5000 units/ml) 5,000 units EVERY 12 HOURS SUBQ 09/29/17 09:00 10/29/17 08:59 10/05/17 08:40 Hydromorphone HCl (Dilaudid) 0.5 mg Q3H PRN IVP Pain Score 1-3 10/02/17 16:00 10/09/17 15:59 Hydromorphone HCl (Dilaudid) 1 mg Q3H PRN IVP For Severe Pain(scale 7-10) 10/02/17 17:12 10/09/17 17:11 10/05/17 22:57 Insulin Human Regular (NovoLIN R) BS 70-110, then 0 units... AC+HS SUBQ 09/29/17 16:30 10/29/17 16:29 10/05/17 11:53 Lactulose (Cephulac) 20 gm THREE TIMES A DAY ORAL 10/05/17 09:00 11/04/17 08:59 10/05/17 13:00 Linezolid 300 ml @ 300 mls/hr Q12HR IVPB 10/05/17 21:00 10/12/17 20:59 10/06/17 10:09 Losartan Potassium (Cozaar) 50 mg DAILY ORAL 10/03/17 09:00 11/02/17 08:59 10/06/17 10:05 Magnesium Hydroxide (Mom) 30 ml BIDPRN PRN ORAL Constipation 10/02/17 17:01 11/01/17 17:00 Metronidazole 100 ml @ 100 mls/hr Q8HR IVPB 10/05/17 22:00 10/12/17 21:59 10/06/17 13:12 Morphine Sulfate (Morphine Sulfate) 4 mg Q4H PRN IVP For Moderate Pain(scale 4-6) 10/02/17 17:12 10/09/17 17:11 10/06/17 02:13 Pantoprazole (Protonix) 40 mg ACBREAKFAST ORAL 10/06/17 06:30 11/04/17 08:59 10/06/17 06:52 Polyethylene Glycol (Miralax) 17 gm HSPRN PRN ORAL Constipation 09/29/17 07:45 10/29/17 07:44 Potassium Chloride (K-Dur) 40 meq DAILY ORAL 10/07/17 09:00 11/06/17 08:59 Promethazine HCl 25 mg/Sodium Chloride 56 ml @ 112 mls/hr Q8H PRN IVPB Nausea & Vomiting 10/06/17 13:00 11/05/17 12:59 Tramadol HCl (Ultram) 50 mg Q6H PRN ORAL Mild Pain (Pain Scale 1-3) 10/05/17 09:00 10/12/17 08:59 10/05/17 09:12 Zolpidem Tartrate (Ambien) 5 mg HSPRN PRN ORAL Insomnia 10/06/17 05:30 10/13/17 05:29 GI: Plan Problems: (1) Postoperative ileus (2) s/p wound exploration and debridement (3) Abdominal wall abscess at site of surgical wound (4) Anemia Plan post operative ileus per surgical recs revert CLD, advance as tolerated to renal diet given insufficiency repeat KUB tomorrow pain mgmt ppi electrolyte correction >> fluid restriction zofran fu labs Discussed with Dr. Lindo. Thank you for this patient referral, we will follow. The patient was seen and examined at bedside and all new and available data was reviewed in the patients chart. I agree with the above findings, impression and plan. (Patient seen earlier today. Signature stamp does not reflect patient encounter time.). - MD Karyn WatkinsBanner Estrella Medical CenterPauline CAREER TECHNICAL COUNSELOR Oct 06, 2017 14:31
--- NOTE | 2017-10-06 15:13 | General Progress Note ---
Assessment/Plan Problem List: (1) Sepsis ICD Codes: A41.9 - Sepsis, unspecified organism SNOMED: 80141825 (2) Anemia ICD Codes: D64.9 - Anemia, unspecified SNOMED: 150061058, 271322603 Qualifiers: Qualified Codes: D64.9 - Anemia, unspecified (3) ESRD on hemodialysis ICD Codes: N18.6 - End stage renal disease; Z99.2 - Dependence on renal dialysis SNOMED: 027847217, 08363698 (4) Morbid obesity with BMI of 40.0-44.9, adult ICD Codes: E66.01 - Morbid (severe) obesity due to excess calories; Z68.41 - Body mass index (BMI) 40.0-44.9, adult SNOMED: 745848461, 741110732 (5) Chest pain ICD Codes: R07.9 - Chest pain, unspecified SNOMED: 88910983 (6) Wound, open, abdominal wall, anterior with complication ICD Codes: S31.109A - Unspecified open wound of abdominal wall, unspecified quadrant without penetration into peritoneal cavity, initial encounter SNOMED: 695718112 Qualifiers: Qualified Codes: S31.109A - Unspecified open wound of abdominal wall, unspecified quadrant without penetration into peritoneal cavity, initial encounter (7) Abdominal wall abscess at site of surgical wound ICD Codes: T81.4XXA - Infection following a procedure, initial encounter SNOMED: 231773395 (8) Open abdominal wall wound ICD Codes: S31.109A - Unspecified open wound of abdominal wall, unspecified quadrant without penetration into peritoneal cavity, initial encounter SNOMED: 359679250 Qualifiers: Qualified Codes: S31.109A - Unspecified open wound of abdominal wall, unspecified quadrant without penetration into peritoneal cavity, initial encounter (9) Hypokalemia ICD Codes: E87.6 - Hypokalemia SNOMED: 48416064 (10) Hyponatremia ICD Codes: E87.1 - Hypo-osmolality and hyponatremia SNOMED: 77323809 (11) appendicitis s/p open appendectomy (12) s/p wound exploration and debridement (13) Acute blood loss anemia ICD Codes: D62 - Acute posthemorrhagic anemia SNOMED: 495358024 (14) Diastolic CHF ICD Codes: I50.30 - Unspecified diastolic (congestive) heart failure SNOMED: 29764875, 320096093 (15) VIK (obstructive sleep apnea) ICD Codes: G47.33 - Obstructive sleep apnea (adult) (pediatric) SNOMED: 30796733 (16) Postoperative ileus ICD Codes: K91.89 - Other postprocedural complications and disorders of digestive system; K56.7 - Ileus, unspecified SNOMED: 827244144 Assessment/Plan Assessment: 1. Chest pain 2. h/o recent 2V CABG c/b stent infection s/p stent removal and abx 3. Open wound to chest/abdomen s/p stent removal 4. Sepsis 5. ESRD on HD (M/F) 6. DM 7. HTN 8. Hyponatremia/Hypokalemia 9. Acute blood loss anemia 10. Appendicitis s/p open appendectomy 11. Abdominal wound s/p wound exploration and debridement on 10/02 12. VIK 13. 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 Postoperative ileus Plan: - Cardiology, general surgery, nephrology, GI, and ID consulted - s/p wound exploration and debridement, and open appendectomy with wound vac, POD#4 - f/u wound culture -- VRE - s/p 1 unit pRBC transfusion on 10/03 - F/u CT a/p to visualize extent of abscess - concerns for early appendicitis but asymptomatic - Trend EKG/trops -- ACS ruled out - IV flagyl, aztreonam (D7), start linezolid (D1) - HD per nephro (M/F) with 1.5L per session - Continue home meds. - Continue humulin R for SSi - Monitor electrolytes and replete - Monitor CBC - Wound care - PT/OT - Pain control and supportive care - KUB showed ileus vs. early/partial SBO. had bowel movement today and continues to c/o n/v. start CLD and ADAT. decrease narcotics. GI rec's appreciated Wound vac exchange to be done on Monday DC planning over the weekend if able to tolerate PO DVT Prophylaxis: SCD, HSQ Code Status: Full Hospital Classification Declaration: Based on this initial evaluation, and depending on the patient's clinical course, I anticipate that this patient will require hospitalization for 3-5 days for sepsis, chest pain and close respiratory/hemodynamic monitoring. Disposition: Once the patient is stable to leave the hospital, I anticipate the patient will likely be discharged to the following environment: C[facility] I spent 32 minutes on this patient's case, and 22 minutes were dedicated to counseling and/or care coordination. Discussed with patient/family, nursing staff, ALO/CRYSTAL, and all consultants as above regarding clinical status, treatment course, and disposition planning. Subjective Date patient seen: Oct 06, 2017 Allergies: Coded Allergies: ADHESIVE (Verified Allergy, Unknown, 09/29/17) AMLODIPINE (Verified Allergy, Unknown, 09/29/17) INSULIN ASPART (Verified Allergy, Unknown, 09/29/17) INSULIN LISPRO (Verified Allergy, Unknown, 09/29/17) IODINE (Verified Allergy, Unknown, 09/29/17) PENICILLINS (Verified Allergy, Unknown, 09/29/17) Subjective - s/p exploratory debridement with open appendectomy and wound vac placement, POD#4 - AF, HDS - positive nausea and vomiting - had bowel movement today - KUB yesterday showed ileus vs. early/partial SBO Objective Last 24 Hour Vital Signs Date Time Temp Pulse Resp B/P (MAP) Pulse Ox O2 Delivery O2 Flow Rate FiO2 10/06/17 12:00 71 10/06/17 12:00 97.5 70 18 144/72 (96) 99 97.5 10/06/17 10:05 136/67 10/06/17 10:00 66 136/67 10/06/17 08:00 97.7 66 18 136/67 (90) 99 97.7 10/06/17 08:00 66 10/06/17 04:00 97.7 66 20 127/57 (80) 98 97.7 10/06/17 04:00 68 10/06/17 00:00 97.9 70 18 138/62 (87) 99 97.9 10/06/17 00:00 71 10/05/17 22:54 68 127/68 10/05/17 21:00 Room Air 10/05/17 20:00 98.9 72 18 164/75 (104) 95 98.9 10/05/17 20:00 72 10/05/17 16:00 98.0 69 20 127/68 (87) 97 98.0 10/05/17 16:00 68 Intake and Output 10/05/17 10/06/17 19:00 07:00 Intake Total 405 ml 655 ml Balance 405 ml 655 ml Intake Oral 200 ml IV Total 155 ml 455 ml Blood Product 250 ml # Voids 3 # Bowel Movements 1 Laboratory Tests 10/06/17 06:30: Uric Acid 6.1, Phosphorus Level 4.4, Magnesium Level 1.7L, Total Bilirubin 0.6, Direct Bilirubin 0.4H, Aspartate Amino Transf (AST/SGOT) 31, Alanine Aminotransferase (ALT/SGPT) 22, Alkaline Phosphatase 218H, Total Protein 6.2L, Albumin 1.4L 10/06/17 06:36: White Blood Count 12.1H, Red Blood Count 3.23L, Hemoglobin 9.2L, Hematocrit 27.6L, Mean Corpuscular Volume 85, Mean Corpuscular Hemoglobin 28.6, Mean Corpuscular Hemoglobin Concent 33.5, Red Cell Distribution Width 15.5H, Platelet Count 392, Mean Platelet Volume 4.1L, Neutrophils (%) (Auto) 63.6, Lymphocytes (%) (Auto) 13.1L, Monocytes (%) (Auto) 9.3, Eosinophils (%) (Auto) 13.1H, Basophils (%) (Auto) 1.0, Sodium Level 128L, Potassium Level 3.2L, Chloride Level 92L, Carbon Dioxide Level 29, Anion Gap 7, Blood Urea Nitrogen 23H, Creatinine 3.7H, Estimat Glomerular Filtration Rate 12.6, Glucose Level 93 , Calcium Level 8.1L Height (Feet): 5 Height (Inches): 2.00 Weight (Pounds): 210 General Appearance: alert, mild distress EENT: PERRL/EOMI, normal ENT inspection Neck: non-tender, normal alignment, supple Cardiovascular: normal peripheral pulses, normal rate, regular rhythm Respiratory/Chest: chest wall non-tender, lungs clear, normal breath sounds Abdomen: normal bowel sounds, non tender, soft, other - +surgical incision with wound vac in place Extremities: normal range of motion, non-tender Neurologic: facility designer II-XII grossly normal, no motor/sensory deficits, alert, oriented x 3 Jennifer Robles NP Oct 06, 2017 15:13
[2017-10-06] MEDS: D5NS 1,000 ML IV SCH (15:23)
[2017-10-06 16:00] VITALS: BP 133/71
--- NOTE | 2017-10-06 16:14 | General Progress Note ---
Assessment/Plan Status: stable Assessment/Plan 1. Anemia due to underlying kidney disease. --> Continue to closely monitor for improvement. --> Anemia panel has been reviewed, will trend daily. --> Hgb goal >7 2. Anemia due to underlying chronic disease. --> Closely monitor for improvement. --> 10/05: 1 unit PRBC. 3. Leukocytosis, potentially secondary to sternotomy wire infection. --> Consider evaluation with ID Service. --> WBC improving 4. Diabetes mellitus. A1c goal less than 6. 5. Hypertension. Systolic blood pressure goal less than 140. 6. End-stage renal disease, on hemodialysis. Closely monitor. 7. Myocardial infarction, status post 12 stent placements, status post coronary artery bypass grafting. The time the note was entered does not necessarily correspond to the time the patient was seen. Subjective Date patient seen: Oct 06, 2017 ROS Limited/Unobtainable: Yes Hematologic/Lymphatic: Reports: anemia Allergies: Coded Allergies: ADHESIVE (Verified Allergy, Unknown, 09/29/17) AMLODIPINE (Verified Allergy, Unknown, 09/29/17) INSULIN ASPART (Verified Allergy, Unknown, 09/29/17) INSULIN LISPRO (Verified Allergy, Unknown, 09/29/17) IODINE (Verified Allergy, Unknown, 09/29/17) PENICILLINS (Verified Allergy, Unknown, 09/29/17) All Systems: reviewed and negative except above Subjective Pt awake and alert. No acute events. Vitals are stable. Objective Last 24 Hour Vital Signs Date Time Temp Pulse Resp B/P (MAP) Pulse Ox O2 Delivery O2 Flow Rate FiO2 10/06/17 12:00 71 10/06/17 12:00 97.5 70 18 144/72 (96) 99 97.5 10/06/17 10:05 136/67 10/06/17 10:00 66 136/67 10/06/17 09:00 Room Air 10/06/17 08:00 97.7 66 18 136/67 (90) 99 97.7 10/06/17 08:00 66 10/06/17 04:00 97.7 20 127/57 (80) 98 97.7 10/06/17 04:00 68 10/06/17 00:00 97.9 70 18 138/62 (87) 99 97.9 10/06/17 00:00 71 10/05/17 22:54 68 127/68 10/05/17 21:00 Room Air 10/05/17 20:00 98.9 72 18 164/75 (104) 95 98.9 10/05/17 20:00 72 Intake and Output 10/05/17 10/06/17 19:00 07:00 Intake Total 405 ml 655 ml Balance 405 ml 655 ml Intake Oral 200 ml IV Total 155 ml 455 ml Blood Product 250 ml # Voids 3 # Bowel Movements 1 Laboratory Tests 10/06/17 06:30: Uric Acid 6.1, Phosphorus Level 4.4, Magnesium Level 1.7L, Total Bilirubin 0.6, Direct Bilirubin 0.4H, Aspartate Amino Transf (AST/SGOT) 31, Alanine Aminotransferase (ALT/SGPT) 22, Alkaline Phosphatase 218H, Total Protein 6.2L, Albumin 1.4L 10/06/17 06:36: White Blood Count 12.1H, Red Blood Count 3.23L, Hemoglobin 9.2L, Hematocrit 27.6L, Mean Corpuscular Volume 85, Mean Corpuscular Hemoglobin 28.6, Mean Corpuscular Hemoglobin Concent 33.5, Red Cell Distribution Width 15.5H, Platelet Count 392, Mean Platelet Volume 4.1L, Neutrophils (%) (Auto) 63.6, Lymphocytes (%) (Auto) 13.1L, Monocytes (%) (Auto) 9.3, Eosinophils (%) (Auto) 13.1H, Basophils (%) (Auto) 1.0, Sodium Level 128L, Potassium Level 3.2L, Chloride Level 92L, Carbon Dioxide Level 29, Anion Gap 7, Blood Urea Nitrogen 23H, Creatinine 3.7H, Estimat Glomerular Filtration Rate 12.6, Glucose Level 93 , Calcium Level 8.1L Height (Feet): 5 Height (Inches): 2.00 Weight (Pounds): 210 General Appearance: no apparent distress, alert EENT: PERRL/EOMI Neck: normal alignment Cardiovascular: normal peripheral pulses Respiratory/Chest: no respiratory distress Abdomen: normal bowel sounds, soft Lalito Cole MD Oct 06, 2017 16:14
--- NOTE | 2017-10-06 17:01 | Cardiology Report ---
APPROVED REPORT EKG Measurement Heart [id number] Normal sinus rhythm Nonspecific intraventricular block T wave abnormality, consider inferolateral ischemia Abnormal ECG
--- NOTE | 2017-10-06 17:25 | Infectious Diseases Prog Note ---
Assessment/Plan Assessment/Plan ASSESSMENT AND PLAN: 1. abdominal wall wound infection/abscess, sepsis, appendicitis, leukocytosis, ? 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 End-stage renal disease, on hemodialysis, has hemodialysis line. 3. Anemia. 4. Diabetes. 5. Hypertension. 6. Possible hyperlipidemia. 7. Blood sugar and blood pressure treatment per primary. 8. Chest pain treatment per Cardiology. 9. History of coronary artery disease, coronary artery bypass graft, and stent placement, status post stent removal and intravenous antibiotics for infected stent looks like. 10. Obesity. 11. Allergies to adhesive tape, amlodipine, insulin, iodine, and penicillins. 12. Social history is negative. 13. Family history is noncontributory. 14. MAR was noted. 15. Case was discussed with RN. 16. Case was discussed with the patient and the patient's family. 17. Continue treatment per primary consultants. 18. Notes and records were noted. 19. Orders were entered. 20. d/w family Subjective Constitutional: Reports: fatigue; Denies: fever HEENT: Denies: congestion Respiratory: Denies: shortness of breath Cardiovascular: Denies: chest pain, palpitations Gastrointestinal/Abdominal: Reports: vomiting, diarrhea, other - + bm; Denies: nausea Genitourinary: Reports: other - no benito Neurologic: Denies: headache Psychiatric: Denies: depression Skin: Denies: rash Hematologic: Denies: bleeding Musculoskeletal: Denies: pain Allergies: Coded Allergies: ADHESIVE (Verified Allergy, Unknown, 09/29/17) AMLODIPINE (Verified Allergy, Unknown, 09/29/17) INSULIN ASPART (Verified Allergy, Unknown, 09/29/17) INSULIN LISPRO (Verified Allergy, Unknown, 09/29/17) IODINE (Verified Allergy, Unknown, 09/29/17) PENICILLINS (Verified Allergy, Unknown, 09/29/17) Objective Vital Signs Last 24 Hour Vital Signs Date Time Temp Pulse Resp B/P (MAP) Pulse Ox O2 Delivery O2 Flow Rate FiO2 10/06/17 12:00 71 10/06/17 12:00 97.5 70 18 144/72 (96) 99 97.5 10/06/17 10:05 136/67 10/06/17 10:00 66 136/67 10/06/17 09:00 Room Air 10/06/17 08:00 97.7 66 18 136/67 (90) 99 97.7 10/06/17 08:00 66 10/06/17 04:00 97.7 66 20 127/57 (80) 98 97.7 10/06/17 04:00 68 10/06/17 00:00 97.9 70 18 138/62 (87) 99 97.9 10/06/17 00:00 71 10/05/17 22:54 68 127/68 10/05/17 21:00 Room Air 10/05/17 20:00 98.9 72 18 164/75 (104) 95 98.9 10/05/17 20:00 72 Height (Feet): 5 Height (Inches): 2.00 Weight (Pounds): 210 General Appearance: no acute distress HEENT: normocephalic, atraumatic, anicteric, mucous membranes moist Respiratory/Chest: lungs clear, normal breath sounds, no respiratory distress, no accessory muscle use Cardiovascular: normal rate, regular rhythm, no gallop/murmur, no JVD Abdomen: normal bowel sounds, soft, non tender, no organomegaly, other - mild distention, wound covered Genitourinary: other - no benito, no cva pain Extremities: no cyanosis Skin: no rash 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 Heart: Cardiomegaly. ABDOMEN: Liver: Unremarkable. Gallbladder and bile ducts: See below. Pancreas: Unremarkable. Spleen: Unremarkable. Adrenals: Unremarkable. Kidneys and ureters: Unremarkable. No hydronephrosis. Stomach and bowel: No zechariah mural thickening. Nonobstructive bowel gas pattern. PELVIS: Appendix: Appendicitis. Appendix measures 1 cm with mild surrounding stranding. Bladder: Unremarkable. Reproductive: Enlarged and heterogeneous right ovary. Ultrasound cannot further characterize as warranted. ABDOMEN and PELVIS: Intraperitoneal space: Unremarkable. Bones/joints: No acute fracture. Soft tissues: Patchy subcutaneous edema and abdominal wound. Small foci of fluid and air in the abdominal wall. Vasculature: Vascular calcification or a stone in the biliary system. No abdominal aortic aneurysm. Lymph nodes: No enlarged lymph nodes. IMPRESSION: Appendicitis. Appendix measures 1 cm with mild surrounding stranding. Chest - x-ray - pvc (report noted) 10/03 - Chest x-ray - nad (report noted) 10/06 - abdominal x-ray - Impression: Very limited exam, as described Mildly dilated left upper quadrant small bowel loops. Could indicate ileus or early/partial small bowel obstruction. Favor the former, as there is evidence of transit of previously ingested contrast into the distal colon Dictated By: Tereso Sheriff MD Microbiology Date/Time Source Procedure Growth Status 09/29/17 20:30 Blood Blood Culture - Final NO GROWTH AFTER 5 DAYS Complete 09/29/17 04:30 Nasal Nares MRSA Culture - Final NO METHICILLIN RESISTANT STAPH AUREUS... Complete 10/02/17 18:30 Abdominal Abscess Anaerobic Culture - Final NO ANAEROBES ISOLATED Complete wound culture - vre Laboratory Tests Test 10/06/17 06:30 10/06/17 06:36 Uric Acid 6.1 MG/DL (2.6-7.2) Phosphorus Level 4.4 MG/DL (2.5-4.9) Magnesium Level 1.7 MG/DL (1.8-2.4) L Total Bilirubin 0.6 MG/DL (0.2-1.0) Direct Bilirubin 0.4 MG/DL (0.0-0.3) H Aspartate Amino Transf (AST/SGOT) 31 U/L (15-37) Alanine Aminotransferase (ALT/SGPT) 22 U/L (12-78) Alkaline Phosphatase 218 U/L (46-116) H Total Protein 6.2 G/DL (6.4-8.2) L Albumin 1.4 G/DL (3.4-5.0) L White Blood Count 12.1 K/UL (4.8-10.8) H Red Blood Count 3.23 M/UL (4.20-5.40) L Hemoglobin 9.2 G/DL (12.0-16.0) L Hematocrit 27.6 % (37.0-47.0) L Mean Corpuscular Volume 85 FL (80-99) Mean Corpuscular Hemoglobin 28.6 PG (27.0-31.0) Mean Corpuscular Hemoglobin Concent 33.5 G/DL (32.0-36.0) Red Cell Distribution Width 15.5 % (11.6-14.8) H Platelet Count 392 K/UL (150-450) Mean Platelet Volume 4.1 FL (6.5-10.1) L Neutrophils (%) (Auto) 63.6 % (45.0-75.0) Lymphocytes (%) (Auto) 13.1 % (20.0-45.0) L Monocytes (%) (Auto) 9.3 % (1.0-10.0) Eosinophils (%) (Auto) 13.1 % (0.0-3.0) H Basophils (%) (Auto) 1.0 % (0.0-2.0) Sodium Level 128 MMOL/L (136-145) L Potassium Level 3.2 MMOL/L (3.5-5.1) L Chloride Level 92 MMOL/L (98-107) L Carbon Dioxide Level 29 MMOL/L (21-32) Anion Gap 7 mmol/L (5-15) Blood Urea Nitrogen 23 mg/dL (7-18) H Creatinine 3.7 MG/DL (0.55-1.30) H Estimat Glomerular Filtration Rate 12.6 mL/min (>60) Glucose Level 93 MG/DL (74-106) Calcium Level 8.1 MG/DL (8.5-10.1) L Current Medications Medications (Trade) Dose Ordered Sig/Fidelia Route PRN Reason Start Time Stop Time Status Last Admin Dose Admin Acetaminophen (Tylenol) 650 mg Q4H PRN ORAL fever 09/29/17 07:45 10/29/17 07:44 10/05/17 04:10 Acetaminophen/ Hydrocodone Bitart ([place] 5/325) 1 tab Q4H PRN ORAL Moderate Pain (Pain Scale 4-6) 10/02/17 17:04 10/09/17 17:03 Al Hydroxide/Mg Hydroxide (Mylanta) 15 ml Q6H PRN ORAL DYSPEPSIA 10/02/17 17:02 11/01/17 17:01 Atorvastatin Calcium (Lipitor) 40 mg BEDTIME ORAL 10/04/17 21:00 10/29/17 20:59 10/05/17 22:54 Aztreonam 0.5 gm/ Dextrose 55 ml @ 110 mls/hr Q12HR IVPB 10/05/17 21:00 10/12/17 20:59 10/06/17 10:09 Bisacodyl (Dulcolax) 10 mg HSPRN PRN RECTAL Constipation 09/29/17 07:45 10/29/17 07:44 Carvedilol (Coreg) 25 mg EVERY 12 HOURS ORAL 10/02/17 21:00 11/01/17 20:59 10/06/17 10:00 Dextrose (Dextrose 50%) 25 ml STAT PRN IV Hypoglycemia 09/29/17 07:45 10/29/17 07:44 Dextrose (Dextrose 50%) 50 ml STAT PRN IV Hypoglycemia 09/29/17 07:45 10/29/17 07:44 Dextrose/Sodium Chloride 1,000 ml @ 50 mls/hr Q20H IV 10/06/17 14:00 11/05/17 13:59 10/06/17 15:23 Diphenhydramine HCl (Benadryl) 12.5 mg Q6H PRN IVP Itching/Pruritis 10/02/17 17:02 11/01/17 17:01 Docusate Sodium (Colace) 100 mg EVERY 12 HOURS ORAL 09/29/17 09:00 10/29/17 08:59 10/05/17 08:38 Epoetin Perez (Procrit (for ESRD on dialysis)) 10,000 units MON-MON-MON SUBQ 10/04/17 21:00 11/03/17 20:59 10/04/17 21:32 Furosemide (Lasix) 80 mg DAILY ORAL 10/05/17 09:00 11/04/17 08:59 10/06/17 10:01 Heparin Sodium (Porcine) (Heparin 5000 units/ml) 5,000 units EVERY 12 HOURS SUBQ 09/29/17 09:00 10/29/17 08:59 10/05/17 08:40 Hydromorphone HCl (Dilaudid) 0.5 mg Q3H PRN IVP Pain Score 1-3 10/02/17 16:00 10/09/17 15:59 Hydromorphone HCl (Dilaudid) 1 mg Q3H PRN IVP For Severe Pain(scale 7-10) 10/02/17 17:12 10/09/17 17:11 10/05/17 22:57 Insulin Human Regular (NovoLIN R) BS 70-110, then 0 units... AC+HS SUBQ 09/29/17 16:30 10/29/17 16:29 10/05/17 11:53 Lactulose (Cephulac) 20 gm THREE TIMES A DAY ORAL 10/05/17 09:00 11/04/17 08:59 10/05/17 13:00 Linezolid 300 ml @ 300 mls/hr Q12HR IVPB 10/05/17 21:00 10/12/17 20:59 10/06/17 10:09 Losartan Potassium (Cozaar) 50 mg DAILY ORAL 10/03/17 09:00 11/02/17 08:59 10/06/17 10:05 Magnesium Hydroxide (Mom) 30 ml BIDPRN PRN ORAL Constipation 10/02/17 17:01 11/01/17 17:00 Metronidazole 100 ml @ 100 mls/hr Q8HR IVPB 10/05/17 22:00 10/12/17 21:59 10/06/17 13:12 Morphine Sulfate (Morphine Sulfate) 4 mg Q4H PRN IVP For Moderate Pain(scale 4-6) 10/02/17 17:12 10/09/17 17:11 10/06/17 02:13 Pantoprazole (Protonix) 40 mg ACBREAKFAST ORAL 10/06/17 06:30 11/04/17 08:59 10/06/17 06:52 Polyethylene Glycol (Miralax) 17 gm HSPRN PRN ORAL Constipation 09/29/17 07:45 10/29/17 07:44 Potassium Chloride (K-Dur) 40 meq DAILY ORAL 10/07/17 09:00 11/06/17 08:59 Promethazine HCl 25 mg/Sodium Chloride 56 ml @ 112 mls/hr Q8H PRN IVPB Nausea & Vomiting 10/06/17 13:00 11/05/17 12:59 Tramadol HCl (Ultram) 50 mg Q6H PRN ORAL Mild Pain (Pain Scale 1-3) 10/05/17 09:00 10/12/17 08:59 7/19/18 09:12 Zolpidem Tartrate (Ambien) 5 mg HSPRN PRN ORAL Insomnia 10/06/17 05:30 10/13/17 05:29 Jenniffer Strickland MD Oct 06, 2017 17:25
--- NOTE | 2017-10-06 17:48 | General Surgery Progress Note ---
General Surgery-Progress Note Subjective Procedure Performed 1. Excisional debridement of abdominal wall soft tissue and fascia 2. drainage of abdominal wall abscess 3. opening of prior abdominal wall closure 4. diagnostic laparoscopy 5. open appendectomy 6. wound vac placement to large complex abdominal wall wound Additional Comments nausea, emesis, flatus, BM. pain Objective Last 24 Hour Vital Signs Date Time Temp Pulse Resp B/P (MAP) Pulse Ox O2 Delivery O2 Flow Rate FiO2 10/06/17 12:00 71 10/06/17 12:00 97.5 70 18 144/72 (96) 99 97.5 10/06/17 10:05 136/67 10/06/17 10:00 66 136/67 10/06/17 09:00 Room Air 10/06/17 08:00 97.7 66 18 136/67 (90) 99 97.7 10/06/17 08:00 66 10/06/17 04:00 97.7 66 20 127/57 (80) 98 97.7 10/06/17 04:00 68 10/06/17 00:00 97.9 70 18 138/62 (87) 99 97.9 10/06/17 00:00 71 10/05/17 22:54 68 127/68 10/05/17 21:00 Room Air 10/05/17 20:00 98.9 72 18 164/75 (104) 95 98.9 10/05/17 20:00 72 I&O Intake and Output 10/05/17 10/06/17 19:00 07:00 Intake Total 405 ml 655 ml Balance 405 ml 655 ml Intake Oral 200 ml IV Total 155 ml 455 ml Blood Product 250 ml # Voids 3 # Bowel Movements 1 Dressing: dry Wound: clean Drains: wound vac Cardiovascular: RSR Respiratory: clear Abdomen: soft, distended, tenderness, present bowel sounds Extremities: no cyanosis Laboratory Tests Test 10/06/17 06:30 10/06/17 06:36 Uric Acid 6.1 MG/DL (2.6-7.2) Phosphorus Level 4.4 MG/DL (2.5-4.9) Magnesium Level 1.7 MG/DL (1.8-2.4) L Total Bilirubin 0.6 MG/DL (0.2-1.0) Direct Bilirubin 0.4 MG/DL (0.0-0.3) H Aspartate Amino Transf (AST/SGOT) 31 U/L (15-37) Alanine Aminotransferase (ALT/SGPT) 22 U/L (12-78) Alkaline Phosphatase 218 U/L (46-116) H Total Protein 6.2 G/DL (6.4-8.2) L Albumin 1.4 G/DL (3.4-5.0) L White Blood Count 12.1 K/UL (4.8-10.8) H Red Blood Count 3.23 M/UL (4.20-5.40) L Hemoglobin 9.2 G/DL (12.0-16.0) L Hematocrit 27.6 % (37.0-47.0) L Mean Corpuscular Volume 85 FL (80-99) Mean Corpuscular Hemoglobin 28.6 PG (27.0-31.0) Mean Corpuscular Hemoglobin Concent 33.5 G/DL (32.0-36.0) Red Cell Distribution Width 15.5 % (11.6-14.8) H Platelet Count 392 K/UL (150-450) Mean Platelet Volume 4.1 FL (6.5-10.1) L Neutrophils (%) (Auto) 63.6 % (45.0-75.0) Lymphocytes (%) (Auto) 13.1 % (20.0-45.0) L Monocytes (%) (Auto) 9.3 % (1.0-10.0) Eosinophils (%) (Auto) 13.1 % (0.0-3.0) H Basophils (%) (Auto) 1.0 % (0.0-2.0) Sodium Level 128 MMOL/L (136-145) L Potassium Level 3.2 MMOL/L (3.5-5.1) L Chloride Level 92 MMOL/L (98-107) L Carbon Dioxide Level 29 MMOL/L (21-32) Anion Gap 7 mmol/L (5-15) Blood Urea Nitrogen 23 mg/dL (7-18) H Creatinine 3.7 MG/DL (0.55-1.30) H Estimat Glomerular Filtration Rate 12.6 mL/min (>60) Glucose Level 93 MG/DL (74-106) Calcium Level 8.1 MG/DL (8.5-10.1) L Assessment Post-op Diagnosis 1. abdominal wall abscess 2. dehiscence of abdominal wall wound 3. appendicitis Plan Problems: (1) Open abdominal wall wound (2) Abdominal wall abscess at site of surgical wound (3) Wound, open, abdominal wall, anterior with complication Assessment & Plan: large prior abdominal surgical wound that in portions skin has come together but underlying large area of open fluid collection with possible pockets of abscess. larger epigastric wound seems to connect with lower aspect small wound. lots of murky fluid evacuated, wound deep and tracking in all directions. per patient they have only been placing a small cover on wounds and no packing has been performed. had wound VAC prior but only for 3 days as per patient. I fear that there is something much larger and more serious going underneath the skin and with drainage and looks of wound they are only worsening. CT reviewed and noted. fortunately no large abscess but can note tracking of wound As for possible appendicitis, noted 1cm appendix with stranding on CT. clinically patient has generalized abdominal pain and not focal to RLQ. she has had generalized abdominal pain for some time now and likely related to large wound. no n/v/f/c. leukocytosis 18k but can be related to multiple etiologies. leukocytosis. overall improving. n/v. possible ileus but passing flatus and BM's wound VAC changed at bedside today by myself s/p wound exploration, debridement, open appendectomy, wound vac placement. -incisional pain -wound vac care - plan to change Monday -ambulate and out of bed -diet as tolerated -abx -will need to start paperwork for outpatient wound VAC thank you for this consultation Darrius Figueredo Oct 06, 2017 17:48
[2017-10-06] MEDS: traMADol 50mg tab ORAL PRN (18:09)
[2017-10-06 20:00] VITALS: BP 154/69
[2017-10-06] MEDS: Atorvastatin 20mg tab ORAL SCH (21:00)
[2017-10-06] MEDS: Epogen (for ESRD on dialysis) SUBQ SCH (22:01)
[2017-10-07 04:27] VITALS: BP 135/60
[2017-10-07] MEDS: Insulin Human Regular 100units/ml 3ml SUBQ SCH ×4 (06:19→21:00)
[2017-10-07] MEDS: traMADol 50mg tab ORAL PRN ×2 (07:02→15:01)
[2017-10-07 08:15] LABS: BASOPHILS % (AUTO) 1.7 % (0.0-2.0); EOSINOPHILS % (AUTO) 14.9 % (0.0-3.0); HEMATOCRIT 29.2 % (37.0-47.0); HEMOGLOBIN 9.8 G/DL (12.0-16.0); LYMPHOCYTES % (AUTO) 13.5 % (20.0-45.0); MEAN CORPUSCULAR VOLUME 86 FL (80-99); MONOCYTES % (AUTO) 8.1 % (1.0-10.0); NEUTROPHILS % (AUTO) 61.8 % (45.0-75.0); PLATELET COUNT 449 K/UL (150-450); RED CELL DISTRIBUTION WIDTH 15.7 % (11.6-14.8)
--- NOTE | 2017-10-07 08:48 | Nephrology Progress Note ---
Assessment/Plan Assessment/Plan 1. ESRD- HD today - labs pending 2. Hypokalemia- labs pending 3. Anemia of CKD- EPO 3 x week and prn bld tx 4. Abd Pain/Leukocytosis s/p Abd wound exploration and appy ileus resolving 5. Sepsis- per ID 6. Hyponatremia- po fluid restrict - lasix 80mg qd - am labs pending Subjective Date patient seen: Oct 07, 2017 Time patient seen: 08:43 ROS Limited/Unobtainable: No Allergies: Coded Allergies: ADHESIVE (Verified Allergy, Unknown, 09/29/17) AMLODIPINE (Verified Allergy, Unknown, 09/29/17) INSULIN ASPART (Verified Allergy, Unknown, 09/29/17) INSULIN LISPRO (Verified Allergy, Unknown, 09/29/17) IODINE (Verified Allergy, Unknown, 09/29/17) PENICILLINS (Verified Allergy, Unknown, 09/29/17) Subjective Patient still nauseated but having bowel movements Objective Last 24 Hour Vital Signs Date Time Temp Pulse Resp B/P (MAP) Pulse Ox O2 Delivery O2 Flow Rate FiO2 10/07/17 04:27 97.5 63 20 135/60 (85) 97 97.5 10/07/17 04:00 59 10/07/17 00:00 60 10/06/17 21:00 Room Air 10/06/17 20:50 68 154/69 10/06/17 20:00 63 10/06/17 20:00 97.9 68 20 154/69 (97) 95 97.9 10/06/17 16:00 98.7 70 18 133/71 (91) 100 98.7 10/06/17 16:00 67 10/06/17 12:00 71 10/06/17 12:00 97.5 70 18 144/72 (96) 99 97.5 10/06/17 10:05 136/67 10/06/17 10:00 66 136/67 10/06/17 09:00 Room Air Intake and Output 10/06/17 10/07/17 19:00 07:00 Intake Total 100 ml 811 ml Output Total 1100 ml 400 ml Balance -1000 ml 411 ml Intake Oral 200 ml IV Total 100 ml 611 ml Output Urine Total 1100 ml 400 ml # Voids 1 3 # Bowel Movements 3 Laboratory Tests 10/07/17 05:05: White Blood Count 11.0H, Red Blood Count 3.40L, Hemoglobin 9.8L, Hematocrit 29.2L, Mean Corpuscular Volume 86, Mean Corpuscular Hemoglobin 28.9, Mean Corpuscular Hemoglobin Concent 33.6, Red Cell Distribution Width 15.7H, Platelet Count 449, Mean Platelet Volume 4.1L, Neutrophils (%) (Auto) 61.8, Lymphocytes (%) (Auto) 13.5L, Monocytes (%) (Auto) 8.1, Eosinophils (%) (Auto) 14.9H, Basophils (%) (Auto) 1.7, Sodium Level [Pending], Potassium Level [ Pending], Chloride Level [Pending], Carbon Dioxide Level [Pending], Blood Urea Nitrogen [Pending], Creatinine [Pending], Estimat Glomerular Filtration Rate [ Pending], Glucose Level [Pending], Calcium Level [Pending], Phosphorus Level [ Pending], Magnesium Level [Pending] Height (Feet): 5 Height (Inches): 2.00 Weight (Pounds): 210 Aman Link M.D. Oct 07, 2017 08:48
[2017-10-07 08:56] LABS: PHOSPHORUS 4.6 MG/DL (2.5-4.9)
--- NOTE | 2017-10-07 08:59 | General Progress Note ---
Assessment/Plan Problem List: (1) Postoperative ileus ICD Codes: K91.89 - Other postprocedural complications and disorders of digestive system; K56.7 - Ileus, unspecified SNOMED: 884776911 (2) appendicitis s/p open appendectomy (3) Morbid obesity with BMI of 40.0-44.9, adult ICD Codes: E66.01 - Morbid (severe) obesity due to excess calories; Z68.41 - Body mass index (BMI) 40.0-44.9, adult SNOMED: 652526482, 439305981 (4) Anemia ICD Codes: D64.9 - Anemia, unspecified SNOMED: 053217526, 597778966 Qualifiers: Qualified Codes: D64.9 - Anemia, unspecified Assessment/Plan post operative ileus per surgical recs npo pain mgmt ppi electrolyte correction >> fluid restriction zofran fu labs Subjective ROS Limited/Unobtainable: Yes Allergies: Coded Allergies: ADHESIVE (Verified Allergy, Unknown, 09/29/17) AMLODIPINE (Verified Allergy, Unknown, 09/29/17) INSULIN ASPART (Verified Allergy, Unknown, 09/29/17) INSULIN LISPRO (Verified Allergy, Unknown, 09/29/17) IODINE (Verified Allergy, Unknown, 09/29/17) PENICILLINS (Verified Allergy, Unknown, 09/29/17) Subjective c/o abd pain diarrhea no flatus Objective Last 24 Hour Vital Signs Date Time Temp Pulse Resp B/P (MAP) Pulse Ox O2 Delivery O2 Flow Rate FiO2 10/07/17 04:27 97.5 63 20 135/60 (85) 97 97.5 10/07/17 04:00 59 10/07/17 00:00 60 10/06/17 21:00 Room Air 10/06/17 20:50 68 154/69 10/06/17 20:00 63 10/06/17 20:00 97.9 68 20 154/69 (97) 95 97.9 10/06/17 16:00 98.7 70 18 133/71 (91) 100 98.7 10/06/17 16:00 67 10/06/17 12:00 71 10/06/17 12:00 97.5 70 18 144/72 (96) 99 97.5 10/06/17 10:05 136/67 10/06/17 10:00 66 136/67 10/06/17 09:00 Room Air Intake and Output 10/06/17 10/07/17 19:00 07:00 Intake Total 100 ml 811 ml Output Total 1100 ml 400 ml Balance -1000 ml 411 ml Intake Oral 200 ml IV Total 100 ml 611 ml Output Urine Total 1100 ml 400 ml # Voids 1 3 # Bowel Movements 3 Laboratory Tests 10/07/17 05:05: White Blood Count 11.0H, Red Blood Count 3.40L, Hemoglobin 9.8L, Hematocrit 29.2L, Mean Corpuscular Volume 86, Mean Corpuscular Hemoglobin 28.9, Mean Corpuscular Hemoglobin Concent 33.6, Red Cell Distribution Width 15.7H, Platelet Count 449, Mean Platelet Volume 4.1L, Neutrophils (%) (Auto) 61.8, Lymphocytes (%) (Auto) 13.5L, Monocytes (%) (Auto) 8.1, Eosinophils (%) (Auto) 14.9H, Basophils (%) (Auto) 1.7, Sodium Level [Pending], Potassium Level [ Pending], Chloride Level [Pending], Carbon Dioxide Level [Pending], Blood Urea Nitrogen [Pending], Creatinine [Pending], Estimat Glomerular Filtration Rate [ Pending], Glucose Level [Pending], Calcium Level [Pending], Phosphorus Level 4.6 , Magnesium Level 1.6L Height (Feet): 5 Height (Inches): 2.00 Weight (Pounds): 210 General Appearance: alert EENT: normal ENT inspection Neck: supple Cardiovascular: normal rate Respiratory/Chest: decreased breath sounds Abdomen: hypoactive bowel sounds, tender Extremities: non-tender Chip Lindo MD Oct 07, 2017 08:59
[2017-10-07] MEDS: Lactulose 20gm/30ml UDC ORAL SCH ×3 (09:00→18:00)
[2017-10-07] MEDS: Docusate 100mg cap ORAL SCH ×2 (09:00→21:27)
[2017-10-07] MEDS: Heparin 5000 units/ml inj SUBQ SCH ×2 (09:00→21:29)
[2017-10-07 09:20] LABS: ANION GAP 10 mmol/L (5-15); BLOOD UREA NITROGEN 26 mg/dL (7-18); CALCIUM 8.4 MG/DL (8.5-10.1); CARBON DIOXIDE 26 MMOL/L (21-32); CHLORIDE 92 MMOL/L (98-107); CREATININE 3.7 MG/DL (0.55-1.30); POTASSIUM 3.4 MMOL/L (3.5-5.1); SODIUM 128 MMOL/L (136-145)
[2017-10-07] MEDS: Aztreonam Inj 0.5 GM in D5W 55 ML IVPB SCH ×2 (09:35→23:50)
[2017-10-07] MEDS: Furosemide 80mg tab ORAL SCH (09:36)
[2017-10-07] MEDS: Carvedilol 25mg Tab ORAL SCH ×2 (09:37→21:28)
[2017-10-07] MEDS: Losartan 50mg tab ORAL SCH (09:37)
[2017-10-07] MEDS: D5NS 1,000 ML IV SCH (09:39)
--- NOTE | 2017-10-07 10:28 | General Progress Note ---
Assessment/Plan Status: stable Assessment/Plan 1. Anemia due to underlying kidney disease. --> Continue to closely monitor for improvement. --> Anemia panel has been reviewed, will trend daily. --> Hgb goal >7 2. Anemia due to underlying chronic disease. --> Closely monitor for improvement. --> 10/05: 1 unit PRBC. 3. Leukocytosis, potentially secondary to sternotomy wire infection. --> Consider evaluation with ID Service. --> WBC improving 4. Diabetes mellitus. A1c goal less than 6. 5. Hypertension. Systolic blood pressure goal less than 140. 6. End-stage renal disease, on hemodialysis. Closely monitor. 7. Myocardial infarction, status post 12 stent placements, status post coronary artery bypass grafting. The time the note was entered does not necessarily correspond to the time the patient was seen. Subjective Date patient seen: Oct 07, 2017 ROS Limited/Unobtainable: Yes Hematologic/Lymphatic: Reports: anemia Allergies: Coded Allergies: ADHESIVE (Verified Allergy, Unknown, 09/29/17) AMLODIPINE (Verified Allergy, Unknown, 09/29/17) INSULIN ASPART (Verified Allergy, Unknown, 09/29/17) INSULIN LISPRO (Verified Allergy, Unknown, 09/29/17) IODINE (Verified Allergy, Unknown, 09/29/17) PENICILLINS (Verified Allergy, Unknown, 09/29/17) All Systems: reviewed and negative except above Subjective Pt awake and alert. No acute events. Vitals are stable. H/H stable. Pt c/o pain. Objective Last 24 Hour Vital Signs Date Time Temp Pulse Resp B/P (MAP) Pulse Ox O2 Delivery O2 Flow Rate FiO2 10/07/17 09:37 135/60 10/07/17 09:37 63 135/60 10/07/17 04:27 97.5 63 20 135/60 (85) 97 97.5 10/07/17 04:00 59 10/07/17 00:00 60 10/06/17 21:00 Room Air 10/06/17 20:50 68 154/69 10/06/17 20:00 63 10/06/17 20:00 97.9 68 20 154/69 (97) 95 97.9 10/06/17 16:00 98.7 70 18 133/71 (91) 100 98.7 10/06/17 16:00 67 10/06/17 12:00 71 10/06/17 12:00 97.5 70 18 144/72 (96) 99 97.5 Intake and Output 10/06/17 10/07/17 19:00 07:00 Intake Total 100 ml 811 ml Output Total 1100 ml 400 ml Balance -1000 ml 411 ml Intake Oral 200 ml IV Total 100 ml 611 ml Output Urine Total 1100 ml 400 ml # Voids 1 3 # Bowel Movements 3 Laboratory Tests 10/07/17 05:05: White Blood Count 11.0H, Red Blood Count 3.40L, Hemoglobin 9.8L, Hematocrit 29.2L, Mean Corpuscular Volume 86, Mean Corpuscular Hemoglobin 28.9, Mean Corpuscular Hemoglobin Concent 33.6, Red Cell Distribution Width 15.7H, Platelet Count 449, Mean Platelet Volume 4.1L, Neutrophils (%) (Auto) 61.8, Lymphocytes (%) (Auto) 13.5L, Monocytes (%) (Auto) 8.1, Eosinophils (%) (Auto) 14.9H, Basophils (%) (Auto) 1.7, Sodium Level 128L, Potassium Level 3.4L, Chloride Level 92L, Carbon Dioxide Level 26, Anion Gap 10, Blood Urea Nitrogen 26H, Creatinine 3.7H, Estimat Glomerular Filtration Rate 12.6, Glucose Level 93 , Calcium Level 8.4L, Phosphorus Level 4.6, Magnesium Level 1.6L Height (Feet): 5 Height (Inches): 2.00 Weight (Pounds): 210 General Appearance: no apparent distress, alert EENT: PERRL/EOMI Neck: normal alignment Cardiovascular: normal peripheral pulses Respiratory/Chest: no respiratory distress Abdomen: tender Lalito Cole MD Oct 07, 2017 10:28
--- NOTE | 2017-10-07 11:12 | General Surgery Progress Note ---
General Surgery-Progress Note Subjective Procedure Performed 1. Excisional debridement of abdominal wall soft tissue and fascia 2. drainage of abdominal wall abscess 3. opening of prior abdominal wall closure 4. diagnostic laparoscopy 5. open appendectomy 6. wound vac placement to large complex abdominal wall wound Additional Comments no long with emesis. mild nausea. pain improved. ambulatory Objective Last 24 Hour Vital Signs Date Time Temp Pulse Resp B/P (MAP) Pulse Ox O2 Delivery O2 Flow Rate FiO2 10/07/17 09:37 135/60 10/07/17 09:37 63 135/60 10/07/17 09:00 Room Air 10/07/17 04:27 97.5 63 20 135/60 (85) 97 97.5 10/07/17 04:00 59 10/07/17 00:00 60 10/06/17 21:00 Room Air 10/06/17 20:50 68 154/69 10/06/17 20:00 63 10/06/17 20:00 97.9 68 20 154/69 (97) 95 97.9 10/06/17 16:00 98.7 70 18 133/71 (91) 100 98.7 10/06/17 16:00 67 10/06/17 12:00 71 10/06/17 12:00 97.5 70 18 144/72 (96) 99 97.5 I&O Intake and Output 10/06/17 10/07/17 19:00 07:00 Intake Total 100 ml 811 ml Output Total 1100 ml 400 ml Balance -1000 ml 411 ml Intake Oral 200 ml IV Total 100 ml 611 ml Output Urine Total 1100 ml 400 ml # Voids 1 3 # Bowel Movements 3 Wound: clean, dry Drains: wound vac Cardiovascular: RSR Respiratory: clear Abdomen: soft, non-tender, present bowel sounds Extremities: no cyanosis Laboratory Tests Test 10/07/17 05:05 White Blood Count 11.0 K/UL (4.8-10.8) H Red Blood Count 3.40 M/UL (4.20-5.40) L Hemoglobin 9.8 G/DL (12.0-16.0) L Hematocrit 29.2 % (37.0-47.0) L Mean Corpuscular Volume 86 FL (80-99) Mean Corpuscular Hemoglobin 28.9 PG (27.0-31.0) Mean Corpuscular Hemoglobin Concent 33.6 G/DL (32.0-36.0) Red Cell Distribution Width 15.7 % (11.6-14.8) H Platelet Count 449 K/UL (150-450) Mean Platelet Volume 4.1 FL (6.5-10.1) L Neutrophils (%) (Auto) 61.8 % (45.0-75.0) Lymphocytes (%) (Auto) 13.5 % (20.0-45.0) L Monocytes (%) (Auto) 8.1 % (1.0-10.0) Eosinophils (%) (Auto) 14.9 % (0.0-3.0) H Basophils (%) (Auto) 1.7 % (0.0-2.0) Sodium Level 128 MMOL/L (136-145) L Potassium Level 3.4 MMOL/L (3.5-5.1) L Chloride Level 92 MMOL/L (98-107) L Carbon Dioxide Level 26 MMOL/L (21-32) Anion Gap 10 mmol/L (5-15) Blood Urea Nitrogen 26 mg/dL (7-18) H Creatinine 3.7 MG/DL (0.55-1.30) H Estimat Glomerular Filtration Rate 12.6 mL/min (>60) Glucose Level 93 MG/DL (74-106) Calcium Level 8.4 MG/DL (8.5-10.1) L Phosphorus Level 4.6 MG/DL (2.5-4.9) Magnesium Level 1.6 MG/DL (1.8-2.4) L Assessment Post-op Diagnosis 1. abdominal wall abscess 2. dehiscence of abdominal wall wound 3. appendicitis Plan Problems: (1) Open abdominal wall wound (2) Abdominal wall abscess at site of surgical wound (3) Wound, open, abdominal wall, anterior with complication Assessment & Plan: large prior abdominal surgical wound that in portions skin has come together but underlying large area of open fluid collection with possible pockets of abscess. larger epigastric wound seems to connect with lower aspect small wound. lots of murky fluid evacuated, wound deep and tracking in all directions. per patient they have only been placing a small cover on wounds and no packing has been performed. had wound VAC prior but only for 3 days as per patient. I fear that there is something much larger and more serious going underneath the skin and with drainage and looks of wound they are only worsening. CT reviewed and noted. fortunately no large abscess but can note tracking of wound As for possible appendicitis, noted 1cm appendix with stranding on CT. clinically patient has generalized abdominal pain and not focal to RLQ. she has had generalized abdominal pain for some time now and likely related to large wound. no n/v/f/c. leukocytosis 18k but can be related to multiple etiologies. leukocytosis improved. overall improving. possible ileus but passing flatus and BM's s/p wound exploration, debridement, open appendectomy, wound vac placement. -wound vac care - plan to change Monday -ambulate and out of bed -diet as tolerated -abx -will need to start paperwork for outpatient wound VAC thank you for this consultation Darrius Figueredo Oct 07, 2017 11:12
--- NOTE | 2017-10-07 11:31 | Diagnostic Imaging Report ---
EXAM: XR Abdomen, 1 Views CLINICAL HISTORY: ABD PAIN TECHNIQUE: Frontal view of the abdomen/pelvis. COMPARISON: CT abdomen and pelvis 09/29/17 and [facility] 10/05/17 FINDINGS: Gastrointestinal tract: Gassy distended transverse colon may be ileus. No high-grade obstruction. Bones/joints: Unremarkable. IMPRESSION: Gassy distended transverse colon may be ileus. No high-grade obstruction.
[2017-10-07 12:00] VITALS: BP 134/76
[2017-10-07] MEDS ORDERED: Tubing IV Secondary IV ONE (13:42)
[2017-10-07] MEDS ORDERED: Tubing Blood Filter IV ONE (13:42)
[2017-10-07] MEDS ORDERED: D5W 275ml ONE (13:42)
--- NOTE | 2017-10-07 13:50 | General Progress Note ---
Assessment/Plan Assessment/Plan Problem List: (1) Sepsis ICD Codes: A41.9 - Sepsis, unspecified organism SNOMED: 15127627 (2) Anemia ICD Codes: D64.9 - Anemia, unspecified SNOMED: 555588022, 297912797 Qualifiers: Qualified Codes: D64.9 - Anemia, unspecified (3) ESRD on hemodialysis ICD Codes: N18.6 - End stage renal disease; Z99.2 - Dependence on renal dialysis SNOMED: 289380990, 95962149 (4) Morbid obesity with BMI of 40.0-44.9, adult ICD Codes: E66.01 - Morbid (severe) obesity due to excess calories; Z68.41 - Body mass index (BMI) 40.0-44.9, adult SNOMED: 786195452, 564972945 (5) Chest pain ICD Codes: R07.9 - Chest pain, unspecified SNOMED: 49768416 (6) Wound, open, abdominal wall, anterior with complication ICD Codes: S31.109A - Unspecified open wound of abdominal wall, unspecified quadrant without penetration into peritoneal cavity, initial encounter SNOMED: 741976299 Qualifiers: Qualified Codes: S31.109A - Unspecified open wound of abdominal wall, unspecified quadrant without penetration into peritoneal cavity, initial encounter (7) Abdominal wall abscess at site of surgical wound ICD Codes: T81.4XXA - Infection following a procedure, initial encounter SNOMED: 675220659 (8) Open abdominal wall wound ICD Codes: S31.109A - Unspecified open wound of abdominal wall, unspecified quadrant without penetration into peritoneal cavity, initial encounter SNOMED: 118032008 Qualifiers: Qualified Codes: S31.109A - Unspecified open wound of abdominal wall, unspecified quadrant without penetration into peritoneal cavity, initial encounter (9) Hypokalemia ICD Codes: E87.6 - Hypokalemia SNOMED: 49212188 (10) Hyponatremia ICD Codes: E87.1 - Hypo-osmolality and hyponatremia SNOMED: 48408565 (11) appendicitis s/p open appendectomy (12) s/p wound exploration and debridement (13) Acute blood loss anemia ICD Codes: D62 - Acute posthemorrhagic anemia SNOMED: 400616116 (14) Diastolic CHF ICD Codes: I50.30 - Unspecified diastolic (congestive) heart failure SNOMED: 06620653, 923743263 (15) VIK (obstructive sleep apnea) ICD Codes: G47.33 - Obstructive sleep apnea (adult) (pediatric) SNOMED: 20052720 (16) Postoperative ileus ICD Codes: K91.89 - Other postprocedural complications and disorders of digestive system; K56.7 - Ileus, unspecified SNOMED: 911732284 Assessment/Plan Assessment: 1. Chest pain 2. h/o recent 2V CABG c/b stent infection s/p stent removal and abx 3. Open wound to chest/abdomen s/p stent removal 4. Sepsis 5. ESRD on HD (M/F) 6. DM 7. HTN 8. Hyponatremia/Hypokalemia 9. Acute blood loss anemia 10. Appendicitis s/p open appendectomy 11. Abdominal wound s/p wound exploration and debridement on 10/02 12. VIK 13. 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 Postoperative ileus Plan: - Cardiology, general surgery, nephrology, GI, and ID consulted - s/p wound exploration and debridement, and open appendectomy with wound vac, POD#4 - f/u wound culture -- VRE - s/p 1 unit pRBC transfusion on 10/03 - F/u CT a/p to visualize extent of abscess - concerns for early appendicitis but asymptomatic - Trend EKG/trops -- ACS ruled out - abx per id - HD per nephro (M/F) with 1.5L per session - Continue home meds. - Continue humulin R for SSi - Monitor electrolytes and replete - Monitor CBC - Wound care - PT/OT - Pain control and supportive care - KUB showed ileus vs. early/partial SBO. had bowel movement today and continues to c/o n/v. start CLD and ADAT. decrease narcotics. GI rec's appreciated Wound vac exchange to be done on Monday DC planning over the weekend if able to tolerate PO DVT Prophylaxis: SCD, HSQ Code Status: Full Hospital Classification Declaration: Based on this initial evaluation, and depending on the patient's clinical course, I anticipate that this patient will require hospitalization for 3-5 days for sepsis, chest pain and close respiratory/hemodynamic monitoring. Disposition: Once the patient is stable to leave the hospital, I anticipate the patient will likely be discharged to the following environment: [facility] I spent 32 minutes on this patient's case, and 22 minutes were dedicated to counseling and/or care coordination. Discussed with patient/family, nursing staff, SW/CM, and all consultants as above regarding clinical status, treatment course, and disposition planning. Subjective Date patient seen: Oct 07, 2017 Allergies: Coded Allergies: ADHESIVE (Verified Allergy, Unknown, 09/29/17) AMLODIPINE (Verified Allergy, Unknown, 09/29/17) INSULIN ASPART (Verified Allergy, Unknown, 09/29/17) INSULIN LISPRO (Verified Allergy, Unknown, 09/29/17) IODINE (Verified Allergy, Unknown, 09/29/17) PENICILLINS (Verified Allergy, Unknown, 09/29/17) Subjective No acute events afebrile and hds still not tolerating po c/o appropriate pain at surgery site. 14 pt ros neg except as above. Objective Last 24 Hour Vital Signs Date Time Temp Pulse Resp B/P (MAP) Pulse Ox O2 Delivery O2 Flow Rate FiO2 10/07/17 12:00 98.1 68 21 134/76 (95) 96 98.1 10/07/17 09:37 135/60 10/07/17 09:37 63 135/60 10/07/17 09:00 Room Air 10/07/17 07:57 69 10/07/17 04:27 97.5 63 20 135/60 (85) 97 97.5 10/07/17 04:00 59 10/07/17 00:00 60 10/06/17 21:00 Room Air 10/06/17 20:50 68 154/69 10/06/17 20:00 63 10/06/17 20:00 97.9 68 20 154/69 (97) 95 97.9 10/06/17 16:00 98.7 70 18 133/71 (91) 100 98.7 10/06/17 16:00 67 Intake and Output 10/06/17 10/07/17 19:00 07:00 Intake Total 100 ml 811 ml Output Total 1100 ml 400 ml Balance -1000 ml 411 ml Intake Oral 200 ml IV Total 100 ml 611 ml Output Urine Total 1100 ml 400 ml # Voids 1 3 # Bowel Movements 3 Laboratory Tests 10/07/17 05:05: White Blood Count 11.0H, Red Blood Count 3.40L, Hemoglobin 9.8L, Hematocrit 29.2L, Mean Corpuscular Volume 86, Mean Corpuscular Hemoglobin 28.9, Mean Corpuscular Hemoglobin Concent 33.6, Red Cell Distribution Width 15.7H, Platelet Count 449, Mean Platelet Volume 4.1L, Neutrophils (%) (Auto) 61.8, Lymphocytes (%) (Auto) 13.5L, Monocytes (%) (Auto) 8.1, Eosinophils (%) (Auto) 14.9H, Basophils (%) (Auto) 1.7, Sodium Level 128L, Potassium Level 3.4L, Chloride Level 92L, Carbon Dioxide Level 26, Anion Gap 10, Blood Urea Nitrogen 26H, Creatinine 3.7H, Estimat Glomerular Filtration Rate 12.6, Glucose Level 93 , Calcium Level 8.4L, Phosphorus Level 4.6, Magnesium Level 1.6L Height (Feet): 5 Height (Inches): 2.00 Weight (Pounds): 210 Objective General Appearance: alert, mild distress EENT: PERRL/EOMI, normal ENT inspection Neck: non-tender, normal alignment, supple Cardiovascular: normal peripheral pulses, normal rate, regular rhythm Respiratory/Chest: chest wall non-tender, lungs clear, normal breath sounds Abdomen: normal bowel sounds, non tender, soft, other - +surgical incision with wound vac in place Extremities: normal range of motion, non-tender Neurologic: assistant manager retail II-XII grossly normal, no motor/sensory deficits, alert, oriented x 3 Oleg Galicia MD Oct 07, 2017 13:50
--- NOTE | 2017-10-07 17:35 | Cardiology Progress Note ---
Assessment/Plan Status: stable Assessment/Plan Assessment: 1. Chest pain 2. h/o recent 2V CABG and PCI 3. Open wound to chest with stent removal 4. Sepsis 5. ESRD on HD (M/F) 6. DM with neuropathy 7. HTN 8. HLD 9. Anemia 10. VIK 11. Diastolic heart failure Serial troponin, no indication for cath at this time, elevation likely from infection and ESRD CT A/P, surgical consult appreciated -s/p wound vac placement and debridement - plan for change out on monday Will need to arrange outpatient wound vac and home health for antibiotics Maintain HD per nephrology Fluids restriction for hyponatremia Continue IV abx Follow Cultures Continue aspirin Continue atorvastatin Continue home medications, coreg, isordil, losartan Outpatient stress test to evaluate status of stent and bypass grafts, currently no chest pain Subjective Cardiovascular: Reports: no symptoms Respiratory: Reports: no symptoms Gastrointestinal/Abdominal: Reports: no symptoms Subjective Pt is resting in the bed. No s/s distress. Wound vacuum is connected on the abdominal area, no leakage. IV antibiotic med is running, plan for vac change on monday, She has ambulated, tolerating clears, vitals stable Objective Last 24 Hour Vital Signs Date Time Temp Pulse Resp B/P (MAP) Pulse Ox O2 Delivery O2 Flow Rate FiO2 10/07/17 15:41 64 10/07/17 12:00 98.1 68 21 134/76 (95) 96 98.1 10/07/17 11:51 67 10/07/17 09:37 135/60 10/07/17 09:37 63 135/60 10/07/17 09:00 Room Air 10/07/17 07:57 69 10/07/17 04:27 97.5 63 20 135/60 (85) 97 97.5 10/07/17 04:00 59 10/07/17 00:00 60 10/06/17 21:00 Room Air 10/06/17 20:50 68 154/69 10/06/17 20:00 63 10/06/17 20:00 97.9 68 20 154/69 (97) 95 97.9 General Appearance: no apparent distress EENT: PERRL/EOMI Neck: non-tender Rhythm: NSR Cardiovascular: normal peripheral pulses Respiratory/Chest: chest wall non-tender Abdomen: non tender Extremities: normal range of motion Neurologic: category consultant II-XII grossly normal Intake and Output 10/06/17 10/07/17 19:00 07:00 Intake Total 100 ml 811 ml Output Total 1100 ml 400 ml Balance -1000 ml 411 ml Intake Oral 200 ml IV Total 100 ml 611 ml Output Urine Total 1100 ml 400 ml # Voids 1 3 # Bowel Movements 3 Laboratory Tests Test 10/07/17 05:05 White Blood Count 11.0 K/UL (4.8-10.8) H Red Blood Count 3.40 M/UL (4.20-5.40) L Hemoglobin 9.8 G/DL (12.0-16.0) L Hematocrit 29.2 % (37.0-47.0) L Mean Corpuscular Volume 86 FL (80-99) Mean Corpuscular Hemoglobin 28.9 PG (27.0-31.0) Mean Corpuscular Hemoglobin Concent 33.6 G/DL (32.0-36.0) Red Cell Distribution Width 15.7 % (11.6-14.8) H Platelet Count 449 K/UL (150-450) Mean Platelet Volume 4.1 FL (6.5-10.1) L Neutrophils (%) (Auto) 61.8 % (45.0-75.0) Lymphocytes (%) (Auto) 13.5 % (20.0-45.0) L Monocytes (%) (Auto) 8.1 % (1.0-10.0) Eosinophils (%) (Auto) 14.9 % (0.0-3.0) H Basophils (%) (Auto) 1.7 % (0.0-2.0) Sodium Level 128 MMOL/L (136-145) L Potassium Level 3.4 MMOL/L (3.5-5.1) L Chloride Level 92 MMOL/L (98-107) L Carbon Dioxide Level 26 MMOL/L (21-32) Anion Gap 10 mmol/L (5-15) Blood Urea Nitrogen 26 mg/dL (7-18) H Creatinine 3.7 MG/DL (0.55-1.30) H Estimat Glomerular Filtration Rate 12.6 mL/min (>60) Glucose Level 93 MG/DL (74-106) Calcium Level 8.4 MG/DL (8.5-10.1) L Phosphorus Level 4.6 MG/DL (2.5-4.9) Magnesium Level 1.6 MG/DL (1.8-2.4) L Quirino Capps M.D. Oct 07, 2017 17:35
[2017-10-07 20:00] VITALS: BP_SYST 135; BP_SYST 172; BP_DIAS 61; BP_DIAS 86
--- NOTE | 2017-10-07 20:13 | Infectious Diseases Prog Note ---
Assessment/Plan Assessment/Plan ASSESSMENT AND PLAN: 1. abdominal wall wound infection/abscess, sepsis, appendicitis, leukocytosis, ? ileus/sbo but with bowel movement - s/p debridement - s/p appendectomy - wound culture with VRE, likely polymicrobial - leukocytosis improved - continue zyvox, aztreonam, flagyl - blood cultures negative - monitor labs - wound vac, wound care per surgery 2. End-stage renal disease, on hemodialysis, has hemodialysis line. 3. Anemia. 4. Diabetes. 5. Hypertension. 6. Possible hyperlipidemia. 7. Blood sugar and blood pressure treatment per primary. 8. Chest pain treatment per Cardiology. 9. History of coronary artery disease, coronary artery bypass graft, and stent placement, status post stent removal and intravenous antibiotics for infected stent looks like. 10. Obesity. 11. Allergies to adhesive tape, amlodipine, insulin, iodine, and penicillins. 12. Social history is negative. 13. Family history is noncontributory. 14. MAR was noted. 15. Case was discussed with RN. 16. Case was discussed with the patient and the patient's family. 17. Continue treatment per primary consultants. 18. Notes and records were noted. 19. Orders were entered. 20. d/w family Subjective Constitutional: Denies: fever HEENT: Denies: congestion Respiratory: Denies: shortness of breath Cardiovascular: Denies: chest pain Gastrointestinal/Abdominal: Denies: nausea, vomiting, diarrhea Neurologic: Denies: headache Psychiatric: Denies: depression Skin: Denies: rash Hematologic: Denies: bleeding Musculoskeletal: Reports: pain - controlled Allergies: Coded Allergies: ADHESIVE (Verified Allergy, Unknown, 09/29/17) AMLODIPINE (Verified Allergy, Unknown, 09/29/17) INSULIN ASPART (Verified Allergy, Unknown, 09/29/17) INSULIN LISPRO (Verified Allergy, Unknown, 09/29/17) IODINE (Verified Allergy, Unknown, 09/29/17) PENICILLINS (Verified Allergy, Unknown, 09/29/17) Objective Vital Signs Last 24 Hour Vital Signs Date Time Temp Pulse Resp B/P (MAP) Pulse Ox O2 Delivery O2 Flow Rate FiO2 10/07/17 20:00 97.7 68 18 135/61 (85) 97 97.7 10/07/17 15:41 64 10/07/17 12:00 98.1 68 21 134/76 (95) 96 98.1 10/07/17 11:51 67 10/07/17 09:37 135/60 10/07/17 09:37 63 135/60 10/07/17 09:00 Room Air 10/07/17 07:57 69 10/07/17 04:27 97.5 63 20 135/60 (85) 97 97.5 10/07/17 04:00 59 10/07/17 00:00 60 10/06/17 21:00 Room Air 10/06/17 20:50 68 154/69 Height (Feet): 5 Height (Inches): 2.00 Weight (Pounds): 210 General Appearance: no acute distress HEENT: normocephalic, atraumatic, anicteric, mucous membranes moist Respiratory/Chest: lungs clear, normal breath sounds, no respiratory distress, no accessory muscle use Cardiovascular: normal rate, regular rhythm, no gallop/murmur, no JVD Abdomen: normal bowel sounds, soft, non tender, no organomegaly, other - wound covered, + wound vac Genitourinary: other - no benito Extremities: no cyanosis Skin: no rash Neurologic/Psychiatric: countersinker II-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 Heart: Cardiomegaly. ABDOMEN: Liver: Unremarkable. Gallbladder and bile ducts: See below. Pancreas: Unremarkable. Spleen: Unremarkable. Adrenals: Unremarkable. Kidneys and ureters: Unremarkable. No hydronephrosis. Stomach and bowel: No zechariah mural thickening. Nonobstructive bowel gas pattern. PELVIS: Appendix: Appendicitis. Appendix measures 1 cm with mild surrounding stranding. Bladder: Unremarkable. Reproductive: Enlarged and heterogeneous right ovary. Ultrasound cannot further characterize as warranted. ABDOMEN and PELVIS: Intraperitoneal space: Unremarkable. Bones/joints: No acute fracture. Soft tissues: Patchy subcutaneous edema and abdominal wound. Small foci of fluid and air in the abdominal wall. Vasculature: Vascular calcification or a stone in the biliary system. No abdominal aortic aneurysm. Lymph nodes: No enlarged lymph nodes. IMPRESSION: Appendicitis. Appendix measures 1 cm with mild surrounding stranding. Chest - x-ray - pvc (report noted) 10/03 - Chest x-ray - nad (report noted) 10/06 - abdominal x-ray - Impression: Very limited exam, as described Mildly dilated left upper quadrant small bowel loops. Could indicate ileus or early/partial small bowel obstruction. Favor the former, as there is evidence of transit of previously ingested contrast into the distal colon Dictated By: Tereso Sheriff MD Microbiology Date/Time Source Procedure Growth Status 09/29/17 20:30 Blood Blood Culture - Final NO GROWTH AFTER 5 DAYS Complete 09/29/17 04:30 Nasal Nares MRSA Culture - Final NO METHICILLIN RESISTANT STAPH AUREUS... Complete 10/02/17 18:30 Abdominal Abscess Anaerobic Culture - Final NO ANAEROBES ISOLATED Complete Laboratory Tests Test 10/07/17 05:05 White Blood Count 11.0 K/UL (4.8-10.8) H Red Blood Count 3.40 M/UL (4.20-5.40) L Hemoglobin 9.8 G/DL (12.0-16.0) L Hematocrit 29.2 % (37.0-47.0) L Mean Corpuscular Volume 86 FL (80-99) Mean Corpuscular Hemoglobin 28.9 PG (27.0-31.0) Mean Corpuscular Hemoglobin Concent 33.6 G/DL (32.0-36.0) Red Cell Distribution Width 15.7 % (11.6-14.8) H Platelet Count 449 K/UL (150-450) Mean Platelet Volume 4.1 FL (6.5-10.1) L Neutrophils (%) (Auto) 61.8 % (45.0-75.0) Lymphocytes (%) (Auto) 13.5 % (20.0-45.0) L Monocytes (%) (Auto) 8.1 % (1.0-10.0) Eosinophils (%) (Auto) 14.9 % (0.0-3.0) H Basophils (%) (Auto) 1.7 % (0.0-2.0) Sodium Level 128 MMOL/L (136-145) L Potassium Level 3.4 MMOL/L (3.5-5.1) L Chloride Level 92 MMOL/L (98-107) L Carbon Dioxide Level 26 MMOL/L (21-32) Anion Gap 10 mmol/L (5-15) Blood Urea Nitrogen 26 mg/dL (7-18) H Creatinine 3.7 MG/DL (0.55-1.30) H Estimat Glomerular Filtration Rate 12.6 mL/min (>60) Glucose Level 93 MG/DL (74-106) Calcium Level 8.4 MG/DL (8.5-10.1) L Phosphorus Level 4.6 MG/DL (2.5-4.9) Magnesium Level 1.6 MG/DL (1.8-2.4) L Current Medications Medications (Trade) Dose Ordered Sig/Fidelia Route PRN Reason Start Time Stop Time Status Last Admin Dose Admin Acetaminophen (Tylenol) 650 mg Q4H PRN ORAL fever 09/29/17 07:45 10/29/17 07:44 10/05/17 04:10 Acetaminophen/ Hydrocodone Bitart ([place] 5/325) 1 tab Q4H PRN ORAL Moderate Pain (Pain Scale 4-6) 10/02/17 17:04 10/09/17 17:03 Al Hydroxide/Mg Hydroxide (Mylanta) 15 ml Q6H PRN ORAL DYSPEPSIA 10/02/17 17:02 11/01/17 17:01 Atorvastatin Calcium (Lipitor) 40 mg BEDTIME ORAL 10/04/17 21:00 10/29/17 20:59 10/05/17 22:54 Aztreonam 0.5 gm/ Dextrose 55 ml @ 110 mls/hr Q12H IVPB 10/08/17 00:00 10/15/17 00:00 Bisacodyl (Dulcolax) 10 mg HSPRN PRN RECTAL Constipation 09/29/17 07:45 10/29/17 07:44 Carvedilol (Coreg) 25 mg EVERY 12 HOURS ORAL 10/02/17 21:00 11/01/17 20:59 10/07/17 09:37 Dextrose (Dextrose 50%) 25 ml STAT PRN IV Hypoglycemia 09/29/17 07:45 10/29/17 07:44 Dextrose (Dextrose 50%) 50 ml STAT PRN IV Hypoglycemia 09/29/17 07:45 10/29/17 07:44 Dextrose/Sodium Chloride 1,000 ml @ 50 mls/hr Q20H IV 10/06/17 14:00 11/05/17 13:59 10/07/17 09:39 Diphenhydramine HCl (Benadryl) 12.5 mg Q6H PRN IVP Itching/Pruritis 10/02/17 17:02 11/01/17 17:01 Docusate Sodium (Colace) 100 mg EVERY 12 HOURS ORAL 09/29/17 09:00 10/29/17 08:59 10/05/17 08:38 Epoetin Perez (Procrit (for ESRD on dialysis)) 10,000 units MON-MON-MON SUBQ 10/04/17 21:00 11/03/17 20:59 10/06/17 22:01 Furosemide (Lasix) 80 mg DAILY ORAL 10/05/17 09:00 11/04/17 08:59 10/07/17 09:36 Heparin Sodium (Porcine) (Heparin 5000 units/ml) 5,000 units EVERY 12 HOURS SUBQ 09/29/17 09:00 10/29/17 08:59 10/05/17 08:40 Hydromorphone HCl (Dilaudid) 0.5 mg Q3H PRN IVP Pain Score 1-3 10/02/17 16:00 10/09/17 15:59 Hydromorphone HCl (Dilaudid) 1 mg Q3H PRN IVP For Severe Pain(scale 7-10) 10/02/17 17:12 10/09/17 17:11 10/05/17 22:57 Insulin Human Regular (NovoLIN R) BS 70-110, then 0 units... AC+HS SUBQ 09/29/17 16:30 10/29/17 16:29 10/05/17 11:53 Lactulose (Cephulac) 20 gm THREE TIMES A DAY ORAL 10/05/17 09:00 11/04/17 08:59 10/05/17 13:00 Linezolid 300 ml @ 300 mls/hr Q12H IVPB 10/08/17 00:00 10/15/17 00:00 Losartan Potassium (Cozaar) 50 mg DAILY ORAL 10/03/17 09:00 11/02/17 08:59 10/07/17 09:37 Magnesium Hydroxide (Mom) 30 ml BIDPRN PRN ORAL Constipation 10/02/17 17:01 11/01/17 17:00 Metronidazole 100 ml @ 100 mls/hr Q8H IVPB 10/08/17 00:00 10/15/17 00:00 Morphine Sulfate (Morphine Sulfate) 4 mg Q4H PRN IVP For Moderate Pain(scale 4-6) 10/02/17 17:12 10/09/17 17:11 10/06/17 02:13 Pantoprazole (Protonix) 40 mg ACBREAKFAST ORAL 10/06/17 06:30 11/04/17 08:59 10/07/17 07:02 Polyethylene Glycol (Miralax) 17 gm HSPRN PRN ORAL Constipation 09/29/17 07:45 10/29/17 07:44 Potassium Chloride (K-Dur) 40 meq DAILY ORAL 10/07/17 09:00 11/06/17 08:59 10/07/17 09:37 Promethazine HCl 25 mg/Sodium Chloride 56 ml @ 112 mls/hr Q8H PRN IVPB Nausea & Vomiting 10/06/17 13:00 11/05/17 12:59 10/06/17 22:17 Tramadol HCl (Ultram) 50 mg Q6H PRN ORAL Mild Pain (Pain Scale 1-3) 10/05/17 09:00 10/12/17 08:59 10/07/17 15:01 Zolpidem Tartrate (Ambien) 5 mg HSPRN PRN ORAL Insomnia 10/06/17 05:30 10/13/17 05:29 Jenniffer Strickland MD Oct 07, 2017 20:13
[2017-10-07] MEDS: Atorvastatin 20mg tab ORAL SCH (21:27)
[2017-10-07 23:44] VITALS: BP 154/81
[2017-10-08] VITALS: BP 154/81
[2017-10-08] MEDS: D5NS 1,000 ML IV SCH (03:12)
[2017-10-08 04:00] VITALS: BP 140/86
[2017-10-08] MEDS: Insulin Human Regular 100units/ml 3ml SUBQ SCH ×4 (06:08→21:00)
[2017-10-08 08:00] VITALS: BP 124/80
[2017-10-08] MEDS: Docusate 100mg cap ORAL SCH ×2 (09:00→21:00)
[2017-10-08] MEDS: Lactulose 20gm/30ml UDC ORAL SCH ×3 (09:00→17:20)
--- NOTE | 2017-10-08 09:03 | General Progress Note ---
Assessment/Plan Problem List: (1) Postoperative ileus ICD Codes: K91.89 - Other postprocedural complications and disorders of digestive system; K56.7 - Ileus, unspecified SNOMED: 521475797 (2) appendicitis s/p open appendectomy (3) Morbid obesity with BMI of 40.0-44.9, adult ICD Codes: E66.01 - Morbid (severe) obesity due to excess calories; Z68.41 - Body mass index (BMI) 40.0-44.9, adult SNOMED: 136896485, 906551815 (4) Anemia ICD Codes: D64.9 - Anemia, unspecified SNOMED: 605498596, 814782061 Qualifiers: Qualified Codes: D64.9 - Anemia, unspecified Assessment/Plan post operative ileus diet per surgical recs pain mgmt ppi electrolyte correction >> fluid restriction zofran fu labs Subjective ROS Limited/Unobtainable: Yes Allergies: Coded Allergies: ADHESIVE (Verified Allergy, Unknown, 09/29/17) AMLODIPINE (Verified Allergy, Unknown, 09/29/17) INSULIN ASPART (Verified Allergy, Unknown, 09/29/17) INSULIN LISPRO (Verified Allergy, Unknown, 09/29/17) IODINE (Verified Allergy, Unknown, 09/29/17) PENICILLINS (Verified Allergy, Unknown, 09/29/17) Subjective c/o abd pain diarrhea no flatus Objective Last 24 Hour Vital Signs Date Time Temp Pulse Resp B/P (MAP) Pulse Ox O2 Delivery O2 Flow Rate FiO2 10/08/17 08:00 98.1 63 18 124/80 (95) 98 98.1 10/08/17 04:00 97.4 73 19 140/86 (104) 96 97.4 10/08/17 04:00 61 10/08/17 00:00 65 10/08/17 00:00 98.1 61 16 154/81 (105) 98 98.1 10/07/17 23:44 98.1 61 16 154/81 (105) 98.1 10/07/17 23:44 Room Air 10/07/17 21:28 67 135/61 10/07/17 21:00 Room Air 10/07/17 20:00 Room Air 10/07/17 20:00 97.9 66 16 172/86 (114) 97.9 10/07/17 20:00 67 7/21/18 20:00 97.7 68 18 135/61 (85) 97 97.7 10/07/17 15:41 64 10/07/17 12:00 98.1 68 21 134/76 (95) 96 98.1 10/07/17 11:51 67 10/07/17 09:37 135/60 10/07/17 09:37 63 135/60 Intake and Output 10/07/17 10/08/17 19:00 07:00 Intake Total 670 ml 455 ml Output Total 1500 ml Balance 670 ml -1045 ml Intake Oral 120 ml IV Total 550 ml 455 ml Hemodialysis UF 1500 ml # Voids 2 1 Height (Feet): 5 Height (Inches): 2.00 Weight (Pounds): 210 General Appearance: alert EENT: normal ENT inspection Neck: supple Cardiovascular: normal rate Respiratory/Chest: decreased breath sounds Abdomen: other - post surgical Extremities: non-tender Chip Lindo MD Oct 08, 2017 09:02
[2017-10-08] MEDS: Losartan 50mg tab ORAL SCH (09:39)
[2017-10-08] MEDS: Carvedilol 25mg Tab ORAL SCH ×2 (09:39→20:39)
[2017-10-08] MEDS: Furosemide 80mg tab ORAL SCH (09:39)
[2017-10-08] MEDS: Heparin 5000 units/ml inj SUBQ SCH ×2 (09:41→20:40)
[2017-10-08 09:42] LABS: BASOPHILS % (AUTO) 1.2 % (0.0-2.0); EOSINOPHILS % (AUTO) 13.6 % (0.0-3.0); HEMOGLOBIN 9.8 G/DL (12.0-16.0); LYMPHOCYTES % (AUTO) 9.1 % (20.0-45.0); MEAN CORPUSCULAR VOLUME 87 FL (80-99); MONOCYTES % (AUTO) 7.8 % (1.0-10.0); NEUTROPHILS % (AUTO) 68.2 % (45.0-75.0); PLATELET COUNT 466 K/UL (150-450); RED BLOOD COUNT 3.57 M/UL (4.20-5.40); RED CELL DISTRIBUTION WIDTH 16.4 % (11.6-14.8); WHITE BLOOD COUNT 12.1 K/UL (4.8-10.8)
--- NOTE | 2017-10-08 09:53 | Nephrology Progress Note ---
Assessment/Plan Assessment/Plan 1. ESRD- Had HD yesterday. - am labs pending 2. Hypokalemia- labs pending this am 3. Anemia of CKD- EPO 3 x week and prn bld tx 4. Abd Pain/Leukocytosis s/p Abd wound exploration and appy ileus resolved on clear liquids 5. Sepsis- per ID 6. Hyponatremia- po fluid restrict - lasix 80mg qd Subjective Date patient seen: Oct 08, 2017 Time patient seen: 09:50 ROS Limited/Unobtainable: No Gastrointestinal/Abdominal: Reports: nausea, poor appetite Allergies: Coded Allergies: ADHESIVE (Verified Allergy, Unknown, 09/29/17) AMLODIPINE (Verified Allergy, Unknown, 09/29/17) INSULIN ASPART (Verified Allergy, Unknown, 09/29/17) INSULIN LISPRO (Verified Allergy, Unknown, 09/29/17) IODINE (Verified Allergy, Unknown, 09/29/17) PENICILLINS (Verified Allergy, Unknown, 09/29/17) All Systems: reviewed and negative except above Subjective Patient feels tired and fatigued Objective Last 24 Hour Vital Signs Date Time Temp Pulse Resp B/P (MAP) Pulse Ox O2 Delivery O2 Flow Rate FiO2 10/08/17 09:39 124/80 10/08/17 09:39 63 124/80 10/08/17 08:00 98.1 63 18 124/80 (95) 98 98.1 10/08/17 04:00 97.4 73 19 140/86 (104) 96 97.4 10/08/17 04:00 61 10/08/17 00:00 65 10/08/17 00:00 98.1 61 16 154/81 (105) 98 98.1 10/07/17 23:44 98.1 61 16 154/81 (105) 98.1 10/07/17 23:44 Room Air 10/07/17 21:28 67 135/61 10/07/17 21:00 Room Air 10/07/17 20:00 Room Air 10/07/17 20:00 97.9 66 16 172/86 (114) 97.9 10/07/17 20:00 67 10/07/17 20:00 97.7 68 18 135/61 (85) 97 97.7 10/07/17 15:41 64 10/07/17 12:00 98.1 68 21 134/76 (95) 96 98.1 10/07/17 11:51 67 Intake and Output 10/07/17 10/08/17 19:00 07:00 Intake Total 670 ml 455 ml Output Total 1500 ml Balance 670 ml -1045 ml Intake Oral 120 ml IV Total 550 ml 455 ml Hemodialysis UF 1500 ml # Voids 2 1 Laboratory Tests 10/08/17 09:22: White Blood Count 12.1H, Red Blood Count 3.57L, Hemoglobin 9.8L, Hematocrit 31.0L, Mean Corpuscular Volume 87, Mean Corpuscular Hemoglobin 27.4, Mean Corpuscular Hemoglobin Concent 31.6L, Red Cell Distribution Width 16.4H, Platelet Count 466H, Mean Platelet Volume 4.2L, Neutrophils (%) (Auto) 68.2, Lymphocytes (%) (Auto) 9.1L, Monocytes (%) (Auto) 7.8, Eosinophils (%) (Auto) 13.6H, Basophils (%) (Auto) 1.2, Sodium Level [Pending], Potassium Level [ Pending], Chloride Level [Pending], Carbon Dioxide Level [Pending], Blood Urea Nitrogen [Pending], Creatinine [Pending], Estimat Glomerular Filtration Rate [ Pending], Glucose Level [Pending], Calcium Level [Pending] Height (Feet): 5 Height (Inches): 2.00 Weight (Pounds): 210 General Appearance: WD/WN, no apparent distress EENT: PERRL/EOMI Neck: non-tender, normal alignment Cardiovascular: normal peripheral pulses, normal rate Respiratory/Chest: chest wall non-tender, lungs clear Abdomen: normal bowel sounds, non tender Edema: no edema noted Arm (L), no edema noted Arm (R), no edema noted Leg (L), no edema noted Leg (R), no edema noted Pedal (L), no edema noted Pedal (R), no edema noted Generalized Aman Link M.D. Oct 08, 2017 09:53
[2017-10-08 09:54] LABS: ANION GAP 10 mmol/L (5-15); BLOOD UREA NITROGEN 11 mg/dL (7-18); CARBON DIOXIDE 26 MMOL/L (21-32); CHLORIDE 93 MMOL/L (98-107); CREATININE 2.4 MG/DL (0.55-1.30); POTASSIUM 3.4 MMOL/L (3.5-5.1); SODIUM 128 MMOL/L (136-145)
--- NOTE | 2017-10-08 11:35 | General Surgery Progress Note ---
General Surgery-Progress Note Subjective Procedure Performed 1. Excisional debridement of abdominal wall soft tissue and fascia 2. drainage of abdominal wall abscess 3. opening of prior abdominal wall closure 4. diagnostic laparoscopy 5. open appendectomy 6. wound vac placement to large complex abdominal wall wound Additional Comments leukocytosis. slowly becoming more ambulatory. tolerating diet. no longer has n/v. +BM Objective Last 24 Hour Vital Signs Date Time Temp Pulse Resp B/P (MAP) Pulse Ox O2 Delivery O2 Flow Rate FiO2 10/08/17 09:39 124/80 10/08/17 09:39 63 124/80 10/08/17 08:00 98.1 63 18 124/80 (95) 98 98.1 10/08/17 04:00 97.4 73 19 140/86 (104) 96 97.4 10/08/17 04:00 61 10/08/17 00:00 65 10/08/17 00:00 98.1 61 16 154/81 (105) 98 98.1 10/07/17 23:44 98.1 61 16 154/81 (105) 98.1 10/07/17 23:44 Room Air 10/07/17 21:28 67 135/61 10/07/17 21:00 Room Air 10/07/17 20:00 Room Air 10/07/17 20:00 97.9 66 16 172/86 (114) 97.9 10/07/17 20:00 67 10/07/17 20:00 97.7 68 18 135/61 (85) 97 97.7 10/07/17 15:41 64 10/07/17 12:00 98.1 68 21 134/76 (95) 96 98.1 10/07/17 11:51 67 I&O Intake and Output 10/07/17 10/08/17 19:00 07:00 Intake Total 670 ml 455 ml Output Total 1500 ml Balance 670 ml -1045 ml Intake Oral 120 ml IV Total 550 ml 455 ml Hemodialysis UF 1500 ml # Voids 2 1 Wound: clean Drains: wound vac Cardiovascular: RSR Respiratory: clear Abdomen: soft, non-tender, present bowel sounds Extremities: no cyanosis Laboratory Tests Test 10/08/17 09:22 White Blood Count 12.1 K/UL (4.8-10.8) H Red Blood Count 3.57 M/UL (4.20-5.40) L Hemoglobin 9.8 G/DL (12.0-16.0) L Hematocrit 31.0 % (37.0-47.0) L Mean Corpuscular Volume 87 FL (80-99) Mean Corpuscular Hemoglobin 27.4 PG (27.0-31.0) Mean Corpuscular Hemoglobin Concent 31.6 G/DL (32.0-36.0) L Red Cell Distribution Width 16.4 % (11.6-14.8) H Platelet Count 466 K/UL (150-450) H Mean Platelet Volume 4.2 FL (6.5-10.1) L Neutrophils (%) (Auto) 68.2 % (45.0-75.0) Lymphocytes (%) (Auto) 9.1 % (20.0-45.0) L Monocytes (%) (Auto) 7.8 % (1.0-10.0) Eosinophils (%) (Auto) 13.6 % (0.0-3.0) H Basophils (%) (Auto) 1.2 % (0.0-2.0) Sodium Level 128 MMOL/L (136-145) L Potassium Level 3.4 MMOL/L (3.5-5.1) L Chloride Level 93 MMOL/L (98-107) L Carbon Dioxide Level 26 MMOL/L (21-32) Anion Gap 10 mmol/L (5-15) Blood Urea Nitrogen 11 mg/dL (7-18) Creatinine 2.4 MG/DL (0.55-1.30) H Estimat Glomerular Filtration Rate 20.7 mL/min (>60) Glucose Level 125 MG/DL (74-106) H Calcium Level 8.0 MG/DL (8.5-10.1) L Assessment Post-op Diagnosis 1. abdominal wall abscess 2. dehiscence of abdominal wall wound 3. appendicitis Plan Problems: (1) Open abdominal wall wound (2) Abdominal wall abscess at site of surgical wound (3) Wound, open, abdominal wall, anterior with complication Assessment & Plan: large prior abdominal surgical wound that in portions skin has come together but underlying large area of open fluid collection with possible pockets of abscess. larger epigastric wound seems to connect with lower aspect small wound. lots of murky fluid evacuated, wound deep and tracking in all directions. per patient they have only been placing a small cover on wounds and no packing has been performed. had wound VAC prior but only for 3 days as per patient. I fear that there is something much larger and more serious going underneath the skin and with drainage and looks of wound they are only worsening. CT reviewed and noted. fortunately no large abscess but can note tracking of wound As for possible appendicitis, noted 1cm appendix with stranding on CT. clinically patient has generalized abdominal pain and not focal to RLQ. she has had generalized abdominal pain for some time now and likely related to large wound. no n/v/f/c. leukocytosis 18k but can be related to multiple etiologies. leukocytosis... overall improving. s/p wound exploration, debridement, open appendectomy, wound vac placement. -wound vac care - plan to change Monday -ambulate and out of bed -diet as tolerated -abx -will need to start paperwork for outpatient wound VAC thank you for this consultation Darrius Figueredo Oct 08, 2017 11:35
[2017-10-08 12:00] VITALS: BP 134/81
--- NOTE | 2017-10-08 12:25 | General Progress Note ---
Assessment/Plan Status: stable Assessment/Plan 1. Anemia due to underlying kidney disease. --> Continue to closely monitor for improvement. --> Anemia panel has been reviewed, will trend daily. --> Hgb goal >7 2. Anemia due to underlying chronic disease. --> Closely monitor for improvement. --> 10/05: 1 unit PRBC. 3. Leukocytosis, potentially secondary to sternotomy wire infection. --> Consider evaluation with ID Service. --> WBC improving 4. Diabetes mellitus. A1c goal less than 6. 5. Hypertension. Systolic blood pressure goal less than 140. 6. End-stage renal disease, on hemodialysis. Closely monitor. 7. Myocardial infarction, status post 12 stent placements, status post coronary artery bypass grafting. The time the note was entered does not necessarily correspond to the time the patient was seen. Subjective Date patient seen: Oct 08, 2017 ROS Limited/Unobtainable: Yes Hematologic/Lymphatic: Reports: anemia Allergies: Coded Allergies: ADHESIVE (Verified Allergy, Unknown, 09/29/17) AMLODIPINE (Verified Allergy, Unknown, 09/29/17) INSULIN ASPART (Verified Allergy, Unknown, 09/29/17) INSULIN LISPRO (Verified Allergy, Unknown, 09/29/17) IODINE (Verified Allergy, Unknown, 09/29/17) PENICILLINS (Verified Allergy, Unknown, 09/29/17) All Systems: reviewed and negative except above Subjective Pt awake and alert. No acute events. Vitals are stable. H/H stable. Pt c/o pain. Objective Last 24 Hour Vital Signs Date Time Temp Pulse Resp B/P (MAP) Pulse Ox O2 Delivery O2 Flow Rate FiO2 10/08/17 09:39 124/80 10/08/17 09:39 63 124/80 10/08/17 08:00 98.1 63 18 124/80 (95) 98 98.1 10/08/17 04:00 97.4 73 19 140/86 (104) 96 97.4 10/08/17 04:00 61 10/08/17 00:00 65 10/08/17 00:00 98.1 61 16 154/81 (105) 98 98.1 10/07/17 23:44 98.1 61 16 154/81 (105) 98.1 10/07/17 23:44 Room Air 10/07/17 21:28 67 135/61 10/07/17 21:00 Room Air 10/07/17 20:00 Room Air 10/07/17 20:00 97.9 66 16 172/86 (114) 97.9 10/07/17 20:00 67 10/07/17 20:00 97.7 68 18 135/61 (85) 97 97.7 10/07/17 15:41 64 Intake and Output 10/07/17 10/08/17 19:00 07:00 Intake Total 670 ml 455 ml Output Total 1500 ml Balance 670 ml -1045 ml Intake Oral 120 ml IV Total 550 ml 455 ml Hemodialysis UF 1500 ml # Voids 2 1 Laboratory Tests 10/08/17 09:22: White Blood Count 12.1H, Red Blood Count 3.57L, Hemoglobin 9.8L, Hematocrit 31.0L, Mean Corpuscular Volume 87, Mean Corpuscular Hemoglobin 27.4, Mean Corpuscular Hemoglobin Concent 31.6L, Red Cell Distribution Width 16.4H, Platelet Count 466H, Mean Platelet Volume 4.2L, Neutrophils (%) (Auto) 68.2, Lymphocytes (%) (Auto) 9.1L, Monocytes (%) (Auto) 7.8, Eosinophils (%) (Auto) 13.6H, Basophils (%) (Auto) 1.2, Sodium Level 128L, Potassium Level 3.4L, Chloride Level 93L, Carbon Dioxide Level 26, Anion Gap 10, Blood Urea Nitrogen 11, Creatinine 2.4H, Estimat Glomerular Filtration Rate 20.7, Glucose Level 125H , Calcium Level 8.0L Height (Feet): 5 Height (Inches): 2.00 Weight (Pounds): 210 General Appearance: no apparent distress EENT: PERRL/EOMI Neck: normal alignment Cardiovascular: normal peripheral pulses Respiratory/Chest: no respiratory distress Abdomen: no organomegaly Lalito Cole MD Oct 08, 2017 12:25
[2017-10-08] MEDS: Aztreonam Inj 0.5 GM in D5W 55 ML IVPB SCH ×2 (12:59→23:35)
--- NOTE | 2017-10-08 13:49 | Cardiology Progress Note ---
Assessment/Plan Status: stable Assessment/Plan Assessment: 1. Chest pain 2. h/o recent 2V CABG and PCI 3. Open wound to chest with stent removal 4. Sepsis 5. ESRD on HD (M/F) 6. DM with neuropathy 7. HTN 8. HLD 9. Anemia 10. VIK 11. Diastolic heart failure Plan Serial troponin, no indication for cath at this time, elevation likely from infection and ESRD CT A/P, surgical consult appreciated -s/p wound vac placement and debridement - plan for change out on monday Will need to arrange outpatient wound vac and home health for antibiotics Maintain HD per nephrology Fluids restriction for hyponatremia Continue IV abx Follow Cultures Continue aspirin Continue atorvastatin Continue home medications, coreg, isordil, losartan Outpatient stress test to evaluate status of stent and bypass grafts, currently no chest pain Subjective Cardiovascular: Reports: no symptoms Respiratory: Reports: no symptoms Gastrointestinal/Abdominal: Reports: no symptoms Genitourinary: Reports: no symptoms Subjective Pt is resting in the bed. No s/s distress. Wound vacuum is connected on the abdominal area, no leakage. IV antibiotic med is running, plan for vac change on monday, She has ambulated, tolerating clears, vitals stable Objective Last 24 Hour Vital Signs Date Time Temp Pulse Resp B/P (MAP) Pulse Ox O2 Delivery O2 Flow Rate FiO2 10/08/17 12:00 98.5 70 18 134/81 (98) 98 98.5 10/08/17 09:39 124/80 10/08/17 09:39 63 124/80 10/08/17 09:00 Room Air 10/08/17 08:00 98.1 63 18 124/80 (95) 98 98.1 10/08/17 04:00 97.4 73 19 140/86 (104) 96 97.4 10/08/17 04:00 61 10/08/17 00:00 65 10/08/17 00:00 98.1 61 16 154/81 (105) 98 98.1 10/07/17 23:44 98.1 61 16 154/81 (105) 98.1 10/07/17 23:44 Room Air 10/07/17 21:28 67 135/61 10/07/17 21:00 Room Air 10/07/17 20:00 Room Air 10/07/17 20:00 97.9 66 16 172/86 (114) 97.9 10/07/17 20:00 67 10/07/17 20:00 97.7 68 18 135/61 (85) 97 97.7 10/07/17 15:41 64 General Appearance: no apparent distress EENT: PERRL/EOMI Neck: non-tender Rhythm: NSR Cardiovascular: normal rate Respiratory/Chest: lungs clear Abdomen: normal bowel sounds Extremities: normal range of motion 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 grossly normal Intake and Output 10/07/17 10/08/17 19:00 07:00 Intake Total 670 ml 455 ml Output Total 1500 ml Balance 670 ml -1045 ml Intake Oral 120 ml IV Total 550 ml 455 ml Hemodialysis UF 1500 ml # Voids 2 1 Laboratory Tests Test 10/08/17 09:22 White Blood Count 12.1 K/UL (4.8-10.8) H Red Blood Count 3.57 M/UL (4.20-5.40) L Hemoglobin 9.8 G/DL (12.0-16.0) L Hematocrit 31.0 % (37.0-47.0) L Mean Corpuscular Volume 87 FL (80-99) Mean Corpuscular Hemoglobin 27.4 PG (27.0-31.0) Mean Corpuscular Hemoglobin Concent 31.6 G/DL (32.0-36.0) L Red Cell Distribution Width 16.4 % (11.6-14.8) H Platelet Count 466 K/UL (150-450) H Mean Platelet Volume 4.2 FL (6.5-10.1) L Neutrophils (%) (Auto) 68.2 % (45.0-75.0) Lymphocytes (%) (Auto) 9.1 % (20.0-45.0) L Monocytes (%) (Auto) 7.8 % (1.0-10.0) Eosinophils (%) (Auto) 13.6 % (0.0-3.0) H Basophils (%) (Auto) 1.2 % (0.0-2.0) Sodium Level 128 MMOL/L (136-145) L Potassium Level 3.4 MMOL/L (3.5-5.1) L Chloride Level 93 MMOL/L (98-107) L Carbon Dioxide Level 26 MMOL/L (21-32) Anion Gap 10 mmol/L (5-15) Blood Urea Nitrogen 11 mg/dL (7-18) Creatinine 2.4 MG/DL (0.55-1.30) H Estimat Glomerular Filtration Rate 20.7 mL/min (>60) Glucose Level 125 MG/DL (74-106) H Calcium Level 8.0 MG/DL (8.5-10.1) L Quirino Capps M.D. Oct 08, 2017 13:48
[2017-10-08 16:00] VITALS: BP 126/87
--- NOTE | 2017-10-08 16:41 | General Progress Note ---
Assessment/Plan Assessment/Plan Problem List: (1) Sepsis ICD Codes: A41.9 - Sepsis, unspecified organism SNOMED: 92108183 (2) Anemia ICD Codes: D64.9 - Anemia, unspecified SNOMED: 541473042, 905970325 Qualifiers: Qualified Codes: D64.9 - Anemia, unspecified (3) ESRD on hemodialysis ICD Codes: N18.6 - End stage renal disease; Z99.2 - Dependence on renal dialysis SNOMED: 657710282, 27551190 (4) Morbid obesity with BMI of 40.0-44.9, adult ICD Codes: E66.01 - Morbid (severe) obesity due to excess calories; Z68.41 - Body mass index (BMI) 40.0-44.9, adult SNOMED: 665890759, 863449178 (5) Chest pain ICD Codes: R07.9 - Chest pain, unspecified SNOMED: 83939908 (6) Wound, open, abdominal wall, anterior with complication ICD Codes: S31.109A - Unspecified open wound of abdominal wall, unspecified quadrant without penetration into peritoneal cavity, initial encounter SNOMED: 316445698 Qualifiers: Qualified Codes: S31.109A - Unspecified open wound of abdominal wall, unspecified quadrant without penetration into peritoneal cavity, initial encounter (7) Abdominal wall abscess at site of surgical wound ICD Codes: T81.4XXA - Infection following a procedure, initial encounter SNOMED: 913687984 (8) Open abdominal wall wound ICD Codes: S31.109A - Unspecified open wound of abdominal wall, unspecified quadrant without penetration into peritoneal cavity, initial encounter SNOMED: 855124201 Qualifiers: Qualified Codes: S31.109A - Unspecified open wound of abdominal wall, unspecified quadrant without penetration into peritoneal cavity, initial encounter (9) Hypokalemia ICD Codes: E87.6 - Hypokalemia SNOMED: 23388085 (10) Hyponatremia ICD Codes: E87.1 - Hypo-osmolality and hyponatremia SNOMED: 27494389 (11) appendicitis s/p open appendectomy (12) s/p wound exploration and debridement (13) Acute blood loss anemia ICD Codes: D62 - Acute posthemorrhagic anemia SNOMED: 071847216 (14) Diastolic CHF ICD Codes: I50.30 - Unspecified diastolic (congestive) heart failure SNOMED: 32587605, 048097640 (15) VIK (obstructive sleep apnea) ICD Codes: G47.33 - Obstructive sleep apnea (adult) (pediatric) SNOMED: 08882797 (16) Postoperative ileus ICD Codes: K91.89 - Other postprocedural complications and disorders of digestive system; K56.7 - Ileus, unspecified SNOMED: 055251585 Assessment/Plan Assessment: 1. Chest pain 2. h/o recent 2V CABG c/b stent infection s/p stent removal and abx 3. Open wound to chest/abdomen s/p stent removal 4. Sepsis 5. ESRD on HD (M/F) 6. DM 7. HTN 8. Hyponatremia/Hypokalemia 9. Acute blood loss anemia 10. Appendicitis s/p open appendectomy 11. Abdominal wound s/p wound exploration and debridement on 10/02 12. VIK 13. 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 Postoperative ileus Plan: - Cardiology, general surgery, nephrology, GI, and ID consulted - s/p wound exploration and debridement, and open appendectomy with wound vac, POD#5 - f/u wound culture -- VRE - s/p 1 unit pRBC transfusion on 10/03 - F/u CT a/p to visualize extent of abscess - concerns for early appendicitis but asymptomatic - Trend EKG/trops -- ACS ruled out - abx per id - HD per nephro - Continue home meds. - Continue humulin R for SSi - Monitor electrolytes and replete - Monitor CBC - Wound care - PT/OT - Pain control and supportive care - KUB showed ileus vs. early/partial SBO. had bowel movement today and continues to c/o n/v. start CLD and ADAT. decrease narcotics. GI rec's appreciated Wound vac exchange to be done on Monday DC planning over the weekend if able to tolerate PO DVT Prophylaxis: SCD, HSQ Code Status: Full Hospital Classification Declaration: Based on this initial evaluation, and depending on the patient's clinical course, I anticipate that this patient will require hospitalization for 3-5 days for sepsis, chest pain and close respiratory/hemodynamic monitoring. Disposition: Once the patient is stable to leave the hospital, I anticipate the patient will likely be discharged to the following environment: [facility] I spent 32 minutes on this patient's case, and 22 minutes were dedicated to counseling and/or care coordination. Discussed with patient/family, nursing staff, SW/CM, and all consultants as above regarding clinical status, treatment course, and disposition planning. Subjective Date patient seen: Oct 08, 2017 Allergies: Coded Allergies: ADHESIVE (Verified Allergy, Unknown, 09/29/17) AMLODIPINE (Verified Allergy, Unknown, 09/29/17) INSULIN ASPART (Verified Allergy, Unknown, 09/29/17) INSULIN LISPRO (Verified Allergy, Unknown, 09/29/17) IODINE (Verified Allergy, Unknown, 09/29/17) PENICILLINS (Verified Allergy, Unknown, 09/29/17) Subjective No acute events afebrile and hds still not tolerating po c/o appropriate pain at surgery site. tolerating wound vac 14 pt ros neg except as above. Objective Last 24 Hour Vital Signs Date Time Temp Pulse Resp B/P (MAP) Pulse Ox O2 Delivery O2 Flow Rate FiO2 10/08/17 16:00 97.6 76 20 126/87 (100) 98 97.6 10/08/17 16:00 61 10/08/17 12:00 62 10/08/17 12:00 98.5 70 18 134/81 (98) 98 98.5 10/08/17 09:39 124/80 10/08/17 09:39 63 124/80 10/08/17 09:00 Room Air 10/08/17 08:00 98.1 63 18 124/80 (95) 98 98.1 10/08/17 08:00 60 10/08/17 04:00 97.4 73 19 140/86 (104) 96 97.4 10/08/17 04:00 61 10/08/17 00:00 65 10/08/17 00:00 98.1 61 16 154/81 (105) 98 98.1 10/07/17 23:44 98.1 61 16 154/81 (105) 98.1 10/07/17 23:44 Room Air 10/07/17 21:28 67 135/61 10/07/17 21:00 Room Air 10/07/17 20:00 Room Air 10/07/17 20:00 97.9 66 16 172/86 (114) 97.9 10/07/17 20:00 67 10/07/17 20:00 97.7 68 18 135/61 (85) 97 97.7 Intake and Output 10/07/17 10/08/17 19:00 07:00 Intake Total 670 ml 455 ml Output Total 1500 ml Balance 670 ml -1045 ml Intake Oral 120 ml IV Total 550 ml 455 ml Hemodialysis UF 1500 ml # Voids 2 1 Laboratory Tests 10/08/17 09:22: White Blood Count 12.1H, Red Blood Count 3.57L, Hemoglobin 9.8L, Hematocrit 31.0L, Mean Corpuscular Volume 87, Mean Corpuscular Hemoglobin 27.4, Mean Corpuscular Hemoglobin Concent 31.6L, Red Cell Distribution Width 16.4H, Platelet Count 466H, Mean Platelet Volume 4.2L, Neutrophils (%) (Auto) 68.2, Lymphocytes (%) (Auto) 9.1L, Monocytes (%) (Auto) 7.8, Eosinophils (%) (Auto) 13.6H, Basophils (%) (Auto) 1.2, Sodium Level 128L, Potassium Level 3.4L, Chloride Level 93L, Carbon Dioxide Level 26, Anion Gap 10, Blood Urea Nitrogen 11, Creatinine 2.4H, Estimat Glomerular Filtration Rate 20.7, Glucose Level 125H , Calcium Level 8.0L Height (Feet): 5 Height (Inches): 2.00 Weight (Pounds): 210 Objective General Appearance: alert, mild distress EENT: PERRL/EOMI, normal ENT inspection Neck: non-tender, normal alignment, supple Cardiovascular: normal peripheral pulses, normal rate, regular rhythm Respiratory/Chest: chest wall non-tender, lungs clear, normal breath sounds Abdomen: normal bowel sounds, non tender, soft, other - +surgical incision with wound vac in place Extremities: normal range of motion, non-tender 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
[2017-10-08] MEDS: Nystatin Powder 100,000 units/gm 15gm TOPIC PRN ×2 (17:28→20:51)
[2017-10-08 20:00] VITALS: BP 163/77
[2017-10-08] MEDS: Atorvastatin 20mg tab ORAL SCH (20:38)
[2017-10-08] MEDS: traMADol 50mg tab ORAL PRN (20:51)
[2017-10-09] VITALS (8 sets, daily range): BP systolic 91–151; BP diastolic 56–73
[2017-10-09] MEDS: traMADol 50mg tab ORAL PRN ×2 (03:04→10:50)
[2017-10-09] MEDS: Insulin Human Regular 100units/ml 3ml SUBQ SCH ×4 (06:30→21:00)
--- NOTE | 2017-10-09 08:22 | Nephrology Progress Note ---
Assessment/Plan Assessment/Plan 1. ESRD- Had HD Sat. Next session possible on /Mon. Monitor labs - am labs pending 2. Hypokalemia- labs pending 3. Anemia of CKD- EPO 3 x week 4. Abd Pain/Leukocytosis s/p Abd wound exploration and appy clear liquids 5. Sepsis- per ID 6. Hyponatremia- po fluid restrict 1.2 L day - lasix 80mg qd Subjective Date patient seen: Oct 09, 2017 Time patient seen: 08:20 ROS Limited/Unobtainable: No Gastrointestinal/Abdominal: Reports: abdominal pain, nausea Allergies: Coded Allergies: ADHESIVE (Verified Allergy, Unknown, 09/29/17) AMLODIPINE (Verified Allergy, Unknown, 09/29/17) INSULIN ASPART (Verified Allergy, Unknown, 09/29/17) INSULIN LISPRO (Verified Allergy, Unknown, 09/29/17) IODINE (Verified Allergy, Unknown, 09/29/17) PENICILLINS (Verified Allergy, Unknown, 09/29/17) Subjective Patient feels tired and fatigued. Poor appetite Objective Last 24 Hour Vital Signs Date Time Temp Pulse Resp B/P (MAP) Pulse Ox O2 Delivery O2 Flow Rate FiO2 10/09/17 08:00 97.7 66 18 91/56 (68) 97 97.7 10/09/17 04:00 64 10/09/17 04:00 97.8 66 19 124/56 (78) 96 97.8 10/09/17 00:00 62 10/09/17 00:00 97.7 61 20 133/66 (88) 100 97.7 10/08/17 20:39 70 163/77 10/08/17 20:01 Room Air 10/08/17 20:00 68 10/08/17 20:00 97.8 70 19 163/77 (105) 100 97.8 10/08/17 16:00 97.6 76 20 126/87 (100) 98 97.6 10/08/17 16:00 61 10/08/17 12:00 62 10/08/17 12:00 98.5 70 18 134/81 (98) 98 98.5 10/08/17 09:39 124/80 10/08/17 09:39 63 124/80 10/08/17 09:00 Room Air Intake and Output 10/08/17 10/09/17 19:00 07:00 Intake Total 220 ml Balance 220 ml Intake Oral 220 ml # Voids 2 3 # Bowel Movements 1 Laboratory Tests 10/08/17 09:22: White Blood Count 12.1H, Red Blood Count 3.57L, Hemoglobin 9.8L, Hematocrit 31.0L, Mean Corpuscular Volume 87, Mean Corpuscular Hemoglobin 27.4, Mean Corpuscular Hemoglobin Concent 31.6L, Red Cell Distribution Width 16.4H, Platelet Count 466H, Mean Platelet Volume 4.2L, Neutrophils (%) (Auto) 68.2, Lymphocytes (%) (Auto) 9.1L, Monocytes (%) (Auto) 7.8, Eosinophils (%) (Auto) 13.6H, Basophils (%) (Auto) 1.2, Sodium Level 128L, Potassium Level 3.4L, Chloride Level 93L, Carbon Dioxide Level 26, Anion Gap 10, Blood Urea Nitrogen 11, Creatinine 2.4H, Estimat Glomerular Filtration Rate 20.7, Glucose Level 125H , Calcium Level 8.0L 10/09/17 06:33: Sodium Level [Pending], Potassium Level [Pending], Chloride Level [Pending], Carbon Dioxide Level [Pending], Blood Urea Nitrogen [Pending], Creatinine [ Pending], Estimat Glomerular Filtration Rate [Pending], Glucose Level [Pending] , Calcium Level [Pending] Height (Feet): 5 Height (Inches): 2.00 Weight (Pounds): 210 General Appearance: WD/WN, no apparent distress EENT: PERRL/EOMI, normal ENT inspection Neck: non-tender, normal alignment Cardiovascular: normal peripheral pulses, normal rate Respiratory/Chest: lungs clear, normal breath sounds Abdomen: non tender, soft, hypoactive bowel sounds Edema: no edema noted Arm (L), no edema noted Arm (R), no edema noted Leg (L), no edema noted Leg (R), no edema noted Pedal (L), no edema noted Pedal (R), no edema noted Generalized Aman Link M.D. Oct 09, 2017 08:22
[2017-10-09] MEDS: Furosemide 80mg tab ORAL SCH (08:52)
[2017-10-09] MEDS: Carvedilol 25mg Tab ORAL SCH ×2 (08:52→21:03)
[2017-10-09] MEDS: Docusate 100mg cap ORAL SCH ×2 (08:53→21:00)
[2017-10-09] MEDS: Lactulose 20gm/30ml UDC ORAL SCH ×3 (08:53→17:18)
[2017-10-09 08:58] LABS: ANION GAP 9 mmol/L (5-15); BLOOD UREA NITROGEN 14 mg/dL (7-18); CALCIUM 7.9 MG/DL (8.5-10.1); CARBON DIOXIDE 25 MMOL/L (21-32); CHLORIDE 95 MMOL/L (98-107); CREATININE 2.6 MG/DL (0.55-1.30); POTASSIUM 3.6 MMOL/L (3.5-5.1); SODIUM 129 MMOL/L (136-145)
[2017-10-09] MEDS: Heparin 5000 units/ml inj SUBQ SCH ×2 (08:58→21:03)
[2017-10-09] MEDS: Losartan 50mg tab ORAL SCH (10:27)
--- NOTE | 2017-10-09 10:43 | GI Progress Note ---
Assessment/Plan Problems: (1) Postoperative ileus ICD Codes: K91.89 - Other postprocedural complications and disorders of digestive system; K56.7 - Ileus, unspecified SNOMED: 115868944 (2) Anemia ICD Codes: D64.9 - Anemia, unspecified SNOMED: 451494915, 066098961 Qualifiers: Qualified Codes: D64.9 - Anemia, unspecified (3) ESRD on hemodialysis ICD Codes: N18.6 - End stage renal disease; Z99.2 - Dependence on renal dialysis SNOMED: 136701822, 70411179 (4) Morbid obesity with BMI of 40.0-44.9, adult ICD Codes: E66.01 - Morbid (severe) obesity due to excess calories; Z68.41 - Body mass index (BMI) 40.0-44.9, adult SNOMED: 399726804, 718636774 (5) Open abdominal wall wound ICD Codes: S31.109A - Unspecified open wound of abdominal wall, unspecified quadrant without penetration into peritoneal cavity, initial encounter SNOMED: 660467006 Qualifiers: Qualified Codes: S31.109A - Unspecified open wound of abdominal wall, unspecified quadrant without penetration into peritoneal cavity, initial encounter (6) appendicitis s/p open appendectomy Status: progressing Status Narrative Discussed with Dr. Lindo. Assessment/Plan post operative ileus diet per surgical recs pain mgmt ppi electrolyte correction >> fluid restriction zofran fu labs Subjective Gastrointestinal/Abdominal: Reports: abdominal pain Subjective RLQ Pain 8/10 Objective Last 24 Hour Vital Signs Date Time Temp Pulse Resp B/P (MAP) Pulse Ox O2 Delivery O2 Flow Rate FiO2 10/09/17 10:27 151/73 10/09/17 08:52 67 151/73 10/09/17 08:35 97.7 67 18 151/73 (99) 97 97.7 10/09/17 08:00 97.7 66 18 91/56 (68) 97 97.7 10/09/17 04:00 64 10/09/17 04:00 97.8 66 19 124/56 (78) 96 97.8 10/09/17 00:00 62 10/09/17 00:00 97.7 61 20 133/66 (88) 100 97.7 10/08/17 20:39 70 163/77 10/08/17 20:01 Room Air 10/08/17 20:00 68 10/08/17 20:00 97.8 70 19 163/77 (105) 100 97.8 10/08/17 16:00 97.6 76 20 126/87 (100) 98 97.6 10/08/17 16:00 61 10/08/17 12:00 62 10/08/17 12:00 98.5 70 18 134/81 (98) 98 98.5 Intake and Output 10/08/17 10/09/17 19:00 07:00 Intake Total 220 ml Balance 220 ml Intake Oral 220 ml # Voids 2 3 # Bowel Movements 1 Laboratory Tests Test 10/09/17 06:33 Sodium Level 129 MMOL/L (136-145) L Potassium Level 3.6 MMOL/L (3.5-5.1) Chloride Level 95 MMOL/L (98-107) L Carbon Dioxide Level 25 MMOL/L (21-32) Anion Gap 9 mmol/L (5-15) Blood Urea Nitrogen 14 mg/dL (7-18) Creatinine 2.6 MG/DL (0.55-1.30) H Estimat Glomerular Filtration Rate 18.9 mL/min (>60) Glucose Level 101 MG/DL (74-106) Calcium Level 7.9 MG/DL (8.5-10.1) L Height (Feet): 5 Height (Inches): 2.00 Weight (Pounds): 210 General Appearance: WD/WN, no apparent distress, alert Cardiovascular: normal rate Respiratory/Chest: normal breath sounds, no respiratory distress Abdominal Exam: normal bowel sounds, non tender, soft, incision site - surgical wound with vac Extremities: normal range of motion, non-tender Melissa Boss MEDICAL RADIATION TECH Oct 09, 2017 10:42
[2017-10-09] MEDS ORDERED: Tubing IV Secondary IV ONE (11:04)
[2017-10-09] MEDS ORDERED: D5NS 1000ml IV ONE (11:04)
[2017-10-09] MEDS: Aztreonam Inj 0.5 GM in D5W 55 ML IVPB SCH ×2 (11:56→23:40)
[2017-10-09 13:28] LABS: BASOPHILS % (AUTO) 0.8 % (0.0-2.0); EOSINOPHILS % (AUTO) 12.8 % (0.0-3.0); HEMATOCRIT 27.8 % (37.0-47.0); HEMOGLOBIN 8.8 G/DL (12.0-16.0); LYMPHOCYTES % (AUTO) 16.1 % (20.0-45.0); MEAN CORPUSCULAR VOLUME 88 FL (80-99); MONOCYTES % (AUTO) 7.4 % (1.0-10.0); NEUTROPHILS % (AUTO) 62.9 % (45.0-75.0); PLATELET COUNT 419 K/UL (150-450); RED BLOOD COUNT 3.15 M/UL (4.20-5.40); RED CELL DISTRIBUTION WIDTH 16.4 % (11.6-14.8); WHITE BLOOD COUNT 12.5 K/UL (4.8-10.8)
--- NOTE | 2017-10-09 13:32 | Cardiology Progress Note ---
Assessment/Plan Status: stable, tolerating diet Assessment/Plan Assessment: 1. Chest pain 2. h/o recent 2V CABG and PCI 3. Open wound to chest with stent removal 4. Sepsis 5. ESRD on HD (M/F) 6. DM with neuropathy 7. HTN 8. HLD 9. Anemia 10. VIK 11. Diastolic heart failure Plan Serial troponin, no indication for cath at this time, elevation likely from infection and ESRD CT A/P, surgical consult appreciated -s/p wound vac placement and debridement - plan for change out on monday Will need to arrange outpatient wound vac and home health for antibiotics Maintain HD per nephrology Fluids restriction for hyponatremia Continue IV abx Follow Cultures Continue aspirin Continue atorvastatin Continue home medications, coreg, isordil, losartan Outpatient stress test to evaluate status of stent and bypass grafts, currently no chest pain Subjective Cardiovascular: Reports: no symptoms Respiratory: Reports: no symptoms Gastrointestinal/Abdominal: Reports: no symptoms Genitourinary: Reports: no symptoms Subjective Pt is resting in the bed. No s/s distress. Wound vacuum is connected on the abdominal area, no leakage. IV antibiotic med is running, plan for vac change on monday, She has ambulated, tolerating clears, vitals stable Objective Last 24 Hour Vital Signs Date Time Temp Pulse Resp B/P (MAP) Pulse Ox O2 Delivery O2 Flow Rate FiO2 10/09/17 10:27 151/73 10/09/17 09:00 Room Air 10/09/17 08:52 67 151/73 10/09/17 08:35 97.7 67 18 151/73 (99) 97 97.7 10/09/17 08:00 67 10/09/17 08:00 97.7 66 18 91/56 (68) 97 97.7 10/09/17 04:00 64 10/09/17 04:00 97.8 66 19 124/56 (78) 96 97.8 10/09/17 00:00 62 10/09/17 00:00 97.7 61 20 133/66 (88) 100 97.7 10/08/17 20:39 70 163/77 10/08/17 20:01 Room Air 10/08/17 20:00 68 10/08/17 20:00 97.8 70 19 163/77 (105) 100 97.8 10/08/17 16:00 97.6 76 20 126/87 (100) 98 97.6 10/08/17 16:00 61 General Appearance: no apparent distress EENT: PERRL/EOMI Neck: non-tender Rhythm: NSR Cardiovascular: normal peripheral pulses Respiratory/Chest: chest wall non-tender Abdomen: normal bowel sounds Extremities: normal range of motion 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 normal Intake and Output 10/08/17 10/09/17 19:00 07:00 Intake Total 220 ml Balance 220 ml Intake Oral 220 ml # Voids 2 3 # Bowel Movements 1 Laboratory Tests Test 10/09/17 06:33 White Blood Count 12.5 K/UL (4.8-10.8) H Red Blood Count 3.15 M/UL (4.20-5.40) L Hemoglobin 8.8 G/DL (12.0-16.0) L Hematocrit 27.8 % (37.0-47.0) L Mean Corpuscular Volume 88 FL (80-99) Mean Corpuscular Hemoglobin 27.8 PG (27.0-31.0) Mean Corpuscular Hemoglobin Concent 31.6 G/DL (32.0-36.0) L Red Cell Distribution Width 16.4 % (11.6-14.8) H Platelet Count 419 K/UL (150-450) Mean Platelet Volume 4.1 FL (6.5-10.1) L Neutrophils (%) (Auto) 62.9 % (45.0-75.0) Lymphocytes (%) (Auto) 16.1 % (20.0-45.0) L Monocytes (%) (Auto) 7.4 % (1.0-10.0) Eosinophils (%) (Auto) 12.8 % (0.0-3.0) H Basophils (%) (Auto) 0.8 % (0.0-2.0) Sodium Level 129 MMOL/L (136-145) L Potassium Level 3.6 MMOL/L (3.5-5.1) Chloride Level 95 MMOL/L (98-107) L Carbon Dioxide Level 25 MMOL/L (21-32) Anion Gap 9 mmol/L (5-15) Blood Urea Nitrogen 14 mg/dL (7-18) Creatinine 2.6 MG/DL (0.55-1.30) H Estimat Glomerular Filtration Rate 18.9 mL/min (>60) Glucose Level 101 MG/DL (74-106) Calcium Level 7.9 MG/DL (8.5-10.1) L Quirino Capps M.D. Oct 09, 2017 13:32
--- NOTE | 2017-10-09 13:49 | General Surgery Progress Note ---
General Surgery-Progress Note Subjective Procedure Performed 1. Excisional debridement of abdominal wall soft tissue and fascia 2. drainage of abdominal wall abscess 3. opening of prior abdominal wall closure 4. diagnostic laparoscopy 5. open appendectomy 6. wound vac placement to large complex abdominal wall wound Additional Comments intermittent nausea. no emesis. +BM's Objective Last 24 Hour Vital Signs Date Time Temp Pulse Resp B/P (MAP) Pulse Ox O2 Delivery O2 Flow Rate FiO2 10/09/17 10:27 151/73 10/09/17 09:00 Room Air 10/09/17 08:52 67 151/73 10/09/17 08:35 97.7 67 18 151/73 (99) 97 97.7 10/09/17 08:00 67 10/09/17 08:00 97.7 66 18 91/56 (68) 97 97.7 10/09/17 04:00 64 10/09/17 04:00 97.8 66 19 124/56 (78) 96 97.8 10/09/17 00:00 62 10/09/17 00:00 97.7 61 20 133/66 (88) 100 97.7 10/08/17 20:39 70 163/77 10/08/17 20:01 Room Air 10/08/17 20:00 68 10/08/17 20:00 97.8 70 19 163/77 (105) 100 97.8 10/08/17 16:00 97.6 76 20 126/87 (100) 98 97.6 10/08/17 16:00 61 I&O Intake and Output 10/08/17 10/09/17 19:00 07:00 Intake Total 220 ml Balance 220 ml Intake Oral 220 ml # Voids 2 3 # Bowel Movements 1 Wound: clean Drains: wound vac Cardiovascular: RSR Respiratory: clear Abdomen: soft, non-tender, present bowel sounds Extremities: no cyanosis Laboratory Tests Test 10/09/17 06:33 White Blood Count 12.5 K/UL (4.8-10.8) H Red Blood Count 3.15 M/UL (4.20-5.40) L Hemoglobin 8.8 G/DL (12.0-16.0) L Hematocrit 27.8 % (37.0-47.0) L Mean Corpuscular Volume 88 FL (80-99) Mean Corpuscular Hemoglobin 27.8 PG (27.0-31.0) Mean Corpuscular Hemoglobin Concent 31.6 G/DL (32.0-36.0) L Red Cell Distribution Width 16.4 % (11.6-14.8) H Platelet Count 419 K/UL (150-450) Mean Platelet Volume 4.1 FL (6.5-10.1) L Neutrophils (%) (Auto) 62.9 % (45.0-75.0) Lymphocytes (%) (Auto) 16.1 % (20.0-45.0) L Monocytes (%) (Auto) 7.4 % (1.0-10.0) Eosinophils (%) (Auto) 12.8 % (0.0-3.0) H Basophils (%) (Auto) 0.8 % (0.0-2.0) Sodium Level 129 MMOL/L (136-145) L Potassium Level 3.6 MMOL/L (3.5-5.1) Chloride Level 95 MMOL/L (98-107) L Carbon Dioxide Level 25 MMOL/L (21-32) Anion Gap 9 mmol/L (5-15) Blood Urea Nitrogen 14 mg/dL (7-18) Creatinine 2.6 MG/DL (0.55-1.30) H Estimat Glomerular Filtration Rate 18.9 mL/min (>60) Glucose Level 101 MG/DL (74-106) Calcium Level 7.9 MG/DL (8.5-10.1) L Assessment Post-op Diagnosis 1. abdominal wall abscess 2. dehiscence of abdominal wall wound 3. appendicitis Plan Problems: (1) Open abdominal wall wound (2) Abdominal wall abscess at site of surgical wound (3) Wound, open, abdominal wall, anterior with complication Assessment & Plan: large prior abdominal surgical wound that in portions skin has come together but underlying large area of open fluid collection with possible pockets of abscess. larger epigastric wound seems to connect with lower aspect small wound. lots of murky fluid evacuated, wound deep and tracking in all directions. per patient they have only been placing a small cover on wounds and no packing has been performed. had wound VAC prior but only for 3 days as per patient. I fear that there is something much larger and more serious going underneath the skin and with drainage and looks of wound they are only worsening. CT reviewed and noted. fortunately no large abscess but can note tracking of wound As for possible appendicitis, noted 1cm appendix with stranding on CT. clinically patient has generalized abdominal pain and not focal to RLQ. she has had generalized abdominal pain for some time now and likely related to large wound. no n/v/f/c. leukocytosis 18k but can be related to multiple etiologies. leukocytosis stable... overall improving. s/p wound exploration, debridement, open appendectomy, wound vac placement. -wound vac care -ambulate and out of bed -diet as tolerated -abx -discharge planning. unlikely to go home. consider long-term thank you for this consultation Darrius Figueredo Oct 09, 2017 13:49
--- NOTE | 2017-10-09 14:44 | General Progress Note ---
Assessment/Plan Status: stable Assessment/Plan 1. Anemia due to underlying kidney disease. --> Continue to closely monitor for improvement. --> Anemia panel has been reviewed, will trend daily. --> Hgb goal >7 2. Anemia due to underlying chronic disease. --> Closely monitor for improvement. --> 10/05: 1 unit PRBC. 3. Leukocytosis, potentially secondary to sternotomy wire infection. --> Consider evaluation with ID Service. --> WBC improving 4. Diabetes mellitus. A1c goal less than 6. 5. Hypertension. Systolic blood pressure goal less than 140. 6. End-stage renal disease, on hemodialysis. Closely monitor. 7. Myocardial infarction, status post 12 stent placements, status post coronary artery bypass grafting. The time the note was entered does not necessarily correspond to the time the patient was seen. Subjective Date patient seen: Oct 09, 2017 ROS Limited/Unobtainable: Yes Hematologic/Lymphatic: Reports: anemia Allergies: Coded Allergies: ADHESIVE (Verified Allergy, Unknown, 09/29/17) AMLODIPINE (Verified Allergy, Unknown, 09/29/17) INSULIN ASPART (Verified Allergy, Unknown, 09/29/17) INSULIN LISPRO (Verified Allergy, Unknown, 09/29/17) IODINE (Verified Allergy, Unknown, 09/29/17) PENICILLINS (Verified Allergy, Unknown, 09/29/17) All Systems: reviewed and negative except above Subjective Pt awake and alert. No acute events. Vitals are stable. H/H stable. DC planning. Objective Last 24 Hour Vital Signs Date Time Temp Pulse Resp B/P (MAP) Pulse Ox O2 Delivery O2 Flow Rate FiO2 10/09/17 14:30 98.1 63 18 128/65 (86) 96 98.1 10/09/17 10:27 151/73 10/09/17 09:00 Room Air 10/09/17 08:52 67 151/73 10/09/17 08:35 97.7 67 18 151/73 (99) 97 97.7 10/09/17 08:00 67 10/09/17 08:00 97.7 66 18 91/56 (68) 97 97.7 10/09/17 04:00 64 10/09/17 04:00 97.8 66 19 124/56 (78) 96 97.8 10/09/17 00:00 62 10/09/17 00:00 97.7 61 20 133/66 (88) 100 97.7 10/08/17 20:39 70 163/77 10/08/17 20:01 Room Air 10/08/17 20:00 68 10/08/17 20:00 97.8 70 19 163/77 (105) 100 97.8 10/08/17 16:00 97.6 76 20 126/87 (100) 98 97.6 10/08/17 16:00 61 Intake and Output 10/08/17 10/09/17 19:00 07:00 Intake Total 220 ml Balance 220 ml Intake Oral 220 ml # Voids 2 3 # Bowel Movements 1 Laboratory Tests 10/09/17 06:33: White Blood Count 12.5H, Red Blood Count 3.15L, Hemoglobin 8.8L, Hematocrit 27.8L, Mean Corpuscular Volume 88, Mean Corpuscular Hemoglobin 27.8, Mean Corpuscular Hemoglobin Concent 31.6L, Red Cell Distribution Width 16.4H, Platelet Count 419, Mean Platelet Volume 4.1L, Neutrophils (%) (Auto) 62.9, Lymphocytes (%) (Auto) 16.1L, Monocytes (%) (Auto) 7.4, Eosinophils (%) (Auto) 12.8H, Basophils (%) (Auto) 0.8, Sodium Level 129L, Potassium Level 3.6, Chloride Level 95L, Carbon Dioxide Level 25, Anion Gap 9, Blood Urea Nitrogen 14 , Creatinine 2.6H, Estimat Glomerular Filtration Rate 18.9, Glucose Level 101, Calcium Level 7.9L Height (Feet): 5 Height (Inches): 2.00 Weight (Pounds): 210 General Appearance: no apparent distress, alert EENT: normal ENT inspection Neck: normal alignment Cardiovascular: normal peripheral pulses Respiratory/Chest: no respiratory distress Abdomen: soft Lalito Cole MD Oct 09, 2017 14:44
[2017-10-09] MEDS ORDERED: traMADol 50mg tab ORAL PRN (15:00)
--- NOTE | 2017-10-09 15:40 | General Progress Note ---
Assessment/Plan Problem List: (1) Sepsis ICD Codes: A41.9 - Sepsis, unspecified organism SNOMED: 71894665 (2) Anemia ICD Codes: D64.9 - Anemia, unspecified SNOMED: 137300973, 089169302 Qualifiers: Qualified Codes: D64.9 - Anemia, unspecified (3) ESRD on hemodialysis ICD Codes: N18.6 - End stage renal disease; Z99.2 - Dependence on renal dialysis SNOMED: 783905598, 84139346 (4) Morbid obesity with BMI of 40.0-44.9, adult ICD Codes: E66.01 - Morbid (severe) obesity due to excess calories; Z68.41 - Body mass index (BMI) 40.0-44.9, adult SNOMED: 982079148, 616860312 (5) Chest pain ICD Codes: R07.9 - Chest pain, unspecified SNOMED: 23636840 (6) Wound, open, abdominal wall, anterior with complication ICD Codes: S31.109A - Unspecified open wound of abdominal wall, unspecified quadrant without penetration into peritoneal cavity, initial encounter SNOMED: 106516746 Qualifiers: Qualified Codes: S31.109A - Unspecified open wound of abdominal wall, unspecified quadrant without penetration into peritoneal cavity, initial encounter (7) Abdominal wall abscess at site of surgical wound ICD Codes: T81.4XXA - Infection following a procedure, initial encounter SNOMED: 724286741 (8) Open abdominal wall wound ICD Codes: S31.109A - Unspecified open wound of abdominal wall, unspecified quadrant without penetration into peritoneal cavity, initial encounter SNOMED: 203410546 Qualifiers: Qualified Codes: S31.109A - Unspecified open wound of abdominal wall, unspecified quadrant without penetration into peritoneal cavity, initial encounter (9) Hypokalemia ICD Codes: E87.6 - Hypokalemia SNOMED: 30673649 (10) Hyponatremia ICD Codes: E87.1 - Hypo-osmolality and hyponatremia SNOMED: 44258366 (11) appendicitis s/p open appendectomy (12) s/p wound exploration and debridement (13) Acute blood loss anemia ICD Codes: D62 - Acute posthemorrhagic anemia SNOMED: 941133418 (14) Diastolic CHF ICD Codes: I50.30 - Unspecified diastolic (congestive) heart failure SNOMED: 13084185, 892433246 (15) VIK (obstructive sleep apnea) ICD Codes: G47.33 - Obstructive sleep apnea (adult) (pediatric) SNOMED: 91617687 (16) Postoperative ileus ICD Codes: K91.89 - Other postprocedural complications and disorders of digestive system; K56.7 - Ileus, unspecified SNOMED: 380742396 Status: stable, progressing Assessment/Plan Assessment: 1. Chest pain 2. h/o recent 2V CABG c/b stent infection s/p stent removal and abx 3. Open wound to chest/abdomen s/p stent removal 4. Sepsis 5. ESRD on HD (M/F) 6. DM 7. HTN 8. Hyponatremia/Hypokalemia 9. Acute blood loss anemia 10. Appendicitis s/p open appendectomy 11. Abdominal wound s/p wound exploration and debridement on 10/02 12. VIK 13. 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 Postoperative ileus Plan: - Cardiology, general surgery, nephrology, GI, and ID consulted - s/p wound exploration and debridement, and open appendectomy with wound vac, POD#7 - f/u wound culture -- VRE - s/p 1 unit pRBC transfusion on 10/03 - F/u CT a/p to visualize extent of abscess - concerns for early appendicitis but asymptomatic - Trend EKG/trops -- ACS ruled out - IV flagyl, aztreonam (D7), start linezolid (D1) - HD per nephro (M/F) with 1.5L per session - Continue home meds. - Continue humulin R for SSi - Monitor electrolytes and replete - Monitor CBC - Wound care - PT/OT - Pain control and supportive care - KUB showed ileus vs. early/partial SBO. had bowel movement today and continues to c/o n/v. start CLD and ADAT. decrease narcotics. GI rec's appreciated. repeat KUB Wound vac exchange to be done on Monday DC planning once HH is arranged DVT Prophylaxis: SCD, HSQ Code Status: Full Hospital Classification Declaration: Based on this initial evaluation, and depending on the patient's clinical course, I anticipate that this patient will require hospitalization for 3-5 days for sepsis, chest pain and close respiratory/hemodynamic monitoring. Disposition: Once the patient is stable to leave the hospital, I anticipate the patient will likely be discharged to the following environment: [facility] I spent 32 minutes on this patient's case, and 22 minutes were dedicated to counseling and/or care coordination. Discussed with patient/family, nursing staff, SW/CM, and all consultants as above regarding clinical status, treatment course, and disposition planning. Subjective Date patient seen: Oct 09, 2017 Allergies: Coded Allergies: ADHESIVE (Verified Allergy, Unknown, 09/29/17) AMLODIPINE (Verified Allergy, Unknown, 09/29/17) INSULIN ASPART (Verified Allergy, Unknown, 09/29/17) INSULIN LISPRO (Verified Allergy, Unknown, 09/29/17) IODINE (Verified Allergy, Unknown, 09/29/17) PENICILLINS (Verified Allergy, Unknown, 09/29/17) Subjective - s/p exploratory debridement with open appendectomy and wound vac placement, POD#7 - AF, HDS - continues to have nausea but no vomiting. had bowel movement today Objective Last 24 Hour Vital Signs Date Time Temp Pulse Resp B/P (MAP) Pulse Ox O2 Delivery O2 Flow Rate FiO2 10/09/17 14:30 98.1 63 18 128/65 (86) 96 98.1 10/09/17 12:00 97.4 67 18 140/67 (91) 99 97.4 10/09/17 10:27 151/73 10/09/17 09:00 Room Air 10/09/17 08:52 67 151/73 10/09/17 08:35 97.7 67 18 151/73 (99) 97 97.7 10/09/17 08:00 67 10/09/17 08:00 97.7 66 18 91/56 (68) 97 97.7 10/09/17 04:00 64 10/09/17 04:00 97.8 66 19 124/56 (78) 96 97.8 10/09/17 00:00 62 10/09/17 00:00 97.7 61 20 133/66 (88) 100 97.7 10/08/17 20:39 70 163/77 10/08/17 20:01 Room Air 10/08/17 20:00 68 10/08/17 20:00 97.8 70 19 163/77 (105) 100 97.8 10/08/17 16:00 97.6 76 20 126/87 (100) 98 97.6 10/08/17 16:00 61 Intake and Output 10/08/17 10/09/17 19:00 07:00 Intake Total 220 ml Balance 220 ml Intake Oral 220 ml # Voids 2 3 # Bowel Movements 1 Laboratory Tests 10/09/17 06:33: White Blood Count 12.5H, Red Blood Count 3.15L, Hemoglobin 8.8L, Hematocrit 27.8L, Mean Corpuscular Volume 88, Mean Corpuscular Hemoglobin 27.8, Mean Corpuscular Hemoglobin Concent 31.6L, Red Cell Distribution Width 16.4H, Platelet Count 419, Mean Platelet Volume 4.1L, Neutrophils (%) (Auto) 62.9, Lymphocytes (%) (Auto) 16.1L, Monocytes (%) (Auto) 7.4, Eosinophils (%) (Auto) 12.8H, Basophils (%) (Auto) 0.8, Sodium Level 129L, Potassium Level 3.6, Chloride Level 95L, Carbon Dioxide Level 25, Anion Gap 9, Blood Urea Nitrogen 14 , Creatinine 2.6H, Estimat Glomerular Filtration Rate 18.9, Glucose Level 101, Calcium Level 7.9L Height (Feet): 5 Height (Inches): 2.00 Weight (Pounds): 210 General Appearance: no apparent distress, alert EENT: PERRL/EOMI, normal ENT inspection Neck: non-tender, normal alignment, supple Cardiovascular: normal peripheral pulses, normal rate, regular rhythm Respiratory/Chest: lungs clear, normal breath sounds Abdomen: normal bowel sounds, non tender, soft, other - surgical incision c/d/ i wound vac in place Extremities: normal range of motion, non-tender 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
--- NOTE | 2017-10-09 15:50 | Diagnostic Imaging Report ---
Indication: Abdominal pain. Technique: XRAY Abdomen 1v Comparison: 10/05/2017 Findings: Again, body habitus limits evaluation. Nonspecific bowel gas pattern with air predominantly in colonic loops. No differential air-fluid levels or abnormally air distended loops of small bowel seen. Degenerative change of the spine and hips noted. Impression: Nonspecific bowel gas pattern with air predominantly in colonic loops, which do not appear dilated. Most sensitive evaluation with CT of the abdomen with IV and oral contrast can be obtained for further evaluation as clinically indicated.
[2017-10-09] MEDS ORDERED: Hydromorphone 0.5mg/0.5ml inj IVP PRN (16:00)
--- NOTE | 2017-10-09 16:23 | Infectious Diseases Prog Note ---
Assessment/Plan Assessment/Plan ASSESSMENT AND PLAN: 1. abdominal wall wound infection/abscess, sepsis, appendicitis, leukocytosis, ? ileus/sbo but with bowel movement - s/p debridement - s/p appendectomy - wound culture with VRE, likely polymicrobial - leukocytosis improved overall - continue zyvox, aztreonam, flagyl for now - blood cultures negative - monitor labs - wound vac, wound care per surgery 2. End-stage renal disease, on hemodialysis, has hemodialysis line. 3. Anemia. 4. Diabetes. 5. Hypertension. 6. Possible hyperlipidemia. 7. Blood sugar and blood pressure treatment per primary. 8. Chest pain treatment per Cardiology. 9. History of coronary artery disease, coronary artery bypass graft, and stent placement, status post stent removal and intravenous antibiotics for infected stent looks like. 10. Obesity. 11. Allergies to adhesive tape, amlodipine, insulin, iodine, and penicillins. 12. Social history is negative. 13. Family history is noncontributory. 14. MAR was noted. 15. Case was discussed with RN. 16. Case was discussed with the patient and the patient's family. 17. Continue treatment per primary consultants. 18. Notes and records were noted. 19. Orders were entered. 20. d/w family Subjective Constitutional: Denies: fever HEENT: Denies: congestion Respiratory: Denies: shortness of breath Cardiovascular: Denies: chest pain Gastrointestinal/Abdominal: Denies: nausea, vomiting, diarrhea Genitourinary: Reports: other - no benito Neurologic: Denies: headache Psychiatric: Denies: depression Skin: Denies: rash Hematologic: Denies: bleeding Musculoskeletal: Denies: pain Allergies: Coded Allergies: ADHESIVE (Verified Allergy, Unknown, 09/29/17) AMLODIPINE (Verified Allergy, Unknown, 09/29/17) INSULIN ASPART (Verified Allergy, Unknown, 09/29/17) INSULIN LISPRO (Verified Allergy, Unknown, 09/29/17) IODINE (Verified Allergy, Unknown, 09/29/17) PENICILLINS (Verified Allergy, Unknown, 09/29/17) Objective Vital Signs Last 24 Hour Vital Signs Date Time Temp Pulse Resp B/P (MAP) Pulse Ox O2 Delivery O2 Flow Rate FiO2 10/09/17 15:45 98.1 64 18 145/69 (94) 97 98.1 7/23/18 14:30 98.1 63 18 128/65 (86) 96 98.1 10/09/17 12:00 97.4 67 18 140/67 (91) 99 97.4 10/09/17 10:27 151/73 10/09/17 09:00 Room Air 10/09/17 08:52 67 151/73 10/09/17 08:35 97.7 67 18 151/73 (99) 97 97.7 10/09/17 08:00 67 10/09/17 08:00 97.7 66 18 91/56 (68) 97 97.7 10/09/17 04:00 64 10/09/17 04:00 97.8 66 19 124/56 (78) 96 97.8 10/09/17 00:00 62 10/09/17 00:00 97.7 61 20 133/66 (88) 100 97.7 10/08/17 20:39 70 163/77 10/08/17 20:01 Room Air 10/08/17 20:00 68 10/08/17 20:00 97.8 70 19 163/77 (105) 100 97.8 Height (Feet): 5 Height (Inches): 2.00 Weight (Pounds): 210 General Appearance: no acute distress HEENT: normocephalic, atraumatic, anicteric, mucous membranes moist Respiratory/Chest: lungs clear, normal breath sounds, no respiratory distress, no accessory muscle use Cardiovascular: normal rate, regular rhythm, no gallop/murmur, no JVD Abdomen: normal bowel sounds, soft, non tender, no organomegaly, non distended , other - wound vac noted, no cellulitis Genitourinary: other - no benito Extremities: no cyanosis Skin: no rash 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 Heart: Cardiomegaly. ABDOMEN: Liver: Unremarkable. Gallbladder and bile ducts: See below. Pancreas: Unremarkable. Spleen: Unremarkable. Adrenals: Unremarkable. Kidneys and ureters: Unremarkable. No hydronephrosis. Stomach and bowel: No zechariah mural thickening. Nonobstructive bowel gas pattern. PELVIS: Appendix: Appendicitis. Appendix measures 1 cm with mild surrounding stranding. Bladder: Unremarkable. Reproductive: Enlarged and heterogeneous right ovary. Ultrasound cannot further characterize as warranted. ABDOMEN and PELVIS: Intraperitoneal space: Unremarkable. Bones/joints: No acute fracture. Soft tissues: Patchy subcutaneous edema and abdominal wound. Small foci of fluid and air in the abdominal wall. Vasculature: Vascular calcification or a stone in the biliary system. No abdominal aortic aneurysm. Lymph nodes: No enlarged lymph nodes. IMPRESSION: Appendicitis. Appendix measures 1 cm with mild surrounding stranding. Chest - x-ray - pvc (report noted) 10/03 - Chest x-ray - nad (report noted) 10/06 - abdominal x-ray - Impression: Very limited exam, as described Mildly dilated left upper quadrant small bowel loops. Could indicate ileus or early/partial small bowel obstruction. Favor the former, as there is evidence of transit of previously ingested contrast into the distal colon Dictated By: Tereso Sheriff MD Microbiology Date/Time Source Procedure Growth Status 09/29/17 20:30 Blood Blood Culture - Final NO GROWTH AFTER 5 DAYS Complete 09/29/17 04:30 Nasal Nares MRSA Culture - Final NO METHICILLIN RESISTANT STAPH AUREUS... Complete 10/02/17 18:30 Abdominal Abscess Anaerobic Culture - Final NO ANAEROBES ISOLATED Complete Laboratory Tests Test 10/09/17 06:33 White Blood Count 12.5 K/UL (4.8-10.8) H Red Blood Count 3.15 M/UL (4.20-5.40) L Hemoglobin 8.8 G/DL (12.0-16.0) L Hematocrit 27.8 % (37.0-47.0) L Mean Corpuscular Volume 88 FL (80-99) Mean Corpuscular Hemoglobin 27.8 PG (27.0-31.0) Mean Corpuscular Hemoglobin Concent 31.6 G/DL (32.0-36.0) L Red Cell Distribution Width 16.4 % (11.6-14.8) H Platelet Count 419 K/UL (150-450) Mean Platelet Volume 4.1 FL (6.5-10.1) L Neutrophils (%) (Auto) 62.9 % (45.0-75.0) Lymphocytes (%) (Auto) 16.1 % (20.0-45.0) L Monocytes (%) (Auto) 7.4 % (1.0-10.0) Eosinophils (%) (Auto) 12.8 % (0.0-3.0) H Basophils (%) (Auto) 0.8 % (0.0-2.0) Sodium Level 129 MMOL/L (136-145) L Potassium Level 3.6 MMOL/L (3.5-5.1) Chloride Level 95 MMOL/L (98-107) L Carbon Dioxide Level 25 MMOL/L (21-32) Anion Gap 9 mmol/L (5-15) Blood Urea Nitrogen 14 mg/dL (7-18) Creatinine 2.6 MG/DL (0.55-1.30) H Estimat Glomerular Filtration Rate 18.9 mL/min (>60) Glucose Level 101 MG/DL (74-106) Calcium Level 7.9 MG/DL (8.5-10.1) L Current Medications Medications (Trade) Dose Ordered Sig/Fidelia Route PRN Reason Start Time Stop Time Status Last Admin Dose Admin Acetaminophen (Tylenol) 650 mg Q4H PRN ORAL fever 10/09/17 15:45 10/29/17 07:44 Acetaminophen/ Hydrocodone Bitart ([place] 5/325) 1 tab Q4H PRN ORAL Moderate Pain (Pain Scale 4-6) 10/09/17 17:15 10/16/17 17:14 Al Hydroxide/Mg Hydroxide (Mylanta) 15 ml Q6H PRN ORAL DYSPEPSIA 10/09/17 17:15 11/01/17 17:01 Atorvastatin Calcium (Lipitor) 40 mg BEDTIME ORAL 10/09/17 21:00 10/29/17 20:59 Aztreonam 0.5 gm/ Dextrose 55 ml @ 110 mls/hr Q12H IVPB 10/10/17 00:00 10/15/17 00:00 Bisacodyl (Dulcolax) 10 mg HSPRN PRN RECTAL Constipation 10/10/17 07:45 10/29/17 07:44 Carvedilol (Coreg) 25 mg EVERY 12 HOURS ORAL 10/09/17 21:00 11/01/17 20:59 Dextrose (Dextrose 50%) 25 ml STAT PRN IV Hypoglycemia 10/10/17 07:45 10/29/17 07:44 Dextrose (Dextrose 50%) 50 ml STAT PRN IV Hypoglycemia 10/10/17 07:45 10/29/17 07:44 Diphenhydramine HCl (Benadryl) 12.5 mg Q6H PRN IVP Itching/Pruritis 10/09/17 17:15 11/01/17 17:01 Docusate Sodium (Colace) 100 mg EVERY 12 HOURS ORAL 10/09/17 21:00 10/29/17 08:59 Epoetin Perez (Procrit (for ESRD on dialysis)) 10,000 units MON-MON-MON SUBQ 10/09/17 21:00 11/03/17 20:59 Furosemide (Lasix) 80 mg DAILY ORAL 10/10/17 09:00 11/04/17 08:59 Heparin Sodium (Porcine) (Heparin 5000 units/ml) 5,000 units EVERY 12 HOURS SUBQ 10/09/17 21:00 10/29/17 08:59 Hydromorphone HCl (Dilaudid) 0.5 mg Q3H PRN IVP Pain Score 1-3 10/09/17 16:00 10/16/17 15:59 Hydromorphone HCl (Dilaudid) 1 mg Q3H PRN IVP For Severe Pain(scale 7-10) 10/09/17 17:15 10/16/17 17:14 Insulin Human Regular (NovoLIN R) BS 70-110, then 0 units... AC+HS SUBQ 10/09/17 16:30 10/29/17 16:29 Lactulose (Cephulac) 20 gm THREE TIMES A DAY ORAL 10/09/17 18:00 11/04/17 08:59 Linezolid 300 ml @ 300 mls/hr Q12H IVPB 10/10/17 00:00 10/15/17 00:00 Losartan Potassium (Cozaar) 50 mg DAILY ORAL 10/10/17 09:00 11/02/17 08:59 Magnesium Hydroxide (Mom) 30 ml BIDPRN PRN ORAL Constipation 10/09/17 17:15 11/01/17 17:00 Metronidazole 100 ml @ 100 mls/hr Q8H IVPB 10/09/17 17:00 10/15/17 00:59 Morphine Sulfate (Morphine Sulfate) 4 mg Q4H PRN IVP For Moderate Pain(scale 4-6) 10/09/17 17:15 10/16/17 17:14 Nystatin (Nystop Powder) 1 applic TIDPRN PRN TOPIC Itching 10/09/17 16:45 11/07/17 16:44 Pantoprazole (Protonix) 40 mg ACBREAKFAST ORAL 10/10/17 06:30 11/04/17 08:59 Polyethylene Glycol (Miralax) 17 gm HSPRN PRN ORAL Constipation 10/10/17 07:45 10/29/17 07:44 Potassium Chloride (K-Dur) 40 meq DAILY ORAL 10/10/17 09:00 11/06/17 08:59 Promethazine HCl 25 mg/Sodium Chloride 56 ml @ 112 mls/hr Q8H PRN IVPB Nausea & Vomiting 10/09/17 21:00 11/05/17 12:59 Tramadol HCl (Ultram) 50 mg Q6H PRN ORAL Mild Pain (Pain Scale 1-3) 10/09/17 15:00 10/12/17 08:59 Zolpidem Tartrate (Ambien) 5 mg HSPRN PRN ORAL Insomnia 10/10/17 05:30 10/13/17 05:29 Jenniffer Strickland MD Oct 09, 2017 16:23
[2017-10-09] MEDS ORDERED: Nystatin Powder 100,000 units/gm 15gm TOPIC PRN (16:45)
[2017-10-09] MEDS ORDERED: HYDROmorphone 1mg/ml Carpuject IVP PRN (17:15)
[2017-10-09] MEDS ORDERED: DiphenhydrAMINE 50mg/ml Inj IVP PRN (17:15)
[2017-10-09] MEDS ORDERED: Morphine Sulfate 4mg/ml Inj (IV USE ONLY) IVP PRN (17:15)
[2017-10-09] MEDS ORDERED: Milk of Magnesia 30ml Ud ORAL PRN (17:15)
[2017-10-09] MEDS ORDERED: Norco 5mg/325mg tab ORAL PRN (17:15)
[2017-10-09] MEDS ORDERED: Epogen (for ESRD on dialysis) SUBQ SCH (21:00)
[2017-10-09] MEDS ORDERED: Promethazine HCl 25 MG in NS 55 ML IVPB PRN (21:00)
[2017-10-09] MEDS: Atorvastatin 20mg tab ORAL SCH (21:00)
[2017-10-10] VITALS: BP 148/67
[2017-10-10 04:00] VITALS: BP 148/62
[2017-10-10] MEDS ORDERED: Zolpidem 5mg tab ORAL PRN (05:30)
[2017-10-10] MEDS: Insulin Human Regular 100units/ml 3ml SUBQ SCH ×4 (06:09→21:00)
[2017-10-10 07:41] LABS: BASOPHILS % (AUTO) 1.2 % (0.0-2.0); EOSINOPHILS % (AUTO) 13.6 % (0.0-3.0); HEMATOCRIT 28.3 % (37.0-47.0); HEMOGLOBIN 9.1 G/DL (12.0-16.0); MEAN CORPUSCULAR VOLUME 87 FL (80-99); NEUTROPHILS % (AUTO) 61.3 % (45.0-75.0); PLATELET COUNT 457 K/UL (150-450); RED BLOOD COUNT 3.25 M/UL (4.20-5.40); RED CELL DISTRIBUTION WIDTH 16.5 % (11.6-14.8); WHITE BLOOD COUNT 11.4 K/UL (4.8-10.8)
[2017-10-10] MEDS ORDERED: Miralax 17gm pkt ORAL PRN (07:45)
[2017-10-10 07:57] LABS: ANION GAP 8 mmol/L (5-15); BLOOD UREA NITROGEN 18 mg/dL (7-18); CARBON DIOXIDE 27 MMOL/L (21-32); CHLORIDE 93 MMOL/L (98-107); CREATININE 2.8 MG/DL (0.55-1.30); POTASSIUM 3.8 MMOL/L (3.5-5.1); SODIUM 128 MMOL/L (136-145)
[2017-10-10 08:00] VITALS: BP 140/75
[2017-10-10 08:25] LABS: ALANINE AMINOTRANSFERASE 18 U/L (12-78); ALBUMIN 1.4 G/DL (3.4-5.0); ALBUMIN/GLOBULIN RATIO 0.3 (1.0-2.7); ALKALINE PHOSPHATASE 205 U/L (46-116); ANION GAP 8 mmol/L (5-15); ASPARTATE AMINO TRANSFERASE 29 U/L (15-37); BILIRUBIN,TOTAL 0.5 MG/DL (0.2-1.0); BLOOD UREA NITROGEN 18 mg/dL (7-18); CALCIUM 8.3 MG/DL (8.5-10.1); CARBON DIOXIDE 26 MMOL/L (21-32); CHLORIDE 95 MMOL/L (98-107); CREATININE 2.9 MG/DL (0.55-1.30); PHOSPHORUS 3.4 MG/DL (2.5-4.9); POTASSIUM 3.9 MMOL/L (3.5-5.1); SODIUM 129 MMOL/L (136-145)
[2017-10-10] MEDS: Heparin 5000 units/ml inj SUBQ SCH ×2 (08:36→20:33)
[2017-10-10] MEDS: Carvedilol 25mg Tab ORAL SCH ×2 (08:36→20:32)
[2017-10-10] MEDS: Lactulose 20gm/30ml UDC ORAL SCH ×4 (08:37→16:55)
[2017-10-10] MEDS: Losartan 50mg tab ORAL SCH (08:37)
[2017-10-10] MEDS: Docusate 100mg cap ORAL SCH ×2 (08:37→20:26)
[2017-10-10] MEDS: Furosemide 80mg tab ORAL SCH (08:39)
--- NOTE | 2017-10-10 08:57 | Nephrology Progress Note ---
Assessment/Plan Assessment/Plan 1. ESRD- Had HD Sat. Will hold HD for now and monitor renal function - Cr 2.9 and Na 129 2. Hypokalemia- corrected 3. Anemia of CKD- EPO 3 x week 4. Abd Pain/Leukocytosis s/p Abd wound exploration and appy improving 5. Sepsis- per ID mgmt 6. Hyponatremia- po fluid restrict 1.2 L day - lasix 80mg qd - Na up to 129 Subjective Date patient seen: Oct 10, 2017 Time patient seen: 08:55 ROS Limited/Unobtainable: No Constitutional: Reports: weakness Gastrointestinal/Abdominal: Reports: nausea Allergies: Coded Allergies: ADHESIVE (Verified Allergy, Unknown, 09/29/17) AMLODIPINE (Verified Allergy, Unknown, 09/29/17) INSULIN ASPART (Verified Allergy, Unknown, 09/29/17) INSULIN LISPRO (Verified Allergy, Unknown, 09/29/17) IODINE (Verified Allergy, Unknown, 09/29/17) PENICILLINS (Verified Allergy, Unknown, 09/29/17) All Systems: reviewed and negative except above Subjective Patient feels tired and fatigued but slowly improving Objective Last 24 Hour Vital Signs Date Time Temp Pulse Resp B/P (MAP) Pulse Ox O2 Delivery O2 Flow Rate FiO2 10/10/17 08:37 140/75 10/10/17 08:36 68 140/75 10/10/17 08:00 98.0 68 18 140/75 (96) 98 98.0 10/10/17 04:00 98.2 68 19 148/62 (90) 96 98.2 10/10/17 00:00 98.4 69 20 148/67 (94) 96 98.4 10/09/17 21:03 72 135/73 10/09/17 21:00 Room Air 10/09/17 20:00 98.3 72 19 135/73 (93) 98 98.3 10/09/17 15:45 98.1 64 18 145/69 (94) 97 98.1 10/09/17 14:30 98.1 63 18 128/65 (86) 96 98.1 10/09/17 12:00 97.4 67 18 140/67 (91) 99 97.4 10/09/17 10:27 151/73 10/09/17 09:00 Room Air Intake and Output 10/09/17 10/10/17 19:00 07:00 Intake Total 260 ml 631 ml Balance 260 ml 631 ml Intake Oral 260 ml 120 ml IV Total 511 ml # Voids 2 Laboratory Tests 10/10/17 06:20: White Blood Count 11.4H, Red Blood Count 3.25L, Hemoglobin 9.1L, Hematocrit 28.3L, Mean Corpuscular Volume 87, Mean Corpuscular Hemoglobin 28.1, Mean Corpuscular Hemoglobin Concent 32.2, Red Cell Distribution Width 16.5H, Platelet Count 457H, Mean Platelet Volume 4.1L, Neutrophils (%) (Auto) 61.3, Lymphocytes (%) (Auto) 16.0L, Monocytes (%) (Auto) 8.0, Eosinophils (%) (Auto) 13.6H, Basophils (%) (Auto) 1.2, Sodium Level 129L, Potassium Level 3.9, Chloride Level 95L, Carbon Dioxide Level 26, Anion Gap 8, Blood Urea Nitrogen 18 , Creatinine 2.9H, Estimat Glomerular Filtration Rate 16.7, Glucose Level 81, Calcium Level 8.3L, Phosphorus Level 3.4, Magnesium Level 1.5L, Total Bilirubin 0.5, Aspartate Amino Transf (AST/SGOT) 29, Alanine Aminotransferase (ALT/SGPT) 18, Alkaline Phosphatase 205H, Total Protein 6.0L, Albumin 1.4L, Globulin 4.6, Albumin/Globulin Ratio 0.3L Height (Feet): 5 Height (Inches): 2.00 Weight (Pounds): 210 General Appearance: WD/WN, no apparent distress EENT: PERRL/EOMI Neck: non-tender, normal alignment Cardiovascular: normal peripheral pulses, normal rate Respiratory/Chest: chest wall non-tender, lungs clear Abdomen: normal bowel sounds, non tender Edema: no edema noted Arm (L), no edema noted Arm (R), no edema noted Leg (L), no edema noted Leg (R), no edema noted Pedal (L), no edema noted Pedal (R), no edema noted Generalized Aman Link M.D. Oct 10, 2017 08:57
--- NOTE | 2017-10-10 09:22 | General Progress Note ---
Assessment/Plan Status: stable Assessment/Plan 1. Anemia due to underlying kidney disease. --> Continue to closely monitor for improvement. --> Anemia panel has been reviewed, will trend daily. --> Hgb goal >7 2. Anemia due to underlying chronic disease. --> Closely monitor for improvement. --> 10/05: 1 unit PRBC. 3. Leukocytosis, potentially secondary to sternotomy wire infection. --> Consider evaluation with ID Service. --> WBC improving 4. Diabetes mellitus. A1c goal less than 6. 5. Hypertension. Systolic blood pressure goal less than 140. 6. End-stage renal disease, on hemodialysis. Closely monitor. 7. Myocardial infarction, status post 12 stent placements, status post coronary artery bypass grafting. The time the note was entered does not necessarily correspond to the time the patient was seen. Subjective Date patient seen: Oct 10, 2017 ROS Limited/Unobtainable: Yes Hematologic/Lymphatic: Reports: anemia Allergies: Coded Allergies: ADHESIVE (Verified Allergy, Unknown, 09/29/17) AMLODIPINE (Verified Allergy, Unknown, 09/29/17) INSULIN ASPART (Verified Allergy, Unknown, 09/29/17) INSULIN LISPRO (Verified Allergy, Unknown, 09/29/17) IODINE (Verified Allergy, Unknown, 09/29/17) PENICILLINS (Verified Allergy, Unknown, 09/29/17) All Systems: reviewed and negative except above Subjective Pt awake and alert. No acute events. Vitals are stable. H/H stable. DC planning. Objective Last 24 Hour Vital Signs Date Time Temp Pulse Resp B/P (MAP) Pulse Ox O2 Delivery O2 Flow Rate FiO2 10/10/17 09:00 Room Air 10/10/17 08:37 140/75 10/10/17 08:36 68 140/75 10/10/17 08:00 98.0 68 18 140/75 (96) 98 98.0 10/10/17 04:00 98.2 68 19 148/62 (90) 96 98.2 10/10/17 00:00 98.4 69 20 148/67 (94) 96 98.4 10/09/17 21:03 72 135/73 10/09/17 21:00 Room Air 10/09/17 20:00 98.3 72 19 135/73 (93) 98 98.3 7/23/18 15:45 98.1 64 18 145/69 (94) 97 98.1 10/09/17 14:30 98.1 63 18 128/65 (86) 96 98.1 10/09/17 12:00 97.4 67 18 140/67 (91) 99 97.4 10/09/17 10:27 151/73 Intake and Output 10/09/17 10/10/17 19:00 07:00 Intake Total 260 ml 631 ml Balance 260 ml 631 ml Intake Oral 260 ml 120 ml IV Total 511 ml # Voids 2 Laboratory Tests 10/10/17 06:20: White Blood Count 11.4H, Red Blood Count 3.25L, Hemoglobin 9.1L, Hematocrit 28.3L, Mean Corpuscular Volume 87, Mean Corpuscular Hemoglobin 28.1, Mean Corpuscular Hemoglobin Concent 32.2, Red Cell Distribution Width 16.5H, Platelet Count 457H, Mean Platelet Volume 4.1L, Neutrophils (%) (Auto) 61.3, Lymphocytes (%) (Auto) 16.0L, Monocytes (%) (Auto) 8.0, Eosinophils (%) (Auto) 13.6H, Basophils (%) (Auto) 1.2, Sodium Level 129L, Potassium Level 3.9, Chloride Level 95L, Carbon Dioxide Level 26, Anion Gap 8, Blood Urea Nitrogen 18 , Creatinine 2.9H, Estimat Glomerular Filtration Rate 16.7, Glucose Level 81, Calcium Level 8.3L, Phosphorus Level 3.4, Magnesium Level 1.5L, Total Bilirubin 0.5, Aspartate Amino Transf (AST/SGOT) 29, Alanine Aminotransferase (ALT/SGPT) 18, Alkaline Phosphatase 205H, Total Protein 6.0L, Albumin 1.4L, Globulin 4.6, Albumin/Globulin Ratio 0.3L Height (Feet): 5 Height (Inches): 2.00 Weight (Pounds): 210 General Appearance: no apparent distress, alert Neck: normal alignment Cardiovascular: normal peripheral pulses Respiratory/Chest: no respiratory distress Abdomen: soft Lalito Cole MD Oct 10, 2017 09:22
--- NOTE | 2017-10-10 09:55 | Cardiology Progress Note ---
Assessment/Plan Status: stable, progressing Assessment/Plan Assessment: 1. Chest pain 2. h/o recent 2V CABG and PCI 3. Open wound to chest with stent removal 4. Sepsis 5. ESRD on HD (M/F) 6. DM with neuropathy 7. HTN 8. HLD 9. Anemia 10. VIK 11. Diastolic heart failure Plan Serial troponin, no indication for cath at this time, elevation likely from infection and ESRD CT A/P, surgical consult appreciated -s/p wound vac placement and debridement - Will need to arrange outpatient wound vac and home health for antibiotics Maintain HD per nephrology - currently on hold Fluids restriction for hyponatremia, continue lasix Continue IV abx Follow Cultures Continue aspirin Continue atorvastatin Continue home medications, coreg, isordil, losartan Outpatient stress test to evaluate status of stent and bypass grafts, currently no chest pain Subjective Cardiovascular: Reports: no symptoms Respiratory: Reports: no symptoms Gastrointestinal/Abdominal: Reports: no symptoms Genitourinary: Reports: no symptoms Subjective Pt is resting in the bed. No s/s distress. Wound vacuum is connected on the abdominal area, no leakage. IV antibiotic med is running, She has ambulated, tolerating clears, vitals stable Objective Last 24 Hour Vital Signs Date Time Temp Pulse Resp B/P (MAP) Pulse Ox O2 Delivery O2 Flow Rate FiO2 10/10/17 09:00 Room Air 10/10/17 08:37 140/75 10/10/17 08:36 68 140/75 10/10/17 08:00 98.0 68 18 140/75 (96) 98 98.0 10/10/17 04:00 98.2 68 19 148/62 (90) 96 98.2 10/10/17 00:00 98.4 69 20 148/67 (94) 96 98.4 10/09/17 21:03 72 135/73 10/09/17 21:00 Room Air 10/09/17 20:00 98.3 72 19 135/73 (93) 98 98.3 10/09/17 15:45 98.1 64 18 145/69 (94) 97 98.1 10/09/17 14:30 98.1 63 18 128/65 (86) 96 98.1 10/09/17 12:00 97.4 67 18 140/67 (91) 99 97.4 10/09/17 10:27 151/73 General Appearance: no apparent distress EENT: PERRL/EOMI, normal ENT inspection Neck: normal alignment, supple Rhythm: NSR Cardiovascular: normal peripheral pulses, normal rate, regular rhythm Respiratory/Chest: chest wall non-tender Abdomen: normal bowel sounds, non tender Extremities: normal range of motion 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 Intake and Output 10/09/17 10/10/17 19:00 07:00 Intake Total 260 ml 631 ml Balance 260 ml 631 ml Intake Oral 260 ml 120 ml IV Total 511 ml # Voids 2 Laboratory Tests Test 10/10/17 06:20 White Blood Count 11.4 K/UL (4.8-10.8) H Red Blood Count 3.25 M/UL (4.20-5.40) L Hemoglobin 9.1 G/DL (12.0-16.0) L Hematocrit 28.3 % (37.0-47.0) L Mean Corpuscular Volume 87 FL (80-99) Mean Corpuscular Hemoglobin 28.1 PG (27.0-31.0) Mean Corpuscular Hemoglobin Concent 32.2 G/DL (32.0-36.0) Red Cell Distribution Width 16.5 % (11.6-14.8) H Platelet Count 457 K/UL (150-450) H Mean Platelet Volume 4.1 FL (6.5-10.1) L Neutrophils (%) (Auto) 61.3 % (45.0-75.0) Lymphocytes (%) (Auto) 16.0 % (20.0-45.0) L Monocytes (%) (Auto) 8.0 % (1.0-10.0) Eosinophils (%) (Auto) 13.6 % (0.0-3.0) H Basophils (%) (Auto) 1.2 % (0.0-2.0) Sodium Level 129 MMOL/L (136-145) L Potassium Level 3.9 MMOL/L (3.5-5.1) Chloride Level 95 MMOL/L (98-107) L Carbon Dioxide Level 26 MMOL/L (21-32) Anion Gap 8 mmol/L (5-15) Blood Urea Nitrogen 18 mg/dL (7-18) Creatinine 2.9 MG/DL (0.55-1.30) H Estimat Glomerular Filtration Rate 16.7 mL/min (>60) Glucose Level 81 MG/DL (74-106) Calcium Level 8.3 MG/DL (8.5-10.1) L Phosphorus Level 3.4 MG/DL (2.5-4.9) Magnesium Level 1.5 MG/DL (1.8-2.4) L Total Bilirubin 0.5 MG/DL (0.2-1.0) Aspartate Amino Transf (AST/SGOT) 29 U/L (15-37) Alanine Aminotransferase (ALT/SGPT) 18 U/L (12-78) Alkaline Phosphatase 205 U/L (46-116) H Total Protein 6.0 G/DL (6.4-8.2) L Albumin 1.4 G/DL (3.4-5.0) L Globulin 4.6 g/dL Albumin/Globulin Ratio 0.3 (1.0-2.7) L Quirnio Capps M.D. Oct 10, 2017 09:55
[2017-10-10 12:00] VITALS: BP 146/78
[2017-10-10] MEDS: Aztreonam Inj 0.5 GM in D5W 55 ML IVPB SCH (13:08)
--- NOTE | 2017-10-10 13:19 | General Surgery Progress Note ---
General Surgery-Progress Note Subjective Procedure Performed 1. Excisional debridement of abdominal wall soft tissue and fascia 2. drainage of abdominal wall abscess 3. opening of prior abdominal wall closure 4. diagnostic laparoscopy 5. open appendectomy 6. wound vac placement to large complex abdominal wall wound Symptoms: improved, tolerating diet, passing flatus, BM Additional Comments not taking much oral intake. pain improved. slowly ambulatory Objective Last 24 Hour Vital Signs Date Time Temp Pulse Resp B/P (MAP) Pulse Ox O2 Delivery O2 Flow Rate FiO2 10/10/17 13:08 98.0 10/10/17 12:00 98.0 67 18 146/78 (100) 98 98.0 10/10/17 09:00 Room Air 10/10/17 08:37 140/75 10/10/17 08:36 68 140/75 10/10/17 08:00 98.0 68 18 140/75 (96) 98 98.0 10/10/17 04:00 98.2 68 19 148/62 (90) 96 98.2 10/10/17 00:00 98.4 69 20 148/67 (94) 96 98.4 10/09/17 21:03 72 135/73 10/09/17 21:00 Room Air 10/09/17 20:00 98.3 72 19 135/73 (93) 98 98.3 10/09/17 15:45 98.1 64 18 145/69 (94) 97 98.1 10/09/17 14:30 98.1 63 18 128/65 (86) 96 98.1 I&O Intake and Output 10/09/17 10/10/17 19:00 07:00 Intake Total 260 ml 631 ml Balance 260 ml 631 ml Intake Oral 260 ml 120 ml IV Total 511 ml # Voids 2 Wound: clean, dry Drains: wound vac Cardiovascular: RSR Respiratory: clear Abdomen: soft, non-tender, present bowel sounds Extremities: no cyanosis Laboratory Tests Test 10/10/17 06:20 White Blood Count 11.4 K/UL (4.8-10.8) H Red Blood Count 3.25 M/UL (4.20-5.40) L Hemoglobin 9.1 G/DL (12.0-16.0) L Hematocrit 28.3 % (37.0-47.0) L Mean Corpuscular Volume 87 FL (80-99) Mean Corpuscular Hemoglobin 28.1 PG (27.0-31.0) Mean Corpuscular Hemoglobin Concent 32.2 G/DL (32.0-36.0) Red Cell Distribution Width 16.5 % (11.6-14.8) H Platelet Count 457 K/UL (150-450) H Mean Platelet Volume 4.1 FL (6.5-10.1) L Neutrophils (%) (Auto) 61.3 % (45.0-75.0) Lymphocytes (%) (Auto) 16.0 % (20.0-45.0) L Monocytes (%) (Auto) 8.0 % (1.0-10.0) Eosinophils (%) (Auto) 13.6 % (0.0-3.0) H Basophils (%) (Auto) 1.2 % (0.0-2.0) Sodium Level 129 MMOL/L (136-145) L Potassium Level 3.9 MMOL/L (3.5-5.1) Chloride Level 95 MMOL/L (98-107) L Carbon Dioxide Level 26 MMOL/L (21-32) Anion Gap 8 mmol/L (5-15) Blood Urea Nitrogen 18 mg/dL (7-18) Creatinine 2.9 MG/DL (0.55-1.30) H Estimat Glomerular Filtration Rate 16.7 mL/min (>60) Glucose Level 81 MG/DL (74-106) Calcium Level 8.3 MG/DL (8.5-10.1) L Phosphorus Level 3.4 MG/DL (2.5-4.9) Magnesium Level 1.5 MG/DL (1.8-2.4) L Total Bilirubin 0.5 MG/DL (0.2-1.0) Aspartate Amino Transf (AST/SGOT) 29 U/L (15-37) Alanine Aminotransferase (ALT/SGPT) 18 U/L (12-78) Alkaline Phosphatase 205 U/L (46-116) H Total Protein 6.0 G/DL (6.4-8.2) L Albumin 1.4 G/DL (3.4-5.0) L Globulin 4.6 g/dL Albumin/Globulin Ratio 0.3 (1.0-2.7) L Assessment Post-op Diagnosis 1. abdominal wall abscess 2. dehiscence of abdominal wall wound 3. appendicitis Plan Problems: (1) Open abdominal wall wound (2) Abdominal wall abscess at site of surgical wound (3) Wound, open, abdominal wall, anterior with complication Assessment & Plan: large prior abdominal surgical wound that in portions skin has come together but underlying large area of open fluid collection with possible pockets of abscess. larger epigastric wound seems to connect with lower aspect small wound. lots of murky fluid evacuated, wound deep and tracking in all directions. per patient they have only been placing a small cover on wounds and no packing has been performed. had wound VAC prior but only for 3 days as per patient. I fear that there is something much larger and more serious going underneath the skin and with drainage and looks of wound they are only worsening. CT reviewed and noted. fortunately no large abscess but can note tracking of wound As for possible appendicitis, noted 1cm appendix with stranding on CT. clinically patient has generalized abdominal pain and not focal to RLQ. she has had generalized abdominal pain for some time now and likely related to large wound. no n/v/f/c. leukocytosis 18k but can be related to multiple etiologies. leukocytosis stable... overall improving. s/p wound exploration, debridement, open appendectomy, wound vac placement. -wound vac care - changed by myself at bedside today. next change or mon -ambulate and out of bed -diet as tolerated -abx -discharge planning. unlikely to go home. consider shelter thank you for this consultation Darrius Figueredo Oct 10, 2017 13:19
--- NOTE | 2017-10-10 14:36 | GI Progress Note ---
Assessment/Plan Problems: (1) Postoperative ileus ICD Codes: K91.89 - Other postprocedural complications and disorders of digestive system; K56.7 - Ileus, unspecified SNOMED: 522955652 (2) Anemia ICD Codes: D64.9 - Anemia, unspecified SNOMED: 035811355, 606428570 Qualifiers: Qualified Codes: D64.9 - Anemia, unspecified (3) ESRD on hemodialysis ICD Codes: N18.6 - End stage renal disease; Z99.2 - Dependence on renal dialysis SNOMED: 837060456, 62971715 (4) Morbid obesity with BMI of 40.0-44.9, adult ICD Codes: E66.01 - Morbid (severe) obesity due to excess calories; Z68.41 - Body mass index (BMI) 40.0-44.9, adult SNOMED: 189448274, 280998468 (5) Open abdominal wall wound ICD Codes: S31.109A - Unspecified open wound of abdominal wall, unspecified quadrant without penetration into peritoneal cavity, initial encounter SNOMED: 721699665 Qualifiers: Qualified Codes: S31.109A - Unspecified open wound of abdominal wall, unspecified quadrant without penetration into peritoneal cavity, initial encounter (6) appendicitis s/p open appendectomy Status: stable Status Narrative Discussed with Dr. Lindo. Assessment/Plan post operative ileus diet per surgical recs pain mgmt ppi electrolyte correction >> fluid restriction zofran fu labs dc planning The patient was seen and examined at bedside and all new and available data was reviewed in the patients chart. I agree with the above findings, impression and plan. (Patient seen earlier today. Signature stamp does not reflect patient encounter time.). - Chip Lindo MD Subjective Subjective RLQ Pain 8/10 nausea Objective Last 24 Hour Vital Signs Date Time Temp Pulse Resp B/P (MAP) Pulse Ox O2 Delivery O2 Flow Rate FiO2 10/10/17 14:07 98.0 10/10/17 13:08 98.0 10/10/17 12:00 98.0 67 18 146/78 (100) 98 98.0 10/10/17 09:00 Room Air 10/10/17 08:37 140/75 10/10/17 08:36 68 140/75 10/10/17 08:00 98.0 68 18 140/75 (96) 98 98.0 10/10/17 04:00 98.2 68 19 148/62 (90) 96 98.2 10/10/17 00:00 98.4 69 20 148/67 (94) 96 98.4 10/09/17 21:03 72 135/73 10/09/17 21:00 Room Air 10/09/17 20:00 98.3 72 19 135/73 (93) 98 98.3 10/09/17 15:45 98.1 64 18 145/69 (94) 97 98.1 Intake and Output 10/09/17 10/10/17 19:00 07:00 Intake Total 260 ml 631 ml Balance 260 ml 631 ml Intake Oral 260 ml 120 ml IV Total 511 ml # Voids 2 Laboratory Tests Test 10/10/17 06:20 White Blood Count 11.4 K/UL (4.8-10.8) H Red Blood Count 3.25 M/UL (4.20-5.40) L Hemoglobin 9.1 G/DL (12.0-16.0) L Hematocrit 28.3 % (37.0-47.0) L Mean Corpuscular Volume 87 FL (80-99) Mean Corpuscular Hemoglobin 28.1 PG (27.0-31.0) Mean Corpuscular Hemoglobin Concent 32.2 G/DL (32.0-36.0) Red Cell Distribution Width 16.5 % (11.6-14.8) H Platelet Count 457 K/UL (150-450) H Mean Platelet Volume 4.1 FL (6.5-10.1) L Neutrophils (%) (Auto) 61.3 % (45.0-75.0) Lymphocytes (%) (Auto) 16.0 % (20.0-45.0) L Monocytes (%) (Auto) 8.0 % (1.0-10.0) Eosinophils (%) (Auto) 13.6 % (0.0-3.0) H Basophils (%) (Auto) 1.2 % (0.0-2.0) Sodium Level 129 MMOL/L (136-145) L Potassium Level 3.9 MMOL/L (3.5-5.1) Chloride Level 95 MMOL/L (98-107) L Carbon Dioxide Level 26 MMOL/L (21-32) Anion Gap 8 mmol/L (5-15) Blood Urea Nitrogen 18 mg/dL (7-18) Creatinine 2.9 MG/DL (0.55-1.30) H Estimat Glomerular Filtration Rate 16.7 mL/min (>60) Glucose Level 81 MG/DL (74-106) Calcium Level 8.3 MG/DL (8.5-10.1) L Phosphorus Level 3.4 MG/DL (2.5-4.9) Magnesium Level 1.5 MG/DL (1.8-2.4) L Total Bilirubin 0.5 MG/DL (0.2-1.0) Aspartate Amino Transf (AST/SGOT) 29 U/L (15-37) Alanine Aminotransferase (ALT/SGPT) 18 U/L (12-78) Alkaline Phosphatase 205 U/L (46-116) H Total Protein 6.0 G/DL (6.4-8.2) L Albumin 1.4 G/DL (3.4-5.0) L Globulin 4.6 g/dL Albumin/Globulin Ratio 0.3 (1.0-2.7) L Height (Feet): 5 Height (Inches): 2.00 Weight (Pounds): 210 General Appearance: WD/WN, no apparent distress, alert Cardiovascular: normal rate Respiratory/Chest: normal breath sounds, no respiratory distress Abdominal Exam: normal bowel sounds, non tender, soft Extremities: normal range of motion, non-tender Melissa Boss NP Oct 10, 2017 14:36
[2017-10-10 15:59] VITALS: BP 139/78
--- NOTE | 2017-10-10 17:55 | Infectious Diseases Prog Note ---
Assessment/Plan Assessment/Plan ASSESSMENT AND PLAN: 1. abdominal wall wound infection/abscess, sepsis, appendicitis, leukocytosis, ? ileus/sbo but with bowel movement - s/p debridement - s/p appendectomy - wound culture with VRE, likely polymicrobial - leukocytosis improved overall - change abx to zyvox plus cipro x 1 week, discontinue flagyl since possible etiology of n/v, discontinue aztreonam - blood cultures negative - monitor labs - wound vac, wound care per surgery - d/w Jennifer Robles NP 2. End-stage renal disease, on hemodialysis, has hemodialysis line. 3. Anemia. 4. Diabetes. 5. Hypertension. 6. Possible hyperlipidemia. 7. Blood sugar and blood pressure treatment per primary. 8. Chest pain treatment per Cardiology. 9. History of coronary artery disease, coronary artery bypass graft, and stent placement, status post stent removal and intravenous antibiotics for infected stent looks like. 10. Obesity. 11. Allergies to adhesive tape, amlodipine, insulin, iodine, and penicillins. 12. Social history is negative. 13. Family history is noncontributory. 14. MAR was noted. 15. Case was discussed with RN. 16. Case was discussed with the patient and the patient's family. 17. Continue treatment per primary consultants. 18. Notes and records were noted. 19. Orders were entered. 20. d/w family Subjective Constitutional: Denies: fever HEENT: Denies: congestion Respiratory: Denies: shortness of breath Cardiovascular: Denies: chest pain Gastrointestinal/Abdominal: Reports: nausea, vomiting; Denies: diarrhea Genitourinary: Reports: other - no benito Neurologic: Denies: headache Psychiatric: Denies: depression Skin: Denies: rash Hematologic: Denies: bleeding Musculoskeletal: Denies: pain Allergies: Coded Allergies: ADHESIVE (Verified Allergy, Unknown, 09/29/17) AMLODIPINE (Verified Allergy, Unknown, 09/29/17) INSULIN ASPART (Verified Allergy, Unknown, 09/29/17) INSULIN LISPRO (Verified Allergy, Unknown, 09/29/17) IODINE (Verified Allergy, Unknown, 09/29/17) PENICILLINS (Verified Allergy, Unknown, 09/29/17) Objective Vital Signs Last 24 Hour Vital Signs Date Time Temp Pulse Resp B/P (MAP) Pulse Ox O2 Delivery O2 Flow Rate FiO2 10/10/17 15:59 98.2 65 18 139/78 (98) 98 98.2 10/10/17 14:07 98.0 10/10/17 13:08 98.0 10/10/17 12:00 98.0 67 18 146/78 (100) 98 98.0 10/10/17 09:00 Room Air 10/10/17 08:37 140/75 10/10/17 08:36 68 140/75 10/10/17 08:00 98.0 68 18 140/75 (96) 98 98.0 10/10/17 04:00 98.2 68 19 148/62 (90) 96 98.2 10/10/17 00:00 98.4 69 20 148/67 (94) 96 98.4 10/09/17 21:03 72 135/73 10/09/17 21:00 Room Air 10/09/17 20:00 98.3 72 19 135/73 (93) 98 98.3 Height (Feet): 5 Height (Inches): 2.00 Weight (Pounds): 210 General Appearance: no acute distress HEENT: normocephalic, atraumatic, anicteric, mucous membranes moist Respiratory/Chest: lungs clear, normal breath sounds, no respiratory distress, no accessory muscle use Cardiovascular: normal rate, regular rhythm, no gallop/murmur, no JVD Abdomen: normal bowel sounds, soft, non tender, no organomegaly, non distended , other - wound covered Genitourinary: other - no benito, no cva pain Extremities: no cyanosis Skin: no rash Neurologic/Psychiatric: minilab operator II-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 Heart: Cardiomegaly. ABDOMEN: Liver: Unremarkable. Gallbladder and bile ducts: See below. Pancreas: Unremarkable. Spleen: Unremarkable. Adrenals: Unremarkable. Kidneys and ureters: Unremarkable. No hydronephrosis. Stomach and bowel: No zechariah mural thickening. Nonobstructive bowel gas pattern. PELVIS: Appendix: Appendicitis. Appendix measures 1 cm with mild surrounding stranding. Bladder: Unremarkable. Reproductive: Enlarged and heterogeneous right ovary. Ultrasound cannot further characterize as warranted. ABDOMEN and PELVIS: Intraperitoneal space: Unremarkable. Bones/joints: No acute fracture. Soft tissues: Patchy subcutaneous edema and abdominal wound. Small foci of fluid and air in the abdominal wall. Vasculature: Vascular calcification or a stone in the biliary system. No abdominal aortic aneurysm. Lymph nodes: No enlarged lymph nodes. IMPRESSION: Appendicitis. Appendix measures 1 cm with mild surrounding stranding. Chest - x-ray - pvc (report noted) 10/03 - Chest x-ray - nad (report noted) 10/06 - abdominal x-ray - Impression: Very limited exam, as described Mildly dilated left upper quadrant small bowel loops. Could indicate ileus or early/partial small bowel obstruction. Favor the former, as there is evidence of transit of previously ingested contrast into the distal colon Dictated By: Tereso Sheriff MD Microbiology Date/Time Source Procedure Growth Status 09/29/17 20:30 Blood Blood Culture - Final NO GROWTH AFTER 5 DAYS Complete 09/29/17 04:30 Nasal Nares MRSA Culture - Final NO METHICILLIN RESISTANT STAPH AUREUS... Complete 10/02/17 18:30 Abdominal Abscess Anaerobic Culture - Final NO ANAEROBES ISOLATED Complete Laboratory Tests Test 10/10/17 06:20 White Blood Count 11.4 K/UL (4.8-10.8) H Red Blood Count 3.25 M/UL (4.20-5.40) L Hemoglobin 9.1 G/DL (12.0-16.0) L Hematocrit 28.3 % (37.0-47.0) L Mean Corpuscular Volume 87 FL (80-99) Mean Corpuscular Hemoglobin 28.1 PG (27.0-31.0) Mean Corpuscular Hemoglobin Concent 32.2 G/DL (32.0-36.0) Red Cell Distribution Width 16.5 % (11.6-14.8) H Platelet Count 457 K/UL (150-450) H Mean Platelet Volume 4.1 FL (6.5-10.1) L Neutrophils (%) (Auto) 61.3 % (45.0-75.0) Lymphocytes (%) (Auto) 16.0 % (20.0-45.0) L Monocytes (%) (Auto) 8.0 % (1.0-10.0) Eosinophils (%) (Auto) 13.6 % (0.0-3.0) H Basophils (%) (Auto) 1.2 % (0.0-2.0) Sodium Level 129 MMOL/L (136-145) L Potassium Level 3.9 MMOL/L (3.5-5.1) Chloride Level 95 MMOL/L (98-107) L Carbon Dioxide Level 26 MMOL/L (21-32) Anion Gap 8 mmol/L (5-15) Blood Urea Nitrogen 18 mg/dL (7-18) Creatinine 2.9 MG/DL (0.55-1.30) H Estimat Glomerular Filtration Rate 16.7 mL/min (>60) Glucose Level 81 MG/DL (74-106) Calcium Level 8.3 MG/DL (8.5-10.1) L Phosphorus Level 3.4 MG/DL (2.5-4.9) Magnesium Level 1.5 MG/DL (1.8-2.4) L Total Bilirubin 0.5 MG/DL (0.2-1.0) Aspartate Amino Transf (AST/SGOT) 29 U/L (15-37) Alanine Aminotransferase (ALT/SGPT) 18 U/L (12-78) Alkaline Phosphatase 205 U/L (46-116) H Total Protein 6.0 G/DL (6.4-8.2) L Albumin 1.4 G/DL (3.4-5.0) L Globulin 4.6 g/dL Albumin/Globulin Ratio 0.3 (1.0-2.7) L Current Medications Medications (Trade) Dose Ordered Sig/Fidelia Route PRN Reason Start Time Stop Time Status Last Admin Dose Admin Acetaminophen (Tylenol) 650 mg Q4H PRN ORAL fever 10/09/17 15:45 10/29/17 07:44 Acetaminophen/ Hydrocodone Bitart ([place] 5/325) 1 tab Q4H PRN ORAL Moderate Pain (Pain Scale 4-6) 10/09/17 17:15 10/16/17 17:14 Al Hydroxide/Mg Hydroxide (Mylanta) 15 ml Q6H PRN ORAL DYSPEPSIA 10/09/17 17:15 11/01/17 17:01 Atorvastatin Calcium (Lipitor) 40 mg BEDTIME ORAL 10/09/17 21:00 10/29/17 20:59 Aztreonam 0.5 gm/ Dextrose 55 ml @ 110 mls/hr Q12H IVPB 7/24/18 00:00 10/15/17 00:00 10/10/17 13:08 Bisacodyl (Dulcolax) 10 mg HSPRN PRN RECTAL Constipation 10/10/17 07:45 10/29/17 07:44 Carvedilol (Coreg) 25 mg EVERY 12 HOURS ORAL 10/09/17 21:00 11/01/17 20:59 10/10/17 08:36 Ciprofloxacin (Cipro 250mg tab) 250 mg EVERY 12 HOURS ORAL 10/10/17 21:00 10/17/17 20:59 Dextrose (Dextrose 50%) 25 ml STAT PRN IV Hypoglycemia 10/10/17 07:45 10/29/17 07:44 Dextrose (Dextrose 50%) 50 ml STAT PRN IV Hypoglycemia 10/10/17 07:45 10/29/17 07:44 Diphenhydramine HCl (Benadryl) 12.5 mg Q6H PRN IVP Itching/Pruritis 10/09/17 17:15 11/01/17 17:01 Docusate Sodium (Colace) 100 mg EVERY 12 HOURS ORAL 10/09/17 21:00 10/29/17 08:59 10/10/17 08:37 Epoetin Perez (Procrit (for ESRD on dialysis)) 10,000 units MON-MON-MON SUBQ 10/09/17 21:00 11/03/17 20:59 10/09/17 21:13 Furosemide (Lasix) 80 mg DAILY ORAL 10/10/17 09:00 11/04/17 08:59 10/10/17 08:39 Heparin Sodium (Porcine) (Heparin 5000 units/ml) 5,000 units EVERY 12 HOURS SUBQ 10/09/17 21:00 10/29/17 08:59 10/10/17 08:36 Hydromorphone HCl (Dilaudid) 0.5 mg Q3H PRN IVP Pain Score 1-3 10/09/17 16:00 10/16/17 15:59 Hydromorphone HCl (Dilaudid) 1 mg Q3H PRN IVP For Severe Pain(scale 7-10) 10/09/17 17:15 10/16/17 17:14 Insulin Human Regular (NovoLIN R) BS 70-110, then 0 units... AC+HS SUBQ 10/09/17 16:30 10/29/17 16:29 Lactulose (Cephulac) 20 gm THREE TIMES A DAY ORAL 10/09/17 18:00 11/04/17 08:59 Linezolid (Zyvox) 600 mg EVERY 12 HOURS ORAL 10/10/17 21:00 10/15/17 20:59 Losartan Potassium (Cozaar) 50 mg DAILY ORAL 10/10/17 09:00 11/02/17 08:59 10/10/17 08:37 Magnesium Hydroxide (Mom) 30 ml BIDPRN PRN ORAL Constipation 10/09/17 17:15 11/01/17 17:00 Morphine Sulfate (Morphine Sulfate) 4 mg Q4H PRN IVP For Moderate Pain(scale 4-6) 10/09/17 17:15 10/16/17 17:14 Nystatin (Nystop Powder) 1 applic TIDPRN PRN TOPIC Itching 10/09/17 16:45 11/07/17 16:44 Pantoprazole (Protonix) 40 mg ACBREAKFAST ORAL 10/10/17 06:30 11/04/17 08:59 10/10/17 06:08 Polyethylene Glycol (Miralax) 17 gm HSPRN PRN ORAL Constipation 10/10/17 07:45 10/29/17 07:44 Potassium Chloride (K-Dur) 40 meq DAILY ORAL 10/10/17 09:00 11/06/17 08:59 10/10/17 08:37 Promethazine HCl 25 mg/Sodium Chloride 56 ml @ 112 mls/hr Q8H PRN IVPB Nausea & Vomiting 10/09/17 21:00 11/05/17 12:59 10/09/17 21:13 Tramadol HCl (Ultram) 50 mg Q6H PRN ORAL Mild Pain (Pain Scale 1-3) 10/09/17 15:00 10/12/17 08:59 10/10/17 13:08 Zolpidem Tartrate (Ambien) 5 mg HSPRN PRN ORAL Insomnia 10/10/17 05:30 10/13/17 05:29 Jenniffer Strickland MD Oct 10, 2017 17:55
[2017-10-10] MEDS: Atorvastatin 20mg tab ORAL SCH (20:27)
[2017-10-10 21:00] VITALS: BP 147/63
--- NOTE | 2017-10-10 22:47 | General Progress Note ---
Assessment/Plan Problem List: (1) Sepsis ICD Codes: A41.9 - Sepsis, unspecified organism SNOMED: 44957517 (2) Anemia ICD Codes: D64.9 - Anemia, unspecified SNOMED: 721543559, 029986325 Qualifiers: Qualified Codes: D64.9 - Anemia, unspecified (3) ESRD on hemodialysis ICD Codes: N18.6 - End stage renal disease; Z99.2 - Dependence on renal dialysis SNOMED: 616956505, 17009718 (4) Morbid obesity with BMI of 40.0-44.9, adult ICD Codes: E66.01 - Morbid (severe) obesity due to excess calories; Z68.41 - Body mass index (BMI) 40.0-44.9, adult SNOMED: 614433135, 623773569 (5) Chest pain ICD Codes: R07.9 - Chest pain, unspecified SNOMED: 10353418 (6) Wound, open, abdominal wall, anterior with complication ICD Codes: S31.109A - Unspecified open wound of abdominal wall, unspecified quadrant without penetration into peritoneal cavity, initial encounter SNOMED: 937985592 Qualifiers: Qualified Codes: S31.109A - Unspecified open wound of abdominal wall, unspecified quadrant without penetration into peritoneal cavity, initial encounter (7) Abdominal wall abscess at site of surgical wound ICD Codes: T81.4XXA - Infection following a procedure, initial encounter SNOMED: 298955242 (8) Open abdominal wall wound ICD Codes: S31.109A - Unspecified open wound of abdominal wall, unspecified quadrant without penetration into peritoneal cavity, initial encounter SNOMED: 901162143 Qualifiers: Qualified Codes: S31.109A - Unspecified open wound of abdominal wall, unspecified quadrant without penetration into peritoneal cavity, initial encounter (9) Hypokalemia ICD Codes: E87.6 - Hypokalemia SNOMED: 33040985 (10) Hyponatremia ICD Codes: E87.1 - Hypo-osmolality and hyponatremia SNOMED: 85411842 (11) appendicitis s/p open appendectomy (12) s/p wound exploration and debridement (13) Acute blood loss anemia ICD Codes: D62 - Acute posthemorrhagic anemia SNOMED: 578388442 (14) Diastolic CHF ICD Codes: I50.30 - Unspecified diastolic (congestive) heart failure SNOMED: 01367971, 830903544 (15) VIK (obstructive sleep apnea) ICD Codes: G47.33 - Obstructive sleep apnea (adult) (pediatric) SNOMED: 40053645 (16) Postoperative ileus ICD Codes: K91.89 - Other postprocedural complications and disorders of digestive system; K56.7 - Ileus, unspecified SNOMED: 806328620 (17) Intractable nausea and vomiting ICD Codes: R11.2 - Nausea with vomiting, unspecified SNOMED: 708568592 Status: stable, progressing Assessment/Plan Assessment: 1. Chest pain 2. h/o recent 2V CABG c/b stent infection s/p stent removal and abx 3. Open wound to chest/abdomen s/p stent removal 4. Sepsis 5. ESRD on HD (M/F) 6. DM 7. HTN 8. Hyponatremia/Hypokalemia 9. Acute blood loss anemia 10. Appendicitis s/p open appendectomy 11. Abdominal wound s/p wound exploration and debridement on 10/02 12. VIK 13. 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 Postoperative ileus Plan: - Cardiology, general surgery, nephrology, GI, and ID consulted - s/p wound exploration and debridement, and open appendectomy with wound vac, POD#8 - f/u wound culture -- VRE - s/p 1 unit pRBC transfusion on 10/03 - F/u CT a/p to visualize extent of abscess - concerns for early appendicitis but asymptomatic - Trend EKG/trops -- ACS ruled out - IV flagyl, aztreonam (D7), start linezolid (D1) - HD per nephro (M/F) with 1.5L per session - Continue home meds. - Continue humulin R for SSi - Monitor electrolytes and replete - Monitor CBC - Wound care - PT/OT - Pain control and supportive care - KUB showed ileus vs. early/partial SBO. had bowel movement today and continues to c/o n/v. start CLD and ADAT. decrease narcotics. GI rec's appreciated. repeat KUB HH with wound vac arranged Will dc flagyl and monitor for resolution for GI symptoms as possible etiology DC planning in AM DVT Prophylaxis: SCD, HSQ Code Status: Full Hospital Classification Declaration: Based on this initial evaluation, and depending on the patient's clinical course, I anticipate that this patient will require hospitalization for 3-5 days for sepsis, chest pain and close respiratory/hemodynamic monitoring. Disposition: Once the patient is stable to leave the hospital, I anticipate the patient will likely be discharged to the following environment: CRI I spent 32 minutes on this patient's case, and 22 minutes were dedicated to counseling and/or care coordination. Discussed with patient/family, nursing staff, SW/CM, and all consultants as above regarding clinical status, treatment course, and disposition planning. Subjective Date patient seen: Oct 10, 2017 Allergies: Coded Allergies: ADHESIVE (Verified Allergy, Unknown, 09/29/17) AMLODIPINE (Verified Allergy, Unknown, 09/29/17) INSULIN ASPART (Verified Allergy, Unknown, 09/29/17) INSULIN LISPRO (Verified Allergy, Unknown, 09/29/17) IODINE (Verified Allergy, Unknown, 09/29/17) PENICILLINS (Verified Allergy, Unknown, 09/29/17) Subjective - s/p exploratory debridement with open appendectomy and wound vac placement, POD#8 - AF, HDS - continues to have nausea and vomiting. KUB largely unremarkable. +flatus and bowel movement today. dc'ed flagyl as possible source for GI symptoms. - wound vac setup per Objective Last 24 Hour Vital Signs Date Time Temp Pulse Resp B/P (MAP) Pulse Ox O2 Delivery O2 Flow Rate FiO2 10/10/17 21:00 98.6 73 16 147/63 (91) 98 98.6 10/10/17 21:00 Room Air 10/10/17 20:32 73 147/63 10/10/17 15:59 98.2 65 18 139/78 (98) 98 98.2 10/10/17 14:07 98.0 10/10/17 13:08 98.0 10/10/17 12:00 98.0 67 18 146/78 (100) 98 98.0 10/10/17 09:00 Room Air 10/10/17 08:37 140/75 10/10/17 08:36 68 140/75 10/10/17 08:00 98.0 68 18 140/75 (96) 98 98.0 10/10/17 04:00 98.2 68 19 148/62 (90) 96 98.2 10/10/17 00:00 98.4 69 20 148/67 (94) 96 98.4 Intake and Output 10/09/17 10/10/17 19:00 07:00 Intake Total 260 ml 631 ml Balance 260 ml 631 ml Intake Oral 260 ml 120 ml IV Total 511 ml # Voids 2 Laboratory Tests 10/10/17 06:20: White Blood Count 11.4H, Red Blood Count 3.25L, Hemoglobin 9.1L, Hematocrit 28.3L, Mean Corpuscular Volume 87, Mean Corpuscular Hemoglobin 28.1, Mean Corpuscular Hemoglobin Concent 32.2, Red Cell Distribution Width 16.5H, Platelet Count 457H, Mean Platelet Volume 4.1L, Neutrophils (%) (Auto) 61.3, Lymphocytes (%) (Auto) 16.0L, Monocytes (%) (Auto) 8.0, Eosinophils (%) (Auto) 13.6H, Basophils (%) (Auto) 1.2, Sodium Level 129L, Potassium Level 3.9, Chloride Level 95L, Carbon Dioxide Level 26, Anion Gap 8, Blood Urea Nitrogen 18 , Creatinine 2.9H, Estimat Glomerular Filtration Rate 16.7, Glucose Level 81, Calcium Level 8.3L, Phosphorus Level 3.4, Magnesium Level 1.5L, Total Bilirubin 0.5, Aspartate Amino Transf (AST/SGOT) 29, Alanine Aminotransferase (ALT/SGPT) 18, Alkaline Phosphatase 205H, Total Protein 6.0L, Albumin 1.4L, Globulin 4.6, Albumin/Globulin Ratio 0.3L Height (Feet): 5 Height (Inches): 2.00 Weight (Pounds): 210 General Appearance: no apparent distress, alert EENT: PERRL/EOMI, normal ENT inspection Neck: non-tender, normal alignment, supple Cardiovascular: normal peripheral pulses, normal rate, regular rhythm Respiratory/Chest: chest wall non-tender, lungs clear, normal breath sounds Abdomen: normal bowel sounds, soft, tender, other - surgical incision c/d/i with wound vac Neurologic: pediatric dentist II-XII grossly normal, no motor/sensory deficits, alert, oriented x 3 Jennifer Robles NP Oct 10, 2017 22:47
[2017-10-11] VITALS: BP 137/66
[2017-10-11 04:00] VITALS: BP 134/61
[2017-10-11] MEDS: Insulin Human Regular 100units/ml 3ml SUBQ SCH ×3 (06:05→16:26)
[2017-10-11 06:42] LABS: BASOPHILS % (AUTO) 1.3 % (0.0-2.0); EOSINOPHILS % (AUTO) 13.5 % (0.0-3.0); HEMATOCRIT 27.5 % (37.0-47.0); HEMOGLOBIN 8.8 G/DL (12.0-16.0); LYMPHOCYTES % (AUTO) 15.6 % (20.0-45.0); MEAN CORPUSCULAR VOLUME 88 FL (80-99); MONOCYTES % (AUTO) 9.2 % (1.0-10.0); NEUTROPHILS % (AUTO) 60.4 % (45.0-75.0); PLATELET COUNT 449 K/UL (150-450); RED BLOOD COUNT 3.14 M/UL (4.20-5.40); RED CELL DISTRIBUTION WIDTH 16.3 % (11.6-14.8)
[2017-10-11 06:57] LABS: ANION GAP 8 mmol/L (5-15); BLOOD UREA NITROGEN 20 mg/dL (7-18); CALCIUM 8.3 MG/DL (8.5-10.1); CARBON DIOXIDE 26 MMOL/L (21-32); CHLORIDE 96 MMOL/L (98-107); POTASSIUM 4.4 MMOL/L (3.5-5.1); SODIUM 130 MMOL/L (136-145)
--- NOTE | 2017-10-11 07:52 | Diagnostic Imaging Report ---
APPROVED REPORT CPT Code: 37975 Present Symptoms Comments: BILATERAL LEGS PAIN. BILATERAL: Imaging reveals a patent deep venous system bilaterally. There is no evidence of thrombus within the femoral, popliteal or tibial segments. The greater saphenous veins are also within normal limits. Doppler indicates normal spontaneous flow within these segments.
[2017-10-11] MEDS: Docusate 100mg cap ORAL SCH (07:53)
[2017-10-11] MEDS: Lactulose 20gm/30ml UDC ORAL SCH ×2 (07:53→12:50)
[2017-10-11] MEDS: Heparin 5000 units/ml inj SUBQ SCH (07:54)
[2017-10-11] MEDS: Carvedilol 25mg Tab ORAL SCH (07:55)
[2017-10-11] MEDS: Furosemide 80mg tab ORAL SCH (07:55)
[2017-10-11] MEDS: Losartan 50mg tab ORAL SCH (07:56)
[2017-10-11 07:58] VITALS: BP 152/70
--- NOTE | 2017-10-11 08:47 | Nephrology Progress Note ---
Assessment/Plan Assessment/Plan 1. ESRD- Had HD Sat. Hold HD for now and monitor renal function - Cr 3 and Na 130 2. Hypokalemia- corrected. Replace prn 3. Anemia of CKD- EPO 3 x week 4. Abd Pain/Leukocytosis s/p Abd wound exploration and appy 5. Sepsis- per ID mgmt 6. Hyponatremia- po fluid restrict 1.2 L day - lasix 80mg qd - Na 130 Subjective Date patient seen: Oct 11, 2017 Time patient seen: 08:46 ROS Limited/Unobtainable: No Constitutional: Reports: weakness Gastrointestinal/Abdominal: Reports: nausea Allergies: Coded Allergies: ADHESIVE (Verified Allergy, Unknown, 09/29/17) AMLODIPINE (Verified Allergy, Unknown, 09/29/17) INSULIN ASPART (Verified Allergy, Unknown, 09/29/17) INSULIN LISPRO (Verified Allergy, Unknown, 09/29/17) IODINE (Verified Allergy, Unknown, 09/29/17) PENICILLINS (Verified Allergy, Unknown, 09/29/17) Subjective Patient improving slowly and tolerating po better Objective Last 24 Hour Vital Signs Date Time Temp Pulse Resp B/P (MAP) Pulse Ox O2 Delivery O2 Flow Rate FiO2 10/11/17 07:58 98.4 72 24 152/70 (97) 98 98.4 10/11/17 07:56 152/70 10/11/17 07:55 72 152/70 10/11/17 07:30 Room Air 10/11/17 04:00 99.1 72 24 134/61 (85) 98 99.1 10/11/17 00:00 98.4 69 18 137/66 (89) 98 98.4 10/10/17 21:00 98.6 73 16 147/63 (91) 98 98.6 10/10/17 21:00 Room Air 10/10/17 20:32 73 147/63 10/10/17 15:59 98.2 65 18 139/78 (98) 98 98.2 10/10/17 14:07 98.0 10/10/17 13:08 98.0 10/10/17 12:00 98.0 67 18 146/78 (100) 98 98.0 10/10/17 09:00 Room Air Intake and Output 10/10/17 10/11/17 19:00 07:00 Intake Total 1090 ml Output Total 100 ml Balance 990 ml Intake Oral 480 ml IV Total 610 ml Drainage Total 100 ml Laboratory Tests 10/11/17 05:30: White Blood Count 11.0H, Red Blood Count 3.14L, Hemoglobin 8.8L, Hematocrit 27.5L, Mean Corpuscular Volume 88, Mean Corpuscular Hemoglobin 27.9, Mean Corpuscular Hemoglobin Concent 31.8L, Red Cell Distribution Width 16.3H, Platelet Count 449, Mean Platelet Volume 4.1L, Neutrophils (%) (Auto) 60.4, Lymphocytes (%) (Auto) 15.6L, Monocytes (%) (Auto) 9.2, Eosinophils (%) (Auto) 13.5H, Basophils (%) (Auto) 1.3, Sodium Level 130L, Potassium Level 4.4, Chloride Level 96L, Carbon Dioxide Level 26, Anion Gap 8, Blood Urea Nitrogen 20H, Creatinine 3.0H, Estimat Glomerular Filtration Rate 16.0, Glucose Level 82 , Calcium Level 8.3L Height (Feet): 5 Height (Inches): 2.00 Weight (Pounds): 210 General Appearance: WD/WN, no apparent distress EENT: PERRL/EOMI Neck: non-tender, normal alignment Cardiovascular: normal rate, regular rhythm Respiratory/Chest: normal breath sounds Abdomen: normal bowel sounds, non tender, soft Edema: no edema noted Arm (L), no edema noted Arm (R), no edema noted Leg (L), no edema noted Leg (R), no edema noted Pedal (L), no edema noted Pedal (R), no edema noted Generalized Aman Link M.D. Oct 11, 2017 08:47
[2017-10-11 11:56] VITALS: BP 159/74
--- NOTE | 2017-10-11 13:29 | General Surgery Progress Note ---
General Surgery-Progress Note Subjective Procedure Performed 1. Excisional debridement of abdominal wall soft tissue and fascia 2. drainage of abdominal wall abscess 3. opening of prior abdominal wall closure 4. diagnostic laparoscopy 5. open appendectomy 6. wound vac placement to large complex abdominal wall wound Symptoms: improved, tolerating diet, passing flatus Objective Last 24 Hour Vital Signs Date Time Temp Pulse Resp B/P (MAP) Pulse Ox O2 Delivery O2 Flow Rate FiO2 10/11/17 11:56 98.0 68 24 159/74 (102) 98 98.0 10/11/17 07:58 98.4 72 24 152/70 (97) 98 98.4 10/11/17 07:56 152/70 10/11/17 07:55 72 152/70 10/11/17 07:30 Room Air 10/11/17 04:00 99.1 72 24 134/61 (85) 98 99.1 10/11/17 00:00 98.4 69 18 137/66 (89) 98 98.4 10/10/17 21:00 98.6 73 16 147/63 (91) 98 98.6 10/10/17 21:00 Room Air 10/10/17 20:32 73 147/63 10/10/17 15:59 98.2 65 18 139/78 (98) 98 98.2 10/10/17 14:07 98.0 I&O Intake and Output 10/10/17 10/11/17 19:00 07:00 Intake Total 1090 ml Output Total 100 ml Balance 990 ml Intake Oral 480 ml IV Total 610 ml Drainage Total 100 ml Drains: wound vac Cardiovascular: RSR Respiratory: clear Abdomen: soft, non-tender, present bowel sounds Extremities: no cyanosis Laboratory Tests Test 10/11/17 05:30 White Blood Count 11.0 K/UL (4.8-10.8) H Red Blood Count 3.14 M/UL (4.20-5.40) L Hemoglobin 8.8 G/DL (12.0-16.0) L Hematocrit 27.5 % (37.0-47.0) L Mean Corpuscular Volume 88 FL (80-99) Mean Corpuscular Hemoglobin 27.9 PG (27.0-31.0) Mean Corpuscular Hemoglobin Concent 31.8 G/DL (32.0-36.0) L Red Cell Distribution Width 16.3 % (11.6-14.8) H Platelet Count 449 K/UL (150-450) Mean Platelet Volume 4.1 FL (6.5-10.1) L Neutrophils (%) (Auto) 60.4 % (45.0-75.0) Lymphocytes (%) (Auto) 15.6 % (20.0-45.0) L Monocytes (%) (Auto) 9.2 % (1.0-10.0) Eosinophils (%) (Auto) 13.5 % (0.0-3.0) H Basophils (%) (Auto) 1.3 % (0.0-2.0) Sodium Level 130 MMOL/L (136-145) L Potassium Level 4.4 MMOL/L (3.5-5.1) Chloride Level 96 MMOL/L (98-107) L Carbon Dioxide Level 26 MMOL/L (21-32) Anion Gap 8 mmol/L (5-15) Blood Urea Nitrogen 20 mg/dL (7-18) H Creatinine 3.0 MG/DL (0.55-1.30) H Estimat Glomerular Filtration Rate 16.0 mL/min (>60) Glucose Level 82 MG/DL (74-106) Calcium Level 8.3 MG/DL (8.5-10.1) L Assessment Post-op Diagnosis 1. abdominal wall abscess 2. dehiscence of abdominal wall wound 3. appendicitis Plan Problems: (1) Open abdominal wall wound (2) Abdominal wall abscess at site of surgical wound (3) Wound, open, abdominal wall, anterior with complication Assessment & Plan: large prior abdominal surgical wound that in portions skin has come together but underlying large area of open fluid collection with possible pockets of abscess. larger epigastric wound seems to connect with lower aspect small wound. lots of murky fluid evacuated, wound deep and tracking in all directions. per patient they have only been placing a small cover on wounds and no packing has been performed. had wound VAC prior but only for 3 days as per patient. I fear that there is something much larger and more serious going underneath the skin and with drainage and looks of wound they are only worsening. CT reviewed and noted. fortunately no large abscess but can note tracking of wound As for possible appendicitis, noted 1cm appendix with stranding on CT. clinically patient has generalized abdominal pain and not focal to RLQ. she has had generalized abdominal pain for some time now and likely related to large wound. no n/v/f/c. leukocytosis 18k but can be related to multiple etiologies. leukocytosis stable... overall improving. s/p wound exploration, debridement, open appendectomy, wound vac placement. -wound vac care -discharge thank you for this consultation Darrius Figueredo Oct 11, 2017 13:29
--- NOTE | 2017-10-11 13:34 | GI Progress Note ---
Assessment/Plan Problems: (1) Postoperative ileus ICD Codes: K91.89 - Other postprocedural complications and disorders of digestive system; K56.7 - Ileus, unspecified SNOMED: 485263309 (2) Anemia ICD Codes: D64.9 - Anemia, unspecified SNOMED: 383049401, 951240574 Qualifiers: Qualified Codes: D64.9 - Anemia, unspecified (3) ESRD on hemodialysis ICD Codes: N18.6 - End stage renal disease; Z99.2 - Dependence on renal dialysis SNOMED: 795657806, 02397634 (4) Morbid obesity with BMI of 40.0-44.9, adult ICD Codes: E66.01 - Morbid (severe) obesity due to excess calories; Z68.41 - Body mass index (BMI) 40.0-44.9, adult SNOMED: 532309819, 791545401 (5) Open abdominal wall wound ICD Codes: S31.109A - Unspecified open wound of abdominal wall, unspecified quadrant without penetration into peritoneal cavity, initial encounter SNOMED: 146717218 Qualifiers: Qualified Codes: S31.109A - Unspecified open wound of abdominal wall, unspecified quadrant without penetration into peritoneal cavity, initial encounter (6) appendicitis s/p open appendectomy Status: stable Status Narrative Discussed with Dr. Lindo. Assessment/Plan post operative ileus >> passing gas, has BM diet per surgical recs pain mgmt ppi electrolyte correction >> fluid restriction zofran fu labs dc planning The patient was seen and examined at bedside and all new and available data was reviewed in the patients chart. I agree with the above findings, impression and plan. (Patient seen earlier today. Signature stamp does not reflect patient encounter time.). - Chip Lindo MD Subjective Subjective improved tolerating diet Objective Last 24 Hour Vital Signs Date Time Temp Pulse Resp B/P (MAP) Pulse Ox O2 Delivery O2 Flow Rate FiO2 10/11/17 11:56 98.0 68 24 159/74 (102) 98 98.0 10/11/17 07:58 98.4 72 24 152/70 (97) 98 98.4 10/11/17 07:56 152/70 10/11/17 07:55 72 152/70 10/11/17 07:30 Room Air 10/11/17 04:00 99.1 72 24 134/61 (85) 98 99.1 10/11/17 00:00 98.4 69 18 137/66 (89) 98 98.4 10/10/17 21:00 98.6 73 16 147/63 (91) 98 98.6 10/10/17 21:00 Room Air 10/10/17 20:32 73 147/63 10/10/17 15:59 98.2 65 18 139/78 (98) 98 98.2 10/10/17 14:07 98.0 Intake and Output 10/10/17 10/11/17 19:00 07:00 Intake Total 1090 ml Output Total 100 ml Balance 990 ml Intake Oral 480 ml IV Total 610 ml Drainage Total 100 ml Laboratory Tests Test 10/11/17 05:30 White Blood Count 11.0 K/UL (4.8-10.8) H Red Blood Count 3.14 M/UL (4.20-5.40) L Hemoglobin 8.8 G/DL (12.0-16.0) L Hematocrit 27.5 % (37.0-47.0) L Mean Corpuscular Volume 88 FL (80-99) Mean Corpuscular Hemoglobin 27.9 PG (27.0-31.0) Mean Corpuscular Hemoglobin Concent 31.8 G/DL (32.0-36.0) L Red Cell Distribution Width 16.3 % (11.6-14.8) H Platelet Count 449 K/UL (150-450) Mean Platelet Volume 4.1 FL (6.5-10.1) L Neutrophils (%) (Auto) 60.4 % (45.0-75.0) Lymphocytes (%) (Auto) 15.6 % (20.0-45.0) L Monocytes (%) (Auto) 9.2 % (1.0-10.0) Eosinophils (%) (Auto) 13.5 % (0.0-3.0) H Basophils (%) (Auto) 1.3 % (0.0-2.0) Sodium Level 130 MMOL/L (136-145) L Potassium Level 4.4 MMOL/L (3.5-5.1) Chloride Level 96 MMOL/L (98-107) L Carbon Dioxide Level 26 MMOL/L (21-32) Anion Gap 8 mmol/L (5-15) Blood Urea Nitrogen 20 mg/dL (7-18) H Creatinine 3.0 MG/DL (0.55-1.30) H Estimat Glomerular Filtration Rate 16.0 mL/min (>60) Glucose Level 82 MG/DL (74-106) Calcium Level 8.3 MG/DL (8.5-10.1) L Height (Feet): 5 Height (Inches): 2.00 Weight (Pounds): 210 General Appearance: WD/WN, no apparent distress, alert Cardiovascular: normal rate Respiratory/Chest: normal breath sounds, no respiratory distress Abdominal Exam: normal bowel sounds, non tender, soft, incision site Extremities: normal range of motion, non-tender Melissa Boss NP Oct 11, 2017 13:34
--- NOTE | 2017-10-11 14:34 | Cardiac Electrophysiology PN ---
Assessment/Plan Assessment/Plan Assessment: 1. Chest pain. Serial troponin, no indication for cath at this time, elevation likely from infection and ESRD 2. h/o recent 2V CABG and PCI. Outpatient stress test to evaluate status of stent and bypass grafts, currently no chest pain 3. Open wound to chest with stent removal s/p wound vac placement and debridement - Outpatient wound vac and home health for antibiotics 4. Sepsis 5. ESRD on HD (M/F) 6. DM with neuropathy 7. HTN 8. HLD 9. Anemia 10. VIK 11. Diastolic heart failure DW RN and Subjective Subjective No CP or SOB. at bedside Objective Last 24 Hour Vital Signs Date Time Temp Pulse Resp B/P (MAP) Pulse Ox O2 Delivery O2 Flow Rate FiO2 10/11/17 11:56 98.0 68 24 159/74 (102) 98 98.0 10/11/17 07:58 98.4 72 24 152/70 (97) 98 98.4 10/11/17 07:56 152/70 10/11/17 07:55 72 152/70 10/11/17 07:30 Room Air 10/11/17 04:00 99.1 72 24 134/61 (85) 98 99.1 10/11/17 00:00 98.4 69 18 137/66 (89) 98 98.4 10/10/17 21:00 98.6 73 16 147/63 (91) 98 98.6 10/10/17 21:00 Room Air 10/10/17 20:32 73 147/63 10/10/17 15:59 98.2 65 18 139/78 (98) 98 98.2 Intake and Output 10/10/17 10/11/17 19:00 07:00 Intake Total 1090 ml Output Total 100 ml Balance 990 ml Intake Oral 480 ml IV Total 610 ml Drainage Total 100 ml Laboratory Tests Test 10/11/17 05:30 White Blood Count 11.0 K/UL (4.8-10.8) H Red Blood Count 3.14 M/UL (4.20-5.40) L Hemoglobin 8.8 G/DL (12.0-16.0) L Hematocrit 27.5 % (37.0-47.0) L Mean Corpuscular Volume 88 FL (80-99) Mean Corpuscular Hemoglobin 27.9 PG (27.0-31.0) Mean Corpuscular Hemoglobin Concent 31.8 G/DL (32.0-36.0) L Red Cell Distribution Width 16.3 % (11.6-14.8) H Platelet Count 449 K/UL (150-450) Mean Platelet Volume 4.1 FL (6.5-10.1) L Neutrophils (%) (Auto) 60.4 % (45.0-75.0) Lymphocytes (%) (Auto) 15.6 % (20.0-45.0) L Monocytes (%) (Auto) 9.2 % (1.0-10.0) Eosinophils (%) (Auto) 13.5 % (0.0-3.0) H Basophils (%) (Auto) 1.3 % (0.0-2.0) Sodium Level 130 MMOL/L (136-145) L Potassium Level 4.4 MMOL/L (3.5-5.1) Chloride Level 96 MMOL/L (98-107) L Carbon Dioxide Level 26 MMOL/L (21-32) Anion Gap 8 mmol/L (5-15) Blood Urea Nitrogen 20 mg/dL (7-18) H Creatinine 3.0 MG/DL (0.55-1.30) H Estimat Glomerular Filtration Rate 16.0 mL/min (>60) Glucose Level 82 MG/DL (74-106) Calcium Level 8.3 MG/DL (8.5-10.1) L Objective General Appearance: no apparent distress EENT: PERRL/EOMI, normal ENT inspection Neck: normal alignment, supple Cardiovascular: normal peripheral pulses, normal rate, regular rhythm Respiratory/Chest: chest wall non-tender Abdomen: normal bowel sounds, non tender Extremities: normal range of motion. No edema Neurologic: janitorial assistant II-XII grossly normal Brenton Mayer MD Oct 11, 2017 14:34
[2017-10-11] MEDS ORDERED: COZAAR50 MG ORAL (14:40)
[2017-10-11] MEDS ORDERED: CIPROFLOXACIN250 MG ORAL (14:40)
[2017-10-11] MEDS ORDERED: PROTONIX40 MG ORAL (14:40)
[2017-10-11] MEDS ORDERED: FUROSEMIDE80 MG ORAL (14:40)
[2017-10-11] MEDS ORDERED: LIPITOR20 MG ORAL (14:40)
[2017-10-11] MEDS ORDERED: STARLIX60 MG ORAL (14:40)
[2017-10-11] MEDS ORDERED: COREG25 MG ORAL (14:40)
[2017-10-11] MEDS ORDERED: ZYVOX600 MG ORAL (14:40)
[2017-10-11] MEDS ORDERED: DOK100 M1 ORAL (14:40)
[2017-10-11] MEDS ORDERED: JANUVIA25 MG ORAL (14:40)
[2017-10-11 16:00] VITALS: BP 134/62
[2017-10-11] MEDS ORDERED: Tubing IV Secondary IV ONE (16:57)
--- NOTE | 2017-10-11 19:28 | General Progress Note ---
Assessment/Plan Status: stable Assessment/Plan 1. Anemia due to underlying kidney disease. --> Continue to closely monitor for improvement. --> Anemia panel has been reviewed, will trend daily. --> Hgb goal >7 2. Anemia due to underlying chronic disease. --> Closely monitor for improvement. --> 10/05: 1 unit PRBC. 3. Leukocytosis, potentially secondary to sternotomy wire infection. --> Consider evaluation with ID Service. --> WBC improving 4. Diabetes mellitus. A1c goal less than 6. 5. Hypertension. Systolic blood pressure goal less than 140. 6. End-stage renal disease, on hemodialysis. Closely monitor. 7. Myocardial infarction, status post 12 stent placements, status post coronary artery bypass grafting. The time the note was entered does not necessarily correspond to the time the patient was seen. Subjective Date patient seen: Oct 11, 2017 Time patient seen: 06:00 ROS Limited/Unobtainable: Yes Allergies: Coded Allergies: ADHESIVE (Verified Allergy, Unknown, 09/29/17) AMLODIPINE (Verified Allergy, Unknown, 09/29/17) INSULIN ASPART (Verified Allergy, Unknown, 09/29/17) INSULIN LISPRO (Verified Allergy, Unknown, 09/29/17) IODINE (Verified Allergy, Unknown, 09/29/17) PENICILLINS (Verified Allergy, Unknown, 09/29/17) All Systems: reviewed and negative except above Subjective Pt is stable and medically cleared for DC.Vitals are stable. H/H stable. Objective Last 24 Hour Vital Signs Date Time Temp Pulse Resp B/P (MAP) Pulse Ox O2 Delivery O2 Flow Rate FiO2 10/11/17 16:00 98.0 67 20 134/62 (86) 98.0 10/11/17 11:56 98.0 68 24 159/74 (102) 98 98.0 10/11/17 07:58 98.4 72 24 152/70 (97) 98 98.4 10/11/17 07:56 152/70 10/11/17 07:55 72 152/70 10/11/17 07:30 Room Air 10/11/17 04:00 99.1 72 24 134/61 (85) 98 99.1 10/11/17 00:00 98.4 69 18 137/66 (89) 98 98.4 10/10/17 21:00 98.6 73 16 147/63 (91) 98 98.6 10/10/17 21:00 Room Air 10/10/17 20:32 73 147/63 Intake and Output 10/10/17 10/11/17 19:00 07:00 Intake Total 1090 ml Output Total 100 ml Balance 990 ml Intake Oral 480 ml IV Total 610 ml Drainage Total 100 ml Laboratory Tests 10/11/17 05:30: White Blood Count 11.0H, Red Blood Count 3.14L, Hemoglobin 8.8L, Hematocrit 27.5L, Mean Corpuscular Volume 88, Mean Corpuscular Hemoglobin 27.9, Mean Corpuscular Hemoglobin Concent 31.8L, Red Cell Distribution Width 16.3H, Platelet Count 449, Mean Platelet Volume 4.1L, Neutrophils (%) (Auto) 60.4, Lymphocytes (%) (Auto) 15.6L, Monocytes (%) (Auto) 9.2, Eosinophils (%) (Auto) 13.5H, Basophils (%) (Auto) 1.3, Sodium Level 130L, Potassium Level 4.4, Chloride Level 96L, Carbon Dioxide Level 26, Anion Gap 8, Blood Urea Nitrogen 20H, Creatinine 3.0H, Estimat Glomerular Filtration Rate 16.0, Glucose Level 82 , Calcium Level 8.3L Height (Feet): 5 Height (Inches): 2.00 Weight (Pounds): 210 General Appearance: no apparent distress, alert EENT: PERRL/EOMI Neck: normal alignment Cardiovascular: normal peripheral pulses Respiratory/Chest: normal breath sounds Abdomen: soft Lailto Cole MD Oct 11, 2017 19:28
--- NOTE | 2017-10-15 23:59 | Discharge Summary ---
Discharge Summary Hospital Course Date of Admission Sep 29, 2017 at 02:59 Date of Discharge Oct 11, 2017 at 16:58 Admitting Diagnosis ACUTE CORONARY SYNDROME HPI This is a 57 y/o female with a PMH of ESRD on HD, morbid obesity, DM, and recent 2V CABG in May 2017 at [facility] c/b stent infection and removal s/p IV abx who presented from [facility] for chest pain. Per , patient has been having sustained feeling of chest pressure for the last several days that has been progressively worsening. also states that patient has been in the hospital or rehab for the last several months and recently started dialysis 3 months ago. Patient has been receiving abdominal wound care at [facility] but the wound has been progressively worsening per family. In the ED, patient's EKG did not show any acute ST changes and initial troponin was negative. Patient's vitals were stable and patient was further admitted to [facility]. At this time, patient continues to report feeling of chest pressure. Also reports abdominal pain from wound infection. Denies n/v, f/c, headaches, sob. Consultations Dr. Quirino Starkey [facility] Hospital Course She was admitted for cardiac monitoring. She was seen by pulverizer feeder. Serial troponin, no indication for cath at this time, elevation likely from infection and ESRD Continue aspirin, atorvastatin Continue home medications, coreg, isordil, losartan Outpatient stress test to evaluate status of stent and bypass grafts She had a large abdominal wound. Surgery was called to evaluate. Wound care was done. CT of the abdomen was done and showed Appendicitis. Appendix measures 1 cm with mild surrounding stranding. On 10/02/17, she underwent: Procedure: 1. Excisional debridement of abdominal wall soft tissue and fascia 2. drainage of abdominal wall abscess 3. opening of prior abdominal wall closure 4. diagnostic laparoscopy 5. open appendectomy 6. wound vac placement to large complex abdominal wall wound Findings showed: abdominal wall abscess; dehiscence of abdominal wall wound and appendicitis. She was followed by ID and was given aztreonam, Flagyl, vancomycin, and Cipro. She has a history of ESRD on HD. She was continued on inpatient HD. There was a drop in hemoglobin to 7.7, she received 2 units PRBC. She also had anemia , anemia work-up showed anemia from chronic and kidney disease. She was given procrit. She had hypokalemia that was corrected. and hyponatremia that improved with fluid restriction. Post-operatively, she continued to have pain. and c/o N/V. GI was consulted. Narcotics decreased. She stated that her pain has been improved. A private detective image was obtained noted a mildly dilated left upper quadrant small bowel loops which could indicate ileus or early/partial small bowel obstruction. The patient did note she was passing gas and had a BM. She was given bowel regimen. Serial KUB was done. on 10/09/17, repeat KUB showed Nonspecific bowel gas pattern with air predominantly in colonic loops, which do not appear dilated. Post-op ileus resolved. She was then cleared for discharge home with po antibiotics. Assessment/Plan Problem List: (1) Sepsis ICD Codes: A41.9 - Sepsis, unspecified organism SNOMED: 75485965 (2) Anemia ICD Codes: D64.9 - Anemia, unspecified SNOMED: 078249711, 196913859 Qualifiers: Qualified Codes: D64.9 - Anemia, unspecified (3) ESRD on hemodialysis ICD Codes: N18.6 - End stage renal disease; Z99.2 - Dependence on renal dialysis SNOMED: 377044741, 18451247 (4) Morbid obesity with BMI of 40.0-44.9, adult ICD Codes: E66.01 - Morbid (severe) obesity due to excess calories; Z68.41 - Body mass index (BMI) 40.0-44.9, adult SNOMED: 562693593, 212188435 (5) Chest pain ICD Codes: R07.9 - Chest pain, unspecified SNOMED: 42831038 (6) Wound, open, abdominal wall, anterior with complication ICD Codes: S31.109A - Unspecified open wound of abdominal wall, unspecified quadrant without penetration into peritoneal cavity, initial encounter SNOMED: 547627275 Qualifiers: Qualified Codes: S31.109A - Unspecified open wound of abdominal wall, unspecified quadrant without penetration into peritoneal cavity, initial encounter (7) Abdominal wall abscess at site of surgical wound ICD Codes: T81.4XXA - Infection following a procedure, initial encounter SNOMED: 917315165 (8) Open abdominal wall wound ICD Codes: S31.109A - Unspecified open wound of abdominal wall, unspecified quadrant without penetration into peritoneal cavity, initial encounter SNOMED: 185909589 Qualifiers: Qualified Codes: S31.109A - Unspecified open wound of abdominal wall, unspecified quadrant without penetration into peritoneal cavity, initial encounter (9) Hypokalemia ICD Codes: E87.6 - Hypokalemia SNOMED: 92540363 (10) Hyponatremia ICD Codes: E87.1 - Hypo-osmolality and hyponatremia SNOMED: 73681568 (11) appendicitis s/p open appendectomy (12) s/p wound exploration and debridement (13) Acute blood loss anemia ICD Codes: D62 - Acute posthemorrhagic anemia SNOMED: 842490109 (14) Diastolic CHF ICD Codes: I50.30 - Unspecified diastolic (congestive) heart failure SNOMED: 28135444, 386009886 (15) VIK (obstructive sleep apnea) ICD Codes: G47.33 - Obstructive sleep apnea (adult) (pediatric) SNOMED: 87190596 (16) Postoperative ileus ICD Codes: K91.89 - Other postprocedural complications and disorders of digestive system; K56.7 - Ileus, unspecified SNOMED: 704650359 (17) Intractable nausea and vomiting ICD Codes: R11.2 - Nausea with vomiting, unspecified SNOMED: 708959236 Status: stable, progressing Assessment/Plan Assessment: 1. Chest pain 2. h/o recent 2V CABG c/b stent infection s/p stent removal and abx 3. Open wound to chest/abdomen s/p stent removal 4. Sepsis 5. ESRD on HD (M/F) 6. DM 7. HTN 8. Hyponatremia/Hypokalemia 9. Acute blood loss anemia 10. Appendicitis s/p open appendectomy 11. Abdominal wound s/p wound exploration and debridement on 10/02 12. VIK 13. 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 Postoperative ileus --I was assigned to complete a Dc summary on this account, I was not involved with the patient management.--Alex Irizarry NP Discharge Discharge Disposition Patient was discharged home with Home Health Lisa Irizarry NP Oct 15, 2017 23:59
== END 2017-10-11 16:58 | disposition home health service (06) | DRG 856 ==
LOC: EDBD 00:46 → EMR 01:05 → EDBEDREQ 01:59 → 2E 02:59 → EDBEDREQ 04:05 → 2E 21:15 → 4W 10-09 14:39
PROC: 5A1D70Z Performance of Urinary Filtration, Intermittent, Less than 6 Hours Per Day (ICD-10-PCS; principal; 2017-09-29)
PROC: 0DTJ0ZZ Resection of Appendix, Open Approach (ICD-10-PCS; 2017-10-02)
PROC: 2W13X6Z Compression of Abdominal Wall using Pressure Dressing (ICD-10-PCS; 2017-10-02)
PROC: 0DJD4ZZ Inspection of Lower Intestinal Tract, Percutaneous Endoscopic Approach (ICD-10-PCS; 2017-10-02)
PROC: 0JB80ZZ Excision of Abdomen Subcutaneous Tissue and Fascia, Open Approach (ICD-10-PCS; 2017-10-02)
DX: T81.4XXA Infection following a procedure, initial encounter (principal); N18.6 End stage renal disease; A41.9 Sepsis, unspecified organism; L02.211 Cutaneous abscess of abdominal wall; E87.1 Hypo-osmolality and hyponatremia; I13.2 Hypertensive heart and chronic kidney disease with heart failure and with stage 5 chronic kidney disease, or end stage renal disease; I50.30 Unspecified diastolic (congestive) heart failure; Z68.41 Body mass index [BMI] 40.0-44.9, adult; K56.7 Ileus, unspecified; T81.31XA Disruption of external operation (surgical) wound, not elsewhere classified, initial encounter; D62 Acute posthemorrhagic anemia; E87.6 Hypokalemia; E11.22 Type 2 diabetes mellitus with diabetic chronic kidney disease; Z99.2 Dependence on renal dialysis; I25.10 Atherosclerotic heart disease of native coronary artery without angina pectoris; Z95.1 Presence of aortocoronary bypass graft; E66.01 Morbid (severe) obesity due to excess calories; E11.40 Type 2 diabetes mellitus with diabetic neuropathy, unspecified; I25.2 Old myocardial infarction; R06.89 Other abnormalities of breathing; E78.5 Hyperlipidemia, unspecified; G47.33 Obstructive sleep apnea (adult) (pediatric); K37 Unspecified appendicitis
CPT/HCPCS: 36415; 71045; 74018; 74176; 80048; 80053; 80061; 80076; 80202; 82550; 82553; 82607; 82728; 82746; 82962; 83036; 83540; 83550; 83615; 83735; 83880; 84100; 84238; 84443; 84484; 84550; 85007; 85025; 85060; 85384; 85610; 85651; 85730; 86140; 86850; 86900; 86901; 86920; 87040; 87070; 87075; 87081; 87181; 87205; 93005; 93970; 94003; 94150; 99285; J2250; J2405; J2710; J8499